=== PATIENT | male | born 1970 | race Caucasian/White ===

== ENCOUNTER → 2020-05-19 10:35 | Outpatient (BNVA) | payer MEDICAID, OTHER, SELFPAY | PROVIDERS: Visit Provider Nurse Practitioner Family | DX: Z20.828 Contact with and (suspected) exposure to other viral communicable diseases (principal) | CPT/HCPCS: 87635 ==

== ENCOUNTER 2020-05-22 16:46 | Inpatient (IN) | payer MEDICAID, SELFPAY ==
[2020-05-22 16:48] VITALS: BP 178/117; PULSE 119; RESP 18; TEMP 36.9; O2SAT 98; BMI 35.3
--- NOTE | 2020-05-22 17:07 | XRR_ITS ---
PROCEDURE INFORMATION: Exam: XR Chest, 1 View Exam date and time: 05/22/2020 5:18 PM Age: 49 years old Clinical indication: Other: Numbness in lower legs; Patient HX: Bilateral lower extremity paralysis; Additional info: Dyspnea TECHNIQUE: Imaging protocol: XR of the chest Views: 1 view. COMPARISON: No relevant prior studies available. FINDINGS: Lungs: Unremarkable. No consolidation. Pleural space: Unremarkable. No pleural effusion. No pneumothorax. Heart/Mediastinum: Unremarkable. No cardiomegaly. Bones/joints: Unremarkable. XR/XR chest 1V portable [id number] IMPRESSION: No acute findings.
--- NOTE | 2020-05-22 17:07 | CTR_ITS ---
PROCEDURE INFORMATION: Exam: CT Head Without Contrast Exam date and time: 05/22/2020 5:18 PM Age: 49 years old Clinical indication: Numbness / parasthesia; Additional info: Inability to move lower legs TECHNIQUE: Imaging protocol: Computed tomography of the head without contrast. Total images: 209 Radiation optimization: All CT scans at this facility use at least one of these dose optimization techniques: automated exposure control; mA and/or kV adjustment per patient size (includes targeted exams where dose is matched to clinical indication); or iterative reconstruction. COMPARISON: No relevant prior studies available. RADIATION DOSE METRICS: Total DLP (mGy-cm): 890.96 FINDINGS: Brain: Normal. No hemorrhage. Unremarkable white matter. No mass effect. Cerebral ventricles: No ventriculomegaly. Bones/joints: Unremarkable. No acute fracture. Paranasal sinuses: Visualized sinuses are unremarkable. No fluid levels. Mastoid air cells: Visualized mastoid air cells are well aerated. Soft tissues: Unremarkable. CT/CT head wo con* [id number] IMPRESSION: No acute intracranial abnormality. Radiation Dose CTDIVOL = (mGy): DLP = 890.96 (mGy-cm)
--- NOTE | 2020-05-22 17:15 | CTR_ITS ---
PROCEDURE INFORMATION: Exam: CT Cervical Spine Without Contrast Exam date and time: 05/22/2020 5:20 PM Age: 49 years old Clinical indication: Numbness; Additional info: Lower extremity paralysis TECHNIQUE: Imaging protocol: Computed tomography images of the cervical spine without contrast. Total images: 307 Radiation optimization: All CT scans at this facility use at least one of these dose optimization techniques: automated exposure control; mA and/or kV adjustment per patient size (includes targeted exams where dose is matched to clinical indication); or iterative reconstruction. COMPARISON: No relevant prior studies available. RADIATION DOSE METRICS: Total DLP (mGy-cm): 888.18 FINDINGS: Bones/joints: No visible fracture, subluxation, or dislocation. Mild reversal normal cervical lordosis which may be positional nature. Discs/Spinal canal/Neural foramina: No significant disc protrusion. No severe spinal canal stenosis. No significant neural foraminal narrowing. Lungs: Lung apices are normal. Soft tissues: Unremarkable. CT/CT cervical spin wo con* [id number] IMPRESSION: No acute findings. Radiation Dose CTDIVOL = (mGy): DLP = 888.18 (mGy-cm)
--- NOTE | 2020-05-22 17:15 | ECG_ITS ---
[facility] Test Date: 2020-05-22 Pat Name: Joey Booth Department: Room: Gender: Male Nuclear Medical Technologist: : 1970 Requested By: Harlan Claire Order Number: [id number] Martines MD: Isrrael Bermudez M.D. Measurements Intervals [place] Rate: 105 P: 72 FL: 169 QRS: 48 QRSD: 86 T: 3 QT: 329 QTc: 436 Interpretive Statements SINUS TACHYCARDIA NONSPECIFIC T-WAVE ABNORMALITY No previous ECG available for comparison Electronically Signed On 05-22-2020 17:49:47 SPECIAL EDUCATOR by Isrrael Bermudez M.D. [id number]
--- NOTE | 2020-05-22 17:20 | CTR_ITS ---
PROCEDURE INFORMATION: Exam: CT Thoracic Spine Without Contrast Exam date and time: 05/22/2020 5:18 PM Age: 49 years old Clinical indication: Numbness; Additional info: Lower extremity paralysis TECHNIQUE: Imaging protocol: Computed tomography images of the thoracic spine without contrast. Radiation optimization: All CT scans at this facility use at least one of these dose optimization techniques: automated exposure control; mA and/or kV adjustment per patient size (includes targeted exams where dose is matched to clinical indication); or iterative reconstruction. COMPARISON: No relevant prior studies available. RADIATION DOSE METRICS: Total DLP (mGy-cm): 2354.77 FINDINGS: Vertebrae: There is degenerative change in the lower thoracic spine with small anterior osteophytes. No fracture is identified. Discs/Spinal canal/Neural foramina: There is no evidence for spinal stenosis or cord compression. Other bones/joints: There is no lytic or destructive lesion. Soft tissues: Unremarkable. Pleural space: There is a small right pleural effusion CT/CT thoracic spin wo con* [id number] IMPRESSION: Mild degenerative changes. Radiation Dose CTDIVOL = (mGy): DLP = 2354.77 (mGy-cm)
--- NOTE | 2020-05-22 17:21 | CTR_ITS ---
PROCEDURE INFORMATION: Exam: CT Lumbar Spine Without Contrast Exam date and time: 05/22/2020 5:18 PM Age: 49 years old Clinical indication: Numbness; Additional info: Lower extremity paralysis TECHNIQUE: Imaging protocol: Computed tomography images of the lumbar spine without contrast. Radiation optimization: All CT scans at this facility use at least one of these dose optimization techniques: automated exposure control; mA and/or kV adjustment per patient size (includes targeted exams where dose is matched to clinical indication); or iterative reconstruction. COMPARISON: No relevant prior studies available. RADIATION DOSE METRICS: Total DLP (mGy-cm): 2354.77 FINDINGS: Vertebrae: No acute fracture. Normal alignment. T12-L1: There is mild anterior osteophyte formation is some calcification within the disc space. L1-L2: No significant disc protrusion. No severe spinal canal stenosis. No significant neural foraminal narrowing. L2-L3: No significant disc protrusion. No spinal canal stenosis. No neural foraminal narrowing. L3-L4: There is broad-based midline posterior disc herniation which extends also into the subarticular region on the right and narrows the sagittal diameter of the canal to approximately 7 mm but does not cause significant foraminal narrowing. This could be impinging upon the right L4 nerve root. L4-L5: There is diffuse posterior bulging of the disc and there are degenerative changes in the facet joints bilaterally without focal herniation or significant stenosis. L5-S1: There is decreased height of the disc spaces vacuum disc phenomenon and sclerosis of the superior endplate of S1 with diffuse posterior bulging of the disc but no focal herniation. There is some uncovertebral hypertrophy with posterior spurring which causes moderate foraminal narrowing on both sides. Other bones/joints: There is no evidence of fracture or dislocation. There is no destructive or lytic lesion. Soft tissues: Unremarkable. CT/CT lumbar spine wo con* [id number] IMPRESSION: Degenerative changes as described including L3-L4 disc herniation. Radiation Dose CTDIVOL = (mGy): DLP = 2354.77 (mGy-cm)
--- NOTE | 2020-05-22 17:21 | XRR_ITS ---
PROCEDURE INFORMATION: Exam: XR Pelvis Exam date and time: 05/22/2020 5:18 PM Age: 49 years old Clinical indication: Other: Numbness; Additional info: Lower extremity paralysis TECHNIQUE: Imaging protocol: XR pelvis. Views: 1 or 2 view. COMPARISON: No relevant prior studies available. FINDINGS: Limitations: Study is limited by portable technique. Parts of the right side of the pelvis are cut off on this examination. Bones/joints: Unremarkable. No acute fracture. Soft tissues: Unremarkable. XR/XR pelvis 1-2V* [id number] IMPRESSION: Limited portable exam. No acute finding.
--- NOTE | 2020-05-22 17:35 | ED_ITS ---
HPI - Fall General: Chief Complaint: Fall Stated Complaint: LOWER BACK PAIN Time Seen by Provider: 05/22/20 16:48 History of Present Illness: HPI Narrative: The patient is a 49-year-old male with no significantly known medical history. He comes to the ER complaining 12 hours ago at home he fell down on his knees to the ground. He says he could not get up and laid there for 12 hours until someone came and checked on him and called the ambulance. He says he cannot move his lower legs and his legs feel like they are asleep. He is able to slightly twitch his toes but no movement against gravity with his legs at all. He says prior to today when he wakes he has some tingling in his legs if he sleeps the wrong way but he has never had anything like this before. MD complaint: fall Onset (ago): hour(s) (12) Fall from: standing Fall witnessed: no Place fall occurred: home Loss of consciousness: None Prolonged down time: yes Symptoms prior to fall: none Context: tripped/slipped Severity: severe Quality: sharp and tingling Associated symptoms-after fall: Reports difficulty walking; Denies abdominal pain, chest pain, confusion, headache(s) or neck pain Review of Systems General: Reports: 10 or more systems reviewed and unremarkable except in HPI and below Const: Denies: fatigue Eyes: Denies: change in vision, blurry vision or eye redness ENMT: Denies: throat pain, swelling of lips/tongue, ear or mastoid pain or nasal congestion Card: Denies: chest pain, palpitations, irregular heart rhythm, edema, dyspnea on exertion or orthopnea Resp: Denies: dyspnea, productive cough or non-productive cough GI: Denies: abdominal pain, diarrhea or GI cramping : Denies: flank pain, urinary frequency or urinary urgency Musc: Denies: neck pain, back pain, extremity pain, joint pain, joint redness, limited range of motion or muscle weakness Skin/Breast: Denies: rash, pruritus, erythema, skin pain or skin tenderness Neuro: Reports: weakness in extremities, sensory changes and difficulty walking; Denies: headache(s), numbness in extremities, dizziness, confusion or Slurred speech present Psych: Denies: anxiety or depression Endo: Denies: polyuria All/Imm: Denies: urticaria, throat swelling or tongue swelling PFSH ED PFSH: Medical History (Updated 05/23/20 @ 01:02 by Harlan Claire MD) No pertinent past medical history Surgical History (Updated 05/23/20 @ 00:42 by Raúl Ricks MD) No pertinent past surgical history Family History (Updated 05/23/20 @ 00:42 by Raúl Ricks MD) Family/Other No problems noted. Father CAD (coronary artery disease) Social History (Updated 05/19/20 @ 09:37 by Kate Hebert LPN) Smoking and tobacco status: never smoked Alcohol intake: current Alcohol intake frequency: holidays/special occasions only History of recent travel: No Physical Exam Const: COMMON NORMALS: no acute distress, average body habitus, patient oriented x3, no limitations, healthy appearing, alert and well nourished GENERAL APPEARANCE: cooperative, comfortable, well kempt and well developed ORIENTATION/CONSCIOUSNESS: Yes awake, Yes oriented to person, Yes oriented to place and Yes oriented to time HENMT: COMMON NORMALS: normocephalic, external ears normal and Normal external nose present HEAD & SCALP: normal to inspection and normocephalic NOSE: Normal external nose present EXTERNAL EAR: Yes external ears normal MOUTH: Normal oral and palatal mucosa present THROAT: posterior oropharynx normal Eye: COMMON NORMALS: Equal, round and reactive pupils present and EOMs intact bilaterally GENERAL EYE: appearance normal, both eyes and all related structures PUPIL: Yes Equal, round and reactive pupils present Neck/C-Spine: COMMON NORMALS: full ROM, no lymphadenopathy and no JVD GENERAL: Yes normal visual inspection Lymph: LYMPHATIC: no lymphadenopathy noted Chest: COMMONS NORMALS: normal inspection of the chest and normal palpation of entire chest wall Resp: COMMON NORMALS: normal respiratory effort, No retractions, No use of acc essory muscles, clear to auscultation bilaterally and percussion normal EFFORT & INSPECTION: Yes able to speak in complete sentences AUSCULTATION: clear to auscultation bilaterally PERCUSSION: percussion normal Cardio: COMMON NORMALS: no JVD, regular rate, regular rhythm, S1 normal heart sound present, S2 normal heart sound present and Peripheral pulses 2+ throughout RATE: regular rate RHYTHM: regular rhythm HEART SOUNDS: S1 normal heart sound present and S2 normal heart sound present PERIPHERAL PULSES: Peripheral pulses 2+ throughout GI: COMMON NORMALS: Normal to inspection, nondistended, normoactive bowel sounds present, Soft to palpation, non-tender and no masses INSPECTION: Yes normal to inspection PALPATION: Yes Soft to palpation : COMMON NORMALS: Yes no CVA tenderness BLADDER/KIDNEY EXAM: Yes no CVA tenderness Back/Pelvis: COMMON NORMALS: no CVA tenderness, thoracic and lumbar spine normal to inspection, no thoracic nor lumbar tenderness and thoraco-lumbar ROM normal Extremity: COMMON NORMALS: normal to inspection, full ROM, capillary refill normal, no joint enlargement and no pedal edema GENERAL: Yes normal exam except as noted Neuro: COMMON NORMALS: patient oriented x3, CN's II-XII intact bilaterally, no sensory deficits noted and gait normal SENSORIUM/ORIENTATION: Yes alert, Yes oriented to person, Yes oriented to place and Yes oriented to time OTHER: The patient has paresthesias to both legs bilaterally from the thigh down to toes. He has no voluntary movement of his lower extremities except he is able to twitch his toes. He has a normal plantar response bilaterally on testing with a pen though it is reduced in movement. He has intact sensation but he says it is reduced bilaterally and feels like both of his legs are asleep. No movement in his thighs and calves Psych: COMMON NORMALS: mental status grossly normal, Normal thought process present, cooperative, normal affect and speech normal APPEARANCE: Yes well kempt ATTITUDE: Yes calm SPEECH: Yes normal speech THOUGHT PROCESS: No rmal thought process present Skin: COMMON NORMALS: no rashes or lesions noted GENERAL SKIN EXAM: no rashes or lesions noted Course Vital Signs: Vital signs: Vital Signs Temperature 98.4 F 05/22/20 16:48 Pulse Rate 87 05/22/20 18:15 Respiratory Rate 15 05/22/20 22:48 Blood Pressure 156/107 05/22/20 22:48 Pulse Oximetry 96 05/22/20 22:48 MDM - Fall MDM Narrative: Medical decision making narrative: This case has been very unusual. With a simple fall the patient was unable to get up and is now paralyzed in both his legs. He also has some neuropathy from the waist down. He was given dexamethasone and IV fluids and sent for CT which showed only dege nerative disc disease. I discussed the case with Dr. Meneses who recommended noncontrast MRI. The team came in and perform this. The radiologist called me to say there was a collection of fluid in his lower thoracic spine possibly an abscess. I again discussed with Dr. Meneses who recommended doing an MRI again of that area with IV contrast. He says since it has been longer than 4 hours there is no immediate intervention that needs to be done regarding his paralysis. I discussed with Dr. Ricks who accepts for inpatient care. We have started antibiotics to potentially treat an epidural abscess Differential Diagnosis: Fall Differential Diagnosis: Likely syncope (Epidural abscess, fracture, spinal cord compression) Lab Data: Labs: Lab Results 05/22/20 05/22/20 Range/Units 18:02 18:02 WBC 15.8 H (4.0-10.0) 10^3/ uL RBC 5.34 H (4.1-5.3) 10^6/u L Hgb 14.1 (11.7-16.6) g/dL Hct 43.0 (42.0-52.0) % MCV 80.5 (80-94) fL MCH 26.4 L (28.0-34.0) pg MCHC 32.8 (30.0-36.0) g/dL RDW 12.6 (12.1-15.1) % Plt Count 432 H (130-400) 10^3/c mm MPV 9.7 (7.4-10.4) fL Neut % (Auto) 85.0 % Lymph % (Auto) 7.5 % Howard % (Auto) 6.8 % Eos % (Auto) 0.0 % Baso % (Auto) 0.2 % Neut # (Auto) 13.44 H (1.8-7.7) 10^3/u L Lymph # (Auto) 1.2 (0.8-4.8) 10^3/u L Howard # (Auto) 1.1 H (0.2-0.9) 10^3/u L Eos # (Auto) 0.0 (0.0-0.8) 10^3/u L Baso # (Auto) 0.0 (0.0-0.1) 10^3/u L Nucleated RBC % (a uto) 0 % Nucleated RBCs # 0.0 /100WBC Sodium 135 L (136-145) mmol/L Potassium 3.6 (3.5-5.1) mmol/L Chloride 94 L (98-107) mmol/L Carbon Dioxide 30 H (22-29) mmol/L Anion Gap 14.6 (5-19) BUN 13 (6-20) mg/dL Creatinine 0.6 L (0.7-1.2) mg/dL GFR Calculation 142.6 H (90-130) mL/min Glucose 196 H (65-115) mg/dL Calculated Osmolal ity 286 (285-295) mOsm/k g Calcium 9.2 (8.5-10.5) mg/dL Total Bilirubin 0.7 (0.15-1.2) mg/dL AST 18 (0-40) U/L ALT 13 (0-41) U/L Alkaline Phosphata se 84 (40-130) IU/L Total Protein 7.5 (6.6-8.7) g/dL Albumin 3.5 (3.5-5.2) g/dL Globulin 4.0 (1.3-4.6) g/dL Ethyl Alcohol < 10 (0-10) mg/dL Discharge Plan Discharge Patient Disposition: Admitted As Inpatient Admit Provider: Raúl Ricks Clinical Impression: Paralysis of both lower limbs Leukocytosis Qualifiers: Leukocytosis type: unspecified Qualified Code(s): D72.829 - Elevated white blood cell count, unspecified Condition: Stable Coding Level of Care Code ED Patient Placement Coordinator for g Fwd Exam Comprehensive
[2020-05-22] MEDS: orphenadrine 30 mg/mL Inj 2 mL 60 MG IM (17:54)
[2020-05-22] MEDS: dexamethasone 4 mg/mL INJ 10 MG IVP (17:54)
[2020-05-22] MEDS: ketorolac 30 mg/mL INJ 15 MG IVP (17:55)
[2020-05-22] MEDS: sodium chloride 0.9% 1,000 ML 999 ML IV (17:56)
[2020-05-22 18:10] LABS: Basophils % 0.2 %; Hemoglobin 14.1 g/dL (11.7-16.6); Lymphocytes # 1.2 10^3/uL (0.8-4.8); Lymphocytes % 7.5 %; Mean Corpuscular HGB Conc 32.8 g/dL (30.0-36.0); Mean Corpuscular Hemoglobin 26.4 pg (28.0-34.0); Mean Corpuscular Volume 80.5 fL (80-94); Mean Platelet Volume 9.7 fL (7.4-10.4); Monocytes # 1.1 10^3/uL (0.2-0.9); Monocytes % 6.8 %; Neutrophils # 13.44 10^3/uL (1.8-7.7); Nucleated Red Blood Cells % 0 %; Platelet Count 432 10^3/cmm (130-400); Red Blood Count 5.34 10^6/uL (4.1-5.3); Red Cell Distribution Width 12.6 % (12.1-15.1); White Blood Count 15.8 10^3/uL (4.0-10.0)
[2020-05-22 18:15] VITALS: BP 153/88; PULSE 87; RESP 18; O2SAT 99
[2020-05-22 18:31] LABS: Alanine Aminotransferase 13 U/L (0-41); Albumin Level 3.5 g/dL (3.5-5.2); Alkaline Phosphatase 84 IU/L (40-130); Anion Gap 14.6 (5-19); Aspartate Amino Transferase 18 U/L (0-40); Blood Urea Nitrogen 13 mg/dL (6-20); Calcium 9.2 mg/dL (8.5-10.5); Carbon Dioxide 30 mmol/L (22-29); Chloride 94 mmol/L (98-107); Glomerular Filtration Rate 142.6 mL/min (90-130); Glucose 196 mg/dL (65-115); Osmolality Calculated 286 mOsm/kg (285-295); Potassium 3.6 mmol/L (3.5-5.1); Sodium 135 mmol/L (136-145); Total Bilirubin 0.7 mg/dL (0.15-1.2); Total Protein 7.5 g/dL (6.6-8.7)
[2020-05-22 18:37] LABS: Alcohol Level < 10 mg/dL (0-10)
--- NOTE | 2020-05-22 19:43 | MRR_ITS ---
PROCEDURE INFORMATION: Exam: MR Lumbar Spine Without Contrast. Exam date and time: 05/22/2020 9:15 PM Age: 49 years old Clinical indication: Low back pain; Additional info: Lower extremity paralysis TECHNIQUE: Imaging protocol: Multiplanar magnetic resonance images of the lumbar spine without intravenous contrast. COMPARISON: CT lumbar spine wo con* [id number] 05/22/2020 6:42 PM FINDINGS: Vertebrae: Lumbar vertebrae show normal marrow signal throughout without evidence for fracture or replacement lesion. Spinal cord: Tip of the conus is at L2 and is unremarkable. L1-L2: There is decreased signal in the L1-L2 disc consistent with some disc desiccation and mild posterior bulging of the disc but no focal herniation or stenosis. L2-L3: No significant disc disease. No significant spinal canal stenosis. No neural foraminal stenosis. L3-L4: There is decreased height of the disc with diffuse posterior bulging and protrusion, mainly in the midline and towards the right. This causes some mild effacement of the anterior epidural space but no significant impingement or stenosis L4-L5: There is mild diffuse posterior bulging of the L4-L5 disc without focal herniation or significant stenosis. L5-S1: There is decreased height of the L5-S1 disc space with diffuse posterior bulging of the disc and reactive changes in the adjacent endplates. There is mild foraminal narrowing on both sides more on the left than on the right. Soft tissues: Unremarkable. MR/MR lumbar spine wo con* [id number] IMPRESSION: 1. Degenerative disc changes as described. 2. Please see report of CT scan of the thoracic spine which describes findings COMMENTS: Please also see MRI of the thoracic spine.
--- NOTE | 2020-05-22 19:43 | MRR_ITS ---
PROCEDURE INFORMATION: Exam: MR Thoracic Spine Without Contrast Exam date and time: 05/22/2020 9:15 PM Age: 49 years old Clinical indication: Other: Low back pain with bilat extremety paralysis; Additional info: Lower extremity paralysis TECHNIQUE: Imaging protocol: Multiplanar magnetic resonance images of the thoracic spine without contrast. COMPARISON: CT thoracic spin wo con* [id number] 05/22/2020 6:39 PM FINDINGS: Limitations: Study is significantly limited by patient motion. Vertebrae: There is normal marrow signal throughout the vertebrae without evidence of fracture or replacement lesion. There is some degenerative spurring at multiple levels. Epidural space: There is an epidural fluid collection posterior to the cord from about T7 through T11. This is most prominent at the T11 level and more towards the right than the left. This causes spinal stenosis and some cord compression at the T10 and T11 levels. Spinal cord: There is some mild focal signal within the central cord at T11 which may represent some myelomalacia. Discs/Spinal canal/Neural foramina: No significant disc disease. No significant spinal canal stenosis. Pleural space: There is a small right pleural effusion. Soft tissues: There is mild atrophy of the right paraspinous muscles in the lower thoracic spine. MR/MR thoracic spin wo con* [id number] IMPRESSION: Epidural spinal fluid collection in the lower thoracic spine as described. Infection is not excluded. Further evaluation with contrast-enhanced MRI is suggested. COMMENTS: THIS REPORT CONTAINS FINDINGS THAT MAY BE CRITICAL TO PATIENT CARE. The findings were verbally communicated via telephone conference with Harlan Claire at 11:07 PM NURSE PRN on 05/22/2020. The findings were acknowledged and understood.
--- NOTE | 2020-05-22 21:27 | PC.NURSE ---
pt off unit to MRI @ 2100
--- NOTE | 2020-05-22 22:47 | PC.NURSE ---
pt return from MRI
[2020-05-22 22:48] VITALS: BP 156/107; RESP 15; O2SAT 96
--- NOTE | 2020-05-22 23:09 | P.HP_ITS ---
Providers/Chief Complaint Admitting Physician: Raúl Ricks MD Chief Complaint: LOWER BACK PAIN History of Present Illness Joey Booth is a 49 year old male with a significant past medical surgical history presented today after sustaining a fall at home. 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 Patient is stating that he could not feel his buttocks area, felt very weird and tried to sit back in the chair when he fell on the floor, he just could not move his legs, he stayed on the floor for about 12 hours because excruciating pain, he soiled his garments 3 times with urine, this happened around 5 AM, finally he got some strength she called EMS who brought him to the ER. Diagnosis in the ER revealed hypertension, leukocytosis, sepsis, thoracic MRI is revealing fluid collection around T7 ~T11 with cord compression, another study has been requested with contrast to rule out abscess, I have started him on vancomycin and ceftriaxone, patient has sensory deficit of right medial thigh area, strength of lower extremities 1/5 Dr. Meneses has been notified and consulted by the ER physician, he was emphasized about the MRI findings. Review of Systems Const: Denies: fever(s) Eyes: Denies: change in vision ENMT: Denies: throat pain Card: Denies: chest pain Resp: Denies: dyspnea GI: Denies: abdominal pain : Denies: flank pain Musc: Reports: back pain, extremity pain, limited range of motion and muscle weakness; Denies: neck pain or extremity swelling Skin/Breast: Denies: rash Neuro: Denies: headache(s) Psych: Denies: anxiety Endo: Denies: polyuria Filemon/Lymph: Denies: easy bruising All/Imm: Denies: urticaria Medications/Allergies Home Medications Medication Instructions Recorded Confirmed Last Taken Type Vitamin C 1 tab PO DAILY@0800 05/22/20 05/22/20 05/21/20 History Allergies Allergy/AdvReac Type Severity Reaction Status Date / Time No Known Allergies Allergy Verified 05/22/20 16:55 PFSH Acute PFSH: Medical History (Updated 05/23/20 @ 00:42 by Raúl Ricks MD) No pertinent past medical history Surgical History (Updated 05/23/20 @ 00:42 by Raúl Ricks MD) No pertinent past surgical history Family History (Updated 05/23/20 @ 00:42 by Raúl Ricks MD) Family/Other No problems noted. Father CAD (coronary artery disease) Social History (Updated 05/19/20 @ 09:37 by Kate Hebert LPN) Smoking and tobacco status: never smoked Alcohol intake: current Alcohol intake frequency: holidays/special occasions only History of recent travel: No Vitals/I&O/Wt Last Vital Signs Temp 98.4 F 05/22/20 16:48 Pulse 87 05/22/20 18:15 Resp 15 05/22/20 22:48 BP 156/107 05/22/20 22:48 Pulse Ox 96 05/22/20 22:48 Weight last 48 hrs Weight 124.738 kg Physical Exam Narrative: EXAM NARRATIVE: Middle-age male morbidly obese currently laying flat comfortably in his bed Saturating well on room air Hypertensive Lower extremity strength 1/5 bilaterally, paresthesia of lower extremities, right medial thigh area has normal sensation, patient is only able to wiggle his toes, He is awake alert oriented x3 no signs of stroke S1, S2 sinus rhythm Abdomen soft distended bowel sounds present Appropriate mood and affect No skin ulcers gangrene of lower extremity No fevers or distress bilateral breath sounds however diminished during well on room air Because of his excruciating pain back was not able to be examined Data : 05/22/20 18:02 05/22/20 18:02 A&P Assessment and plan (1) Cord compression: Status: Acute (2) Fall: Status: Acute (3) Paresthesia and pain of extremity: Status: Acute (4) Paresthesia of buttock: Status: Acute Additional A&P Information Spinal cord compression We will start Decadron, I am waiting on MRI with contrast study to rule out epidural abscess however fluid collection has been seen on the MRI thoracic region Start him on antibiotics vancomycin and ceftriaxone, place Nino catheter to monitor urine output, patient does have signs of spinal cord compression Obtain blood cultures, patient is not an IV drug abuser, no active murmur appreciated, Dr. Meneses has been notified and updated about the MRI results of thoracic, lumbar spine MRI, Sepsis with unknown source Rule out epidural abscess Currently on vancomycin and ceftriaxone Sepsis criteria met with tachycardia, leukocytosis, will obtain lactic acid, Full code N.p.o. Avoid DVT prophylaxis with anticoagulant agents would use SCDs for now Attestations Medical Necessity Statement*: Anticipating stay in the hospital across more than 2 midnights rule out epidural abscess currently on antibiotics for sepsis Time Spent in Patient Care: (>than 50% of time spent in counselling and/or direct pt care on unit) . 50mins Coding Level of Care Code Acute Signal System Testing Maintainer for Chg Fwd Diagnoses Cord compression G95.20 Fall W19.XXXA Paresthesia and pain of extremity R20.2; M79.609 Paresthesia of buttock R20.2
--- NOTE | 2020-05-22 23:09 | MRR_ITS ---
PROCEDURE INFORMATION: Exam: MR Thoracic Spine With Contrast Exam date and time: 05/22/2020 11:10 PM Age: 49 years old Clinical indication: Pain in thoracic spine; Additional info: Thoracic fluid collection seen in non contrast? Abscess? Other TECHNIQUE: Imaging protocol: Multiplanar magnetic resonance images of the thoracic spine with intravenous contrast. Contrast material: PROHANCE; Contrast volume: 17 ml; Contrast route: INTRAVENOUS (IV); COMPARISON: MR thoracic spin wo con* [id number] 05/22/2020 9:24 PM FINDINGS: Vertebrae: Unremarkable. Epidural space: Rim enhancing fluid collection in the posterior epidural space extends from T7-8 to lower T11. Enhancement within the paraspinous musculature suggested on the right T9-11. Spinal canal is narrowed as discussed on prior study due to the epidural collection. Spinal cord: Unchanged. Discs/Spinal canal/Neural foramina: See above. Pleural space: Small right pleural fluid. Soft tissues: See Epidural space finding. MR/MR thoracic spine w con [id number] IMPRESSION: Posterior epidural abnormality most suspicious for abscess.
--- NOTE | 2020-05-22 23:35 | PC.PHAR ---
Vancomycin is dosed at 1500mg IVPB every 8 hours to produce a predicted trough level of 12.51 (populaltion based pharmacokinetic analysis). A trough level has been ordered from the lab to be obtained before the fourth dose to confirm and adjust if needed.
[2020-05-23] VITALS (19 sets, daily range): BP systolic 101–167; BP diastolic 52–91; PULSE 78–102; RESP 16–94; TEMP 36.4–37.3; O2SAT 93–97
--- NOTE | 2020-05-23 | SCC_ITS ---
Procedure: 1. Laminectomy with partial facetecomy T7/8 2. Laminectomy with partial facetecomy T8/9 3. Laminectomy with partial facetecomy T9/10 4. Laminectomy with partial facetecomy T10/11 76.0 seconds of fluoroscopic guidance, for a cumulative dose of 56.36 mGy, was provided to Dr. Meneses by the radiology department. C-arm images of the thoracic spine were saved for the patient's permanent record. [facility]
--- NOTE | 2020-05-23 | XR_ITS ---
WS: [id number] Exam: XR thoracic spine 3V* [id number] Date/Time of Exam: 05/23/2020 12:00 AM Reason For Exam: OR PICS Limited AP C-arm images of the lower thoracic spine are submitted for evaluation. No obvious fracture or malalignment demonstrated. A metallic marker is positioned over the T10-T11 disc level on several images. Surgical retractors are also noted superimposing the lower thoracic spine.
[2020-05-23 03:59] LABS: Add Urine Microscopic? YES; Bilirubin Urine Neg (Negative); Blood Urine 3+ (Negative); Glucose Urine UA 1+ (Normal); Ketones Urine 2+ (Negative); Leukocyte Esterase Urine 2+ (Negative); Nitrate Urine Negative (Negative); Protein Urine Neg (Negative); Urine Appearance Cloudy (CLEAR); Urine Color Yellow (Yellow); Urobilinogen Urine 4 mg/dL (Negative); pH Urine 5 (5-7)
[2020-05-23 04:01] LABS: Bacteria Urine 2+ /hpf; Squamous Epithelial Cell Urine 0-4 /hpf (0-5); Transitional Epi Cells Urine 0-4 /hpf; WBC Urine TOO NUMEROUS TO CNT /hpf (0-5)
[2020-05-23 04:02] LABS: Add Urine Culture? Yes
--- NOTE | 2020-05-23 05:06 | PC.NURSE ---
Nino insertion Attempted to place a 16F Nino in this pt but the openning of the penis was too small. Attempted a 14F and was unsuccessful. On the 3rd attempt, a 10 F Nino was placed and is patent. Urine is clear, no sediment noted. Immediate urine output is 450ml. Will continue to monitor.
[2020-05-23] MEDS: sodium chloride 0.9% 1,000 ML 999 ML IV (06:10)
[2020-05-23] MEDS: vancomycin 1,500 MG/300 ML PIGGYBACK 150 MG IV ×3 (06:11→22:51)
[2020-05-23] MEDS: cefTRIAXone 2,000 MG in sodium chloride 0.9% (plus) 50 ML 100 MG IV ×2 (06:13→14:42)
[2020-05-23 06:44] LABS: Amphetamines Screen Urine Negative (Negative); Barbiturates Screen Urine Negative (Negative); Benzodiazepines Screen Urine Negative (Negative); Cocaine Screen Urine Negative (Negative); Opiate Screen Urine Negative (Negative); PCP Screen Urine Negative (Negative); THC Screen Urine Negative (Negative)
[2020-05-23 07:32] LABS: Basophils % 0.2 %; Lymphocytes # 1.3 10^3/uL (0.8-4.8); Lymphocytes % 11.6 %; Mean Corpuscular HGB Conc 32.5 g/dL (30.0-36.0); Mean Corpuscular Hemoglobin 26.1 pg (28.0-34.0); Mean Corpuscular Volume 80.3 fL (80-94); Mean Platelet Volume 9.8 fL (7.4-10.4); Monocytes # 0.8 10^3/uL (0.2-0.9); Monocytes % 7.4 %; Neutrophils # 9.11 10^3/uL (1.8-7.7); Neutrophils % 79.7 %; Nucleated Red Blood Cells % 0 %; Platelet Count 440 10^3/cmm (130-400); Red Blood Count 4.98 10^6/uL (4.1-5.3); Red Cell Distribution Width 12.9 % (12.1-15.1); White Blood Count 11.4 10^3/uL (4.0-10.0)
[2020-05-23 08:07] LABS: Anion Gap 12.7 (5-19); Blood Urea Nitrogen 16 mg/dL (6-20); Calcium 8.9 mg/dL (8.5-10.5); Carbon Dioxide 27 mmol/L (22-29); Chloride 98 mmol/L (98-107); Glomerular Filtration Rate 142.6 mL/min (90-130); Glucose 166 mg/dL (65-115); Osmolality Calculated 283 mOsm/kg (285-295); Potassium 3.7 mmol/L (3.5-5.1); Sodium 134 mmol/L (136-145)
[2020-05-23] MEDS: sodium chloride 0.9% 1,000 ML 30 ML IV (08:10)
--- NOTE | 2020-05-23 08:23 | P.ANESASSM_ITS ---
Pre-Anesthetic Assessment Pre-Anesthetic Assessment: Height/Weight: Height 1.88 m Weight 124.738 kg Temp Pulse Resp BP Pulse Ox 98.7 F 91 18 153/91 94 05/23/20 08:00 05/23/20 08:00 05/23/20 08:00 05/23/20 08:00 05/23/20 08:00 Preop Diagnosis: epidural abcess Proposed Procedure: Operation Date: 05/23/20 08:00 Proposed Procedures p T7-T11 Spine Decompression of epidural abscess(Not Applicable) - Neo Meneses DO Familial anesthetic complications: na Was Beta Estrellita taken within 24 hours: N/A Last Intake: 22:00 Social: Social History: Alcohol (social) and No tobacco Exam: Pre-Anes Outpt Exam: alert, oriented x 3, clear to auscultation bilaterally and regular rate & rhythm Airway: Submandibular: WNL Cervical ROM: WNL MP: 2 Dentition: Full Pulmonary: Pulmonary: None reported CV/HEM: CV/HEM: None reported : : None reported Hepatic: Hepatic: None reported GI: GI: None reported Metabolic: Metabolic: Morbid obesity Musc/skel: Musc/skel: Weakness Comments: bilateral lower extremities Neuropsych: Neuropsych: None reported Anesthetic Plan: ASA status: 2E Anesthesia: General Risk of > 500 ml blood loss (7ml/kg in children): No Meds/Allergies Current Medications: Current Medications Generic Name Dose Route Start Last Admin Trade Name Freq PRN Reason Stop Dose Admin Dexamethasone 4 mg 05/23/20 09:00 05/23/20 07:59 Dexamethasone 4 Mg Tablet PO Not Given QID SANDIE Vancomycin/PEG/NAD A/Lysine/Water 1,500 mg in 300 m ls @ 150 mls/hr 05/22/20 23:30 05/23/20 07:14 Vancocin IV Not Given Q8H SANDIE Ceftriaxone Sodium 2,000 mg/ 50 mls @ 100 mls/ hr 05/23/20 03:08 05/23/20 06:13 Sodium Chloride IV 100 mls/hr Q12H SANDIE Administration Protocol Potassium Chloride 20 meq/ 1,010 mls @ 75 ml s/hr 05/23/20 03:45 05/23/20 06:12 Dextrose/Lactate d Ringer's IV 75 mls/hr .[id number] SANDIE Administration Senna/Docusate Sod ium 1 tab 05/23/20 09:00 05/23/20 07:59 Sennosides-Docus ate Tablet PO Not Given DAILY SANDIE PFSH Anesthesia PFSH: Medical History (Updated 05/23/20 @ 01:02 by Harlan Claire MD) No pertinent past medical history Surgical History (Updated 05/23/20 @ 00:42 by Raúl Ricks MD) No pertinent past surgical history Family History (Updated 05/23/20 @ 00:42 by Raúl Ricks MD) Family/Other No problems noted. Father CAD (coronary artery disease) Social History (Updated 05/19/20 @ 09:37 by Kate Hebert LPN) Smoking and tobacco status: never smoked Alcohol intake: current Alcohol intake frequency: holidays/special occasions only History of recent travel: No Data Anesthesia CBC & Chem 7: 05/23/20 06:55 05/23/20 06:55 Other Labs: Laboratory Results - last 48 hr 05/22/20 05/22/20 05/23/20 18:02 18:02 03:30 WBC 15.8 H RBC 5.34 H Hgb 14.1 Hct 43.0 MCV 80.5 MCH 26.4 L MCHC 32.8 RDW 12.6 Plt Count 432 H MPV 9.7 Neut % (Auto) 85.0 Lymph % (Auto) 7.5 [place] % (Auto) 6.8 Eos % (Auto) 0.0 Baso % (Auto) 0.2 Neut # (Auto) 13.44 H Lymph # (Auto) 1.2 [place] # (Auto) 1.1 H Eos # (Auto) 0.0 Baso # (Auto) 0.0 Nucleated RBC % (auto) 0 Nucleated RBCs # 0.0 Sodium 135 L Potassium 3.6 Chloride 94 L Carbon Dioxide 30 H Anion Gap 14.6 BUN 13 Creatinine 0.6 L GFR Calculation 142.6 H Glucose 196 H Calculated Osmolality 286 Calcium 9.2 Total Bilirubin 0.7 AST 18 ALT 13 Alkaline Phosphatase 84 Total Protein 7.5 Albumin 3.5 Globulin 4.0 Urine Color Yellow Urine Appearance Cloudy Urine pH 5 Ur Specific Dolores 1.020 Urine Protein Neg Urine Glucose (UA) 1+ Urine Ketones 2+ H Urine Blood 3+ H Urine Nitrate Negative Urine Bilirubin Neg Urine Urobilinogen 4 H Ur Leukocyte Esterase 2+ H Urine RBC 5-10 H Urine WBC Too numerous to cnt H Ur Squamous Epith Cells 0-4 H Ur Transition Epith Cell 0-4 Amorphous Sediment Not Reportable Urine Bacteria 2+ H Urine Opiates Screen Ur Barbiturates Screen Ur Phencyclidine Scrn Ur Amphetamines Screen U Benzodiazepines Scrn Urine Cocaine Screen U Marijuana (THC) Screen Ethyl Alcohol < 10 05/23/20 05/23/20 05/23/20 03:30 06:55 06:55 WBC 11.4 H RBC 4.98 Hgb 13.0 Hct 40.0 L MCV 80.3 MCH 26.1 L MCHC 32.5 RDW 12.9 Plt Count 440 H MPV 9.8 Neut % (Auto) 79.7 Lymph % (Auto) 11.6 [place] % (Auto) 7.4 Eos % (Auto) 0.0 Baso % (Auto) 0.2 Neut # (Auto) 9.11 H Lymph # (Auto) 1.3 [place] # (Auto) 0.8 Eos # (Auto) 0.0 Baso # (Auto) 0.0 Nucleated RBC % (auto) 0 Nucleated RBCs # 0.0 Sodium Potassium 3.7 Chloride 98 Carbon Dioxide 27 Anion Gap 12.7 BUN 16 Creatinine GFR Calculation Glucose Calculated Osmolality Calcium 8.9 Total Bilirubin AST ALT Alkaline Phosphatase Total Protein Albumin Globulin Urine Color Urine Appearance Urine pH Ur Specific [place]ores Urine Protein Urine Glucose (UA) Urine Ketones Urine Blood Urine Nitrate Urine Bilirubin Urine Urobilinogen Ur Leukocyte Esterase Urine RBC Urine WBC Ur Squamous Epith Cells Ur Transition Epith Cell Amorphous Sediment Urine Bacteria Urine Opiates Screen Negative Ur Barbiturates Screen Negative Ur Phencyclidine Scrn Negative Ur Amphetamines Screen Negative U Benzodiazepines Scrn Negative Urine Cocaine Screen Negative U Marijuana (THC) Screen Negative Ethyl Alcohol Micro: Microbiology 05/23/20 06:55 Blood Culture - Preliminary Blood SPECIMEN COLLECTED 05/23/20 06:58 Blood Culture - Preliminary Blood SPECIMEN COLLECTED Cardiac Studies: No Data to Display
--- NOTE | 2020-05-23 08:23 | W.PM.OPSUD ---
Surgery/Procedure H&P Update DATE OF PROCEDURE: May 23, 2020 DATE H&P PERFORMED: 05/23/20 H&P UPDATE INFORMATION: I have examined patient prior to procedure PLANNED PROCEDURE: Operation Date: 05/23/20 08:00 Proposed Procedures p T7-T11 Spine Decompression of epidural abscess(Not Applicable) - Neo Meneses DO
--- NOTE | 2020-05-23 08:26 | PM.CONSULT ---
Providers/Reason For Consult Consulting Physican/Specialty*: hospitalist Reason for Consult*: t7-T11 epidural abscess Attending Physician: Anastasia Sparks History of Present Illness History of Present Illness Joey Booth is a 49 year old male with a significant past medical surgical history presented today after sustaining a fall at home. 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 Patient is stating that he could not feel his buttocks area, felt very weird and tried to sit back in the chair when he fell on the floor, he just could not move his legs, he stayed on the floor for about 12 hours because excruciating pain, he soiled his garments 3 times with urine, this happened around 5 AM, finally he got some strength she called EMS who brought him to the ER. Diagnosis in the ER revealed hypertension, leukocytosis, sepsis, thoracic MRI is revealing fluid collection around T7 ~T11 with cord compression, another study has been requested with contrast to rule out abscess, I have started him on vancomycin and ceftriaxone, patient has sensory deficit of right medial thigh area, strength of lower extremit Review of Systems Narrative: ENT ROS: negative for nasal congestion, drainage or bleeding, sore throat, dysphagia or ear pain Eyes: PERRL Hematological and Lymphatic ROS: negative for swollen glands or abnormal bleeding Endocrine ROS: negative for polyuria/polydpsia or new changes in weight Respiratory ROS: negative for cough, shortness of breath, or wheezing Cardiovascular ROS: negative for chest pain or dyspnea on exertion Gastrointestinal ROS: negative for reflux, abdominal pain, change in bowel habits, or black or bloody stools Musculoskeletal ROS: negative for back pain, neck pain, or joint pain or swelling except for current problem Neurological ROS: negative for TIA or stoke symptoms Skin: no rashes Meds/Allergies Home Medications and Allergies Home Medications Medication Instructions Recorded Confirmed Last Taken Type Vitamin C 1 tab PO DAILY@0800 05/22/20 05/22/20 05/21/20 History Allergies Allergy/AdvReac Type Severity Reaction Status Date / Time No Known Allergies Allergy Verified 05/22/20 16:55 Current Medications Current Medications Generic Name Dose Route Start Last Admin Trade Name Maynor PRN Reason Stop Dose Admin Dexamethasone 4 mg 05/23/20 09:00 05/23/20 07:59 Dexamethasone 4 Mg Tablet PO Not Given QID SANDIE Vancomycin/PEG/NA[place]/Lysine/Water 1,500 mg in 300 mls @ 150 mls/hr 05/22/20 23:30 05/23/20 07:14 Vancocin IV Not Given Q8H SANDIE Ceftriaxone Sodium 2,000 mg/ 50 mls @ 100 mls/hr 05/23/20 03:08 05/23/20 06:13 Sodium Chloride IV 100 mls/hr Q12H SANDIE Administration Protocol Potassium Chloride 20 meq/ 1,010 mls @ 75 mls/hr 05/23/20 03:45 05/23/20 06:12 Dextrose/Lactated Ringer's IV 75 mls/hr .[id number] SANDIE Administration Senna/Docusate Sodium 1 tab 05/23/20 09:00 05/23/20 07:59 Sennosides-Docusate Tablet PO Not Given DAILY SANDIE PFSH Acute PFSH: Medical History (Updated 05/23/20 @ 01:02 by Harlan Claire MD) No pertinent past medical history Surgical History (Updated 05/23/20 @ 00:42 by Raúl Ricks MD) No pertinent past surgical history Family History (Updated 05/23/20 @ 00:42 by Raúl Ricks MD) Family/Other No problems noted. Father CAD (coronary artery disease) Social History (Updated 05/19/20 @ 09:37 by Kate Hebert LPN) Smoking and tobacco status: never smoked Alcohol intake: current Alcohol intake frequency: holidays/special occasions only History of recent travel: No Vitals/I&O/Wt Last Vital Signs Temp 98.7 F 05/23/20 08:00 Pulse 91 05/23/20 08:00 Resp 18 05/23/20 08:00 BP 153/91 05/23/20 08:00 Pulse Ox 94 05/23/20 08:00 05/22/20 05/23/2005/23/20 22:59 06:59 14:59 Output Total 1450 / 1450 Balance -1450 / -1450 Weight last 48 hrs Weight 275 lb Physical Exam Narrative: EXAM NARRATIVE: CONSTITUTIONAL: The patient is a normal appearing [] in no apparent distress. GENERAL: Patient in no acute distress. CARDIAC: Regular rate and rhythm. CHEST: Normal inspiratory effort, normal respiratory rate. ABDOMEN: Soft and nontender. SKIN: Clear, warm and intact. NEURO?PSYCH: The patient is alert and oriented to person, place and time. Sensorv /SILT Motor StrengthShoulder abduction C5 5/5Wrist extension C6 5/5Elbow extension C7 5/5Hand Biomedical Electronics Technician C8 5/5Finger abduction T15/5 Radial/ Ulnar/ Median n intact LowerSensory (SILT)Motor StrengthHin flexion L2/3Ant/inner thigh 1/5Hip adduction L2/3 1/5Knee extension L4 Lat thigh, 1/5Toe dorsiflexion L5 5/5Ankle dorsiflexion L5/ L43Ystithu flexion S1 1/5 DTRBleeps Triceps 2+Brachioradialis 2+Patellar 2+Achilles MUSCULOSKELETAL: [] UPPEREXTREMITIES: The patient had full active ROM in fingers, wrist, elbow, and shoulder. The patient demonstrated ability to fully flex/extend/abduct/adduct fingers, make ok sign, cross 2nd/3rd digits, extend 1st digit fully.. Radial pulse 2+, CR<2 seconds. LOWER EXTREMITIES: Pt has full, active ROM of toes, ankle, knee, and hip. Dorsalis pedis/posterior tibialis pulses 2+, CR<2 seconds. SPINE: Skin warm, dry, intact. Urinary Catheter Management^: Nino: Cath Placed During This Visit: yes Reason for Continuing Indwelling Catheter: Acute Urinary Retention or Obstruction Urinary Catheter Date of Insertion: 05/23/20 Urinary Catheter Time of Insertion: 04:45 Data Micro: Micro: Microbiology 05/23/20 06:55 Blood Culture - Pr eliminary Blood SPECIMEN NIECY TREVINO 05/23/20 06:58 Blood Culture - Pr eliminary Blood SPECIMEN [facility] A&P Additional A&P Information t7-t11 epidural abscess plan to take urgently to OR this am for decompression Consult Attestations Medical Necessity Statement: needs surgery Coding Level of Care Code Acute Scratch Polisher for Kathy Meza
--- NOTE | 2020-05-23 10:43 | PM.OP ---
Operative Report Date of procedure: May 23, 2020 Pre-op Diagnosis: epidural abcessT7-T11 Post-op Diagnosis: 1. Laminectomy with partial facetecomy T7/8 2. Laminectomy with partial facetecomy T8/9 3. Laminectomy with partial facetecomy T9/10 4. Laminectomy with partial facetecomy T10/11 Surgeon: Neo Meneses Anesthesia: General Estimated blood loss (mL): 100 Condition: stable Disposition: PACU Procedure: 1. Laminectomy with partial facetecomy T7/8 2. Laminectomy with partial facetecomy T8/9 3. Laminectomy with partial facetecomy T9/10 4. Laminectomy with partial facetecomy T10/11 Patient is brought to the operative suite after undergoing anesthesia was placed in prone position all areas impingement well-padded patient was prepped and draped in sterile fashion using C-arm guidance the levels were marked. Attention was brought to the T10-11 level first. The lamina of T10 was taken down using high-speed bur and the contralateral lamina was taken down as well with a high-speed bur and the medial aspect of facet joint of T10-11 was taken down medially with a high-speed bur. Kerrison rongeur was then used to take down the remaining lamina bilaterally of T10 and then take down the medial aspect of the right side of the facet. The medial aspect the superior and inferior articular process of the facet were taken down at the T10-11 level. Ligamentum flavum was taken down once is removed there was pus and acute and chronic were present. Cultures were taken of his epidural space. Along with tissue samples. Once his levels was felt to be adequately decompressed that he was then brought to the T9-10 level. Again high-speed bur was used take down the lamina bilaterally Kerrison rongeur was used to take down the lamina bilaterally up to the point where ligamentum flavum attaches. And then the medial aspect of the facet was taken down with a high-speed bur and Kerrison rongeur on the right side. Once this was all opened up ligamentum flavum was taken down from T9-T10. Again more pus was present. This level was opened up and then a curette was used to trace from the T9 level down to the T10 level and T10 down to the T11 level. And irrigate this was irrigated out. Next tender was brought to the T8-9 level again high-speed bur was used to laminectomy of T8 bilaterally along with the medial aspect of facet joint. And then Kerrison rongeur. Was used to take down remaining lamina and ligamentum flavum bilaterally. And then the right side of the medial aspect of facet joint was taken down with a high-speed bur and Kerrison rongeur again pus was present and curette was used to help remove some of this along with irrigation and this process repeated at T7 T7 laminectomy was performed with high-speed bur bilaterally Kerrison rongeur and ligamentum flavum was taken down. Medial aspect facet joints taken down with a Kerrison rongeur. Again pus was present irrigation was done once was all irrigated out the dura was intact look to be in good repair. Did not see any more evidence of any pus at these levels. I felt bilaterally with the curette and pulled out as much fat and pus as I could at the all these levels. Both got a complete decompression of the cord. Wounds were irrigated and then they were closed with Vicryl. Thoracolumbar fascia was closed with Vicryl. Skin was closed with 2-0 Vicryl and Monocryl. And sterile dressings were applied. Patient was then transferred to the PACU in stable condition.
--- NOTE | 2020-05-23 11:13 | SUR.PHASEI ---
1113 PT HAS MOVEMENT IN ALL EXTREMITIES, WEAK LOWER EXTREMITIES
--- NOTE | 2020-05-23 11:21 | SUR.PHASEI ---
1105 ART LINE REMOVED FROM R. WRIST, PRESSURE APPLIED
--- NOTE | 2020-05-23 11:22 | SUR.PHASEI ---
1120 ART LINE LOCATION, NO BLEEDING, PRESSURE DRESSING APPLIED
--- NOTE | 2020-05-23 12:12 | ANE.PACU2 ---
Inpatient post-anesthesia follow up: Airway intact: Yes Vital signs: Temperature 97.6 F Pulse Rate [Monito r] 119 Pulse Rate 86 Respiratory Rate 18 Blood Pressure [Ri ght Arm] 178/117 Blood Pressure 144/75 Pulse Oximetry 95 Oxygen Delivery Me thod Room Air Oxygen Flow Rate 8 Fraction of Inspir ed Oxygen Hydration adequate: Yes Nausea and vomiting: No Pain level: 2 Additional Comments: Sedated
--- NOTE | 2020-05-23 12:42 | PM.PN ---
Subjective Subjective: Interval history: Patient was seen postop did not have any complaints at that time. Stated pain was under control. Vitals/I&O/Wt Last Vital Signs Temp 99.1 F 05/23/20 15:48 Pulse 80 05/23/20 15:48 Resp 18 05/23/20 15:48 BP 137/81 05/23/20 15:48 Pulse Ox 96 05/23/20 15:48 05/23/20 05/23/20 05/23/20 06:59 14:59 22:59 Intake Total 50 / 50 640 / 640 890 / 1530 Output Total 1450 / 1450 350 / 350 400 / 750 Balance -1400 / -1400 290 / 290 490 / 780 Weight last 48 hrs Weight 124.738 kg Physical Exam Narrative: EXAM NARRATIVE: General -alert awake and oriented in no apparent distress HEENT- grossly unremarkable Chest- nonlabored respiration Abdomen -soft nontender CVS -normal sinus rhythm - Nino in place Extremities- no deficits Urinary Catheter Management^: Nino: Cath Placed During This Visit: yes Reason for Continuing Indwelling Catheter: Acute Urinary Retention or Obstruction Urinary Catheter Date of Insertion: 05/23/20 Urinary Catheter Time of Insertion: 04:45 Data : 05/23/20 06:55 05/23/20 06:55 Micro: Microbiology 05/23/20 09:49 Gram Stain - Final Back 05/23/20 06:55 Blood Culture - Preliminary Blood SPECIMEN COLLECTED 05/23/20 06:58 Blood Culture - Preliminary Blood SPECIMEN COLLECTED A&P Assessment and plan (1) Cord compression: Status: Acute (2) Fall: Status: Acute (3) Paresthesia and pain of extremity: Status: Acute (4) Paresthesia of buttock: Status: Acute Additional A&P Information Spinal cord compression due to T10 epidural abscess - Ortho spine on consult - S/p Laminectomy with partial facetomy at T7-T11 with pus noted b/w T9-T11 - Continue broad spectrum abx - Leukocytosis improving today - Follow up on blood culture and OR wound culture - Further abx plan based on culture and sensitivities - Post op managemet per ortho - Pain control - PT consult - Repeat CBC/CMP - May consider ID consult Accelerated hypertension -Likely to improve with pain control - P.r.n. anti-hypertensive For SBP > 180 or DBP>100 DVT ppx - SCDs - Hold heparin until ok with surgery Attestations Medical Necessity Statement*: Will require further hospitalization for management of epidural abscess status post surgery requiring IV antibiotics and pain control Time Spent in Patient Care: Greater than 35 minutes (>than 50% of time spent in counselling and/or direct pt care on unit). Coding Level of Care Code Acute Regional Account Manager for Chg Fwd Diagnoses Cord compression G95.20 Fall W19.XXXA Paresthesia and pain of extremity R20.2; M79.609 Paresthesia of buttock R20.2
[2020-05-23] MEDS: docusate sodium 100 mg Capsule PO (17:17)
--- NOTE | 2020-05-23 21:33 | PC.PHAR ---
Vancomycin is dosed at 1500m IVP every 8 hours with a trough level ordered before the fourth dose.
--- NOTE | 2020-05-23 21:41 | PC.PHAR ---
Vancomycin dosage is increased to 500mg IVPB every 8 hours.
[2020-05-23 23:11] LABS: Estmated Average Glucose 192; Hemoglobin A1C 8.3 % (4.0-6.0)
[2020-05-24] VITALS: BP 144/78; PULSE 93; RESP 24; TEMP 37.9; O2SAT 92
[2020-05-24] MEDS: cefTRIAXone 2,000 MG in sodium chloride 0.9% (plus) 50 ML 100 MG IV ×2 (03:43→18:04)
[2020-05-24 03:54] VITALS: BP 148/82; PULSE 83; RESP 22; TEMP 37.8; O2SAT 93
[2020-05-24] MEDS: vancomycin 1,500 MG/300 ML PIGGYBACK 150 MG IV ×3 (05:35→21:48)
[2020-05-24] MEDS: enoxaparin 40 mg/0.4 mL Syringe SUBCUT (05:40)
--- NOTE | 2020-05-24 05:52 | PC.NURSE ---
Patient summary Patient did well tonight. He had little pain and denied pain medication. He has ran a temp of 100 tonight, but complained of being very hot. His urine output was good. His urine is dark yellow with some odor to it. His vitals were good tonight. Overall there was no concerns on this shift.
[2020-05-24 07:38] LABS: Chol HDL Ratio 6.11 mg/dL (1.0-5.00); Cholesterol 171 mg/dL (0-200); HDL Cholesterol 28 mg/dL (60-100); LDL Cholesterol Calculated 123 mg/dL (50-129); LDL HDL Ratio 4.39 RATIO (0.00-3.22); Triglycerides 99 mg/dL (0-150)
[2020-05-24 08:00] VITALS: BP 147/84; PULSE 75; RESP 16; TEMP 37.3; O2SAT 93
[2020-05-24] MEDS: sennosides-docusate Tablet 1 TAB PO (09:57)
[2020-05-24] MEDS: docusate sodium 100 mg Capsule PO ×2 (09:57→18:02)
[2020-05-24] MEDS: ascorbic acid 500 mg Tablet PO (10:02)
--- NOTE | 2020-05-24 10:09 | P.PN_ITS ---
Subjective Subjective: Interval history: pain controlled. patient feels like strength is slightly improved Vitals/I&O/Wt Last Vital Signs Temp 99.1 F 05/24/20 08:00 Pulse 75 05/24/20 08:00 Resp 16 05/24/20 08:00 BP 147/84 05/24/20 08:00 Pulse Ox 93 05/24/20 08:00 05/23/20 05/24/20 05/24/20 22:59 06:59 14:59 Intake Total 1950 / 2640 1350 / 3990 120 / 120 Output Total 400 / 750 1200 / 1950 Balance 1550 / 1890 150 / 2040 120 / 120 Weight last 48 hrs Weight 275 lb Physical Exam Narrative: EXAM NARRATIVE: sensation intact 2/5 strencth in ankles and plantar flexion Urinary Catheter Management^: Nino: Cath Placed During This Visit: yes Reason for Continuing Indwelling Catheter: Acute Urinary Retention or Obstruction Urinary Catheter Date of Insertion: 05/23/20 Urinary Catheter Time of Insertion: 04:45 Data : 05/23/20 06:55 05/23/20 06:55 Micro: Microbiology 05/23/20 03:30 Urine Culture - Preliminary Urine,Clean Catch Strep agalactiae - (group b) 05/23/20 06:55 Blood Culture - Preliminary Blood NEGATIVE TO DATE 05/23/20 06:58 Blood Culture - Preliminary Blood NEGATIVE TO DATE 05/23/20 09:49 Gram Stain - Final Back A&P Additional A&P Information POD#1 epidural abscess decompression T7-T11 cultures taken in surgery awaiting results Patient will need intermediate frame tender abx- outpatient management with Infectious disease or whoever does this service around here. He needs a PICC line Needs spinal cord rehab after D/C - case management manager to set up Attestations Medical Necessity Statement*: cultures taken in surgery awaiting results Patient will need intermediate frame tender abx- outpatient management with Infectious disease or whoever does this service around here. He needs a PICC line Needs spinal cord rehab after D/C - case management manager to set up Coding Level of Care Code Acute Commercial Counsel for Kathy Meza
[2020-05-24 12:00] VITALS: BP 157/90; PULSE 83; RESP 17; TEMP 37.6; O2SAT 94
--- NOTE | 2020-05-24 15:26 | P.PN_ITS ---
Subjective Subjective: Interval history: No new clinical events overnight. Patient did not have any complaints. Was sitting up at the bedside. Noted improvement in lower extremity paresthesias. No chest pain or shortness of breath. Denied fever chills. Vitals/I&O/Wt Last Vital Signs Temp 99.9 F H 05/24/20 19:26 Pulse 90 05/24/20 19:26 Resp 18 05/24/20 19:26 BP 151/85 05/24/20 19:26 Pulse Ox 92 05/24/20 19:26 05/24/20 05/24/20 05/24/20 06:59 14:59 22:59 Intake Total 1400 / 4040 540 / 540 240 / 780 Output Total 1200 / 1950 1000 / 1000 700 / 1700 Balance 200 / 2090 -460 / -460 -460 / -920 Physical Exam Narrative: EXAM NARRATIVE: General -alert awake and oriented in no apparent distress HEENT- grossly unremarkable Chest- nonlabored respiration Abdomen -soft nontender CVS -normal sinus rhythm - Nino in place Psych- cooperative Extremities-no edema Urinary Catheter Management^: Nino: Cath Placed During This Visit: yes Reason for Continuing Indwelling Catheter: Acute Urinary Retention or Obstruction Urinary Catheter Date of Insertion: 05/23/20 Urinary Catheter Time of Insertion: 04:45 Data : 05/23/20 06:55 05/23/20 06:55 Micro: Microbiology 05/23/20 09:49 Gram Stain - Final Back Anaerobic Culture - Preliminary Tissue Culture - Preliminary Strep agalactiae - (group b) 05/23/20 03:30 Urine Culture - Preliminary Urine,Clean Catch Strep agalactiae - (group b) 05/23/20 06:55 Blood Culture - Preliminary Blood NEGATIVE TO DATE 05/23/20 06:58 Blood Culture - Preliminary Blood NEGATIVE TO DATE A&P Assessment and plan (1) Cord compression: Status: Acute (2) Fall: Status: Acute (3) Paresthesia and pain of extremity: Status: Acute (4) Paresthesia of buttock: Status: Acute Additional A&P Information Spinal cord compression due to T10 epidural abscess - Ortho spine on consult - S/p Laminectomy with partial facetomy at T7-T11 with pus noted b/w T9-T11 - Continue broad spectrum abx - Leukocytosis improving today - Blood culture x 2 - NGTD - Abscess culture -> strep agalactaie - Will d/w ID regarding abx and duration - Anticipate 6 weeks of abx via PICC line - Tmax 99.9 - Post op management per ortho - Pain control - PT consult - Repeat CBC/CMP Accelerated hypertension -Likely to improve with pain control - P.r.n. anti-hypertensive For SBP > 180 or DBP>100 DVT ppx - SCDs - Lovenox 40 mg SQ daily Attestations Medical Necessity Statement*: Continue hospitalization for post op management / epidural abscess rq IV abx Time Spent in Patient Care: Greater than 35 minutes (>than 50% of time spent in counselling and/or direct pt care on unit) . Coding Level of Care Code Acute Manager Competitive Intelligence for Chg Fwd Diagnoses Cord compression G95.20 Fall W19.XXXA Paresthesia and pain of extremity R20.2; M79.609 Paresthesia of buttock R20.2
[2020-05-24 16:00] VITALS: BP 149/84; PULSE 85; RESP 16; TEMP 38.1; O2SAT 95
[2020-05-24 19:26] VITALS: BP 151/85; PULSE 90; RESP 18; TEMP 37.7; O2SAT 92
--- NOTE | 2020-05-24 21:48 | PC.PHAR ---
Vancomycin trough on dosage of 1500mg IVPB every 8 hours drawn before the fourth dose is good at 14 so we will continue 1500mg IVPB every 8 hours.
[2020-05-25] VITALS: BP 153/83; PULSE 79; RESP 17; TEMP 36.9; O2SAT 94
[2020-05-25 03:57] VITALS: BP 153/76; PULSE 80; RESP 18; TEMP 37.1; O2SAT 93
[2020-05-25] MEDS: vancomycin 1,500 MG/300 ML PIGGYBACK 150 MG IV ×2 (05:04→15:11)
[2020-05-25] MEDS: cefTRIAXone 2,000 MG in sodium chloride 0.9% (plus) 50 ML 100 MG IV ×2 (05:04→18:28)
[2020-05-25] MEDS: enoxaparin 40 mg/0.4 mL Syringe SUBCUT (05:05)
[2020-05-25 08:00] VITALS: BP 174/100; PULSE 89; RESP 16; TEMP 36.7; O2SAT 93
[2020-05-25] MEDS: docusate sodium 100 mg Capsule PO ×2 (08:56→18:29)
[2020-05-25] MEDS: ascorbic acid 500 mg Tablet PO (08:56)
[2020-05-25] MEDS: sennosides-docusate Tablet 1 TAB PO (08:56)
[2020-05-25 12:00] VITALS: BP 174/95; PULSE 85; RESP 17; TEMP 37.3; O2SAT 92
--- NOTE | 2020-05-25 12:40 | P.PN_ITS ---
Subjective Subjective: Interval history: Patient continued to slowly improving and gain mobility of LE. No fever, chills, nausea or vomiting. Medications: Reviewed: Yes Vitals/I&O/Wt Last Vital Signs Temp 99.9 F H 05/25/20 19:15 Pulse 83 05/25/20 19:15 Resp 17 05/25/20 19:15 BP 136/90 05/25/20 19:15 Pulse Ox 94 05/25/20 19:15 05/25/20 05/25/20 05/25/20 06:59 14:59 22:59 Intake Total 350 / 2610 540 / 540 357 / 897 Output Total 1950 / 3650 800 / 800 150 / 950 Balance -1600 / -1040 -260 / -260 207 / -53 Physical Exam Narrative: EXAM NARRATIVE: General -alert awake and oriented in no apparent distress HEENT- grossly unremarkable Chest- nonlabored respiration Abdomen -soft nontender CVS -normal sinus rhythm - Nino in place Psych- cooperative Extremities-no edema Urinary Catheter Management^: Nino: Cath Placed During This Visit: yes, but has since been removed by the nurse Reason for Continuing Indwelling Catheter: Decision to DC Catheter Urinary Catheter Date of Insertion: 05/23/20 Urinary Catheter Time of Insertion: 04:45 Date Urinary Catheter Removed: 05/25/20 Time Urinary Catheter Discontinued: 08:30 Data : 05/23/20 06:55 05/23/20 06:55 Micro: Microbiology 05/23/20 09:49 Gram Stain - Final Back Anaerobic Culture - Preliminary Tissue Culture - Final Strep agalactiae - (group b) 05/23/20 03:30 Urine Culture - Final Urine,Clean Catch Strep agalactiae - (group b) A&P Assessment and plan (1) Cord compression: Status: Acute (2) Fall: Status: Acute (3) Paresthesia and pain of extremity: Status: Acute (4) Paresthesia of buttock: Status: Acute Additional A&P Information Spinal cord compression due to T10 Streptococcus aglactaie epidural abscess - Ortho spine on consult - S/p Laminectomy with partial facetomy at T7-T11 with pus noted b/w T9-T1 - Blood culture x 2 - NGTD - Abscess culture -> strep agalactaie - D/c Vancomycin/ Continue rocephin 2g - however change to daily - Will order PICC line in AM - Plan for 6 weeks of abx via PICC line - Post op management per ortho - Pain control - PT consult - Repeat CBC/CMP Accelerated hypertension -Likely to improve with pain control - P.r.n. anti-hypertensive For SBP > 180 or DBP>100 DVT ppx - SCDs - Lovenox 40 mg SQ daily Attestations Medical Necessity Statement*: Continue hospitalization for management of epidural abscess requring IV abx Time Spent in Patient Care: Greater than 35 minutes (>than 50% of time spent in counselling and/or direct pt care on unit) . Coding Level of Care Code Acute Elevator Troubleshooter for Chg Fwd Diagnoses Cord compression G95.20 Fall W19.XXXA Paresthesia and pain of extremity R20.2; M79.609 Paresthesia of buttock R20.2
[2020-05-25 16:00] VITALS: BP 171/94; PULSE 86; RESP 16; TEMP 36.6; O2SAT 92
[2020-05-25 19:15] VITALS: BP 136/90; PULSE 83; RESP 17; TEMP 37.7; O2SAT 94
[2020-05-26] VITALS (8 sets, daily range): BP systolic 142–187; BP diastolic 85–101; PULSE 80–95; RESP 17–20; TEMP 36.4–37.3; O2SAT 92–95
[2020-05-26] MEDS: enoxaparin 40 mg/0.4 mL Syringe SUBCUT (05:14)
[2020-05-26 07:02] LABS: Basophils # 0.1 10^3/uL (0.0-0.1); Basophils % 0.4 %; Eosinophils % 0.3 %; Hematocrit 40.9 % (42.0-52.0); Hemoglobin 13.3 g/dL (11.7-16.6); Lymphocytes # 1.8 10^3/uL (0.8-4.8); Lymphocytes % 12.5 %; Mean Corpuscular HGB Conc 32.5 g/dL (30.0-36.0); Mean Corpuscular Hemoglobin 26.1 pg (28.0-34.0); Mean Corpuscular Volume 80.4 fL (80-94); Mean Platelet Volume 9.2 fL (7.4-10.4); Monocytes % 6.8 %; Neutrophils # 10.95 10^3/uL (1.8-7.7); Neutrophils % 78.3 %; Nucleated Red Blood Cells % 0 %; Platelet Count 404 10^3/cmm (130-400); Red Blood Count 5.09 10^6/uL (4.1-5.3); Red Cell Distribution Width 12.8 % (12.1-15.1)
[2020-05-26 07:25] LABS: Alanine Aminotransferase 20 U/L (0-41); Albumin Level 2.6 g/dL (3.5-5.2); Alkaline Phosphatase 90 IU/L (40-130); Anion Gap 13.5 (5-19); Aspartate Amino Transferase 17 U/L (0-40); Blood Urea Nitrogen 10 mg/dL (6-20); Calcium 8.5 mg/dL (8.5-10.5); Carbon Dioxide 24 mmol/L (22-29); Chloride 94 mmol/L (98-107); Globulin 3.8 g/dL (1.3-4.6); Glucose 203 mg/dL (65-115); Osmolality Calculated 271 mOsm/kg (285-295); Potassium 3.5 mmol/L (3.5-5.1); Sodium 128 mmol/L (136-145); Total Bilirubin 0.3 mg/dL (0.15-1.2); Total Protein 6.4 g/dL (6.6-8.7)
--- NOTE | 2020-05-26 07:55 | PM.PN ---
Subjective Subjective: Interval history: pain controlled no changes since yesterday Vitals/I&O/Wt Last Vital Signs Temp 98.2 F 05/26/20 04:00 Pulse 86 05/26/20 04:00 Resp 18 05/26/20 04:00 BP 155/87 05/26/20 04:00 Pulse Ox 93 05/26/20 04:00 05/25/20 05/26/20 05/26/20 22:59 06:59 14:59 Intake Total 1487 / 7 1000 / 3027 Output Total 150 / 950 1150 / 2100 Balance 1337 / 1077 -150 / 927 Physical Exam Narrative: EXAM NARRATIVE: unchanged from yesterday 09/30 strength ankles sensation intact unable to move hips or knees Urinary Catheter Management^: Nino: Cath Placed During This Visit: yes, but has since been removed by the nurse Reason for Continuing Indwelling Catheter: Decision to DC Catheter Urinary Catheter Date of Insertion: 05/23/20 Urinary Catheter Time of Insertion: 04:45 Date Urinary Catheter Removed: 05/25/20 Time Urinary Catheter Discontinued: 08:30 Data : 05/26/20 06:29 05/26/20 06:29 Micro: Microbiology 05/23/20 09:49 Gram Stain - Final Back Anaerobic Culture - Preliminary Tissue Culture - Final Strep agalactiae - (group b) 05/23/20 03:30 Urine Culture - Final Urine,Clean Catch Strep agalactiae - (group b) A&P Additional A&P Information POD#3 epidural abscess decompression OK to D/C from my stand point Need IVABX per hospitalist and ID service WBAT DVT prophylaxis 4-6 weeks f/u ortho clinic 2-4 weeks Spinal cord rehab facility would be best for him if available Attestations Medical Necessity Statement*: OK to d/c from my stand point when he gets PICC line and set up with Rehab Coding Level of Care Code Acute Chief Business Officer for Kathy Meza
[2020-05-26 08:19] LABS: Erythrocyte Sedimentation Rate 63 mm/hr (0-10)
--- NOTE | 2020-05-26 09:08 | XR_ITS ---
WS: [id number] CHEST XRAY TECHNIQUE: Portable chest. CLINICAL INFORMATION: PICC PLACEMENT COMPARISON: None. FINDINGS: Right PICC line tip in distal SVC. No pneumothorax. XR/XR chest 1V portable [id number] IMPRESSION: Right PICC line with tip distal SVC
[2020-05-26] MEDS: ascorbic acid 500 mg Tablet PO (09:28)
[2020-05-26] MEDS: sennosides-docusate Tablet 1 TAB PO (09:28)
[2020-05-26] MEDS: docusate sodium 100 mg Capsule PO ×2 (09:28→17:24)
[2020-05-26] MEDS: cefTRIAXone 2,000 MG in sodium chloride 0.9% (plus) 50 ML 100 MG IV (09:28)
--- NOTE | 2020-05-26 09:32 | P.PN_ITS ---
Subjective Subjective: Interval history: No fever or chills overnight Medications: Reviewed: Yes Vitals/I&O/Wt Last Vital Signs Temp 98.3 F 05/26/20 15:40 Pulse 87 05/26/20 15:40 Resp 18 05/26/20 15:40 BP 187/93 05/26/20 15:40 Pulse Ox 92 05/26/20 15:40 05/26/20 05/26/20 05/26/20 06:59 14:59 22:59 Intake Total 1000 / 3027 240 / 240 240 / 480 Output Total 1150 / 2100 320 / 320 525 / 845 Balance -150 / 927 -80 / -80 -285 / -365 Physical Exam Narrative: EXAM NARRATIVE: General -alert awake and oriented in no apparent distress HEENT- grossly unremarkable Chest- nonlabored respiration Abdomen -soft nontender CVS -normal sinus rhythm - Nino in place Psych- cooperative Extremities-no edema Urinary Catheter Management^: Nino: Cath Placed During This Visit: yes, but has since been removed by the nurse Reason for Continuing Indwelling Catheter: Decision to DC Catheter Urinary Catheter Date of Insertion: 05/23/20 Urinary Catheter Time of Insertion: 04:45 Date Urinary Catheter Removed: 05/25/20 Time Urinary Catheter Discontinued: 08:30 Data : 05/26/20 06:29 05/26/20 06:29 Micro: Microbiology 05/23/20 09:49 Gram Stain - Final Back Anaerobic Culture - Preliminary Tissue Culture - Final Strep agalactiae - (group b) A&P Assessment and plan (1) Cord compression: Status: Acute (2) Fall: Status: Acute (3) Paresthesia and pain of extremity: Status: Acute (4) Paresthesia of buttock: Status: Acute Additional A&P Information Spinal cord compression due to T10 Streptococcus aglactaie epidural abscess - Ortho spine on consult - S/p Laminectomy with partial facetomy at T7-T11 with pus noted b/w T9-T1 - Blood culture x 2 - NGTD - Abscess culture -> strep agalactaie - Urine - > strep agalactaie - Rocephin 2g IV daily - PICC line placed - Plan for 6 weeks of abx - Will asscess for source - ECHO ordered - May consider CT abd/pelvis Accelerated hypertension -Likely to improve with pain control - P.r.n. anti-hypertensive For SBP > 180 or DBP>100 Hyponatremia - Repeat BMP in am - Urinary studies in am DVT ppx - SCDs - Lovenox 40 mg SQ daily Attestations Medical Necessity Statement*: Will require further hospitalization for IV abx, and discharge placement arrangements due to lack of insurance. Time Spent in Patient Care: Greater than 35 minutes (>than 50% of time spent in counselling and/or direct pt care on unit) . Coding Level of Care Code Acute Certified Ophthalmic Technician for Chg Fwd Diagnoses Cord compression G95.20 Fall W19.XXXA Paresthesia and pain of extremity R20.2; M79.609 Paresthesia of buttock R20.2
--- NOTE | 2020-05-26 11:19 | USCV_ITS ---
Joey Booth Age: 49 Gender: M : 1970 Exam Date: 05/26/2020 14:14 Ordering Phys: Anastasia Sparks MD Technologist: Joann Collado Exam Location: [facility] [place] Indication: Epidural abscess, r/o infective endocarditis BP: 160 / 91 HR: 85 Rhythm: Sinus Technical Quality: Technically difficult study due to unable to position MEASUREMENTS (Male / Female) Normal Values 2D ECHO LV Diastolic Diameter PLAX 4.7 cm 4.2 - 5.9 / 3.9 - 5.3 cm LV Systolic Diameter PLAX 3.1 cm LV Chamber Size 5.1 cm IVS Diastolic Thickness 1.7 cm 0.6 - 1.0 / 0.6 - 0.9 cm IVS Systolic Thickness 2.0 cm LVPW Diastolic Thickness 1.2 cm 0.6 - 1.0 / 0.6 - 0.9 cm LVPW Systolic Thickness 1.3 cm RV Chamber Size 3.5 cm LVOT Diameter 2.0 cm LV Ejection Fraction 2D Teich 63.0 % LV Ejection Fraction MOD 2C 61.5 % LV Ejection Fraction 2C AL 62.0 % LA Diameter 3.8 cm LA Width 4.2 cm LA Height 4.3 cm RA Width 3.7 cm RA Height 4.4 cm Aorta at Sinotubular Diameter 2.8 cm M-MODE Aortic Annulus Diameter 3.6 cm LA Ao Ratio MM 1.1 MV E Point Septal Separation 1.0 cm DOPPLER AV Peak Velocity 194.0 cm/s LVOT Peak Velocity 165.0 cm/s AV Area Cont Eq vti 2.6 cm squared AV Area Cont Eq pk 2.8 cm squared MV Area PHT 2.9 cm squared Mitral E to A Ratio 0.8 MV E' Velocity 40.0 cm/s Mitral E to MV E' Ratio 9.7 Mitral E to LV E' Lateral Ratio 9.0 Mitral E to LV E' Septal Ratio 10.7 TR Peak Velocity 175.8 cm/s TR Peak Gradient 12.4 mmHg TR Mean Velocity 129.7 cm/s TR Mean Gradient 7.2 mmHg TR Velocity Time Integral 35.7 cm Right Atrial Pressure 3.0 mmHg Pulmonary Artery Systolic Pressu 15.4 mmHg FINDINGS Left Ventricle Normal left ventricular cavity size. Normal left ventricular systolic function. Left ventricular ejection fraction is estimated at 55 %. Although no diagnostic regional wall motion abnormality could be identified, this possibility cannot be completely excluded. Abnormal septal motion consistent with conduction abnormality. Normal diastolic function. Right Ventricle Normal right ventricular size and systolic function. Right ventricular systolic pressure 15.4 mmHg. Right Atrium Right atrium not well visualized. Left Atrium Mildly increased left atrial size. Mitral Valve Thickened mitral valve. No mitral valve stenosis. No mitral valve regurgitation. Aortic Valve Aortic valve not well visualized. No aortic valve stenosis. No aortic valve regurgitation. Tricuspid Valve Tricuspid valve not well visualized. Pulmonic Valve Pulmonic valve not well visualized. Pericardium No pericardial effusion. Aorta Normal-sized aortic root. CONCLUSIONS 1. This is a technically very difficult study. 2. Normal left ventricular cavity size and systolic function. Left ventricular ejection fraction is estimated at 55 %. Although no diagnostic regional wall motion abnormality could be identified, this possibility cannot be completely excluded. Normal diastolic function. 3. Normal pulmonary artery pressure. 4. Mildly increased left atrial size. 5. No prior similar studies to compare. Mindy Monte MD (Electronically Signed) Final Date: 26 May 2020 18:02 S
[2020-05-27] VITALS (7 sets, daily range): BP systolic 148–170; BP diastolic 81–97; PULSE 82–109; RESP 18–24; TEMP 36.3–37.3; O2SAT 93–98
[2020-05-27 02:36] LABS: Basophils % 0.3 %; Eosinophils # 0.1 10^3/uL (0.0-0.8); Eosinophils % 0.6 %; Hematocrit 41.9 % (42.0-52.0); Hemoglobin 13.5 g/dL (11.7-16.6); Lymphocytes # 1.9 10^3/uL (0.8-4.8); Lymphocytes % 15.4 %; Mean Corpuscular HGB Conc 32.2 g/dL (30.0-36.0); Mean Corpuscular Hemoglobin 26.5 pg (28.0-34.0); Mean Corpuscular Volume 82.2 fL (80-94); Mean Platelet Volume 9.2 fL (7.4-10.4); Monocytes # 0.8 10^3/uL (0.2-0.9); Monocytes % 6.5 %; Neutrophils # 9.42 10^3/uL (1.8-7.7); Neutrophils % 76.1 %; Nucleated Red Blood Cells % 0 %; Platelet Count 392 10^3/cmm (130-400); Red Cell Distribution Width 12.9 % (12.1-15.1); White Blood Count 12.4 10^3/uL (4.0-10.0)
[2020-05-27 03:05] LABS: Anion Gap 13.4 (5-19); Blood Urea Nitrogen 11 mg/dL (6-20); Calcium 8.5 mg/dL (8.5-10.5); Carbon Dioxide 28 mmol/L (22-29); Chloride 93 mmol/L (98-107); Glucose 196 mg/dL (65-115); Osmolality Calculated 277 mOsm/kg (285-295); Potassium 3.4 mmol/L (3.5-5.1); Sodium 131 mmol/L (136-145)
[2020-05-27] MEDS: enoxaparin 40 mg/0.4 mL Syringe SUBCUT (06:40)
[2020-05-27] MEDS: docusate sodium 100 mg Capsule PO (09:12)
[2020-05-27] MEDS: ascorbic acid 500 mg Tablet PO (09:12)
[2020-05-27] MEDS: sennosides-docusate Tablet 1 TAB PO (09:12)
[2020-05-27] MEDS: cefTRIAXone 2,000 MG in sodium chloride 0.9% (plus) 50 ML 100 MG IV (09:12)
--- NOTE | 2020-05-27 15:15 | PM.PN ---
Subjective Subjective: Interval history: Patient continues to have difficulty ambulating. Were weak PT today however was not able to pain. Has not had any fevers or chills overnight. No nausea or vomiting. Medications: Reviewed: Yes Vitals/I&O/Wt Last Vital Signs Temp 98.7 F 05/27/20 07:46 Pulse 109 H 05/27/20 11:00 Resp 18 05/27/20 11:00 BP 149/86 05/27/20 11:00 Pulse Ox 96 05/27/20 11:00 05/27/20 05/27/20 05/27/20 06:59 14:59 22:59 Intake Total 240 / 240 Output Total 1250 / 2095 Balance -1250 / -1565 240 / 240 Physical Exam Narrative: EXAM NARRATIVE: General -alert awake and oriented in no apparent distress HEENT- grossly unremarkable Chest- nonlabored respiration Abdomen -soft nontender CVS -normal sinus rhythm - Nino in place Psych- cooperative Extremities-no edema Urinary Catheter Management^: Nino: Cath Placed During This Visit: yes, but has since been removed by the nurse Reason for Continuing Indwelling Catheter: Decision to DC Catheter Urinary Catheter Date of Insertion: 05/23/20 Urinary Catheter Time of Insertion: 04:45 Date Urinary Catheter Removed: 05/25/20 Time Urinary Catheter Discontinued: 08:30 Data : 05/27/20 02:05 05/27/20 02:05 Micro: Microbiology 05/23/20 09:49 Gram Stain - Final Back Anaerobic Culture - Preliminary Tissue Culture - Final Strep agalactiae - (group b) A&P Assessment and plan (1) Cord compression: Status: Acute (2) Fall: Status: Acute (3) Paresthesia and pain of extremity: Status: Acute (4) Paresthesia of buttock: Status: Acute Additional A&P Information Spinal cord compression due to T10 Streptococcus aglactaie epidural abscess - Ortho spine on consult - S/p Laminectomy with partial facetomy at T7-T11 with pus noted b/w T9-T1 - Blood culture x 2 - NGTD - Abscess culture -> strep agalactaie - Urine - > strep agalactaie - Rocephin 2g IV daily - PICC line placed - Plan for 6 weeks of abx - Will asscess for source - ECHO ordered - pending - May consider CT abd/pelvis - Continues to have LE weakness - will computer terminal operator therapy - Fall precautions Accelerated hypertension - Will add metoprolol 25 mg PO BID - P.r.n. anti-hypertensive For SBP > 180 or DBP>100 New onset Diabetes mellitus - a1c 8 % - Will add lantus 5 untis qhs - Sliding scale coverage - Diabetic diet Hyponatremia - Na 131 today DVT ppx - SCDs - Lovenox 40 mg SQ daily Attestations Medical Necessity Statement*: continue hospitalization for management of discharge placement, IV antibiotics and new onset diabetes Time Spent in Patient Care: Greater than 35 minutes (>than 50% of time spent in counselling and/or direct pt care on unit). Coding Level of Care Code Acute Mold Stamper And Repairer for Kathy Fwd Diagnoses Cord compression G95.20 Fall W19.XXXA Paresthesia and pain of extremity R20.2; M79.609 Paresthesia of buttock R20.2
[2020-05-27 16:44] LABS: Glucose Point of Care 182 mg/dL (70-110)
[2020-05-27 20:48] LABS: Glucose Point of Care 170 mg/dL (70-110)
[2020-05-27] MEDS: metoprolol tartrate 25 mg Tablet PO (22:34)
[2020-05-28 03:00] VITALS: PULSE 73; RESP 24; TEMP 36.7; O2SAT 95
[2020-05-28] MEDS: enoxaparin 40 mg/0.4 mL Syringe SUBCUT (06:25)
[2020-05-28 06:32] LABS: Anion Gap 13.7 (5-19); Blood Urea Nitrogen 12 mg/dL (6-20); Calcium 8.2 mg/dL (8.5-10.5); Carbon Dioxide 26 mmol/L (22-29); Chloride 96 mmol/L (98-107); Glucose 196 mg/dL (65-115); Osmolality Calculated 279 mOsm/kg (285-295); Potassium 3.7 mmol/L (3.5-5.1); Sodium 132 mmol/L (136-145)
[2020-05-28 07:00] VITALS: BP 162/90; PULSE 82; RESP 20; TEMP 36.8; O2SAT 95
[2020-05-28 07:22] LABS: Glucose Point of Care 165 mg/dL (70-110)
[2020-05-28] MEDS: metoprolol tartrate 25 mg Tablet PO ×2 (08:15→21:50)
[2020-05-28] MEDS: ascorbic acid 500 mg Tablet PO (08:15)
[2020-05-28] MEDS: cefTRIAXone 2,000 MG in sodium chloride 0.9% (plus) 50 ML 100 MG IV (08:17)
[2020-05-28 10:57] LABS: Glucose Point of Care 152 mg/dL (70-110)
[2020-05-28 11:00] VITALS: BP 151/78; PULSE 76; RESP 20; TEMP 36.4; O2SAT 96
--- NOTE | 2020-05-28 11:02 | PM.PN ---
Subjective Subjective: Interval history: Patient continues to have difficulty ambulating due to bilateral lower extremity weakness. He recur during at least 1 person assist. Otherwise denied having any fever, chills, nausea vomiting. No new numbness or tingling. States he is slowly regaining sensation in lower extremity. No chest pain or shortness of breath. Denied any urinary or fecal incontinence. Medications: Reviewed: Yes Vitals/I&O/Wt Last Vital Signs Temp 98.2 F 05/28/20 07:00 Pulse 82 05/28/20 07:00 Resp 20 H 05/28/20 07:00 BP 162/90 05/28/20 07:00 Pulse Ox 95 05/28/20 07:00 05/27/20 05/28/20 05/28/20 22:59 06:59 14:59 Intake Total 400 / 400 Output Total 300 / 300 400 / 700 300 / 300 Balance -300 / -10 -400 / -410 100 / 100 Physical Exam Narrative: EXAM NARRATIVE: General -alert awake and oriented in no apparent distress HEENT- grossly unremarkable Chest- nonlabored respiration Abdomen -soft nontender CVS -normal sinus rhythm Psych- cooperative Extremities-no edema Urinary Catheter Management^: Nino: Cath Placed During This Visit: yes, but has since been removed by the nurse Reason for Continuing Indwelling Catheter: Decision to DC Catheter Urinary Catheter Date of Insertion: 05/23/20 Urinary Catheter Time of Insertion: 04:45 Date Urinary Catheter Removed: 05/25/20 Time Urinary Catheter Discontinued: 08:30 Data : 05/27/20 02:05 05/28/20 04:55 Micro: Microbiology 05/23/20 06:58 Blood Culture - Final Blood NO GROWTH AFTER 5 DAYS 05/23/20 06:55 Blood Culture - Final Blood NO GROWTH AFTER 5 DAYS 05/23/20 09:49 Gram Stain - Final Back Anaerobic Culture - Preliminary Tissue Culture - Final Strep agalactiae - (group b) A&P Assessment and plan (1) Cord compression: Status: Acute (2) Fall: Status: Acute (3) Paresthesia and pain of extremity: Status: Acute (4) Paresthesia of buttock: Status: Acute Additional A&P Information 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 anti-hypertensive For SBP > 180 or DBP>100 New onset Diabetes mellitus - a1c 8 % - Will add lantus 10 unitts qhs today - Sliding scale coverage - Diabetic diet Hyponatremia - Na 131 - Repeat BMP in am DVT ppx - SCDs - Lovenox 40 mg SQ daily Disposition: Case management working on placement however difficult due to lack of insurance. Expected prolonged hospitalization until this can be arranged. Attestations Medical Necessity Statement*: Patient require further hospitalization for management of epidural abscess requiring IV antibiotics and paraplegia requiring physical therapy and occupational therapy. Time Spent in Patient Care: Greater than 35 minutes (>than 50% of time spent in counselling and/or direct pt care on unit). Coding Level of Care Code Acute Rn Clinical Resource for Chg Fwd Diagnoses Cord compression G95.20 Fall W19.XXXA Paresthesia and pain of extremity R20.2; M79.609 Paresthesia of buttock R20.2
[2020-05-28 15:00] VITALS: BP 137/81; PULSE 75; RESP 18; TEMP 36.7; O2SAT 94
[2020-05-28 17:31] LABS: Glucose Point of Care 147 mg/dL (70-110)
[2020-05-28 19:00] VITALS: BP 150/88; PULSE 83; RESP 22; TEMP 36.6; O2SAT 94
[2020-05-28 21:25] LABS: Glucose Point of Care 157 mg/dL (70-110)
[2020-05-28] MEDS: insulin glargine 100 units/1 mL 10 UNIT SUBCUT (22:48)
[2020-05-28 23:00] VITALS: BP 145/81; PULSE 84; RESP 18; TEMP 36.9; O2SAT 93
[2020-05-29 03:00] VITALS: BP 123/71; PULSE 73; RESP 18; TEMP 36.5; O2SAT 95
[2020-05-29 06:36] LABS: Basophils # 0.1 10^3/uL (0.0-0.1); Basophils % 0.4 %; Eosinophils # 0.2 10^3/uL (0.0-0.8); Eosinophils % 1.1 %; Hematocrit 42.2 % (42.0-52.0); Hemoglobin 13.6 g/dL (11.7-16.6); Lymphocytes # 1.8 10^3/uL (0.8-4.8); Lymphocytes % 10.4 %; Mean Corpuscular HGB Conc 32.2 g/dL (30.0-36.0); Mean Corpuscular Hemoglobin 26.2 pg (28.0-34.0); Mean Corpuscular Volume 81.3 fL (80-94); Mean Platelet Volume 9.3 fL (7.4-10.4); Monocytes # 1.1 10^3/uL (0.2-0.9); Monocytes % 6.1 %; Neutrophils # 14.17 10^3/uL (1.8-7.7); Neutrophils % 81.4 %; Nucleated Red Blood Cells % 0 %; Platelet Count 364 10^3/cmm (130-400); Red Blood Count 5.19 10^6/uL (4.1-5.3); Red Cell Distribution Width 12.9 % (12.1-15.1); White Blood Count 17.4 10^3/uL (4.0-10.0)
[2020-05-29] MEDS: enoxaparin 40 mg/0.4 mL Syringe SUBCUT (06:42)
[2020-05-29 07:00] VITALS: BP 150/88; PULSE 88; RESP 17; TEMP 37; O2SAT 93
[2020-05-29 07:06] LABS: Glucose Point of Care 142 mg/dL (70-110)
[2020-05-29 07:08] LABS: Alanine Aminotransferase 23 U/L (0-41); Albumin Level 2.5 g/dL (3.5-5.2); Alkaline Phosphatase 98 IU/L (40-130); Anion Gap 12.5 (5-19); Aspartate Amino Transferase 15 U/L (0-40); Blood Urea Nitrogen 11 mg/dL (6-20); Calcium 8.1 mg/dL (8.5-10.5); Carbon Dioxide 27 mmol/L (22-29); Chloride 96 mmol/L (98-107); Globulin 3.5 g/dL (1.3-4.6); Glomerular Filtration Rate 142.6 mL/min (90-130); Glucose 160 mg/dL (65-115); Osmolality Calculated 277 mOsm/kg (285-295); Potassium 3.5 mmol/L (3.5-5.1); Sodium 132 mmol/L (136-145); Total Bilirubin 0.4 mg/dL (0.15-1.2)
[2020-05-29] MEDS: ascorbic acid 500 mg Tablet PO (08:39)
[2020-05-29] MEDS: cefTRIAXone 2,000 MG in sodium chloride 0.9% (plus) 50 ML 100 MG IV (08:40)
[2020-05-29] MEDS: metoprolol tartrate 25 mg Tablet PO ×2 (08:47→20:35)
[2020-05-29 10:50] VITALS: BP 150/87; PULSE 82; RESP 16; TEMP 37; O2SAT 93
[2020-05-29 11:17] LABS: Glucose Point of Care 144 mg/dL (70-110)
[2020-05-29 15:00] VITALS: BP 138/83; PULSE 103; RESP 18; TEMP 37.8; O2SAT 92
[2020-05-29 17:09] LABS: Glucose Point of Care 140 mg/dL (70-110)
[2020-05-29 19:00] VITALS: BP 137/86; PULSE 114; RESP 17; TEMP 37; O2SAT 99
[2020-05-29 21:28] LABS: Glucose Point of Care 163 mg/dL (70-110)
[2020-05-29] MEDS: insulin glargine 100 units/1 mL 10 UNIT SUBCUT (21:57)
--- NOTE | 2020-05-29 22:22 | PM.PN ---
Subjective Subjective: Interval history: Diarrhea after stool softner Medications: Reviewed: Yes Vitals/I&O/Wt Last Vital Signs Temp 98.6 F 05/29/20 19:00 Pulse 114 H 05/29/20 19:00 Resp 17 05/29/20 19:00 BP 137/86 05/29/20 19:00 Pulse Ox 99 05/29/20 19:00 05/29/20 05/29/20 05/29/20 06:59 14:59 22:59 Intake Total 180 / 180 240 / 420 Output Total 250 / 250 Balance 180 / 180 -10 / 170 Physical Exam Narrative: EXAM NARRATIVE: General -alert awake and oriented in no apparent distress HEENT- grossly unremarkable Chest- nonlabored respiration Abdomen -soft nontender CVS -normal sinus rhythm Psych- cooperative Extremities-no edema Urinary Catheter Management^: Nino: Cath Placed During This Visit: yes, but has since been removed by the nurse Reason for Continuing Indwelling Catheter: Decision to DC Catheter Urinary Catheter Date of Insertion: 05/23/20 Urinary Catheter Time of Insertion: 04:45 Date Urinary Catheter Removed: 05/25/20 Time Urinary Catheter Discontinued: 08:30 Data : 05/29/20 05:36 05/29/20 05:36 Micro: Microbiology 05/23/20 09:49 Gram Stain - Final Back Anaerobic Culture - Preliminary Tissue Culture - Final Strep agalactiae - (group b) A&P Assessment and plan (1) Cord compression: Status: Acute (2) Fall: Status: Acute (3) Paresthesia and pain of extremity: Status: Acute (4) Paresthesia of buttock: Status: Acute Additional A&P Information 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 anti-hypertensive For SBP > 180 or DBP>100 New onset Diabetes mellitus - a1c 8 % - Will add lantus 10 unitts qhs today - Sliding scale coverage - Diabetic diet Hyponatremia - Na 131 - Repeat BMP in am DVT ppx - SCDs - Lovenox 40 mg SQ daily Disposition: Case management working on placement however difficult due to lack of insurance. Expected prolonged hospitalization until this can be arranged. Attestations Medical Necessity Statement*: Continue IV abx Time Spent in Patient Care: Greater than 35 minutes Coding Level of Care Code Acute Outcome Analyst for Chg Fwd Diagnoses Cord compression G95.20 Fall W19.XXXA Paresthesia and pain of extremity R20.2; M79.609 Paresthesia of buttock R20.2
[2020-05-30] VITALS (7 sets, daily range): BP systolic 107–136; BP diastolic 68–83; PULSE 79–104; RESP 17–19; TEMP 36.5–37.3; O2SAT 92–95
--- NOTE | 2020-05-30 03:50 | PC.NURSE ---
Rectal tube placed with 45ml sterile saline. Patient tolerated well.
--- NOTE | 2020-05-30 06:00 | PC.NURSE ---
Patient rested well through the night with several loose stools. Rectal tube placed per doctor's order. Patient has skin breakdown on posterior thighs and bilateral buttock. Inner dry changed under panus. Patient says it is impossible to move his legs to help roll in bed. Patient was educated on to Patient says that physical therapy doesn't work with him very much. After reading through patients chart it is documented that patient refused PT yesterday morning due to profuse diarrhea. Vitals WNL
[2020-05-30] MEDS: enoxaparin 40 mg/0.4 mL Syringe SUBCUT (06:15)
[2020-05-30 06:49] LABS: Glucose Point of Care 152 mg/dL (70-110)
[2020-05-30] MEDS: metoprolol tartrate 25 mg Tablet PO ×2 (09:10→21:44)
[2020-05-30] MEDS: ascorbic acid 500 mg Tablet PO (09:11)
[2020-05-30] MEDS: cefTRIAXone 2,000 MG in sodium chloride 0.9% (plus) 50 ML 100 MG IV (09:11)
[2020-05-30 11:13] LABS: Glucose Point of Care 166 mg/dL (70-110)
[2020-05-30 13:59] LABS: Basophils # 0.1 10^3/uL (0.0-0.1); Basophils % 0.3 %; Eosinophils # 0.1 10^3/uL (0.0-0.8); Eosinophils % 0.6 %; Hematocrit 40.4 % (42.0-52.0); Lymphocytes # 1.6 10^3/uL (0.8-4.8); Mean Corpuscular HGB Conc 32.2 g/dL (30.0-36.0); Mean Corpuscular Hemoglobin 26.1 pg (28.0-34.0); Mean Platelet Volume 9.7 fL (7.4-10.4); Monocytes # 1.3 10^3/uL (0.2-0.9); Monocytes % 6.3 %; Neutrophils # 16.94 10^3/uL (1.8-7.7); Neutrophils % 84.3 %; Nucleated Red Blood Cells % 0 %; Platelet Count 354 10^3/cmm (130-400); Red Blood Count 4.99 10^6/uL (4.1-5.3); Red Cell Distribution Width 12.8 % (12.1-15.1); White Blood Count 20.1 10^3/uL (4.0-10.0)
[2020-05-30 14:10] LABS: Alanine Aminotransferase 21 U/L (0-41); Albumin Level 2.3 g/dL (3.5-5.2); Alkaline Phosphatase 95 IU/L (40-130); Aspartate Amino Transferase 16 U/L (0-40); Blood Urea Nitrogen 10 mg/dL (6-20); Calcium 8.3 mg/dL (8.5-10.5); Carbon Dioxide 26 mmol/L (22-29); Chloride 95 mmol/L (98-107); Globulin 3.5 g/dL (1.3-4.6); Glucose 178 mg/dL (65-115); Osmolality Calculated 273 mOsm/kg (285-295); Sodium 130 mmol/L (136-145); Total Bilirubin 0.4 mg/dL (0.15-1.2); Total Protein 5.8 g/dL (6.6-8.7)
[2020-05-30 14:15] LABS: Anion Gap 12.6 (5-19); Potassium 3.6 mmol/L (3.5-5.1)
[2020-05-30 16:53] LABS: Glucose Point of Care 144 mg/dL (70-110)
[2020-05-30 21:30] LABS: Glucose Point of Care 152 mg/dL (70-110)
[2020-05-30] MEDS: insulin glargine 100 units/1 mL 10 UNIT SUBCUT (21:44)
--- NOTE | 2020-05-30 22:05 | P.PN_ITS ---
Subjective Subjective: Interval history: No new clinical events overnight. no fever, chills, nauea or vomiting. Medications: Reviewed: Yes Vitals/I&O/Wt Last Vital Signs Temp 97.7 F 05/30/20 19:25 Pulse 103 H 05/30/20 19:25 Resp 18 05/30/20 19:25 BP 107/68 05/30/20 19:25 Pulse Ox 95 05/30/20 19:25 05/30/20 05/30/20 05/30/20 06:59 14:59 22:59 Intake Total 410 / 410 240 / 650 Output Total 650 / 900 400 / 400 200 / 600 Balance -650 / -430 10 40 / 50 Physical Exam Narrative: EXAM NARRATIVE: General -alert awake and oriented in no apparent distress HEENT- grossly unremarkable Chest- nonlabored respiration Abdomen -soft nontender CVS -normal sinus rhythm Psych- cooperative Extremities-no edema Urinary Catheter Management^: Nino: Cath Placed During This Visit: yes, but has since been removed by the nurse Reason for Continuing Indwelling Catheter: Decision to DC Catheter Urinary Catheter Date of Insertion: 05/23/20 Urinary Catheter Time of Insertion: 04:45 Date Urinary Catheter Removed: 05/25/20 Time Urinary Catheter Discontinued: 08:30 Data : 05/30/20 11:30 05/30/20 11:30 Micro: Microbiology 05/23/20 09:49 Gram Stain - Final Back Anaerobic Culture - Final Tissue Culture - Final Strep agalactiae - (group b) A&P Assessment and plan (1) Cord compression: Status: Acute (2) Fall: Status: Acute (3) Paresthesia and pain of extremity: Status: Acute (4) Paresthesia of buttock: Status: Acute Additional A&P Information 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 - Ortho spine on consult - S/p Laminectomy with partial facetomy at T7-T11 with pus noted b/w T9-T1 - Blood culture x 2 - NGTD - Abscess culture -> strep agalactaie - Urine - > strep agalactaie - Rocephin 2g IV daily - PICC line placed - Plan for 6 weeks of abx - Will assess for source - ECHO ordered - no obvious vegetation - May consider CT abd/pelvis - Continues to have LE weakness - will long term acute care registered nurse therapy - Fall precautions Diarrhea - Rule out C-diff colitis - Follow up on cdiff - Hold stool softner Accelerated hypertension - Metoprolol 25 mg PO BID - May beed to add additional meds - P.r.n. anti-hypertensive For SBP > 180 or DBP>100 New onset Diabetes mellitus - a1c 8 % - Will add lantus 10 units qhs today - Sliding scale coverage - Diabetic diet Hyponatremia - Na 131 - 131 - UA Na in am - Repeat BMP in am DVT ppx - SCDs - Lovenox 40 mg SQ daily Disposition: Case management working on placement however difficult due to lack of insurance. Expected prolonged hospitalization until this can be arranged. Attestations Medical Necessity Statement*: Will require further hospitalization for management of IV abx Time Spent in Patient Care: Greater than 35 minutes (>than 50% of time spent in counselling and/or direct pt care on unit) . Coding Level of Care Code Acute Distributor Cleaner for Kathy Concepciond Diagnoses Cord compression G95.20 Fall W19.XXXA Paresthesia and pain of extremity R20.2; M79.609 Paresthesia of buttock R20.2
[2020-05-31 03:34] VITALS: BP 145/83; PULSE 92; RESP 16; TEMP 36.7; O2SAT 95
[2020-05-31 05:50] LABS: Basophils # 0.1 10^3/uL (0.0-0.1); Basophils % 0.5 %; Eosinophils # 0.2 10^3/uL (0.0-0.8); Eosinophils % 0.9 %; Hematocrit 40.6 % (42.0-52.0); Hemoglobin 13.1 g/dL (11.7-16.6); Lymphocytes # 1.7 10^3/uL (0.8-4.8); Lymphocytes % 9.2 %; Mean Corpuscular HGB Conc 32.3 g/dL (30.0-36.0); Mean Corpuscular Hemoglobin 25.8 pg (28.0-34.0); Mean Corpuscular Volume 80.1 fL (80-94); Mean Platelet Volume 9.5 fL (7.4-10.4); Monocytes % 5.6 %; Neutrophils # 15.03 10^3/uL (1.8-7.7); Neutrophils % 83.3 %; Nucleated Red Blood Cells % 0 %; Platelet Count 369 10^3/cmm (130-400); Red Blood Count 5.07 10^6/uL (4.1-5.3); Red Cell Distribution Width 12.8 % (12.1-15.1); White Blood Count 18.1 10^3/uL (4.0-10.0)
[2020-05-31] MEDS: enoxaparin 40 mg/0.4 mL Syringe SUBCUT (06:04)
[2020-05-31 06:28] LABS: Procalcitonin 0.13 ng/mL (0-0.5)
[2020-05-31 06:41] LABS: Alanine Aminotransferase 18 U/L (0-41); Albumin Level 2.4 g/dL (3.5-5.2); Alkaline Phosphatase 95 IU/L (40-130); Anion Gap 14.3 (5-19); Aspartate Amino Transferase 21 U/L (0-40); Blood Urea Nitrogen 8 mg/dL (6-20); Calcium 8.4 mg/dL (8.5-10.5); Carbon Dioxide 24 mmol/L (22-29); Chloride 96 mmol/L (98-107); Globulin 3.5 g/dL (1.3-4.6); Glomerular Filtration Rate 142.6 mL/min (90-130); Glucose 143 mg/dL (65-115); Osmolality Calculated 273 mOsm/kg (285-295); Potassium 3.3 mmol/L (3.5-5.1); Sodium 131 mmol/L (136-145); Total Bilirubin 0.4 mg/dL (0.15-1.2); Total Protein 5.9 g/dL (6.6-8.7)
[2020-05-31 07:27] LABS: Glucose Point of Care 143 mg/dL (70-110)
[2020-05-31 07:43] VITALS: BP 142/82; PULSE 96; RESP 18; TEMP 36.8; O2SAT 92
[2020-05-31] MEDS: ascorbic acid 500 mg Tablet PO (08:07)
[2020-05-31] MEDS: cefTRIAXone 2,000 MG in sodium chloride 0.9% (plus) 50 ML 100 MG IV (08:07)
[2020-05-31] MEDS: metoprolol tartrate 25 mg Tablet PO ×2 (08:07→20:43)
--- NOTE | 2020-05-31 09:04 | P.PN_ITS ---
Subjective Subjective: Interval history: diarrhea increasing Medications: Reviewed: Yes Vitals/I&O/Wt Last Vital Signs Temp 98.2 F 06/01/20 07:59 Pulse 97 06/01/20 07:59 Resp 18 06/01/20 07:59 BP 127/78 06/01/20 07:59 Pulse Ox 93 06/01/20 07:59 05/31/20 06/01/20 06/01/20 22:59 06:59 14:59 Intake Total 240 / 890 720 / 1610 240 / 240 Output Total 1140 / 1140 3400 / 4540 Balance -900 / -250 -2680 / -2930 240 / 240 Physical Exam Narrative: EXAM NARRATIVE: General -alert awake and oriented in no apparent distress HEENT- grossly unremarkable Chest- nonlabored respiration Abdomen -soft nontender CVS -normal sinus rhythm Psych- cooperative Extremities-no edema Urinary Catheter Management^: Nino: Cath Placed During This Visit: yes, but has since been removed by the nurse Reason for Continuing Indwelling Catheter: Decision to DC Catheter Urinary Catheter Date of Insertion: 05/23/20 Urinary Catheter Time of Insertion: 04:45 Date Urinary Catheter Removed: 05/25/20 Time Urinary Catheter Discontinued: 08:30 Data : 05/31/20 05:30 06/01/20 05:30 Micro: Microbiology 05/31/20 05:59 Blood Culture - Preliminary Blood NEGATIVE TO DATE 05/31/20 05:30 Blood Culture - Preliminary Blood NEGATIVE TO DATE A&P Assessment and plan (1) Cord compression: Status: Acute (2) Fall: Status: Acute (3) Paresthesia and pain of extremity: Status: Acute (4) Paresthesia of buttock: Status: Acute Additional A&P Information 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 - Ortho spine on consult - S/p Laminectomy with partial facetomy at T7-T11 with pus noted b/w T9-T1 - Blood culture x 2 - NGTD - Abscess culture -> strep agalactaie - Urine - > strep agalactaie - Rocephin 2g IV daily - PICC line placed - Plan for 6 weeks of abx - Will assess for source - ECHO ordered - no obvious vegetation - May consider CT abd/pelvis - Continues to have LE weakness - 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 anti-hypertensive For SBP > 180 or DBP>100 New onset Diabetes mellitus - a1c 8 % - Will add lantus 10 units qhs today - Sliding scale coverage - Diabetic diet Hyponatremia - Na 131 - 131 - UA Na in am - Repeat BMP in am DVT ppx - SCDs - Lovenox 40 mg SQ daily Disposition: Case management working on placement however difficult due to lack of insurance. Expected prolonged hospitalization until this can be arranged. Attestations Medical Necessity Statement*: will require further hospitalization for managemnt of diarrhea Time Spent in Patient Care: Greater than 35 minutes (>than 50% of time spent in counselling and/or direct pt care on unit) . Coding Level of Care Code Acute Manager Engine for [employer] Fwd Diagnoses Cord compression G95.20 Fall W19.XXXA Paresthesia and pain of extremity R20.2; M79.609 Paresthesia of buttock R20.2
[2020-05-31 11:30] LABS: Glucose Point of Care 143 mg/dL (70-110)
[2020-05-31 11:50] LABS: Urine Creatinine 115 mg/dL (39-259); Urine Random Sodium 26 mmol/L
[2020-05-31 12:00] VITALS: BP 118/76; PULSE 85; RESP 18; TEMP 36.8; O2SAT 96
[2020-05-31 16:00] VITALS: BP 116/69; PULSE 84; RESP 18; TEMP 36.7; O2SAT 93
--- NOTE | 2020-05-31 16:18 | CTR_ITS ---
PROCEDURE INFORMATION: Exam: CT Abdomen And Pelvis With Contrast Exam date and time: 05/31/2020 8:02 PM Age: 49 years old Clinical indication: Patient HX: Diarrhea and elev wbc S/P epidural abcess drainage; Additional info: Increasing wbc new diarrhes TECHNIQUE: Imaging protocol: Computed tomography of the abdomen and pelvis with intravenous contrast. Radiation optimization: All CT scans at this facility use at least one of these dose optimization techniques: automated exposure control; mA and/or kV adjustment per patient size (includes targeted exams where dose is matched to clinical indication); or iterative reconstruction. Contrast material: OMNI 300; Contrast volume: 95 ml; Contrast route: INTRAVENOUS (IV); Other contrast: Oral, Omni 300 20ml, 450ml; COMPARISON: CR XR pelvis 1-2V* [id number] 05/22/2020 6:57 PM RADIATION DOSE METRICS: Total DLP (mGy-cm): 2051. FINDINGS: There is atelectasis in the right lung base with a right pleural effusion. There may be a tiny left pleural effusion. There are degenerative changes of the spine. There is some air within the soft tissues about the lower thoracic spine which may be from epidural abscess drainage. There is no liver mass. There is no intrahepatic biliary dilatation. No gallstones are seen within the gallbladder. The pancreas is unremarkable. The spleen is unremarkable. There is no adrenal mass. Subcentimeter renal cysts are present. No renal calculi or hydronephrosis is seen. The aorta is normal in caliber. The IVC is normal in caliber. There is no retroperitoneal adenopathy. There is no mesenteric adenopathy. The stomach is unremarkable. The small bowel loops in the upper abdomen are nondistended with no bowel wall thickening. There is colonic wall thickening involving the ascending, transverse and descending colons. There is pericolonic fat stranding as well as thickening along the lateral conal fascia. Within the pelvis: The appendix is not visualized to advantage. However, there is no CT evidence for acute appendicitis. There is mild bladder wall thickening. The prostate gland and seminal vesicles are normal. There is no free fluid within the pelvis. There is bilateral inguinal adenopathy. There is no pelvic adenopathy. A rectal tube is in place. CT/CT abdomen pelvis w con* [id number] IMPRESSION: 1. Thickening of the wall of the ascending, transverse and descending colons consistent with colitis. 2. The right pleural effusion. 3. Mild bladder wall thickening suggesting cystitis. 4. Rectal tube in place. 5. Bilateral inguinal adenopathy. 6. Air within the soft tissues about the lower thoracic spine consistent with epidural abscess drainage. Radiation Dose CTDIVOL = (mGy): DLP = 2052.17 (mGy-cm)
[2020-05-31 17:23] LABS: Glucose Point of Care 132 mg/dL (70-110)
[2020-05-31 19:22] VITALS: BP 126/81; PULSE 96; RESP 18; TEMP 36.9; O2SAT 92
--- NOTE | 2020-05-31 19:23 | PC.NURSE ---
pt continues to have diarrhea often. pt bed changed. pt currently resting.
[2020-05-31] MEDS: iohexol 300 mg/mL 50 mL Btl PO (21:33)
[2020-05-31] MEDS: iohexol 300 mg/mL 100 mL Btl IV (21:33)
[2020-05-31 21:39] LABS: Glucose Point of Care 152 mg/dL (70-110)
[2020-05-31] MEDS: insulin glargine 100 units/1 mL 10 UNIT SUBCUT (21:46)
[2020-06-01] VITALS: BP 115/71; PULSE 87; RESP 18; TEMP 36.6; O2SAT 97
[2020-06-01 03:42] VITALS: BP 101/68; PULSE 80; RESP 18; TEMP 36.6; O2SAT 97
[2020-06-01] MEDS: enoxaparin 40 mg/0.4 mL Syringe SUBCUT (06:00)
[2020-06-01 06:16] LABS: Alanine Aminotransferase 22 U/L (0-41); Albumin Level 2.4 g/dL (3.5-5.2); Alkaline Phosphatase 90 IU/L (40-130); Aspartate Amino Transferase 22 U/L (0-40); Blood Urea Nitrogen 5 mg/dL (6-20); Calcium 8.2 mg/dL (8.5-10.5); Carbon Dioxide 26 mmol/L (22-29); Chloride 99 mmol/L (98-107); Globulin 3.2 g/dL (1.3-4.6); Glomerular Filtration Rate 227.7 mL/min (90-130); Glucose 137 mg/dL (65-115); Osmolality Calculated 279 mOsm/kg (285-295); Sodium 135 mmol/L (136-145); Total Bilirubin 0.3 mg/dL (0.15-1.2); Total Protein 5.6 g/dL (6.6-8.7)
[2020-06-01 06:21] LABS: Anion Gap 13.2 (5-19); Potassium 3.2 mmol/L (3.5-5.1)
[2020-06-01 06:58] LABS: Glucose Point of Care 133 mg/dL (70-110)
[2020-06-01 07:59] VITALS: BP 127/78; PULSE 97; RESP 18; TEMP 36.8; O2SAT 93
[2020-06-01] MEDS: metoprolol tartrate 25 mg Tablet PO ×2 (08:46→20:40)
[2020-06-01] MEDS: ascorbic acid 500 mg Tablet PO (08:46)
[2020-06-01] MEDS: cefTRIAXone 2,000 MG in sodium chloride 0.9% (plus) 50 ML 100 MG IV (08:47)
[2020-06-01 11:23] LABS: Glucose Point of Care 130 mg/dL (70-110)
[2020-06-01 12:00] VITALS: BP 127/81; PULSE 89; RESP 16; TEMP 37; O2SAT 95
--- NOTE | 2020-06-01 15:22 | P.PN_ITS ---
Subjective Subjective: Interval history: tolerating po vancomycin Medications: Reviewed: Yes Vitals/I&O/Wt Last Vital Signs Temp 98.3 F 06/01/20 19:54 Pulse 107 H 06/01/20 19:54 Resp 16 06/01/20 19:54 BP 144/78 06/01/20 19:54 Pulse Ox 95 06/01/20 16:00 06/01/20 06/01/20 06/01/20 06:59 14:59 22:59 Intake Total 720 / 1610 770 / 770 580 / 1350 Output Total 3400 / 4540 4650 / 4650 Balance -2680 / -2930 770 / 770 -4070 / -3300 Physical Exam Narrative: EXAM NARRATIVE: General -alert awake and oriented in no apparent distress HEENT- grossly unremarkable Chest- nonlabored respiration Abdomen -soft nontender CVS -normal sinus rhythm Psych- cooperative Extremities-no edema Urinary Catheter Management^: Nino: Cath Placed During This Visit: yes, but has since been removed by the nurse Reason for Continuing Indwelling Catheter: Decision to DC Catheter Urinary Catheter Date of Insertion: 05/23/20 Urinary Catheter Time of Insertion: 04:45 Date Urinary Catheter Removed: 05/25/20 Time Urinary Catheter Discontinued: 08:30 Data : 05/31/20 05:30 06/01/20 05:30 Micro: Microbiology 05/31/20 05:59 Blood Culture - Preliminary Blood NEGATIVE TO DATE 05/31/20 05:30 Blood Culture - Preliminary Blood NEGATIVE TO DATE A&P Assessment and plan (1) Cord compression: Status: Acute (2) Fall: Status: Acute (3) Paresthesia and pain of extremity: Status: Acute (4) Paresthesia of buttock: Status: Acute Additional A&P Information 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 anti-hypertensive For SBP > 180 or DBP>100 New onset Diabetes mellitus - a1c 8 % - Will add lantus 10 units qhs today - Sliding scale coverage - Diabetic diet Hyponatremia - Na 131 - 131 - UA Na in am - Repeat BMP in am DVT ppx - SCDs - Lovenox 40 mg SQ daily Disposition: Case management working on placement however difficult due to lack of insurance. Expected prolonged hospitalization until this can be arranged. Attestations Medical Necessity Statement*: continue hospitalization for management of c- diff colitis/epidural abscess Time Spent in Patient Care: Greater than 35 minutes Coding Level of Care Code Acute Resort Housekeeper for Kathy Meza Diagnoses Cord compression G95.20 Fall W19.XXXA Paresthesia and pain of extremity R20.2; M79.609 Paresthesia of buttock R20.2
[2020-06-01 16:00] VITALS: BP 145/84; PULSE 101; RESP 18; TEMP 36.8; O2SAT 95
[2020-06-01 18:08] LABS: Glucose Point of Care 119 mg/dL (70-110)
[2020-06-01 19:54] VITALS: BP 144/78; PULSE 107; RESP 16; TEMP 36.8
[2020-06-01 20:15] LABS: Glucose Point of Care 179 mg/dL (70-110)
[2020-06-01] MEDS: insulin glargine 100 units/1 mL 10 UNIT SUBCUT (20:39)
[2020-06-02] VITALS (7 sets, daily range): BP systolic 126–157; BP diastolic 76–89; PULSE 72–100; RESP 16–18; TEMP 36.4–36.8; O2SAT 92–95
[2020-06-02] MEDS: enoxaparin 40 mg/0.4 mL Syringe SUBCUT (05:02)
[2020-06-02 07:02] LABS: Glucose Point of Care 135 mg/dL (70-110)
[2020-06-02] MEDS: docusate sodium 100 mg Capsule PO ×2 (08:39→17:14)
[2020-06-02] MEDS: sennosides-docusate Tablet 1 TAB PO (08:39)
[2020-06-02] MEDS: metoprolol tartrate 25 mg Tablet PO ×2 (08:39→20:27)
[2020-06-02] MEDS: ascorbic acid 500 mg Tablet PO (08:39)
[2020-06-02 11:04] LABS: Glucose Point of Care 146 mg/dL (70-110)
[2020-06-02 17:06] LABS: Glucose Point of Care 134 mg/dL (70-110)
[2020-06-02 20:15] LABS: Glucose Point of Care 198 mg/dL (70-110)
[2020-06-02] MEDS: cefTRIAXone 2,000 MG in sodium chloride 0.9% (plus) 50 ML 100 MG IV (20:26)
[2020-06-02] MEDS: nystatin powder 15 gm Btl 1 APPLIC TOPICAL (20:27)
[2020-06-02] MEDS: insulin glargine 100 units/1 mL 10 UNIT SUBCUT (20:39)
--- NOTE | 2020-06-02 21:11 | PM.PN ---
Subjective Subjective: Interval history: Diarrhea improving No new complaints. Medications: Reviewed: Yes Vitals/I&O/Wt Last Vital Signs Temp 97.5 F L 06/02/20 19:00 Pulse 95 06/02/20 19:00 Resp 18 06/02/20 19:00 BP 147/82 06/02/20 19:00 Pulse Ox 94 06/02/20 19:00 06/02/20 06/02/20 06/02/20 06:59 14:59 22:59 Intake Total 240 / 1590 360 / 360 Output Total 3100 / 8200 825 / 825 650 / 1475 Balance -2860 / -6610 -465 / -465 -650 / -1115 Physical Exam Narrative: EXAM NARRATIVE: General -alert awake and oriented in no apparent distress HEENT- grossly unremarkable Chest- nonlabored respiration Abdomen -soft nontender CVS -normal sinus rhythm Psych- cooperative Extremities-no edema Urinary Catheter Management^: Nino: Cath Placed During This Visit: yes, but has since been removed by the nurse Reason for Continuing Indwelling Catheter: Decision to DC Catheter Urinary Catheter Date of Insertion: 05/23/20 Urinary Catheter Time of Insertion: 04:45 Date Urinary Catheter Removed: 05/25/20 Time Urinary Catheter Discontinued: 08:30 Data : 05/31/20 05:30 06/01/20 05:30 A&P Assessment and plan (1) Cord compression: Status: Acute (2) Fall: Status: Acute (3) Paresthesia and pain of extremity: Status: Acute (4) Paresthesia of buttock: Status: Acute Additional A&P Information 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 - Ortho spine on consult - S/p Laminectomy with partial facetomy at T7-T11 with pus noted b/w T9-T1 - Blood culture x 2 - NGTD - Abscess culture -> strep agalactaie - Urine - > strep agalactaie - Rocephin 2g IV daily - PICC line placed - Plan for 6 weeks of abx - Will assess for source - ECHO ordered - no obvious vegetation - May consider CT abd/pelvis - Continues to have LE weakness - will superintendent container terminal therapy - Fall precautions C-diff colitis - Continue vancomycin po - CT abd pelvis - colitis - Repeat labs in AM Accelerated hypertension - Metoprolol 25 mg PO BID - May beed to add additional meds - P.r.n. anti-hypertensive For SBP > 180 or DBP>100 New onset Diabetes mellitus - a1c 8 % - Will add lantus 10 units qhs today - Sliding scale coverage - Diabetic diet Hyponatremia - Na 131 - 131 - UA Na in am - Repeat BMP in am DVT ppx - SCDs - Lovenox 40 mg SQ daily Disposition: Case management working on placement however difficult due to lack of insurance. Expected prolonged hospitalization until this can be arranged. Attestations Medical Necessity Statement*: Pending discharge placement Time Spent in Patient Care: Greater than 35 minutes (>than 50% of time spent in counselling and/or direct pt care on unit). Coding Level of Care Code Acute Outreach Specialist for Kathy Meza Diagnoses Cord compression G95.20 Fall W19.XXXA Paresthesia and pain of extremity R20.2; M79.609 Paresthesia of buttock R20.2
[2020-06-03 02:25] LABS: Basophils # 0.1 10^3/uL (0.0-0.1); Basophils % 0.6 %; Eosinophils # 0.3 10^3/uL (0.0-0.8); Hematocrit 39.3 % (42.0-52.0); Hemoglobin 12.7 g/dL (11.7-16.6); Lymphocytes # 1.7 10^3/uL (0.8-4.8); Lymphocytes % 20.9 %; Mean Corpuscular HGB Conc 32.3 g/dL (30.0-36.0); Mean Corpuscular Hemoglobin 26.3 pg (28.0-34.0); Mean Corpuscular Volume 81.4 fL (80-94); Mean Platelet Volume 8.9 fL (7.4-10.4); Monocytes # 0.6 10^3/uL (0.2-0.9); Monocytes % 7.5 %; Neutrophils # 5.56 10^3/uL (1.8-7.7); Neutrophils % 67.6 %; Nucleated Red Blood Cells % 0 %; Platelet Count 467 10^3/cmm (130-400); Red Blood Count 4.83 10^6/uL (4.1-5.3); Red Cell Distribution Width 12.6 % (12.1-15.1); White Blood Count 8.2 10^3/uL (4.0-10.0)
[2020-06-03 02:46] LABS: Alanine Aminotransferase 26 U/L (0-41); Albumin Level 2.5 g/dL (3.5-5.2); Alkaline Phosphatase 83 IU/L (40-130); Anion Gap 9.8 (5-19); Aspartate Amino Transferase 20 U/L (0-40); Blood Urea Nitrogen 4 mg/dL (6-20); Calcium 8.7 mg/dL (8.5-10.5); Carbon Dioxide 31 mmol/L (22-29); Chloride 97 mmol/L (98-107); Globulin 3.5 g/dL (1.3-4.6); Glucose 131 mg/dL (65-115); Osmolality Calculated 279 mOsm/kg (285-295); Sodium 135 mmol/L (136-145); Total Bilirubin 0.2 mg/dL (0.15-1.2)
[2020-06-03 02:49] LABS: Potassium 2.8 mmol/L (3.5-5.1); Procalcitonin 0.07 ng/mL (0-0.5)
[2020-06-03 03:55] LABS: Magnesium 1.7 mg/dL (1.7-2.3)
[2020-06-03 04:00] VITALS: BP 131/74; PULSE 77; RESP 14; TEMP 36.7; O2SAT 95
[2020-06-03] MEDS: enoxaparin 40 mg/0.4 mL Syringe SUBCUT (05:06)
[2020-06-03] MEDS: lidocaine 1% 5 ML in potassium chloride premix 100 ML 25 ML IV (05:06)
[2020-06-03 06:16] LABS: Glucose Point of Care 130 mg/dL (70-110)
[2020-06-03 08:00] VITALS: BP 137/89; PULSE 102; RESP 17; TEMP 36.8; O2SAT 95
[2020-06-03] MEDS: sennosides-docusate Tablet 1 TAB PO (08:16)
[2020-06-03] MEDS: docusate sodium 100 mg Capsule PO (08:16)
[2020-06-03] MEDS: ascorbic acid 500 mg Tablet PO (08:17)
[2020-06-03] MEDS: metoprolol tartrate 25 mg Tablet PO ×2 (08:17→22:20)
[2020-06-03] MEDS: magnesium sulfate premix 2 GM/50 ML PIGGYBACK IV (08:17)
[2020-06-03] MEDS: nystatin powder 15 gm Btl 1 APPLIC TOPICAL (08:20)
[2020-06-03 10:52] LABS: Glucose Point of Care 219 mg/dL (70-110)
[2020-06-03 12:00] VITALS: BP 131/87; PULSE 86; RESP 18; TEMP 36.6; O2SAT 94
[2020-06-03 16:00] VITALS: BP 132/82; PULSE 92; RESP 16; TEMP 36.7; O2SAT 95
--- NOTE | 2020-06-03 17:23 | PM.PN ---
Subjective Subjective: Interval history: Diarrhea improving No new complaints. Medications: Reviewed: Yes Vitals/I&O/Wt Last Vital Signs Temp 98.2 F 06/03/20 23:59 Pulse 92 06/03/20 23:59 Resp 20 H 06/03/20 23:59 BP 134/84 06/03/20 23:59 Pulse Ox 92 06/03/20 23:59 06/03/20 06/03/20 06/04/20 14:59 22:59 06:59 Intake Total 480 / 480 240 / 720 Output Total 1700 / 1700 940 / 2640 Balance -1220 / -1220 -700 / -1920 Physical Exam Narrative: EXAM NARRATIVE: General -alert awake and oriented in no apparent distress HEENT- grossly unremarkable Chest- nonlabored respiration Abdomen -soft nontender CVS -normal sinus rhythm Psych- cooperative Extremities-no edema Urinary Catheter Management^: Nino: Cath Placed During This Visit: yes, but has since been removed by the nurse Reason for Continuing Indwelling Catheter: Decision to DC Catheter Urinary Catheter Date of Insertion: 05/23/20 Urinary Catheter Time of Insertion: 04:45 Date Urinary Catheter Removed: 05/25/20 Time Urinary Catheter Discontinued: 08:30 Data : 06/03/20 02:03 06/03/20 02:03 A&P Assessment and plan (1) Cord compression: Status: Acute (2) Fall: Status: Acute (3) Paresthesia and pain of extremity: Status: Acute (4) Paresthesia of buttock: Status: Acute Additional A&P Information 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 - Ortho spine on consult - S/p Laminectomy with partial facetomy at T7-T11 with pus noted b/w T9-T1 - Blood culture x 2 - NGTD - Abscess culture -> strep agalactaie - Urine - > strep agalactaie - Rocephin 2g IV daily - PICC line placed - Plan for 6 weeks of abx - Will assess for source - ECHO ordered - no obvious vegetation - CT abd/pelvis - neg - Continues to have LE weakness - will exterminator therapy - Fall precautions C-diff colitis - Continue vancomycin po - increase to 250 - CT abd pelvis - colitis - Repeat labs in AM Accelerated hypertension - Metoprolol 25 mg PO BID - May beed to add additional meds - P.r.n. anti-hypertensive For SBP > 180 or DBP>100 New onset Diabetes mellitus - a1c 8 % - Will add lantus 10 units qhs today - Sliding scale coverage - Diabetic diet Hyponatremia - Na 131 - 131 - UA Na in am - Repeat BMP in am DVT ppx - SCDs - Lovenox 40 mg SQ daily Disposition: Case management working on placement however difficult due to lack of insurance. Expected prolonged hospitalization until this can be arranged. Attestations Medical Necessity Statement*: Continue hospital stay for iv abx Time Spent in Patient Care: Greater than 35 minutes (>than 50% of time spent in counselling and/or direct pt care on unit). 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
[2020-06-03 17:42] LABS: Glucose Point of Care 113 mg/dL (70-110)
[2020-06-03 20:00] VITALS: BP 146/83; PULSE 100; RESP 22; TEMP 36.6; O2SAT 94
[2020-06-03 21:08] LABS: Glucose Point of Care 184 mg/dL (70-110)
[2020-06-03] MEDS: cefTRIAXone 2,000 MG in sodium chloride 0.9% (plus) 50 ML 100 MG IV (22:19)
[2020-06-03] MEDS: insulin glargine 100 units/1 mL 10 UNIT SUBCUT (22:20)
[2020-06-03 23:59] VITALS: BP 134/84; PULSE 92; RESP 20; TEMP 36.8; O2SAT 92
[2020-06-04 04:00] VITALS: BP 129/75; PULSE 80; RESP 20; TEMP 36.8; O2SAT 96
[2020-06-04] MEDS: enoxaparin 40 mg/0.4 mL Syringe SUBCUT (06:17)
[2020-06-04 06:39] LABS: Glucose Point of Care 130 mg/dL (70-110)
[2020-06-04 07:43] VITALS: BP 135/80; PULSE 82; RESP 18; TEMP 36.8; O2SAT 93
[2020-06-04] MEDS: ascorbic acid 500 mg Tablet PO (09:47)
[2020-06-04] MEDS: metoprolol tartrate 25 mg Tablet PO ×2 (09:47→19:53)
--- NOTE | 2020-06-04 10:22 | PC.OT ---
OT note: From chart review pt had critically low potassium yesterday, no new lab yet. Will hold at this time.
[2020-06-04 10:52] LABS: Glucose Point of Care 183 mg/dL (70-110)
[2020-06-04 11:19] VITALS: BP 124/88; PULSE 97; RESP 18; TEMP 36.7; O2SAT 96
[2020-06-04 15:22] VITALS: BP 130/85; PULSE 90; RESP 18; TEMP 36.9; O2SAT 95
[2020-06-04 16:57] LABS: Glucose Point of Care 140 mg/dL (70-110)
--- NOTE | 2020-06-04 17:11 | PM.PN ---
Subjective Subjective: Interval history: Picc line was accidently removed No fever or chills Continues to have decrease mobility still Able to somewhat move in bed but unable to bear weight Medications: Reviewed: Yes Vitals/I&O/Wt Last Vital Signs Temp 98.5 F 06/04/20 15:22 Pulse 90 06/04/20 15:22 Resp 18 06/04/20 15:22 BP 130/85 06/04/20 15:22 Pulse Ox 95 06/04/20 15:22 06/04/20 06/04/20 06/04/20 06:59 14:59 22:59 Intake Total 240 / 240 Output Total 1575 / 4215 600 / 600 Balance -1575 / -3395 -360 / -360 Physical Exam Narrative: EXAM NARRATIVE: General -alert awake and oriented in no apparent distress HEENT- grossly unremarkable Chest- nonlabored respiration Abdomen -soft nontender CVS -normal sinus rhythm Psych- cooperative Extremities-no edema Urinary Catheter Management^: Nino: Cath Placed During This Visit: yes, but has since been removed by the nurse Reason for Continuing Indwelling Catheter: Decision to DC Catheter Urinary Catheter Date of Insertion: 05/23/20 Urinary Catheter Time of Insertion: 04:45 Date Urinary Catheter Removed: 05/25/20 Time Urinary Catheter Discontinued: 08:30 Data : 06/03/20 02:03 06/04/20 17:50 A&P Assessment and plan (1) Cord compression: Status: Acute (2) Fall: Status: Acute (3) Paresthesia and pain of extremity: Status: Acute (4) Paresthesia of buttock: Status: Acute Additional A&P Information 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 - Ortho spine on consult - S/p Laminectomy with partial facetomy at T7-T11 with pus noted b/w T9-T1 - Blood culture x 2 - NGTD - Abscess culture -> strep agalactaie - Urine - > strep agalactaie - Rocephin 2g IV daily - PICC line placed - Plan for 6 weeks of abx - ECHO ordered - no obvious vegetation - CT abd/pelvis - neg - Continues to have LE weakness - will exterminator helper therapy - Fall precautions - PICC line was accidently removed by patient - WIll have this replaced tomorrow C-diff colitis - Continue vancomycin po - increase to 250 mg QID - Improving - CT abd pelvis - colitis - Repeat labs in AM Hypokalemia -Recheck BMP - K 3.4 - > 20 MEq po x 1 of KCL -Repeat BMP in am Hypertension - Metoprolol 25 mg PO BID - May beed to add additional meds - P.r.n. anti-hypertensive For SBP > 180 or DBP>100 New onset Diabetes mellitus - a1c 8 % - Will add lantus 10 units qhs today - Sliding scale coverage - Diabetic diet Hyponatremia - Na 131 - 131 - UA Na in am - Repeat BMP in am DVT ppx - SCDs - Lovenox 40 mg SQ daily Disposition: Case management working on placement however difficult due to lack of insurance. Expected prolonged hospitalization until this can be arranged. Attestations Medical Necessity Statement*: Patient require further hospitalization for management of epidural abscess requiring IV antibiotics with C diff colitis requiring oral vancomycin. Time Spent in Patient Care: Greater than 35 minutes (>than 50% of time spent in counselling and/or direct pt care on unit). Coding Level of Care Code Acute Monitoring Engineer for Kathy Meza Diagnoses Cord compression G95.20 Fall W19.XXXA Paresthesia and pain of extremity R20.2; M79.609 Paresthesia of buttock R20.2
[2020-06-04 18:23] LABS: Anion Gap 11.4 (5-19); Blood Urea Nitrogen 6 mg/dL (6-20); Calcium 8.7 mg/dL (8.5-10.5); Carbon Dioxide 31 mmol/L (22-29); Chloride 97 mmol/L (98-107); Glomerular Filtration Rate 142.6 mL/min (90-130); Glucose 138 mg/dL (65-115); Osmolality Calculated 282 mOsm/kg (285-295); Potassium 3.4 mmol/L (3.5-5.1); Sodium 136 mmol/L (136-145)
[2020-06-04 19:34] VITALS: BP 130/80; PULSE 99; RESP 24; TEMP 37; O2SAT 94
[2020-06-04] MEDS: cefTRIAXone 2,000 MG in sodium chloride 0.9% (plus) 50 ML 100 MG IV (19:52)
[2020-06-04] MEDS: potassium chloride ER 20 mEq Tablet PO (19:53)
[2020-06-04 21:08] LABS: Glucose Point of Care 182 mg/dL (70-110)
[2020-06-04] MEDS: insulin glargine 100 units/1 mL 10 UNIT SUBCUT (21:49)
[2020-06-05] VITALS: BP 126/76; PULSE 86; RESP 20; TEMP 37; O2SAT 94
[2020-06-05 02:29] LABS: Basophils # 0.1 10^3/uL (0.0-0.1); Basophils % 0.9 %; Eosinophils # 0.3 10^3/uL (0.0-0.8); Eosinophils % 2.9 %; Hematocrit 41.7 % (42.0-52.0); Hemoglobin 12.9 g/dL (11.7-16.6); Lymphocytes # 1.8 10^3/uL (0.8-4.8); Lymphocytes % 20.4 %; Mean Corpuscular HGB Conc 30.9 g/dL (30.0-36.0); Mean Corpuscular Hemoglobin 25.3 pg (28.0-34.0); Mean Corpuscular Volume 81.8 fL (80-94); Mean Platelet Volume 8.6 fL (7.4-10.4); Monocytes # 0.5 10^3/uL (0.2-0.9); Monocytes % 6.1 %; Neutrophils # 6.17 10^3/uL (1.8-7.7); Neutrophils % 69.4 %; Nucleated Red Blood Cells % 0 %; Platelet Count 479 10^3/cmm (130-400); Red Cell Distribution Width 12.6 % (12.1-15.1); White Blood Count 8.9 10^3/uL (4.0-10.0)
[2020-06-05 03:03] LABS: Alanine Aminotransferase 19 U/L (0-41); Albumin Level 2.7 g/dL (3.5-5.2); Alkaline Phosphatase 86 IU/L (40-130); Anion Gap 10.3 (5-19); Aspartate Amino Transferase 15 U/L (0-40); Blood Urea Nitrogen 5 mg/dL (6-20); Calcium 8.6 mg/dL (8.5-10.5); Carbon Dioxide 32 mmol/L (22-29); Chloride 98 mmol/L (98-107); Globulin 3.6 g/dL (1.3-4.6); Glomerular Filtration Rate 142.6 mL/min (90-130); Glucose 110 mg/dL (65-115); Osmolality Calculated 282 mOsm/kg (285-295); Potassium 3.3 mmol/L (3.5-5.1); Sodium 137 mmol/L (136-145); Total Bilirubin 0.2 mg/dL (0.15-1.2); Total Protein 6.3 g/dL (6.6-8.7)
[2020-06-05 04:00] VITALS: BP 130/78; PULSE 79; RESP 20; TEMP 37.1; O2SAT 94
[2020-06-05] MEDS: enoxaparin 40 mg/0.4 mL Syringe SUBCUT (06:28)
[2020-06-05 07:12] LABS: Glucose Point of Care 119 mg/dL (70-110)
[2020-06-05 08:00] VITALS: BP 161/95; PULSE 92; RESP 18; TEMP 36.4; O2SAT 94
[2020-06-05] MEDS: metoprolol tartrate 25 mg Tablet PO ×2 (08:35→21:05)
[2020-06-05] MEDS: ascorbic acid 500 mg Tablet PO (08:35)
--- NOTE | 2020-06-05 09:39 | XR_ITS ---
WS: [id number] PORTABLE CHEST HISTORY: PICC PLACEMENT COMPARISON: 05/26/2020 RIGHT PICC line terminates in the mid SVC. Lung volumes are decreased. No pleural effusion or pneumothorax. Cardiac size: Normal. Mediastinum/Aorta: Normal mediastinum. No osseous abnormality seen. XR/XR chest 1V portable [id number] IMPRESSION: Satisfactory placement right-sided PICC line.
--- NOTE | 2020-06-05 10:03 | PC.OT ---
OT EVALUATION ATTEMPTED TODAY. PATIENT IN PROCESS OF PICC LINE PLACEMENT. EVALUATION TO BE ATTEMPTED LATER TODAY.
[2020-06-05 10:59] LABS: Glucose Point of Care 168 mg/dL (70-110)
[2020-06-05 11:33] VITALS: BP 144/87; PULSE 97; RESP 18; O2SAT 94
--- NOTE | 2020-06-05 12:50 | PC.CHAP ---
Pastoral Care Encounter/Spiritual Assessment Type of Contact [] Declined senior director of strategy visit [] Patient/Family/Request visit [] Outpatient visit [] Follow-up visit [] Physician referral [] Code/Alert [] Routine visit [] Staff referral [] Actively dying [] Patient sleeping [] Family support [] [] Out of room [] Palliative care [] [] Receiving care in room [] Pre-surgical visit [] Trauma [] Long length of stay [] ICU visit [] Other: Relational/Emotional Strength [] Patient feels connected with others/family/visitors/staff [] Distress [] Loneliness/isolation [] Abandonment Spirituality of Patient [] Person of Kia [] Attends Rastafari of their Kia [] Believes in Prayer [] Reads Bible or Mu-Ism materials [] There are Spiritual issues to be addressed 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 Interventions [] Prayer [] Active listening [] Non-anxious presence [] Spiritual/emotional support [] Crisis/trauma care [] Spiritual counseling [] Bereavement support [] Provided bereavement packet [] Provided Bible/devotional materials [] Provided toy/stuffed animal, coloring book to patient or family member [] Provided Communion [] Anointing/[place] [] Salvation [] Completed spiritual assessment [] Other: Impact on Illness or Injury [] Angry [] Fearful [] Anxious [] Often cries [] Exhaustion [] Unable to work [] Unable to attend mosque [] Unable to walk/stand [] Unable to read [] Unable to drive [] Unable to eat/drink [] Unable to sleep [] Unable to be with family [] Patient intubated [] Other: Summary Patient is in isolation Time spent with patient
[2020-06-05 15:37] VITALS: BP 143/91; PULSE 89; RESP 18; TEMP 37.1; O2SAT 94
--- NOTE | 2020-06-05 15:44 | P.PN_ITS ---
Subjective Subjective: Interval history: Patient is somewhat improvement in diarrhea noting more formed stools. No fevers or chills overnight. Tolerating oral intake. Continues to have difficulty ambulating. PICC line was replaced today. Medications: Reviewed: Yes Vitals/I&O/Wt Last Vital Signs Temp 98.7 F 06/05/20 15:37 Pulse 89 06/05/20 15:37 Resp 18 06/05/20 15:37 BP 143/91 06/05/20 15:37 Pulse Ox 94 06/05/20 15:37 06/05/20 06/05/20 06/05/20 06:59 14:59 22:59 Intake Total 600 / 1680 Output Total 1385 / 3425 700 / 700 400 / 1100 Balance -785 / -1745 -700 / -700 -400 / -1100 Physical Exam Narrative: EXAM NARRATIVE: General -alert awake and oriented in no apparent distress HEENT- grossly unremarkable Chest- nonlabored respiration Abdomen -soft nontender CVS -normal sinus rhythm Psych- cooperative Extremities-no edema Urinary Catheter Management^: Nino: Cath Placed During This Visit: yes, but has since been removed by the nurse Reason for Continuing Indwelling Catheter: Decision to DC Catheter Urinary Catheter Date of Insertion: 05/23/20 Urinary Catheter Time of Insertion: 04:45 Date Urinary Catheter Removed: 05/25/20 Time Urinary Catheter Discontinued: 08:30 Data : 06/05/20 02:07 06/05/20 02:07 Micro: Microbiology 05/31/20 05:59 Blood Culture - Final Blood NO GROWTH AFTER 5 DAYS 05/31/20 05:30 Blood Culture - Final Blood NO GROWTH AFTER 5 DAYS A&P Assessment and plan (1) Cord compression: Status: Acute (2) Fall: Status: Acute (3) Paresthesia and pain of extremity: Status: Acute (4) Paresthesia of buttock: Status: Acute Additional A&P Information 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 - Ortho spine on consult - S/p Laminectomy with partial facetomy at T7-T11 with pus noted b/w T9-T1 - Blood culture x 2 - NGTD - Abscess culture -> strep agalactaie - Urine - > strep agalactaie - Rocephin 2g IV daily - Continue antibiotics for 6 weeks from date of surgery - ECHO ordered - no obvious vegetation - CT abd/pelvis - neg - Continues to have LE weakness - will intermediate designer therapy - Fall precautions - CBC, CRP, ESR Q-monday C-diff colitis - Vancomycin 250 mg PO QID - Improving - Remove rectal tube once stool formed - CT abd pelvis - colitis - Repeat labs in AM Hypokalemia -20 MEq po x 1 of KCL -Repeat BMP in am Hypertension - Metoprolol 25 mg PO BID - May need to add additional meds - P.r.n. anti-hypertensive For SBP > 180 or DBP>100 New onset Diabetes mellitus - a1c 8 % - Latus 10 units qhs - Sliding scale coverage - Diabetic diet Hyponatremia - Resolved - Na 131 - 131 - Trend BMP DVT ppx - SCDs - Lovenox 40 mg SQ daily Disposition: Case management working on placement however difficult due to lack of insurance. Expected prolonged hospitalization until this can be arranged. Attestations Medical Necessity Statement*: Continue hospitalization for IV antibiotics until discharge placement can be arranged. Time Spent in Patient Care: Greater than 35 minutes (>than 50% of time spent in counselling and/or direct pt care on unit) . Coding Level of Care Code Acute Mandolin Repairer for g Fwd Diagnoses Cord compression G95.20 Fall W19.XXXA Paresthesia and pain of extremity R20.2; M79.609 Paresthesia of buttock R20.2
[2020-06-05 17:07] LABS: Glucose Point of Care 179 mg/dL (70-110)
[2020-06-05] MEDS: potassium chloride ER 20 mEq Tablet PO (17:08)
[2020-06-05 19:42] VITALS: BP 152/89; PULSE 84; RESP 22; TEMP 36.8; O2SAT 93
[2020-06-05] MEDS: cefTRIAXone 2,000 MG in sodium chloride 0.9% (plus) 50 ML 100 MG IV (21:04)
[2020-06-05] MEDS: insulin glargine 100 units/1 mL 10 UNIT SUBCUT (21:06)
[2020-06-05 21:23] LABS: Glucose Point of Care 157 mg/dL (70-110)
[2020-06-06] VITALS: BP 135/75; PULSE 78; RESP 20; TEMP 36.9; O2SAT 92
[2020-06-06] MEDS: acetaminophen 325 mg Tablet 650 MG PO (03:29)
[2020-06-06 04:00] VITALS: BP 128/79; PULSE 75; RESP 16; TEMP 36.3; O2SAT 95
[2020-06-06] MEDS: enoxaparin 40 mg/0.4 mL Syringe SUBCUT (05:23)
[2020-06-06 06:15] LABS: Basophils # 0.1 10^3/uL (0.0-0.1); Basophils % 0.8 %; Eosinophils # 0.2 10^3/uL (0.0-0.8); Eosinophils % 2.7 %; Hematocrit 39.8 % (42.0-52.0); Hemoglobin 12.8 g/dL (11.7-16.6); Lymphocytes # 1.8 10^3/uL (0.8-4.8); Mean Corpuscular HGB Conc 32.2 g/dL (30.0-36.0); Mean Corpuscular Hemoglobin 26.1 pg (28.0-34.0); Mean Corpuscular Volume 81.1 fL (80-94); Monocytes # 0.6 10^3/uL (0.2-0.9); Monocytes % 6.8 %; Neutrophils # 5.85 10^3/uL (1.8-7.7); Neutrophils % 68.2 %; Nucleated Red Blood Cells % 0 %; Platelet Count 438 10^3/cmm (130-400); Red Blood Count 4.91 10^6/uL (4.1-5.3); Red Cell Distribution Width 12.8 % (12.1-15.1); White Blood Count 8.6 10^3/uL (4.0-10.0)
[2020-06-06 07:26] LABS: Glucose Point of Care 128 mg/dL (70-110)
[2020-06-06 08:17] LABS: Alanine Aminotransferase 18 U/L (0-41); Albumin Level 2.7 g/dL (3.5-5.2); Alkaline Phosphatase 84 IU/L (40-130); Anion Gap 12.6 (5-19); Aspartate Amino Transferase 18 U/L (0-40); Blood Urea Nitrogen 5 mg/dL (6-20); Calcium 8.5 mg/dL (8.5-10.5); Carbon Dioxide 29 mmol/L (22-29); Chloride 98 mmol/L (98-107); Globulin 3.5 g/dL (1.3-4.6); Glucose 120 mg/dL (65-115); Osmolality Calculated 280 mOsm/kg (285-295); Potassium 3.6 mmol/L (3.5-5.1); Sodium 136 mmol/L (136-145); Total Bilirubin 0.3 mg/dL (0.15-1.2); Total Protein 6.2 g/dL (6.6-8.7)
[2020-06-06 09:00] VITALS: BP 134/86; PULSE 103; RESP 18; TEMP 36.6; O2SAT 93
[2020-06-06] MEDS: ascorbic acid 500 mg Tablet PO (11:15)
[2020-06-06] MEDS: metoprolol tartrate 25 mg Tablet PO ×2 (11:15→20:20)
[2020-06-06 11:59] VITALS: BP 137/89; PULSE 90; RESP 16; TEMP 36.9; O2SAT 95
[2020-06-06 12:51] LABS: Glucose Point of Care 132 mg/dL (70-110)
[2020-06-06 15:57] VITALS: BP 129/82; PULSE 86; RESP 16; TEMP 37.4; O2SAT 94
--- NOTE | 2020-06-06 16:10 | PM.PN ---
Subjective Subjective: Interval history: Assuming care of this complicated patient today, chart extensively reviewed. Had 625 mL urine output overnight, vital signs stable, on room air. Very pleasant, continues to be motivated to work with therapy. Soft somewhat formed stool noted in rectal tube. Denies pain currently. Medications: Reviewed: Yes Medication Review Details: Active Medications Generic Name Dose Route Start Last Admin Trade Name Freq PRN Reason Stop Dose Admin Acetaminophen 650 mg 05/23/20 10:51 06/06/20 03:29 Acetaminophen 32 5 Mg Tablet PO 650 mg Q4H PRN Administration Mild Pain or feve r >101.5 Al Hydrox/Mg [place] x/Simethicone 30 ml 05/23/20 10:51 Oael-Ysa-Uznzdaa de-Bradley 30 Ml Udc PO Q4H PRN INDIGESTION Ascorbic Acid 500 mg 05/24/20 10:00 06/06/20 11:15 Ascorbic Acid 50 0 Mg Tablet PO 500 mg DAILY SANDIE Administration Dextrose 25 ml 05/27/20 15:23 Dextrose 50% Syr rony 50 Ml IVP ONCE PRN hypoglycemia prot ocol Protocol Dextrose 50 ml 05/27/20 15:23 Dextrose 50% Syr rony 50 Ml IVP PRN PRN hypoglycemia prot ocol Protocol Enoxaparin Sodium 40 mg 05/24/20 06:00 06/06/20 05:23 Enoxaparin 40 Mg /0.4 Ml Syringe SUBCUT 40 mg Q24H SANDIE Administration Glucagon 1 mg 05/27/20 15:23 Glucagon 1 Mg/Ml Inj 1 Ml IM ONCE PRN Adult Acute Hypog lycemia Prot. Protocol Dextrose 500 mls @ 100 mls /hr 05/27/20 15:23 D5w IV ONCE PRN Adult Acute Hypog lycemia Prot Protocol Ceftriaxone Sodium 2,000 mg/ 50 mls @ 100 mls/ hr 06/02/20 20:00 06/05/20 21:04 Sodium Chloride IV 100 mls/hr 2000 SANDIE Administration Protocol Insulin Aspart 0 unit 05/27/20 18:00 06/06/20 12:41 Insulin Aspart 1 00 Unit/1 Ml SUBCUT Not Given WM&BEDTIME SANDIE Protocol Insulin Glargine 10 unit 05/28/20 21:00 06/05/20 21:06 Insulin Glargine 100 Units/1 Ml SUBCUT 10 unit BEDTIME SANDIE Administration Ketorolac Trometha mine 30 mg 05/23/20 10:51 Ketorolac 30 Mg/ Ml Inj IVP Q6H PRN BREAKTHROUGH PAIN Magnesium Hydroxid e 30 ml 05/23/20 10:51 Magnesium Hydrox virgilio 30 Ml Udc PO Q4H PRN Constipation/bon gestion Metoprolol Tartrat e 25 mg 05/27/20 21:00 06/06/20 11:15 Metoprolol Tartr ate 25 Mg Tablet PO 25 mg BID@0900,2100 SANDIE Administration Nystatin 1 applic 06/02/20 19:29 06/03/20 08:20 Nystatin Powder 15 Gm Btl TOPICAL 1 dose BID PRN Administration RASH Ondansetron HCl 4 mg 05/23/20 10:51 Ondansetron 2 Mg /Ml Sdv 2 Ml IVP Q6H PRN NAUSEA AND VOMITI NG Vancomycin HCl 250 mg 06/05/20 17:00 06/06/20 15:00 Vancomycin 1,000 Mg Oral Maria Antonia (Btl) PO 2.5 ml QID SANDIE Administration No Known Allergies Allergy (Verified 05/22/20 16:55) Vitals/I&O/Wt Last Vital Signs Temp 99.3 F 06/06/20 15:57 Pulse 86 06/06/20 15:57 Resp 16 06/06/20 15:57 BP 129/82 06/06/20 15:57 Pulse Ox 94 06/06/20 15:57 06/06/20 06/06/20 06/06/20 06:59 14:59 22:59 Intake Total 800 / 1400 900 / 900 Output Total 1000 / 3075 650 / 650 600 / 1250 Balance -200 / -1675 250 / 250 -600 / -350 Physical Exam Const: COMMON NORMALS: no acute distress, patient oriented x3 and alert GENERAL APPEARANCE: cooperative and comfortable NUTRITIONAL APPEARANCE: obese morbidly obese ORIENTATION/CONSCIOUSNESS: Yes awake OTHER: -very pleasant, sitting up in bed HENMT: COMMON NORMALS: normocephalic, atraumatic, hearing grossly normal bilaterally and moist oral mucous membranes HEAD & SCALP: normocephalic and atraumatic Eye: COMMON NORMALS: Equal, round and reactive pupils present, EOMs intact bilaterally and conjunctivae normal CONJUNCTIVA: Yes conjunctivae normal PUPIL: Yes Equal, round and reactive pupils present Neck/C-Spine: COMMON NORMALS: full ROM GENERAL: Yes normal visual inspection and Yes trachea midline Resp: COMMON NORMALS: normal respiratory effort, No retractions, No use of accessory muscles and clear to auscultation bilaterally EFFORT & INSPECTION: Yes able to speak in complete sentences, Yes symmetric chest movement and No tachypneic AUSCULTATION: clear to auscultation bilaterally OTHER: -on RA Cardio: COMMON NORMALS: regular rate, regular rhythm, S1 normal heart sound present, S2 normal heart sound present and No murmurs present (Cardio) RATE: regular rate RHYTHM: regular rhythm HEART SOUNDS: S1 normal heart sound present and S2 normal heart sound present GI: COMMON NORMALS: Normal to inspection, nondistended, normoactive bowel sounds present, Soft to palpation and non-tender PALPATION: Yes Soft to palpation OTHER: -rectal tube in place; soft somewhat formed stool noted Extremity: COMMON NORMALS: normal to inspection, no clubbing, cyanosis or edema and no pedal edema NARRATIVE EXTREMITY EXAM: -PICC line in place (R) Neuro: COMMON NORMALS: patient oriented x3 and no sensory deficits noted SENSORIUM/ORIENTATION: Yes alert OTHER: -gross sensation to LEs seems to be intact, unable to ambulate/weight bear Psych: COMMON NORMALS: mental status grossly normal, Normal thought process present, cooperative, normal affect and speech normal SPEECH: Yes normal speech THOUGHT PROCESS: Normal thought process present Skin: COMMON NORMALS: no rashes or lesions noted, no jaundice, no petechiae and no mottling GENERAL SKIN EXAM: no rashes or lesions noted Urinary Catheter Management^: Nino: Cath Placed During This Visit: yes, but has since been removed by the nurse Reason for Continuing Indwelling Catheter: Decision to DC Catheter Urinary Catheter Date of Insertion: 05/23/20 Urinary Catheter Time of Insertion: 04:45 Date Urinary Catheter Removed: 05/25/20 Time Urinary Catheter Discontinued: 08:30 Data : 06/06/20 05:24 06/06/20 05:24 A&P Assessment and plan (1) Cord compression: -s/p laminectomy with partial facetectomy involving T7-T11; evidence of past noted between T9-T11, on 05/23; POD # 14 -Ortho-spine consult by Dr. Meneses appreciated -Noted subsequent paraplegia; has been unable to ambulate since procedure -evidence of epidural abscess (noted epidural spinal fluid collection in the lower thoracic spine on MRI), culture has grown Strep agalactaie -blood cx have been negative -on Ceftriaxone, PICC line in place -TTE: no apparent vegetation; EF=55% -PT/OT evaluations appreciated -resolved leukocytosis, -pain control as needed -noted elevation of inflammatory markers; continue to trend ESR, CRP Status: Acute (2) Paralysis of both lower limbs: Status: Acute (3) Paresthesia and pain of extremity: Status: Acute (4) Paresthesia of buttock: Status: Acute (5) Fall: -initially presented on 05/22 after having had a fall at home Status: Acute Qualifiers: Encounter type: initial encounter Qualified Code(s): W19.XXXA - Unspecified fall, initial encounter (6) Cystitis: -urine cx: Strep agalactiae; evidence of cystitis on CT A/P Status: Acute (7) C. difficile colitis: -has rectal tube in place -contact isolation precautions -on oral vancomycin (day 07/08) -evidence of colitis on CT A/P Status: Acute Additional A&P Information -Hypokalemia; resolved, replace as needed, particularly if ongoing diarrhea -HTN: VSS; continue meds -new onset DM type II; A1c-8.3; Accucheks, ISS, scheduled Lantus, hypoglycemia precautions, consistent carb diet as tolerated -Hyponatremia; resolved -extensive intertrigo; start on systemic antifungal treatment -DVT ppx with lovenox -Dispo: Patient requires extensive rehab in light of paraplegia and long-term IV antibiotics. Unfortunately due to lack of insurance coverage placement has been very challenging. This has prolonged his hospital stay. -Code status: FULL code Attestations Medical Necessity Statement*: Patient requires continued hospitalization for management of cord compression secondary to epidural abscess from strep agalactiae, on IV antibiotics, persistent paraplegia pending appropriate disposition. Time Spent in Patient Care: Greater than 35 minutes (>than 50% of time spent in counselling and/or direct pt care on unit). Coding Level of Care Code Acute Credit Portfolio Manager for [facility] Fwd Exam Comprehensive Diagnoses Cord compression G95.20 Paralysis of both lower limbs G82.20 Paresthesia and pain of extremity R20.2; M79.609 Paresthesia of buttock R20.2 Fall W19.XXXA Encounter type: initial encounter Cystitis N30.90 C. difficile colitis A04.72
[2020-06-06 17:35] LABS: Glucose Point of Care 126 mg/dL (70-110)
[2020-06-06 20:00] VITALS: BP 147/81; PULSE 101; RESP 20; TEMP 37.3; O2SAT 93
[2020-06-06] MEDS: cefTRIAXone 2,000 MG in sodium chloride 0.9% (plus) 50 ML 100 MG IV (20:19)
[2020-06-06] MEDS: insulin glargine 100 units/1 mL 10 UNIT SUBCUT (20:19)
[2020-06-06 20:52] LABS: Glucose Point of Care 144 mg/dL (70-110)
[2020-06-07] VITALS: BP 129/76; PULSE 90; RESP 19; TEMP 36.7; O2SAT 92
[2020-06-07 04:00] VITALS: BP 134/83; PULSE 80; RESP 19; TEMP 36.9; O2SAT 94
[2020-06-07 04:50] LABS: C Reactive Protein 27.4 mg/L (0.0-4.9)
[2020-06-07 05:31] LABS: Erythrocyte Sedimentation Rate 35 mm/hr (0-10)
[2020-06-07] MEDS: enoxaparin 40 mg/0.4 mL Syringe SUBCUT (05:50)
[2020-06-07 07:07] LABS: Glucose Point of Care 123 mg/dL (70-110)
[2020-06-07 07:17] VITALS: BP 143/83; PULSE 86; RESP 18; TEMP 36.4; O2SAT 94
[2020-06-07] MEDS: fluconazole 100 mg Tablet PO (10:08)
[2020-06-07] MEDS: metoprolol tartrate 25 mg Tablet PO ×2 (10:08→22:00)
[2020-06-07] MEDS: ascorbic acid 500 mg Tablet PO (10:08)
[2020-06-07 10:53] VITALS: BP 136/70; PULSE 88; RESP 18; TEMP 36.7; O2SAT 95
[2020-06-07 11:15] LABS: Glucose Point of Care 170 mg/dL (70-110)
--- NOTE | 2020-06-07 14:04 | PM.PN ---
Subjective Subjective: Interval history: Remains hemodynamically stable, afebrile, on RA, continues to participate well with therapy. No complaints, rectal tube remains in place, soft somewhat formed stool in bag. Medications: Reviewed: Yes Medication Review Details: Active Medications Generic Name Dose Route Start Last Admin Trade Name Freq PRN Reason Stop Dose Admin Acetaminophen 650 mg 05/23/20 10:51 06/06/20 03:29 Acetaminophen 32 5 Mg Tablet PO 650 mg Q4H PRN Administration Mild Pain or feve r >101.5 Al Hydrox/Mg [place] x/Simethicone 30 ml 05/23/20 10:51 Acqi-Axk-Rezxjab de-Bradley 30 Ml Udc PO Q4H PRN INDIGESTION Ascorbic Acid 500 mg 05/24/20 10:00 06/07/20 10:08 Ascorbic Acid 50 0 Mg Tablet PO 500 mg DAILY SANDIE Administration Dextrose 25 ml 05/27/20 15:23 Dextrose 50% Syr rony 50 Ml IVP ONCE PRN hypoglycemia prot ocol Protocol Dextrose 50 ml 05/27/20 15:23 Dextrose 50% Syr rony 50 Ml IVP PRN PRN hypoglycemia prot ocol Protocol Enoxaparin Sodium 40 mg 05/24/20 06:00 06/07/20 05:50 Enoxaparin 40 Mg /0.4 Ml Syringe SUBCUT 40 mg Q24H SANDIE Administration Fluconazole 100 mg 06/07/20 09:00 06/07/20 10:08 Fluconazole 100 Mg Tablet PO 100 mg DAILY SANDIE Administration Glucagon 1 mg 05/27/20 15:23 Glucagon 1 Mg/Ml Inj 1 Ml IM ONCE PRN Adult Acute Hypog lycemia Prot. Protocol Dextrose 500 mls @ 100 mls /hr 05/27/20 15:23 D5w IV ONCE PRN Adult Acute Hypog lycemia Prot Protocol Ceftriaxone Sodium 2,000 mg/ 50 mls @ 100 mls/ hr 06/02/20 20:00 06/06/20 20:19 Sodium Chloride IV 100 mls/hr 1999 SANDIE Administration Protocol Insulin Aspart 0 unit 05/27/20 18:00 06/07/20 12:13 Insulin Aspart 1 00 Unit/1 Ml SUBCUT 2 unit WM&BEDTIME SANDIE Administration Protocol Insulin Glargine 10 unit 05/28/20 21:00 06/06/20 20:19 Insulin Glargine 100 Units/1 Ml SUBCUT 10 unit BEDTIME SANDIE Administration Ketorolac Trometha mine 30 mg 05/23/20 10:51 Ketorolac 30 Mg/ Ml Inj IVP Q6H PRN BREAKTHROUGH PAIN Magnesium Hydroxid e 30 ml 05/23/20 10:51 Magnesium Hydrox virgilio 30 Ml Udc PO Q4H PRN Constipation/bon gestion Metoprolol Tartrat e 25 mg 05/27/20 21:00 06/07/20 10:08 Metoprolol Tartr ate 25 Mg Tablet PO 25 mg BID@0900,2100 SANDIE Administration Nystatin 1 applic 06/02/20 19:29 06/03/20 08:20 Nystatin Powder 15 Gm Btl TOPICAL 1 dose BID PRN Administration RASH Ondansetron HCl 4 mg 05/23/20 10:51 Ondansetron 2 Mg /Ml Sdv 2 Ml IVP Q6H PRN NAUSEA AND VOMITI NG Vancomycin HCl 250 mg 06/05/20 17:00 06/07/20 12:14 Vancomycin 1,000 Mg Oral Maria Antonia (Btl) PO 2.5 ml QID SANDIE Administration No Known Allergies Allergy (Verified 05/22/20 16:55) Vitals/I&O/Wt Last Vital Signs Temp 98.0 F 06/07/20 10:53 Pulse 88 06/07/20 10:53 Resp 18 06/07/20 10:53 BP 136/70 06/07/20 10:53 Pulse Ox 95 06/07/20 10:53 06/06/20 06/07/20 06/07/20 22:59 06:59 14:59 Intake Total 480 / 1380 500 / 1880 480 / 480 Output Total 1400 / 2050 950 / 3000 Balance -920 / -670 -450 / -1120 480 / 480 Physical Exam Const: COMMON NORMALS: no acute distress, patient oriented x3 and alert GENERAL APPEARANCE: cooperative and comfortable NUTRITIONAL APPEARANCE: obese morbidly obese ORIENTATION/CONSCIOUSNESS: Yes awake OTHER: -very pleasant, sitting up in bed HENMT: COMMON NORMALS: normocephalic, atraumatic, hearing grossly normal bilaterally and moist oral mucous membranes HEAD & SCALP: normocephalic and atraumatic Eye: COMMON NORMALS: Equal, round and reactive pupils present, EOMs intact bilaterally and conjunctivae normal CONJUNCTIVA: Yes conjunctivae normal PUPIL: Yes Equal, round and reactive pupils present Neck/C-Spine: COMMON NORMALS: full ROM GENERAL: Yes normal visual inspection and Yes trachea midline Resp: COMMON NORMALS: normal respiratory effort, No retractions, No use of accessory muscles and clear to auscultation bilaterally EFFORT & INSPECTION: Yes able to speak in complete sentences, Yes symmetric chest movement and No tachypneic AUSCULTATION: clear to auscultation bilaterally OTHER: -on RA Cardio: COMMON NORMALS: regular rate, regular rhythm, S1 normal heart sound present, S2 normal heart sound present and No murmurs present (Cardio) RATE: regular rate RHYTHM: regular rhythm HEART SOUNDS: S1 normal heart sound present and S2 normal heart sound present GI: COMMON NORMALS: Normal to inspection, nondistended, normoactive bowel sounds present, Soft to palpation and non-tender PALPATION: Yes Soft to palpation OTHER: -rectal tube in place; soft somewhat formed stool noted Extremity: COMMON NORMALS: normal to inspection, no clubbing, cyanosis or edema and no pedal edema NARRATIVE EXTREMITY EXAM: -PICC line in place (R) Neuro: COMMON NORMALS: patient oriented x3 and no sensory deficits noted SENSORIUM/ORIENTATION: Yes alert OTHER: -gross sensation to LEs seems to be intact, unable to ambulate/weight bear Psych: COMMON NORMALS: mental status grossly normal, Normal thought process present, cooperative, normal affect and speech normal SPEECH: Yes normal speech THOUGHT PROCESS: Normal thought process present Skin: COMMON NORMALS: no rashes or lesions noted, no jaundice, no petechiae and no mottling GENERAL SKIN EXAM: no rashes or lesions noted Urinary Catheter Management^: Nino: Cath Placed During This Visit: yes, but has since been removed by the nurse Reason for Continuing Indwelling Catheter: Decision to DC Catheter Urinary Catheter Date of Insertion: 05/23/20 Urinary Catheter Time of Insertion: 04:45 Date Urinary Catheter Removed: 05/25/20 Time Urinary Catheter Discontinued: 08:30 Data : 06/06/20 05:24 06/06/20 05:24 A&P Assessment and plan (1) Cord compression: -s/p laminectomy with partial facetectomy involving T7-T11; evidence of past noted between T9-T11, on 05/23; POD # 15 -Ortho-spine consult by Dr. Meneses appreciated -Noted subsequent paraplegia; has been unable to ambulate since procedure -evidence of epidural abscess (noted epidural spinal fluid collection in the lower thoracic spine on MRI), culture has grown Strep agalactaie -blood cx have been negative -on Ceftriaxone, PICC line in place -TTE: no apparent vegetation; EF=55% -PT/OT evaluations appreciated -resolved leukocytosis, afebrile -pain control as needed -noted elevation of inflammatory markers; continue to trend ESR, CRP; improving Status: Acute (2) Paralysis of both lower limbs: Status: Acute (3) Paresthesia and pain of extremity: Status: Acute (4) Paresthesia of buttock: Status: Acute (5) Fall: -initially presented on 05/22 after having had a fall at home Status: Acute Qualifiers: Encounter type: initial encounter Qualified Code(s): W19.XXXA - Unspecified fall, initial encounter (6) Cystitis: -urine cx: Strep agalactiae; evidence of cystitis on CT A/P Status: Acute (7) C. difficile colitis: -has rectal tube in place; plan to discontinue once stool more formed -contact isolation precautions -on oral vancomycin (day 08/05) -evidence of colitis on CT A/P Status: Acute Additional A&P Information -Hypokalemia; resolved, replace as needed, particularly if ongoing diarrhea -HTN: VSS; continue meds -new onset DM type II; A1c-8.3; Accucheks, ISS, scheduled Lantus, hypoglycemia precautions, consistent carb diet as tolerated -Hyponatremia; resolved -extensive intertrigo; on systemic antifungal treatment -DVT ppx with lovenox -Dispo: Patient requires extensive rehab in light of paraplegia and long-term IV antibiotics. Unfortunately due to lack of insurance coverage placement has been very challenging. This has prolonged his hospital stay. -Code status: FULL code Attestations Medical Necessity Statement*: Patient requires hospitalization for continued antibiotic treatment, pending appropriate disposition. Time Spent in Patient Care: 16 - 35 minutes (>than 50% of time spent in counselling and/or direct pt care on unit). Coding Level of Care Code Acute Flight Kitchen Manager for [facility] Fwd Exam Comprehensive Diagnoses Cord compression G95.20 Paralysis of both lower limbs G82.20 Paresthesia and pain of extremity R20.2; M79.609 Paresthesia of buttock R20.2 Fall W19.XXXA Encounter type: initial encounter Cystitis N30.90 C. difficile colitis A04.72
[2020-06-07 15:30] VITALS: BP 143/93; PULSE 89; RESP 18; TEMP 36.8; O2SAT 96
[2020-06-07 17:29] LABS: Glucose Point of Care 128 mg/dL (70-110)
[2020-06-07 20:00] VITALS: BP 143/85; PULSE 97; RESP 20; TEMP 36.4; O2SAT 96
[2020-06-07 21:36] LABS: Glucose Point of Care 155 mg/dL (70-110)
[2020-06-07] MEDS: cefTRIAXone 2,000 MG in sodium chloride 0.9% (plus) 50 ML 100 MG IV (21:59)
[2020-06-07] MEDS: insulin glargine 100 units/1 mL 10 UNIT SUBCUT (22:00)
[2020-06-08] VITALS (7 sets, daily range): BP systolic 132–155; BP diastolic 80–89; PULSE 75–94; RESP 18–20; TEMP 36–37.1; O2SAT 92–97
[2020-06-08] MEDS: nystatin powder 15 gm Btl 1 APPLIC TOPICAL (05:12)
[2020-06-08] MEDS: enoxaparin 40 mg/0.4 mL Syringe SUBCUT (05:12)
[2020-06-08 07:05] LABS: Glucose Point of Care 118 mg/dL (70-110)
[2020-06-08] MEDS: ascorbic acid 500 mg Tablet PO (08:09)
[2020-06-08] MEDS: fluconazole 100 mg Tablet PO (08:09)
[2020-06-08] MEDS: metoprolol tartrate 25 mg Tablet PO ×2 (08:09→20:40)
[2020-06-08 11:10] LABS: Glucose Point of Care 146 mg/dL (70-110)
--- NOTE | 2020-06-08 13:12 | P.PN_ITS ---
Subjective Subjective: Interval history: No acute overnight events, had 1300 mL urine output, afebrile, on RA. Continues to participate well with therapy. Working with OT during my encounter, requesting removal of rectal tube, stool is formed so can discontinue. Medications: Reviewed: Yes Medication Review Details: Active Medications Generic Name Dose Route Start Last Admin Trade Name Freq PRN Reason Stop Dose Admin Acetaminophen 650 mg 05/23/20 10:51 06/06/20 03:29 Acetaminophen 32 5 Mg Tablet PO 650 mg Q4H PRN Administration Mild Pain or feve r >101.5 Al Hydrox/Mg [place] x/Simethicone 30 ml 05/23/20 10:51 Kruv-See-Ylgksxh de-[place] 30 Ml Udc PO Q4H PRN INDIGESTION Ascorbic Acid 500 mg 05/24/20 10:00 06/08/20 08:09 Ascorbic Acid 50 0 Mg Tablet PO 500 mg DAILY SANDIE Administration Dextrose 25 ml 05/27/20 15:23 Dextrose 50% Syr rony 50 Ml IVP ONCE PRN hypoglycemia prot ocol Protocol Dextrose 50 ml 05/27/20 15:23 Dextrose 50% Syr rony 50 Ml IVP PRN PRN hypoglycemia prot ocol Protocol Enoxaparin Sodium 40 mg 05/24/20 06:00 06/08/20 05:12 Enoxaparin 40 Mg /0.4 Ml Syringe SUBCUT 40 mg Q24H SANDIE Administration Fluconazole 100 mg 06/07/20 09:00 06/08/20 08:09 Fluconazole 100 Mg Tablet PO 100 mg DAILY SANDIE Administration Glucagon 1 mg 05/27/20 15:23 Glucagon 1 Mg/Ml Inj 1 Ml IM ONCE PRN Adult Acute Hypog lycemia Prot. Protocol Dextrose 500 mls @ 100 mls /hr 05/27/20 15:23 D5w IV ONCE PRN Adult Acute Hypog lycemia Prot Protocol Ceftriaxone Sodium 2,000 mg/ 50 mls @ 100 mls/ hr 06/02/20 20:00 06/07/20 21:59 Sodium Chloride IV 100 mls/hr 1999 SANDIE Administration Protocol Insulin Aspart 0 unit 05/27/20 18:00 06/08/20 12:22 Insulin Aspart 1 00 Unit/1 Ml SUBCUT 2 unit WM&BEDTIME SANDIE Administration Protocol Insulin Glargine 10 unit 05/28/20 21:00 06/07/20 22:00 Insulin Glargine 100 Units/1 Ml SUBCUT 10 unit BEDTIME SANDIE Administration Ketorolac Trometha mine 30 mg 05/23/20 10:51 Ketorolac 30 Mg/ Ml Inj IVP Q6H PRN BREAKTHROUGH PAIN Magnesium Hydroxid e 30 ml 05/23/20 10:51 Magnesium Hydrox virgilio 30 Ml Udc PO Q4H PRN Constipation/bon gestion Metoprolol Tartrat e 25 mg 05/27/20 21:00 06/08/20 08:09 Metoprolol Tartr ate 25 Mg Tablet PO 25 mg BID@0900,2100 SANDIE Administration Nystatin 1 applic 06/02/20 19:29 06/08/20 05:12 Nystatin Powder 15 Gm Btl TOPICAL 1 dose BID PRN Administration RASH Ondansetron HCl 4 mg 05/23/20 10:51 Ondansetron 2 Mg /Ml Sdv 2 Ml IVP Q6H PRN NAUSEA AND VOMITI NG Vancomycin HCl 250 mg 06/05/20 17:00 06/08/20 12:22 Vancomycin 1,000 Mg Oral Maria Antonia (Btl) PO 2.5 ml QID SANDIE Administration No Known Allergies Allergy (Verified 05/22/20 16:55) Vitals/I&O/Wt Last Vital Signs Temp 98.3 F 06/08/20 11:49 Pulse 94 06/08/20 11:49 Resp 18 06/08/20 11:49 BP 132/87 06/08/20 11:49 Pulse Ox 92 06/08/20 11:49 06/07/20 06/08/20 06/08/20 22:59 06:59 14:59 Intake Total 960 / 1440 480 / 480 Output Total 1475 / 1475 1300 / 2775 Balance -1475 / -995 -340 / -1335 480 / 480 Physical Exam Const: COMMON NORMALS: no acute distress, patient oriented x3 and alert GENERAL APPEARANCE: cooperative and comfortable NUTRITIONAL APPEARANCE: obese morbidly obese ORIENTATION/CONSCIOUSNESS: Yes awake OTHER: -very pleasant, sitting up in bed HENMT: COMMON NORMALS: normocephalic, atraumatic, hearing grossly normal bilaterally and moist oral mucous membranes HEAD & SCALP: normocephalic and atraumatic Eye: COMMON NORMALS: Equal, round and reactive pupils present, EOMs intact bilaterally and conjunctivae normal CONJUNCTIVA: Yes conjunctivae normal PUPIL: Yes Equal, round and reactive pupils present Neck/C-Spine: COMMON NORMALS: full ROM GENERAL: Yes normal visual i nspection and Yes trachea midline Resp: COMMON NORMALS: normal respiratory effort, No retractions, No use of accessory muscles and clear to auscultation bilaterally EFFORT & INSPECTION: Yes able to speak in complete sentences, Yes symmetric chest movement and No tachypneic AUSCULTATION: clear to auscultation bilaterally OTHER: -on RA Cardio: COMMON NORMALS: regular rate, regular rhythm, S1 normal heart sound present, S2 normal heart sound present and No murmurs present (Cardio) RATE: regular rate RHYTHM: regular rhythm HEART SOUNDS: S1 normal heart sound present and S2 normal heart sound present GI: COMMON NORMALS: Normal to inspection, nondistended, normoactive bowel sounds present, Soft to palpation and non-tender PALPATION: Yes Soft to palpation OTHER: -rectal tube in place; soft formed stool noted Extremity: COMMON NORMALS: normal to inspection, no clubbing, cyanosis or edema and no pedal edema NARRATIVE EXTREMITY EXAM: -PICC line in place (R) Neuro: COMMON NORMALS: patient oriented x3 and no sensory deficits noted SENSORIUM/ORIENTATION: Yes alert OTHER: -gross sensation to LEs seems to be intact, unable to ambulate/weight bear Psych: COMMON NORMALS: mental status grossly normal, Normal thought process present, cooperative, normal affect and speech normal SPEECH: Yes normal speech THOUGHT PROCESS: Normal thought process present Skin: COMMON NORMALS: no rashes or lesions noted, no jaundice, no petechiae and no mottling GENERAL SKIN EXAM: no rashes or lesions noted Urinary Catheter Management^: Nino: Cath Placed During This Visit: yes, but has since been removed by the nurse Reason for Continuing Indwelling Catheter: Decision to DC Catheter Urinary Catheter Date of Insertion: 05/23/20 Urinary Catheter Time of Insertion: 04:45 Date Urinary Catheter Removed: 05/25/20 Time Urinary Catheter Discontinued: 08:30 Data : 06/06/20 05:24 06/06/20 05:24 A&P Assessment and plan (1) Cord compression: -s/p laminectomy with partial facetectomy involving T7-T11; evidence of past noted between T9-T11, on 05/23; POD # 16 -Ortho-spine consult by Dr. Meneses appreciated -Noted subsequent paraplegia; has been unable to ambulate since procedure -evidence of epidural abscess (noted epidural spinal fluid collection in the lower thoracic spine on MRI), culture has grown Strep agalactaie -blood cx have been negative -on Ceftriaxone (x 6 weeks, day 16), PICC line in place -TTE: no apparent vegetation; EF=55% -PT/OT evaluations appreciated -resolved leukocytosis, afebrile -pain control as needed -noted elevation of inflammatory markers; continue to trend ESR, CRP; improving Status: Acute (2) Paralysis of both lower limbs: Status: Acute (3) Paresthesia and pain of extremity: Status: Acute (4) Paresthesia of buttock: Status: Acute (5) Fall: -initially presented on 05/22 after having had a fall at home Status: Acute Qualifiers: Encounter type: initial encounter Qualified Code(s): W19.XXXA - Unspecified fall, initial encounter (6) Cystitis: -urine cx: Strep agalactiae; evidence of cystitis on CT A/P Status: Acute (7) C. difficile colitis: -has rectal tube in place; plan to discontinue once stool more formed -contact isolation precautions -on oral vancomycin (day 09/05) -evidence of colitis on CT A/P Status: Acute Additional A&P Information -Hypokalemia; resolved, replace as needed, particularly if ongoing diarrhea -HTN: VSS; continue meds -new onset DM type II; A1c-8.3; Accucheks, ISS, scheduled Lantus, hypoglycemia precautions, consistent carb diet as tolerated -Hyponatremia; resolved -extensive intertrigo; on systemic antifungal treatment -DVT ppx with lovenox -Dispo: Patient requires extensive rehab in light of paraplegia and long-term IV antibiotics. Unfortunately due to lack of insurance coverage placement has been very challenging. This has prolonged his hospital stay. -Code status: FULL code Attestations Medical Necessity Statement*: Patient requires hospitalization for continued antibiotic treatment pending appropriate disposition. Time Spent in Patient Care: less than 15 minutes (>than 50% of time spent in counselling and/or direct pt care on unit) . Coding Level of Care Code Acute Surveillance Camera Technician for [facility] Fwd Exam Comprehensive Diagnoses Cord compression G95.20 Paralysis of both lower limbs G82.20 Paresthesia and pain of extremity R20.2; M79.609 Paresthesia of buttock R20.2 Fall W19.XXXA Encounter type: initial encounter Cystitis N30.90 C. difficile colitis A04.72
[2020-06-08 17:45] LABS: Glucose Point of Care 112 mg/dL (70-110)
[2020-06-08] MEDS: cefTRIAXone 2,000 MG in sodium chloride 0.9% (plus) 50 ML 100 MG IV (20:39)
[2020-06-08] MEDS: insulin glargine 100 units/1 mL 10 UNIT SUBCUT (20:44)
[2020-06-08] MEDS: clotrimazole-betamethasone cream 15gm 1 APPLIC TOPICAL (20:54)
[2020-06-08 21:43] LABS: Glucose Point of Care 126 mg/dL (70-110)
[2020-06-09 04:00] VITALS: BP 134/84; PULSE 72; RESP 20; TEMP 37; O2SAT 97
[2020-06-09] MEDS: enoxaparin 40 mg/0.4 mL Syringe SUBCUT (05:16)
[2020-06-09 06:42] LABS: Glucose Point of Care 118 mg/dL (70-110)
[2020-06-09 07:40] VITALS: BP 148/87; PULSE 72; RESP 18; TEMP 36.7; O2SAT 99
[2020-06-09] MEDS: clotrimazole-betamethasone cream 15gm 1 APPLIC TOPICAL ×3 (08:38→21:01)
[2020-06-09] MEDS: fluconazole 100 mg Tablet PO (08:38)
[2020-06-09] MEDS: ascorbic acid 500 mg Tablet PO (08:38)
[2020-06-09] MEDS: metoprolol tartrate 25 mg Tablet PO ×2 (09:58→21:01)
[2020-06-09 11:19] LABS: Glucose Point of Care 127 mg/dL (70-110)
[2020-06-09 11:34] VITALS: BP 133/86; PULSE 97; RESP 18; TEMP 36.6; O2SAT 94
[2020-06-09 15:26] VITALS: BP 144/84; PULSE 81; RESP 18; TEMP 36.9; O2SAT 95
[2020-06-09 16:45] LABS: Glucose Point of Care 147 mg/dL (70-110)
[2020-06-09] MEDS: cefTRIAXone 2,000 MG in sodium chloride 0.9% (plus) 50 ML 100 MG IV (19:40)
[2020-06-09 20:00] VITALS: BP 136/82; PULSE 74; RESP 18; TEMP 37.4; O2SAT 96
--- NOTE | 2020-06-09 20:18 | PM.PN ---
Subjective Subjective: Interval history: No acute overnight changes, VSS, afebrile, no complaints, continues to work well with therapy. Disposition pending. Rectal tube removed and continues to have soft formed BMs. Medications: Reviewed: Yes Medication Review Details: Active Medications Generic Name Dose Route Start Last Admin Trade Name Freq PRN Reason Stop Dose Admin Acetaminophen 650 mg 05/23/20 10:51 06/06/20 03:29 Acetaminophen 32 5 Mg Tablet PO 650 mg Q4H PRN Administration Mild Pain or feve r >101.5 Al Hydrox/Mg [place] x/Simethicone 30 ml 05/23/20 10:51 Wpee-Rub-Gqtzilw de-Bradley 30 Ml Udc PO Q4H PRN INDIGESTION Ascorbic Acid 500 mg 05/24/20 10:00 06/09/20 08:38 Ascorbic Acid 50 0 Mg Tablet PO 500 mg DAILY SANDIE Administration Betamethasone/Clot rimazole 1 applic 06/08/20 21:00 06/09/20 14:17 Clotrimazole-Bet amethasone Cream 1 5gm TOPICAL 1 applic TID SANDIE Administration Dextrose 25 ml 05/27/20 15:23 Dextrose 50% Syr rony 50 Ml IVP ONCE PRN hypoglycemia prot ocol Protocol Dextrose 50 ml 05/27/20 15:23 Dextrose 50% Syr rony 50 Ml IVP PRN PRN hypoglycemia prot ocol Protocol Enoxaparin Sodium 40 mg 05/24/20 06:00 06/09/20 05:16 Enoxaparin 40 Mg /0.4 Ml Syringe SUBCUT 40 mg Q24H SANDIE Administration Fluconazole 100 mg 06/07/20 09:00 06/09/20 08:38 Fluconazole 100 Mg Tablet PO 100 mg DAILY SANDIE Administration Glucagon 1 mg 05/27/20 15:23 Glucagon 1 Mg/Ml Inj 1 Ml IM ONCE PRN Adult Acute Hypog lycemia Prot. Protocol Dextrose 500 mls @ 100 mls /hr 05/27/20 15:23 D5w IV ONCE PRN Adult Acute Hypog lycemia Prot Protocol Ceftriaxone Sodium 2,000 mg/ 50 mls @ 100 mls/ hr 06/02/20 20:00 06/09/20 19:40 Sodium Chloride IV 100 mls/hr 2000 SANDIE Administration Protocol Insulin Aspart 0 unit 05/27/20 18:00 06/09/20 17:41 Insulin Aspart 1 00 Unit/1 Ml SUBCUT 2 unit WM&BEDTIME SANDIE Administration Protocol Insulin Glargine 10 unit 05/28/20 21:00 06/08/20 20:44 Insulin Glargine 100 Units/1 Ml SUBCUT 10 unit BEDTIME SANDIE Administration Ketorolac Trometha mine 30 mg 05/23/20 10:51 Ketorolac 30 Mg/ Ml Inj IVP Q6H PRN BREAKTHROUGH PAIN Magnesium Hydroxid e 30 ml 05/23/20 10:51 Magnesium Hydrox virgilio 30 Ml Udc PO Q4H PRN Constipation/bon gestion Metoprolol Tartrat e 25 mg 05/27/20 21:00 06/09/20 09:58 Metoprolol Tartr ate 25 Mg Tablet PO 25 mg BID@0900,2100 [facility] Administration Nystatin 1 applic 06/02/20 19:29 06/08/20 05:12 Nystatin Powder 15 Gm Btl TOPICAL 1 dose BID PRN Administration RASH Ondansetron HCl 4 mg 05/23/20 10:51 Ondansetron 2 Mg /Ml Sdv 2 Ml IVP Q6H PRN NAUSEA AND VOMITI NG Vancomycin HCl 250 mg 06/05/20 17:00 06/09/20 17:42 Vancomycin 1,000 Mg Oral Maria Antonia (Btl) PO 250 mg QID SANDIE Administration No Known Allergies Allergy (Verified 05/22/20 16:55) Vitals/I&O/Wt Last Vital Signs Temp 99.4 F 06/09/20 20:00 Pulse 74 06/09/20 20:00 Resp 18 06/09/20 20:00 BP 136/82 06/09/20 20:00 Pulse Ox 96 06/09/20 20:00 06/09/20 06/09/20 06/09/20 06:59 14:59 22:59 Intake Total 480 / 1490 720 / 720 240 / 960 Output Total 900 / 1250 100 / 100 700 / 800 Balance -420 / 240 620 / 620 -460 / 160 Physical Exam Const: COMMON NORMALS: no acute distress, patient oriented x3 and alert GENERAL APPEARANCE: cooperative and comfortable NUTRITIONAL APPEARANCE: obese morbidly obese ORIENTATION/CONSCIOUSNESS: Yes awake OTHER: -very pleasant, sitting up in bed HENMT: COMMON NORMALS: normocephalic, atraumatic, hearing grossly normal bilaterally and moist oral mucous membranes HEAD & SCALP: normocephalic and atraumatic Eye: COMMON NORMALS: Equal, round and reactive pupils present, EOMs intact bilaterally and conjunctivae normal CONJUNCTIVA: Yes conjunctivae normal PUPIL: Yes Equal, round and reactive pupils present Neck/C-Spine: COMMON NORMALS: full ROM GENERAL: Yes normal visual inspection and Yes trachea midline Resp: COMMON NORMALS: normal respiratory effort, No retractions, No use of accessory muscles and clear to auscultation bilaterally EFFORT & INSPECTION: Yes able to speak in complete sentences, Yes symmetric chest movement and No tachypneic AUSCULTATION: clear to auscultation bilaterally OTHER: -on RA Cardio: COMMON NORMALS: regular rate, regular rhythm, S1 normal heart sound present, S2 normal heart sound present and No murmurs present (Cardio) RATE: regular rate RHYTHM: regular rhythm HEART SOUNDS: S1 normal heart sound present and S2 normal heart sound present GI: COMMON NORMALS: Normal to inspection, nondistended, normoactive bowel sounds present, Soft to palpation and non-tender PALPATION: Yes Soft to palpation OTHER: -rectal tube in place; soft formed stool noted Extremity: COMMON NORMALS: normal to inspection, no clubbing, cyanosis or edema and no pedal edema NARRATIVE EXTREMITY EXAM: -PICC line in place (R) Neuro: COMMON NORMALS: patient oriented x3 and no sensory deficits noted SENSORIUM/ORIENTATION: Yes alert OTHER: -gross sensation to LEs seems to be intact, unable to ambulate/weight bear Psych: COMMON NORMALS: mental status grossly normal, Normal thought process present, cooperative, normal affect and speech normal SPEECH: Yes normal speech THOUGHT PROCESS: Normal thought process present Skin: COMMON NORMALS: no rashes or lesions noted, no jaundice, no petechiae and no mottling GENERAL SKIN EXAM: no rashes or lesions noted Urinary Catheter Management^: Nino: Cath Placed During This Visit: yes, but has since been removed by the nurse Reason for Continuing Indwelling Catheter: Decision to DC Catheter Urinary Catheter Date of Insertion: 05/23/20 Urinary Catheter Time of Insertion: 04:45 Date Urinary Catheter Removed: 05/25/20 Time Urinary Catheter Discontinued: 08:30 Data : 06/06/20 05:24 06/06/20 05:24 A&P Assessment and plan (1) Cord compression: -s/p laminectomy with partial facetectomy involving T7-T11; evidence of pus noted between T9-T11, on 05/23; POD # 17 -Ortho-spine consult by Dr. Meneses appreciated -Noted subsequent paraplegia; has been unable to ambulate since procedure -evidence of epidural abscess (noted epidural spinal fluid collection in the lower thoracic spine on MRI), culture has grown Strep agalactaie -blood cx have been negative -on Ceftriaxone (x 6 weeks, day 17), PICC line in place -TTE: no apparent vegetation; EF=55% -PT/OT evaluations appreciated -resolved leukocytosis, afebrile -pain control as needed -noted elevation of inflammatory markers; continue to trend ESR, CRP; improving Status: Acute (2) Paralysis of both lower limbs: Status: Acute (3) Paresthesia and pain of extremity: Status: Acute (4) Paresthesia of buttock: Status: Acute (5) Fall: -initially presented on 05/22 after having had a fall at home Status: Acute Qualifiers: Encounter type: initial encounter Qualified Code(s): W19.XXXA - Unspecified fall, initial encounter (6) Cystitis: -urine cx: Strep agalactiae; evidence of cystitis on CT A/P Status: Acute (7) C. difficile colitis: -has rectal tube in place; plan to discontinue once stool more formed -contact isolation precautions -on oral vancomycin (day 10/05) -evidence of colitis on CT A/P Status: Acute Additional A&P Information -Hypokalemia; resolved, replace as needed, particularly if ongoing diarrhea -HTN: VSS; continue meds -new onset DM type II; A1c-8.3; Accucheks, ISS, scheduled Lantus, hypoglycemia precautions, consistent carb diet as tolerated -Hyponatremia; resolved -extensive intertrigo; on systemic antifungal treatment -DVT ppx with lovenox -Dispo: Patient requires extensive rehab in light of paraplegia and long-term IV antibiotics. Unfortunately due to lack of insurance coverage placement has been very challenging. This has prolonged his hospital stay. -Code status: FULL code Attestations Medical Necessity Statement*: Patient requires hospitalization for continued antibiotic treatment, therapy, pending appropriate disposition. Time Spent in Patient Care: less than 15 minutes (>than 50% of time spent in counselling and/or direct pt care on unit). Coding Level of Care Code Acute Armhole Raiser Lockstitch for Kathy Fwd Diagnoses Cord compression G95.20 Paralysis of both lower limbs G82.20 Paresthesia and pain of extremity R20.2; M79.609 Paresthesia of buttock R20.2 Fall W19.XXXA Encounter type: initial encounter Cystitis N30.90 C. difficile colitis A04.72
[2020-06-09 20:19] LABS: Glucose Point of Care 136 mg/dL (70-110)
[2020-06-09] MEDS: insulin glargine 100 units/1 mL 10 UNIT SUBCUT (21:01)
[2020-06-10] VITALS (8 sets, daily range): BP systolic 118–150; BP diastolic 80–90; PULSE 73–91; RESP 16–18; TEMP 36.7–37.6; O2SAT 94–98
[2020-06-10] MEDS: acetaminophen 325 mg Tablet 650 MG PO (02:21)
[2020-06-10] MEDS: enoxaparin 40 mg/0.4 mL Syringe SUBCUT (05:27)
[2020-06-10 06:13] LABS: Glucose Point of Care 114 mg/dL (70-110)
[2020-06-10] MEDS: metoprolol tartrate 25 mg Tablet PO ×2 (08:03→21:41)
[2020-06-10] MEDS: fluconazole 100 mg Tablet PO (08:03)
[2020-06-10] MEDS: clotrimazole-betamethasone cream 15gm 1 APPLIC TOPICAL ×3 (08:05→21:41)
[2020-06-10 11:04] LABS: Glucose Point of Care 133 mg/dL (70-110)
--- NOTE | 2020-06-10 11:55 | P.PN_ITS ---
Subjective Subjective: Interval history: No acute overnight events reported, VSS, on RA, has had 3 BMs so far today. Disposition pending. No complaints. Has a generalized rash, unchanged, non-pruritic. Medications: Reviewed: Yes Medication Review Details: Active Medications Generic Name Dose Route Start Last Admin Trade Name Freq PRN Reason Stop Dose Admin Acetaminophen 650 mg 05/23/20 10:51 06/10/20 02:21 Acetaminophen 32 5 Mg Tablet PO 650 mg Q4H PRN Administration Mild Pain or feve r >101.5 Al Hydrox/Mg [place] x/Simethicone 30 ml 05/23/20 10:51 Rzvn-Biq-Jiskviw de-[place] 30 Ml Udc PO Q4H PRN INDIGESTION Ascorbic Acid 500 mg 05/24/20 10:00 06/09/20 08:38 Ascorbic Acid 50 0 Mg Tablet PO 500 mg DAILY SANDIE Administration Betamethasone/Clot rimazole 1 applic 06/08/20 21:00 06/10/20 08:05 Clotrimazole-Bet amethasone Cream 1 5gm TOPICAL 1 applic TID SANDIE Administration Dextrose 25 ml 05/27/20 15:23 Dextrose 50% Syr rony 50 Ml IVP ONCE PRN hypoglycemia prot ocol Protocol Dextrose 50 ml 05/27/20 15:23 Dextrose 50% Syr rony 50 Ml IVP PRN PRN hypoglycemia prot ocol Protocol Enoxaparin Sodium 40 mg 05/24/20 06:00 06/10/20 05:27 Enoxaparin 40 Mg /0.4 Ml Syringe SUBCUT 40 mg Q24H SANDIE Administration Fluconazole 100 mg 06/07/20 09:00 06/10/20 08:03 Fluconazole 100 Mg Tablet PO 100 mg DAILY SANDIE Administration Glucagon 1 mg 05/27/20 15:23 Glucagon 1 Mg/Ml Inj 1 Ml IM ONCE PRN Adult Acute Hypog lycemia Prot. Protocol Dextrose 500 mls @ 100 mls /hr 05/27/20 15:23 D5w IV ONCE PRN Adult Acute Hypog lycemia Prot Protocol Ceftriaxone Sodium 2,000 mg/ 50 mls @ 100 mls/ hr 06/02/20 20:00 06/09/20 19:40 Sodium Chloride IV 100 mls/hr 2000 SANDIE Administration Protocol Insulin Aspart 0 unit 05/27/20 18:00 06/10/20 11:19 Insulin Aspart 1 00 Unit/1 Ml SUBCUT Not Given WM&BEDTIME [facility] Protocol Insulin Glargine 10 unit 05/28/20 21:00 06/09/20 21:01 Insulin Glargine 100 Units/1 Ml SUBCUT 10 unit BEDTIME SANDIE Administration Ketorolac Trometha mine 30 mg 05/23/20 10:51 Ketorolac 30 Mg/ Ml Inj IVP Q6H PRN BREAKTHROUGH PAIN Magnesium Hydroxid e 30 ml 05/23/20 10:51 Magnesium Hydrox virgilio 30 Ml Udc PO Q4H PRN Constipation/bon gestion Metoprolol Tartrat e 25 mg 05/27/20 21:00 06/10/20 08:03 Metoprolol Tartr ate 25 Mg Tablet PO 25 mg BID@0900,2100 [facility] Administration Nystatin 1 applic 06/02/20 19:29 06/08/20 05:12 Nystatin Powder 15 Gm Btl TOPICAL 1 dose BID PRN Administration RASH Ondansetron HCl 4 mg 05/23/20 10:51 Ondansetron 2 Mg /Ml Sdv 2 Ml IVP Q6H PRN NAUSEA AND VOMITI NG Vancomycin HCl 250 mg 06/05/20 17:00 06/10/20 08:03 Vancomycin 1,000 Mg Oral Maria Antonia (Btl) PO 250 mg QID SANDIE Administration No Known Allergies Allergy (Verified 05/22/20 16:55) Vitals/I&O/Wt Last Vital Signs Temp 98.0 F 06/10/20 11:37 Pulse 89 06/10/20 11:37 Resp 18 06/10/20 11:37 BP 118/85 06/10/20 11:37 Pulse Ox 95 06/10/20 11:37 06/09/20 06/10/20 06/10/20 22:59 06:59 14:59 Intake Total 360 / 1080 240 / 240 Output Total 700 / 800 1200 / 2000 Balance -340 / 280 -1200 / -920 240 / 240 Physical Exam Const: COMMON NORMALS: no acute distress, patient oriented x3 and alert GENERAL APPEARANCE: cooperative and comfortable NUTRITIONAL APPEARANCE: obese morbidly obese ORIENTATION/CONSCIOUSNESS: Yes awake OTHER: -very pleasant, sitting up in bed HENMT: COMMON NORMALS: normocephalic, atraumatic, hearing grossly normal bilaterally and moist oral mucous membranes HEAD & SCALP: normocephalic and atraumatic Eye: COMMON NORMALS: Equal, round and reactive pupils present, EOMs intact bilaterally and conjunctivae normal CONJUNCTIVA: Yes conjunctivae normal PUPIL: Yes Equal, round and reactive pupils present Neck/C-Spine: COMMON NORMALS: full ROM GENERAL: Yes normal visual inspection and Yes trachea midline Resp: COMMON NORMALS: normal respiratory effort, No retractions, No use of accessory muscles and clear to auscultation bilaterally EFFORT & INSPECTION: Yes able to speak in complete sentences, Yes symmetric chest movement and No tachypneic AUSCULTATION: clear to auscultation bilaterally OTHER: -on RA Cardio: COMMON NORMALS: regular rate, regular rhythm, S1 normal heart sound present, S2 normal heart sound present and No murmurs present (Cardio) RATE: regular rate RHYTHM: regular rhythm HEART SOUNDS: S1 normal heart sound p resent and S2 normal heart sound present GI: COMMON NORMALS: Normal to inspection, nondistended, normoactive bowel sounds present, Soft to palpation and non-tender PALPATION: Yes Soft to palpation Extremity: COMMON NORMALS: normal to inspection, no clubbing, cyanosis or edema and no pedal edema NARRATIVE EXTREMITY EXAM: -PICC line in place (R) Neuro: COMMON NORMALS: patient oriented x3 and no sensory deficits noted SENSORIUM/ORIENTATION: Yes alert OTHER: -gross sensation to LEs seems to be intact, unable to ambulate/weight bear Psych: COMMON NORMALS: mental status grossly normal, Normal thought process present, cooperative, normal affect and speech normal SPEECH: Yes normal speech THOUGHT PROCESS: Normal thought process present Skin: COMMON NORMALS: no jaundice, no petechiae and no mottling NARRATIVE SKIN EXAM: -generalized erythematous papular rash, most apparent on bilateral LEs, UEs, inguinal folds -intertrigo in inguinal folds Urinary Catheter Management^: Nino: Cath Placed During This Visit: yes, but has since been removed by the nurse Reason for Continuing Indwelling Catheter: Decision to DC Catheter Urinary Catheter Date of Insertion: 05/23/20 Urinary Catheter Time of Insertion: 04:45 Date Urinary Catheter Removed: 05/25/20 Time Urinary Catheter Discontinued: 08:30 Data : 06/06/20 05:24 06/06/20 05:24 A&P Assessment and plan (1) Cord compression: -s/p laminectomy with partial facetectomy involving T7-T11; evidence of pus noted between T9-T11, on 05/23; POD # 18 -Ortho-spine consult by Dr. Meneses appreciated -Noted subsequent paraplegia; has been unable to ambulate since procedure -evidence of epidural abscess (noted epidural spinal fluid collection in the lower thoracic spine on MRI), culture has grown Strep agalactaie -blood cx have been negative -on Ceftriaxone (x 6 weeks, day 18), PICC line in place -TTE: no apparent vegetation; EF=55% -PT/OT evaluations appreciated -resolved leukocytosis, afebrile -pain control as needed -noted elevation of inflammatory markers; continue to trend ESR, CRP; improving Status: Acute (2) Paralysis of both lower limbs: Status: Acute (3) Paresthesia and pain of extremity: Status: Acute (4) Paresthesia of buttock: Status: Acute (5) Fall: -initially presented on 05/22 after having had a fall at home Status: Acute Qualifiers: Encounter type: initial encounter Qualified Code(s): W19.XXXA - Unspecified fall, initial encounter (6) Cystitis: -urine cx: Strep agalactiae; evidence of cystitis on CT A/P Status: Acute (7) C. difficile colitis: -has rectal tube in place; plan to discontinue once stool more formed -contact isolation precautions -on oral vancomycin (day 11/05) -evidence of colitis on CT A/P Status: Acute Additional A&P Information -Hypokalemia; resolved, replace as needed, particularly if ongoing diarrhea -HTN: VSS; continue meds -new onset DM type II; A1c-8.3; Accucheks, ISS, scheduled Lantus, hypoglycemia precautions, consistent carb diet as tolerated -Hyponatremia; resolved -extensive intertrigo and generalized rash; on systemic antifungal treatment. Rash developed here, non-pruritic, not sure if this is a reaction to medication -DVT ppx with lovenox -Dispo: Patient requires extensive rehab in light of paraplegia and long-term IV antibiotics. Unfortunately due to lack of insurance coverage, placement has been very challenging. This has prolonged his hospital stay. -Code status: FULL code Attestations Medical Necessity Statement*: Patient requires hospitalization for continued IV antibiotic treatment, therapy, pending appropriate disposition. Time Spent in Patient Care: less than 15 minutes (>than 50% of time spent in counselling and/or direct pt care on unit) . Coding Level of Care Code Acute Smoke Control Supervisor for Chg Fwd Exam Comprehensive Diagnoses Cord compression G95.20 Paralysis of both lower limbs G82.20 Paresthesia and pain of extremity R20.2; M79.609 Paresthesia of buttock R20.2 Fall W19.XXXA Encounter type: initial encounter Cystitis N30.90 C. difficile colitis A04.72
[2020-06-10] MEDS: ascorbic acid 500 mg Tablet PO (12:21)
[2020-06-10 16:58] LABS: Glucose Point of Care 124 mg/dL (70-110)
[2020-06-10 20:10] LABS: Glucose Point of Care 165 mg/dL (70-110)
[2020-06-10] MEDS: cefTRIAXone 2,000 MG in sodium chloride 0.9% (plus) 50 ML 100 MG IV (20:21)
[2020-06-10] MEDS: insulin glargine 100 units/1 mL 10 UNIT SUBCUT (21:42)
[2020-06-11] VITALS (7 sets, daily range): BP systolic 129–170; BP diastolic 77–92; PULSE 69–108; RESP 18; TEMP 36.4–37.1; O2SAT 92–108
[2020-06-11] MEDS: enoxaparin 40 mg/0.4 mL Syringe SUBCUT (05:23)
[2020-06-11 05:45] LABS: Glucose Point of Care 124 mg/dL (70-110)
[2020-06-11] MEDS: fluconazole 100 mg Tablet PO (08:55)
[2020-06-11] MEDS: metoprolol tartrate 25 mg Tablet PO ×2 (08:55→20:56)
[2020-06-11] MEDS: clotrimazole-betamethasone cream 15gm 1 APPLIC TOPICAL ×3 (08:55→20:56)
[2020-06-11] MEDS: ascorbic acid 500 mg Tablet PO (08:55)
[2020-06-11 10:38] LABS: Glucose Point of Care 151 mg/dL (70-110)
--- NOTE | 2020-06-11 11:58 | P.PN_ITS ---
Subjective Subjective: Interval history: Hospital course, vitals and labs noted. No acute events overnight. Examination lying down comfortably in bed. States pain in the legs are better. States bowel movements are more formed. Patient does have papular rash on bilateral legs on elbows. Denies any pain, itching, burning sensation. Has remained hemodynamically stable and afebrile. Vitals/I&O/Wt Last Vital Signs Temp 98.7 F 06/11/20 07:52 Pulse 108 H 06/11/20 07:52 Resp 18 06/11/20 07:52 BP 151/91 06/11/20 07:52 Pulse Ox 108 H 06/11/20 07:52 06/10/20 06/11/20 06/11/20 22:59 06:59 14:59 Intake Total 240 / 480 240 / 240 Output Total 550 / 550 1000 / 1550 Balance -310 / -70 -1000 / -1070 240 / 240 Physical Exam Const: COMMON NORMALS: no acute distress, patient oriented x3 and alert GENERAL APPEARANCE: cooperative and comfortable NUTRITIONAL APPEARANCE: obese morbidly obese ORIENTATION/CONSCIOUSNESS: Yes awake OTHER: -very pleasant, sitting up in bed HENMT: COMMON NORMALS: normocephalic, atraumatic, hearing grossly normal bilaterally and moist oral mucous membranes HEAD & SCALP: normocephalic and atraumatic Eye: COMMON NORMALS: Equal, round and reactive pupils present, EOMs intact bilaterally and conjunctivae normal CONJUNCTIVA: Yes conjunctivae normal PUPIL: Yes Equal, round and reactive pupils present Neck/C-Spine: COMMON NORMALS: full ROM GENERAL: Yes normal visual inspection and Yes trachea midline Resp: COMMON NORMALS: normal respiratory effort, No retractions, No use of accessory muscles and clear to auscultation bilaterally EFFORT & INSPECTION: Yes able to speak in complete sentences, Yes symmetric chest movement and No tachypneic AUSCULTATION: clear to auscultation bilaterally OTHER: -on RA Cardio: COMMON NORMALS: regular rate, regular rhythm, S1 normal heart sound present, S2 normal heart sound present and No murmurs present (Cardio) RATE: regular rate RHYTHM: regular rhythm HEART SOUNDS: S1 normal heart sound present and S2 normal heart sound present GI: COMMON NORMALS: Normal to inspection, nondistended, normoactive bowel sounds present, Soft to palpation and non-tender PALPATION: Yes Soft to palpation OTHER: -rectal tube in place; soft formed stool noted Extremity: COMMON NORMALS: normal to inspection, no clubbing, cyanosis or edema and no pedal edema NARRATIVE EXTREMITY EXAM: -PICC line in place (R) Neuro: COMMON NORMALS: patient oriented x3 and no sensory deficits noted SENSORIUM/ORIENTATION: Yes alert OTHER: -gross sensation to LEs seems to be intact, unable to ambulate/weight bear Psych: COMMON NORMALS: mental status grossly normal, Normal thought process present, cooperative, normal affect and speech normal SPEECH: Yes normal speech THOUGHT PROCESS: Normal thought process present Skin: COMMON NORMALS: no jaundice, no petechiae and no mottling NARRATIVE SKIN EXAM: -generalized erythematous papular rash, most apparent on bilateral LEs, UEs, inguinal folds -intertrigo in inguinal folds Urinary Catheter Management^: Nino: Cath Placed During This Visit: yes, but has since been removed by the nurse Reason for Continuing Indwelling Catheter: Decision to DC Catheter Urinary Catheter Date of Insertion: 05/23/20 Urinary Catheter Time of Insertion: 04:45 Date Urinary Catheter Removed: 05/25/20 Time Urinary Catheter Discontinued: 08:30 Data : 06/06/20 05:24 06/06/20 05:24 A&P Assessment and plan (1) Cord compression: -s/p laminectomy with partial facetectomy involving T7-T11; evidence of pus noted between T9-T11, on 05/23; POD # 19 -Ortho-spine consult by Dr. Meneses appreciated -evidence of epidural abscess (noted epidural spinal fluid collection in the lower thoracic spine on MRI), culture has grown Strep agalactaie -blood cx have been negative -on Ceftriaxone (x 6 weeks, day 19), PICC line in place -TTE: no apparent vegetation; EF=55% -PT/OT evaluations appreciated -resolved leukocytosis, afebrile -pain control as needed We will consulting ID as patient will require outpatient follow-up. Status: Acute (2) C. difficile colitis: Continue with oral vancomycin. Stools better formed. Most likely patient will require oral vancomycin till 10 days after completion of IV ceftriaxone course. Status: Acute (3) Rash: -extensive intertrigo and generalized rash; started during this admission. Cannot rule out drug reaction. Patient has already been started on antifungal treatment. For now we will continue. Will await ID recommendations. For now continue with ceftriaxone as the rash does not seem to bother the patient. We will continue to monitor. Status: Acute (4) Fall: -initially presented on 05/22 after having had a fall at home Status: Acute Qualifiers: Encounter type: initial encounter Qualified Code(s): W19.XXXA - Unspecified fall, initial encounter (5) Paralysis of both lower limbs: Status: Acute (6) Paresthesia and pain of extremity: Status: Acute (7) Paresthesia of buttock: Status: Acute (8) Cystitis: -urine cx: Strep agalactiae; evidence of cystitis on CT A/P Status: Acute Additional A&P Information -Hypokalemia; resolved, replace as needed, particularly if ongoing diarrhea -HTN: VSS; continue meds -new onset DM type II; A1c-8.3; Accucheks, ISS, scheduled Lantus, hypoglycemia precautions, consistent carb diet as tolerated -Hyponatremia; resolved -DVT ppx with lovenox -Dispo: Patient requires extensive rehab in light of paraplegia and long-term IV antibiotics. Medicaid has been applied and pending. Awaiting acceptance at SNF. We will continue to monitor. -Code status: FULL code Attestations Medical Necessity Statement*: Patient requires further hospitalization for management of epidural abscess, cord compression, paralysis Safe discharge planning to SNF is sought. Coding Level of Care Code Acute Material Requirements Worker for Chg 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 difficile colitis A04.72 Rash R21 Fall W19.XXXA Encounter type: initial encounter Paralysis of both lower limbs G82.20 Paresthesia and pain of extremity R20.2; M79.609 Paresthesia of buttock R20.2 Cystitis N30.90
--- NOTE | 2020-06-11 13:03 | P.CONIM_ITS ---
Providers/Reason For Consult Consulting Physican/Specialty*: Carlotta Foster MD/Infectious Disease Reason for Consult*: epidural abscess, streptococcus , possible drug rash Attending Physician: Bubba Allison MD History of Present Illness History of Present Illness Joey Booth is a 49 year old male without known significant PMH however diagnosed with new DM on current admission, who was admitted on 05/22 with one week of back pain, progressed quickly to the point where he was unable to stand up, saddle parasthesias. Spinal imaging performed in the ER showed MRI with epidural abscess around the T7-T11 level with evidence of cord compression. He underwent Laminectomy with partial facetecomy at level T7-T11 on 05/23 for spinal decompression. OR findings showed pus upon taking down the ligamentum flavum at all levels. OR cx returned with growth of Streptococcus agalactaie, blood culture has been negative to date. No h/o direct trauma to spine, no known h/o bacteremia, no h/o GI or malignancy. No h/o IVDU, u tox negative on admission. CT abd/pelvis performed on 05/31 with findings of bladder wall thickening suggestive of cystitis , pancolitis (C diff positive by this time), B/L inguinal LAD, no h/o recent dental work, though noted to have poor dentition. Echo TTE on 05/28 without gross vegetations. CXR upon admission without gross consolidation. His post op course has been marked by paraplegia, and C.diff colitis for which he is currently on po vancomycin and intertrigo for which he is on fluconazole .Picc line placed post op, patient currenlty planned for 6 weeks of iv abx. Over the past 1 week patient has now noticed a papular non blanching non pruritic rash over the last one week over bilateral lower extremities and right upper arm. It does not appear to be progressive, does not bother patient. Abx coverage: Ceftriaxone 2g iv q24 05/22- Vancomycin 05/22-05/25 Pertinent labs : leukocytosis resolved as of 06/03/20 C diff PCR + on 05/29 ESR 63--> 35 on 06/08 Review of Systems General: Reports: 10 or more systems reviewed and unremarkable except in HPI and below Const: Denies: fever(s), chills or body aches Eyes: Denies: change in vision, blurry vision or photophobia ENMT: Reports: hoarseness; Denies: throat pain, enlarged tonsils, odynophagia or nasal congestion Card: Denies: chest pain, palpitations, irregular heart rhythm, edema, swelling of feet/ankles, lightheadedness, pre-syncope, dyspnea on exertion or orthopnea Resp: Denies: dyspnea, productive cough, non-productive cough, wheezing, stridor, pain on inspiration, change in phlegm color, hemoptysis or chest congestion GI: Denies: abdominal pain, nausea, vomiting, hematemesis, coffee ground emesis, dysphagia, heartburn, diarrhea, constipation, GI cramping, change in stool character, hematochezia or melena : Denies: flank pain, dysuria, urinary frequency, urinary urgency, urinary hesitancy or hematuria Musc: Denies: neck pain, back pain, extremity pain, joint swelling, joint warmth or deformity Neuro: Denies: headache(s), numbness in extremities, weakness in extremities, sensory changes, difficulty walking, frequent falls, dizziness, vertigo, behavioral changes, Slurred speech present or seizure-like activity Psych: Denies: anxiety, depression, suicidal ideation or homicidal ideation Endo: Denies: polyuria, polydipsia, tired all the time, cold intolerance or hot flashes Filemon/Lymph: Denies: easy bruising or easy bleeding Meds/Allergies Home Medications and Allergies Home Medications Medication Instructions Recorded Confirmed Last Taken Type Vitamin C 1 tab PO DAILY@0800 05/22/20 05/22/20 05/21/20 History fluconazole 100 mg PO DAILY 10 Days #10 tab 06/12/20 Unknown Rx metoprolol tartrate 25 mg PO BID@0900,2100 30 Days #60 06/12/20 Unknown Rx tab vancomycin 250 mg PO QID 42 Days #42 ea 06/12/20 Unknown Rx Allergies Allergy/AdvReac Type Severity Reaction Status Date / Time No Known Allergies Allergy Verified 05/22/20 16:55 Current Medications Current Medications Generic Name Dose Route Start Last Admin Trade Name Freq PRN Reason Stop Dose Admin Acetaminophen 650 mg 05/23/20 10:51 06/10/20 02:21 Acetaminophen 325 Mg Tablet PO 650 mg Q4H PRN Administration Mild Pain or fever >101.5 Ascorbic Acid 500 mg 05/24/20 10:00 06/11/20 08:55 Ascorbic Acid 500 Mg Tablet PO 500 mg DAILY SANDIE Administration Betamethasone/Clotrimazole 1 applic 06/08/20 21:00 06/11/20 08:55 Clotrimazole-Betamethasone Cream 15gm TOPICAL 1 applic TID SANDIE Administration Enoxaparin Sodium 40 mg 05/24/20 06:00 06/11/20 05:23 Enoxaparin 40 Mg/0.4 Ml Syringe SUBCUT 40 mg Q24H SANDIE Administration Fluconazole 100 mg 06/07/20 09:00 06/11/20 08:55 Fluconazole 100 Mg Tablet PO 100 mg DAILY SANDIE Administration Ceftriaxone Sodium 2,000 mg/ 50 mls @ 100 mls/hr 06/02/20 20:00 06/10/20 20:21 Sodium Chloride IV 100 mls/hr 2000 SANDIE Administration Protocol Insulin Aspart 0 unit 05/27/20 18:00 06/11/20 12:21 Insulin Aspart 100 Unit/1 Ml SUBCUT 2 unit WM&BEDTIME SANDIE Administration Protocol Insulin Glargine 10 unit 05/28/20 21:00 06/10/20 21:42 Insulin Glargine 100 Units/1 Ml SUBCUT 10 unit BEDTIME SANDIE Administration Metoprolol Tartrate 25 mg 05/27/20 21:00 06/11/20 08:55 Metoprolol Tartrate 25 Mg Tablet PO 25 mg BID@0900,2100 SANDIE Administration Nystatin 1 applic 06/02/20 19:29 06/08/20 05:12 Nystatin Powder 15 Gm Btl TOPICAL 1 dose BID PRN Administration RASH Vancomycin HCl 250 mg 06/05/20 17:00 06/11/20 12:20 Vancomycin 1,000 Mg Oral Maria Antonia (Btl) PO 250 mg QID SANDIE Administration PFSH Acute PFSH: Medical History No pertinent past medical history Surgical History No pertinent past surgical history Family History Family/Other No problems noted. Father CAD (coronary artery disease) Social History Smoking and tobacco status: never smoked Alcohol intake: current Alcohol intake frequency: holidays/special occasions only History of recent travel: No Vitals/I&O/Wt Last Vital Signs Temp 98.7 F 06/11/20 12:00 Pulse 108 H 06/11/20 12:00 Resp 18 06/11/20 12:00 BP 151/91 06/11/20 12:00 Pulse Ox 108 H 06/11/20 12:00 06/10/20 06/11/20 06/11/20 22:59 06:59 14:59 Intake Total 240 / 480 480 / 480 Output Total 550 / 550 1000 / 1550 Balance -310 / -70 -1000 / -1070 480 / 480 Physical Exam Narrative: EXAM NARRATIVE: GEN: Awake, alert and oriented, no acute distress HEENT : NC/AT, PERRLA CVS: S1S2 N RS: CTA B/L no added sounds Abd: Soft, nt/nd , 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 difficile colitis: Status: Acute (4) Cystitis: Status: Acute Additional A&P Information 49 M admitted since 05/22 with c/o back pain, found to have epidural abscess with cord compression, s/p laminectomy T7-T11 on 05/23 with residual paraplegia, hospital course c/b . diff pancolitis and likely drug rash # Epidural abscess No bacteremia on blood cx x 2 OR cx from abscess with Strep agalactaie Urine cx and CT with cytistis inidicate of Strep agalactaie No bowel or urinary perforation or fistulization on abdominal imaging On approrpiate rx with Ceftriaxone 2g iv q24 recommend treatment with iv ceftriaxone for 6 weeks (05/23-07/05) while on the above, check weekly CBC, CMP and ESR, curetnly with normal LFTS and renal function, ESR trending down Plan to follow in ID clinic with serial imaging and labs to decide final course # New maculopapular rash over lower extremities appears to be drug rash, likely related to ceftriaxone use. However this appears to be resolving per history, is non itchy, does not bother patient, no signs of DRESS, TEN or SJS. recommend to continue CTX for now, if rash worsens, can add po prednisone for short course. F/up in ID clinic in 2 weeks to follow up on rash #intertrigo: on fluconazole, continue x 10 days, add clotrimazole ointment # C diff colitis: Currently on vancomycin 125mg po QID, continue same until patient remains on iv abx. Thank you this consult Coding Level of Care Code Acute Director Park for Kathy Meza Diagnoses Epidural abscess G06.2 Rash R21 C. difficile colitis A04.72 Cystitis N30.90
[2020-06-11] MEDS: nystatin powder 15 gm Btl 1 APPLIC TOPICAL (17:31)
[2020-06-11 17:40] LABS: Glucose Point of Care 114 mg/dL (70-110)
[2020-06-11] MEDS: cefTRIAXone 2,000 MG in sodium chloride 0.9% (plus) 50 ML 100 MG IV (20:44)
[2020-06-11] MEDS: insulin glargine 100 units/1 mL 10 UNIT SUBCUT (20:56)
[2020-06-11 20:57] LABS: Glucose Point of Care 132 mg/dL (70-110)
[2020-06-11] MEDS: acetaminophen 325 mg Tablet 650 MG PO (23:40)
[2020-06-12] VITALS: BP 130/83; PULSE 77; RESP 18; TEMP 36.6; O2SAT 95
[2020-06-12 02:42] LABS: Basophils # 0.1 10^3/uL (0.0-0.1); Basophils % 1.2 %; Eosinophils # 0.3 10^3/uL (0.0-0.8); Eosinophils % 3.1 %; Hematocrit 43.4 % (42.0-52.0); Hemoglobin 13.7 g/dL (11.7-16.6); Lymphocytes # 2.4 10^3/uL (0.8-4.8); Lymphocytes % 28.3 %; Mean Corpuscular HGB Conc 31.6 g/dL (30.0-36.0); Mean Corpuscular Hemoglobin 25.8 pg (28.0-34.0); Mean Corpuscular Volume 81.9 fL (80-94); Mean Platelet Volume 9.6 fL (7.4-10.4); Monocytes # 0.5 10^3/uL (0.2-0.9); Monocytes % 6.3 %; Neutrophils # 5.15 10^3/uL (1.8-7.7); Neutrophils % 60.7 %; Nucleated Red Blood Cells % 0 %; Platelet Count 353 10^3/cmm (130-400); Red Cell Distribution Width 13.1 % (12.1-15.1); White Blood Count 8.5 10^3/uL (4.0-10.0)
[2020-06-12 03:15] LABS: Alanine Aminotransferase 18 U/L (0-41); Albumin Level 2.9 g/dL (3.5-5.2); Alkaline Phosphatase 95 IU/L (40-130); Aspartate Amino Transferase 15 U/L (0-40); Blood Urea Nitrogen 6 mg/dL (6-20); Calcium 9.2 mg/dL (8.5-10.5); Carbon Dioxide 27 mmol/L (22-29); Chloride 97 mmol/L (98-107); Globulin 3.8 g/dL (1.3-4.6); Glucose 142 mg/dL (65-115); Osmolality Calculated 280 mOsm/kg (285-295); Sodium 135 mmol/L (136-145); Total Bilirubin 0.3 mg/dL (0.15-1.2); Total Protein 6.7 g/dL (6.6-8.7)
[2020-06-12 04:00] VITALS: BP 145/88; PULSE 78; RESP 18; TEMP 37.1; O2SAT 91
[2020-06-12] MEDS: enoxaparin 40 mg/0.4 mL Syringe SUBCUT (05:40)
[2020-06-12 06:39] LABS: Glucose Point of Care 126 mg/dL (70-110)
[2020-06-12] MEDS: acetaminophen 325 mg Tablet 650 MG PO (06:42)
[2020-06-12 07:19] VITALS: BP 143/86; PULSE 85; RESP 18; TEMP 36.8; O2SAT 94
[2020-06-12] MEDS: clotrimazole-betamethasone cream 15gm 1 APPLIC TOPICAL (08:36)
[2020-06-12] MEDS: metoprolol tartrate 25 mg Tablet PO (08:38)
[2020-06-12] MEDS: ascorbic acid 500 mg Tablet PO (08:38)
[2020-06-12] MEDS: fluconazole 100 mg Tablet PO (08:38)
--- NOTE | 2020-06-12 10:59 | P.DS_ITS ---
Discharge Providers Date of Admission: 05/22/20 22:44 Date of Discharge: June 12, 2020 Attending Provider at Admission: Raúl Ricks MD Attending Provider at Discharge: Bubba Allison MD Consults: Orthopedics: Dr. Solis ID: Dr. Foster Diagnoses at Discharge Discharge Diagnosis (1) Cord compression: Status: Acute (2) C. difficile colitis: Status: Acute (3) Rash: Status: Acute (4) Fall: Status: Acute Qualifiers: Encounter type: initial encounter Qualified Code(s): W19.XXXA - Unspecified fall, initial encounter (5) Paralysis of both lower limbs: Status: Acute (6) Paresthesia and pain of extremity: Status: Acute (7) Paresthesia of buttock: Status: Acute (8) Cystitis: Status: Acute Reason for Visit Reason for Visit: LOWER BACK PAIN Hospital Course Hospital Course Joey Booth is a 49 year old male without known significant PMH however diagnosed with new DM on current admission, who was admitted on 05/22 with one week of back pain, progressed quickly to the point where he was unable to stand up, saddle parasthesias. Spinal imaging performed in the ER showed MRI with epidural abscess around the T7-T11 level with evidence of cord compression. He underwent Laminectomy with partial facetecomy at level T7-T11 on 05/23 for spinal decompression. OR findings showed pus upon taking down the ligamentum flavum at all levels. OR cx returned with growth of Streptococcus agalactaie, blood culture has been negative to date. No h/o direct trauma to spine, no known h/o bacteremia, no h/o GI or malignancy. No h/o IVDU, u tox negative on admission. CT abd/pelvis performed on 05/31 with findings of bladder wall thickening suggestive of cystitis , pancolitis (C diff positive by this time), B/L inguinal LAD, no h/o recent dental work, though noted to have poor dentition. Echo TTE on 05/28 without gross vegetations. CXR upon admission without gross consolidation. His post op course has been marked by paraplegia, and C.diff colitis for which he is currently on po vancomycin and intertrigo for which he is on fluconazole.Picc line placed post op, patient currenlty planned for 6 weeks of iv abx. Over the past 1 week patient has now noticed a papular non blanching non pruritic rash over the last one week over bilateral lower extremities and right upper arm. It does not appear to be progressive, does not bother patient. Because of severe paresthesia and paraplegia patient needs to be discharged to SNF which was difficult because patient did not have any insurance. Medicaid was applied. Eventually patient was accepted at SNF. He has been discharged hemodynamically stable condition with PICC line and advised to continue antibiotics for 6 weeks, continue oral vancomycin for C. difficile till patient is on IV antibiotics. He is to follow-up in ID clinic in 2 weeks onset appointment and with orthopedics in 2 weeks. Physical Exam Const: COMMON NORMALS: no acute distress, patient oriented x3 and alert GENERAL APPEARANCE: cooperative and comfortable NUTRITIONAL APPEARANCE: obese morbidly obese ORIENTATION/CONSCIOUSNESS: Yes awake OTHER: -very pleasant, sitting up in bed HENMT: COMMON NORMALS: normocephalic, atraumatic, hearing grossly normal bilaterally and moist oral mucous membranes HEAD & SCALP: normocephalic and atraumatic Eye: COMMON NORMALS: Equal, round and reactive pupils present, EOMs intact bilaterally and conjunctivae normal CONJUNCTIVA: Yes conjunctivae normal PUPIL: Yes Equal, round and reactive pupils present Neck/C-Spine: COMMON NORMALS: full ROM GENERAL: Yes normal visual inspection and Yes trachea midline Resp: COMMON NORMALS: normal respiratory effort, No retractions, No use of accessory muscles and clear to auscultation bilaterally EFFORT & INSPECTION: Yes able to speak in complete sentences, Yes symmetric chest movement and No tachypneic AUSCULTATION: clear to auscultation bilaterally OTHER: -on RA Cardio: COMMON NORMALS: regular rate, regular rhythm, S1 normal heart sound present, S2 normal heart sound present and No murmurs present (Cardio) RATE: regular rate RHYTHM: regular rhythm HEART SOUNDS: S1 normal heart sound present and S2 normal heart sound present GI: COMMON NORMALS: Normal to inspection, nondistended, normoactive bowel sounds present, Soft to palpation and non-tender PALPATION: Yes Soft to palpation OTHER: -rectal tube in place; soft formed stool noted Extremity: COMMON NORMALS: normal to inspection, no clubbing, cyanosis or edema and no pedal edema NARRATIVE EXTREMITY EXAM: -PICC line in place (R) Neuro: COMMON NORMALS: patient oriented x3 and no sensory deficits noted SENSORIUM/ORIENTATION: Yes alert OTHER: -gross sensation to LEs seems to be intact, unable to ambulate/weight bear Psych: COMMON NORMALS: mental status grossly normal, Normal thought process present, cooperative, normal affect and speech normal SPEECH: Yes normal speech THOUGHT PROCESS: Normal thought process present Skin: COMMON NORMALS: no jaundice, no petechiae and no mottling NARRATIVE SKIN EXAM: -generalized erythematous papular rash, most apparent on bilateral LEs, UEs, inguinal folds -intertrigo in inguinal folds Urinary Catheter Management^: Nino: Cath Placed During This Visit: yes, but has since been removed by the nurse Reason for Continuing Indwelling Catheter: Decision to DC Catheter Urinary Catheter Date of Insertion: 05/23/20 Urinary Catheter Time of Insertion: 04:45 Date Urinary Catheter Removed: 05/25/20 Time Urinary Catheter Discontinued: 08:30 Discharge Data Data Completed and Pending: Completed Studies During Hospitalization Category Date Time Status CT abdomen pelvis w con* [id number] Rout ine Cat Scan 05/31/20 16:[address] cervical spin wo con* [id number] Stat Cat Scan 05/22/20 17:[address] head wo con* 7 0450 Urgent Cat Scan 05/22/20 17:[address] lumbar spine w o con* [id number] Urgen t Cat Scan 05/22/20 17:[address] thoracic spin wo con* [id number] Stat Cat Scan 05/22/20 17:20 Completed XR chest 1V anali ble [id number] Routine Exams 06/05/20 09:39 Completed XR chest 1V anali ble [id number] Routine Exams 05/26/20 09:08 Completed XR chest 1V anali ble [id number] Urgent Exams 05/22/20 17:07 Completed XR pelvis 1-2V* 7 2170 Stat Exams 05/22/20 17:21 Completed XR thoracic spine 3V* [id number] Routine Exams 05/23/20 Completed MR lumbar spine w o con* [id number] Stat MRI 05/22/20 19:43 Completed MR thoracic spin wo con* [id number] Stat MRI 05/22/20 19:43 Completed MR thoracic spine w con [id number] Stat MRI 05/22/20 23:09 Completed CV echo complete* [id number] Routine Ultrasound 05/26/20 11:19 Completed Labs from last 24 hours 06/12/20 06/12/20 06/12/20 06:20 01:59 01:59 WBC 8.5 RBC 5.30 Hgb 13.7 Hct 43.4 MCV 81.9 MCH 25.8 L MCHC 31.6 RDW 13.1 Plt Count 353 MPV 9.6 Neut % (Auto) 60.7 Lymph % (Auto) 28.3 Harrison % (Auto) 6.3 Eos % (Auto) 3.1 Baso % (Auto) 1.2 Neut # (Auto) 5.15 Lymph # (Auto) 2.4 Harrison # (Auto) 0.5 Eos # (Auto) 0.3 Baso # (Auto) 0.1 Nucleated RBC % (a uto) 0 Nucleated RBCs # 0.0 Sodium 135 L Potassium 4.0 Chloride 97 L Carbon Dioxide 27 Anion Gap 15.0 BUN 6 Creatinine 0.5 L GFR Calculation 176.0 H Glucose 142 H POC Glucose 126 H Calculated Osmolal ity 280 L Calcium 9.2 Total Bilirubin 0.3 AST 15 ALT 18 Alkaline Phosphata se 95 Total Protein 6.7 Albumin 2.9 L Globulin 3.8 06/11/20 06/11/20 20:45 17:23 WBC RBC Hgb Hct MCV MCH MCHC RDW Plt Count MPV Neut % (Auto) Lymph % (Auto) Harrison % (Auto) Eos % (Auto) Baso % (Auto) Neut # (Auto) Lymph # (Auto) Harrison # (Auto) Eos # (Auto) Baso # (Auto) Nucleated RBC % (a uto) Nucleated RBCs # Sodium Potassium Chloride Carbon Dioxide Anion Gap BUN Creatinine GFR Calculation Glucose POC Glucose 132 H 114 H Calculated Osmolal ity Calcium Total Bilirubin AST ALT Alkaline Phosphata se Total Protein Albumin Globulin Vitals: Last Vital Signs Temp 98.2 F 06/12/20 07:19 Pulse 85 06/12/20 07:19 Resp 18 06/12/20 07:19 BP 143/86 06/12/20 07:19 Pulse Ox 94 06/12/20 07:19 Discharge Plan Discharge Patient Disposition: Xfer SNF Condition: Stable Prescriptions: New fluconazole 100 mg Tablet 100 mg PO DAILY 10 Days Qty: 10 RF: 0 vancomycin 1,000 mg Recon Soln 250 mg PO QID 42 Days Qty: 42 RF: 0 metoprolol tartrate 25 mg Tablet 25 mg PO BID@0900,2100 30 Days Qty: 60 RF: 0 metformin 1,000 mg tablet extended release 24hr 1,000 mg PO BID 30 Days Qty: 60 RF: 0 ceftriaxone 2 gram recon soln 2 g IV DAILY 42 Days Qty: 84 RF: 0 aspirin 325 mg tablet 325 mg PO DAILY Qty: 60 RF: 0 clotrimazole 1 % cream 1 applic topical BID 28 Days RF: 0 Continued Vitamin C 1 tab PO DAILY@0800 RF: 0 Discharge Orders: Discharge Order (Routine); Ordered 06/12/20 Ordered By: Bubba Allison Other Ambulatory Orders: Complete Blood Count w/Auto (WEEKLY) Timeframe: 20200619 Location: Determined by Patient Ordered By: Carlotta Foster Complete Blood Count w/Auto (WEEKLY) Timeframe: 20200620 Location: Determined by Patient Ordered By: Carlotta Foster Complete Blood Count w/Auto (WEEKLY) Timeframe: 20200621 Location: Determined by Patient Ordered By: Carlotta Foster Complete Blood Count w/Auto (WEEKLY) Timeframe: 20200622 Location: Determined by Patient Ordered By: Carlotta Foster Comprehensive Metabolic Panel (WEEKLY) Timeframe: 20200619 Location: Determined by Patient Ordered By: Carlotta Foster Comprehensive Metabolic Panel (WEEKLY) Timeframe: 20200620 Location: Determined by Patient Ordered By: Carlotta Foster Comprehensive Metabolic Panel (WEEKLY) Timeframe: 20200621 Location: Determined by Patient Ordered By: Carlotta Wakefieldriclaudia Comprehensive Metabolic Panel (WEEKLY) Timeframe: 20200622 Location: Determined by Patient Ordered By: Carlotta Foster Erythrocyte Sedimentation Rate (WEEKLY) Timeframe: 20200619 Location: Determined by Patient Ordered By: Carlotta Foster Erythrocyte Sedimentation Rate (WEEKLY) Timeframe: 20200620 Location: Determined by Patient Ordered By: Carlotta Foster Erythrocyte Sedimentation Rate (WEEKLY) Timeframe: 20200621 Location: Determined by Patient Ordered By: Carlotta Wakefieldriclaudia Erythrocyte Sedimentation Rate (WEEKLY) Timeframe: 20200622 Location: Determined by Patient Ordered By: Carlotta Foster Referrals: Neo Meneses DO [Physician] - 2 weeks Carlotta Foster MD [Hospitalist] - 06/30/20 Discharge Diet: Diabetic Discharge Activity: Limit activity as instructed Activity Restrictions/Additional Instructions: Follow up with Infectious Disease clinic at [address] [place] [address] on Jun. call [phone] to make appointment Discharge Attestations Time Spent in Discharge Care*: greater than 30 min Specific Discharge Activities: educating patient, discussing with pcp/other providers, discussing with machine adjuster leader case trim/social workers/dc planners, documenting/other paperwork and evaluating patient/reviewing data Status at Discharge: Cognitive status at discharge: cognitively intact , Behavioral status at discharge: cooperative , Functional status at discharge: other assisted ambulation Overall status at discharge: patient is not back to baseline Quality Metrics Clinical Quality Measures During this hospital stay, did patient experience: None Coding Level of Care Code Acute 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 difficile colitis A04.72 Rash R21 Fall W19.XXXA Encounter type: initial encounter Paralysis of both lower limbs G82.20 Paresthesia and pain of extremity R20.2; M79.609 Paresthesia of buttock R20.2 Cystitis N30.90
--- NOTE | 2020-06-12 11:16 | P.PN_ITS ---
Subjective Subjective: Interval history: Infectious disease progress note: No new events, patient comfortable, rash appears unchanged.afebrile, hemodynamically stable, resolved leukocytosis, renal and LFT within range Medications: Reviewed: Yes Vitals/I&O/Wt Last Vital Signs Temp 98.2 F 06/12/20 07:19 Pulse 85 06/12/20 07:19 Resp 18 06/12/20 07:19 BP 143/86 06/12/20 07:19 Pulse Ox 94 06/12/20 07:19 06/11/20 06/12/20 06/12/20 22:59 06:59 14:59 Intake Total 240 / 240 Output Total 900 / 900 450 / 1350 Balance -900 / -420 -450 / -870 240 / 240 Physical Exam Narrative: EXAM NARRATIVE: GEN: Awake, alert and oriented, no acute distress HEENT : NC/AT, PERRLA CVS: S1S2 N RS: CTA B/L no added sounds Abd: Soft, nt/nd , bs+ 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 Urinary Catheter Management^: Nino: Cath Placed During This Visit: yes, but has since been removed by the nurse Reason for Continuing Indwelling Catheter: Decision to DC Catheter Urinary Catheter Date of Insertion: 05/23/20 Urinary Catheter Time of Insertion: 04:45 Date Urinary Catheter Removed: 05/25/20 Time Urinary Catheter Discontinued: 08:30 Data : 06/12/20 01:59 06/12/20 01:59 A&P Assessment and plan (1) Epidural abscess: Status: Acute (2) Rash: Status: Acute (3) C. difficile colitis: Status: Acute (4) Cystitis: Status: Acute Additional A&P Information 49 M admitted since 05/22 with c/o back pain, found to have epidural abscess with cord compression, s/p laminectomy T7-T11 on 05/23 with residual paraplegia, hospital course c/b . diff pancolitis and likely drug rash # Epidural abscess No bacteremia on blood cx x 2 OR cx from abscess with Strep agalactaie Urine cx and CT with cytistis inidicate of Strep agalactaie No bowel or urinary perforation or fistulization on abdominal imaging On approrpiate rx with Ceftriaxone 2g iv q24 recommend treatment with iv ceftriaxone for 6 weeks (05/23-07/05) while on the above, check weekly CBC, CMP and ESR, curetnly with normal LFTS and renal function, ESR trending down Plan to follow in ID clinic with serial imaging and labs to decide final course # New maculopapular rash over lower extremities appears to be drug rash, likely related to ceftriaxone use. However this appears to be resolving per history, is non itchy, does not bother patient, no signs of DRESS, TEN or SJS. recommend to continue CTX for now, if rash worsens, can add po prednisone for short course. F/up in ID clinic in 2 weeks to follow up on rash #intertrigo: on fluconazole, continue x 10 days, add clotrimazole ointment for local application over groin folds # C diff colitis: Currently on vancomycin 125mg po QID, continue same until patient remains on iv abx. Diarrhea is currently resolved, patient tolerating po intake, denies abdominal pain Follow up with ID clinic on 06/30/20. Attestations Medical Necessity Statement*: please see hospitalist note Coding Level of Care Code Acute Paper Machine Tender for Kathy Fwd Diagnoses Epidural abscess G06.2 Rash R21 C. difficile colitis A04.72 Cystitis N30.90
--- NOTE | 2020-06-12 11:38 | PC.CHAP ---
Pastoral Care Encounter/Spiritual Assessment Type of Contact [] Declined nail kegger visit [] Patient/Family/Request visit [] Outpatient visit [xx] Follow-up visit [] Physician referral [] Code/Alert [] Routine visit [] Staff referral [] Actively dying [] Patient sleeping [] Family support [] [] Out of room [] Palliative care [] [] Receiving care in room [] Pre-surgical visit [] Trauma [xx] Long length of stay [] ICU visit [xx] Other: Isolation continues. Relational/Emotional Strength [] Patient feels connected with others/family/visitors/staff [] Distress [] Loneliness/isolation [] Abandonment Spirituality of Patient [] Person of Kia [] Attends Evangelical of their Kia [] Believes in Prayer [] Reads Bible or Moravian materials [] There are Spiritual issues to be addressed Elementary Education Teacher Interventions [] Prayer [] Active listening [] Non-anxious presence [] Spiritual/emotional support [] Crisis/trauma care [] Spiritual counseling [] Bereavement support [] Provided bereavement packet [] Provided Bible/devotional materials [] Provided toy/stuffed animal, coloring book to patient or family member [] Provided Communion [] Anointing/[place] [] Salvation [] Completed spiritual assessment [] Other: Impact on Illness or Injury [] Angry [] Fearful [] Anxious [] Often cries [] Exhaustion [] Unable to work [] Unable to attend holiness [] Unable to walk/stand [] Unable to read [] Unable to drive [] Unable to eat/drink [] Unable to sleep [] Unable to be with family [] Patient intubated [] Other: Summary Isolation continues. Elementary Education Teacher visit not accomplished. Time spent with patient
--- NOTE | 2020-06-12 11:49 | PC.CHAP ---
Pastoral Care Encounter/Spiritual Assessment Type of Contact [] Declined incubator operator visit [] Patient/Family/Request visit [] Outpatient visit [xx] Follow-up visit [] Physician referral [] Code/Alert [] Routine visit [] Staff referral [] Actively dying [] Patient sleeping [] Family support [] [] Out of room [] Palliative care [] [] Receiving care in room [] Pre-surgical visit [] Trauma [xx] Long length of stay [] ICU visit [xx] Other: Isolation continues Relational/Emotional Strength [] Patient feels connected with others/family/visitors/staff [] Distress [] Loneliness/isolation [] Abandonment Spirituality of Patient [] Person of Kia [] Attends Quaker of their Kia [] Believes in Prayer [] Reads Bible or Yazidism materials [] There are Spiritual issues to be addressed Die Lay Out Worker Interventions [] Prayer [] Active listening [] Non-anxious presence [] Spiritual/emotional support [] Crisis/trauma care [] Spiritual counseling [] Bereavement support [] Provided bereavement packet [] Provided Bible/devotional materials [] Provided toy/stuffed animal, coloring book to patient or family member [] Provided Communion [] Anointing/[place] [] Salvation [] Completed spiritual assessment [] Other: Impact on Illness or Injury [] Angry [] Fearful [] Anxious [] Often cries [] Exhaustion [] Unable to work [] Unable to attend orthodox [] Unable to walk/stand [] Unable to read [] Unable to drive [] Unable to eat/drink [] Unable to sleep [] Unable to be with family [] Patient intubated [] Other: Summary No incubator operator visit due to isolation Time spent with patient
[2020-06-12 11:53] LABS: Glucose Point of Care 130 mg/dL (70-110)
[2020-06-12 11:57] VITALS: BP 131/84; PULSE 81; RESP 18; TEMP 36.4; O2SAT 93
[2020-06-12 14:43] LABS: HIV 1 & 2 Antibody Non-Reactive (Non-Reactiv); HIV 1 & 2 Antigen Non-Reactive (Non-Reactiv)
[2020-06-12 14:54] LABS: Hepatitis A Antibody IgM Non-Reactive (Nonreactive); Hepatitis B Core AB, Total Non-Reactive (Nonreactive); Hepatitis B Surface AB 3.5 (0-8.5); Hepatitis B Surface Antigen Non-Reactive (Nonreactive); Hepatitis C Virus Antibody Non-Reactive (Nonreactive)
[2020-06-12 15:03] VITALS: BP 131/84; PULSE 81; RESP 18; TEMP 36.4; O2SAT 93
== END 2020-06-12 14:45 | disposition skilled nursing facility (03) | DRG 853 ==
LOC: ER 17:05 → MEDSURG 23:05
PROVIDERS: Family Medicine; Hospitalist; Internal Medicine; Orthopaedic Surgery; Student in an Organized Health Care Education/Training Program; Admitting Provider Internal Medicine; Emergency Provider Family Medicine; Visit Provider Student in an Organized Health Care Education/Training Program
PROC: 0PB40ZZ Excision of Thoracic Vertebra, Open Approach (ICD-10-PCS; CPT 63005; principal; 2020-05-23 07:30)
DX: A41.9 Sepsis, unspecified organism (principal); G06.1 Intraspinal abscess and granuloma; E87.1 Hypo-osmolality and hyponatremia; T82.524A Displacement of infusion catheter, initial encounter; A04.72 Enterocolitis due to Clostridium difficile, not specified as recurrent; W19.XXXA Unspecified fall, initial encounter; I10 Essential (primary) hypertension; B95.4 Other streptococcus as the cause of diseases classified elsewhere; E11.9 Type 2 diabetes mellitus without complications; Y80.1 Therapeutic (nonsurgical) and rehabilitative physical medicine devices associated with adverse incidents; E87.6 Hypokalemia; N30.90 Cystitis, unspecified without hematuria; L30.4 Erythema intertrigo
CPT/HCPCS: 12345; 36415; 36416; 36569; 36592; 51702; 70450; 71045; 72072; 72125; 72128; 72131; 72146; 72147; 72148; 72170; 74177; 76000; 80048; 80053; 80061; 80202; 80306; 80307; 81001; 82570; 82962; 83036; 83735; 84145; 84300; 85025; 85651; 86140; 86705; 86706; 86709; 86803; 87040; 87046; 87070; 87075; 87086; 87176; 87177; 87205; 87340; 87493; 87806; 93005; 93306; 96372; 97110; 97161; 97166; 97530; 97535; 99283; J0690; J0696; J1100; J1650; J1815 ×2; J1885; J2360; J2370; J2704; J3010; J3370; J3475; J3480; J3490; J7030; Q9967

== ENCOUNTER → 2020-07-28 13:42 | Outpatient (BNVA) | payer MEDICAID, SELFPAY | PROVIDERS: Visit Provider Student in an Organized Health Care Education/Training Program | DX: Q34.9 Congenital malformation of respiratory system, unspecified (principal); G06.2 Extradural and subdural abscess, unspecified; Z79.899 Other long term (current) drug therapy; A04.72 Enterocolitis due to Clostridium difficile, not specified as recurrent; R21 Rash and other nonspecific skin eruption; G95.20 Unspecified cord compression; G82.20 Paraplegia, unspecified | CPT/HCPCS: 80053; 85025; 85651 ==

== ENCOUNTER 2020-08-14 10:17 | Outpatient (CLI) | payer MEDICAID, SELFPAY ==
--- NOTE | 2020-08-14 10:21 | MR_ITS ---
WS: [id number] MRI THORACIC SPINE WITH CONTRAST TECHNIQUE: Sagittal T1, T2 and STIR imaging. Axial T2 imaging. Post gadolinium imaging was obtained. CLINICAL INFORMATION: follow up epidural abscess COMPARISON: MRI May 23, 2020 FINDINGS: Mild thoracic curve. Mild thoracic kyphosis. Postoperative changes are new since the prior examinatio n with laminectomy defects and epidural abscess drainage. Right hemilaminectomies at T8-T9 and T9-T10 . Endplate edema with enhancement at T9-T10 with disc desiccation and disc space narrowing is new from previous. Enhancing paravertebral soft tissue thickening and edema at this level. Findings are consis tent with discitis/osteomyelitis at T9-T10. Minimal endplate erosion at T9.Small amount of myelomalac ia in the thoracic cord at T7-T8, T9-T10, T10-T11. Drainage of the epidural abscess without significant recurrent or residual drainable abscess. Small a mount of residual epidural thickening and enhancement at T8-T10. Postoperative edema and enhancement at the surgical site and laminectomy defects. Normal caliber thoracic aorta. Adrenal glands are normal. Moderate facet arthropathy lower thoracic s pine. MR/MR thoracic spine wo/w [id number] IMPRESSION: 1. Postoperative changes right hemilaminectomies at T8-T9 and T9-T10 with post operative enhancement new since the prior examination with drainage of the epi dural abscess. 2. T2 signal abnormality and enhancement involving the endplates at T9-T10 wit h a small amount of signal abnormality in the disc space consistent with discit is and endplate osteomyelitis. 3. Disc space narrowing has increased from previous and endplate signal abnorm ality is new. 4. Small amount of residual dural enhancement at T8-T10 likely postoperative. No significant residual or recurrent drainable epidural abscess. 5. Small amount of myelomalacia in the thoracic cord at T7-T8, T9-T10, T10-T11 .
[2020-08-14] MEDS: gadobenate dimeglumine 20 mL vial IV (11:45)
== END 2020-08-14 10:18 | disposition home or self-care (01) ==
LOC: RADSHAW 10:18
PROVIDERS: PCP Family Medicine; Visit Provider Student in an Organized Health Care Education/Training Program
DX: G06.2 Extradural and subdural abscess, unspecified (principal); G95.89 Other specified diseases of spinal cord; M96.1 Postlaminectomy syndrome, not elsewhere classified
CPT/HCPCS: 72157; A9577

== ENCOUNTER 2020-11-12 10:26 | Outpatient (CLI) | payer MEDICAID, SELFPAY ==
--- NOTE | 2020-11-12 10:41 | MR_ITS ---
WS: [id number] MRI THORACIC SPINE WITH CONTRAST TECHNIQUE: Sagittal T1, T2 and STIR imaging. Axial T2 imaging. Post gadolinium imaging was obtained. CLINICAL INFORMATION: Follow-up epidural abscess and discitis COMPARISON: MRI 08/14/2020 and 05/23/2020 FINDINGS: Mild thoracic curve. Mild thoracic kyphosis. No acute compression fractures. Disc space narrowing wor se in the mid thoracic spine at T9-10 with laminectomy defects at right T8-9 and T9-T10. Prior epidur al abscess drainage. No evidence of recurrent epidural abscess or fluid collection. Improved but persistent findings of discitis/osteomyelitis with residual signal abnormality in the T9 -T10 adjacent endplates and persistent disc space and paravertebral enhancement. Findings consistent with improved discitis/osteomyelitis Myelomalacia in the thoracic cord at T7-T11 is similar in appearance. Ventral displacement of the tho racic cord at T7-8 is unchanged in appearance. Small stable central disc protrusions at T5-6, T6- T7, T7-8, and T9-T10. MR/MR thoracic spine wo/w [id number] IMPRESSION: 1. No evidence of recurrent or residual epidural abscess. 2. Prior postoperative changes right hemilaminectomies at T8-T9 and T9-T10. 3. Improved findings of discitis at T9-T10 with a small amount of residual end plate edema and disc space enhancement. Mild persistent paravertebral soft tiss ue inflammation and enhancement. 4. Myelomalacia in the thoracic cord extending from T7 to T11 is unchanged.
== END 2020-11-12 10:27 | disposition home or self-care (01) ==
LOC: RADSHAW 10:30
PROVIDERS: PCP Family Medicine; Visit Provider Student in an Organized Health Care Education/Training Program
DX: G06.2 Extradural and subdural abscess, unspecified (principal); G95.89 Other specified diseases of spinal cord
CPT/HCPCS: 72157; A9577

== ENCOUNTER 2021-08-18 15:48 | Inpatient (IN) | payer MEDICAID, SELFPAY ==
[2021-08-18] VITALS (8 sets, daily range): BP systolic 96–141; BP diastolic 43–74; PULSE 74–122; RESP 18–24; TEMP 37.2–39.6; O2SAT 93–97; BMI 41.7
--- NOTE | 2021-08-18 15:52 | W.ED.FEVER ---
HPI - Fever General: Chief Complaint: Fever Stated Complaint: FEVER Time Seen by Provider: 08/18/21 15:51 History of Present Illness: Mr. Booth is a 51-year-old gentleman with complex past medical history including remote history of spinal epidural abscess, history of C. difficile colitis, history of debility who presents the emergency department due to fevers. He notes over the past month or so he has had intermittent daily fevers however did become more consistent today and did not respond to Tylenol. He denies focal infectious symptoms with exception of perhaps mild cough though this is no longer productive. He does have sick contacts and his roommate. Overall intensity of symptoms is moderate. Course has persisted. No other specific changes in health, exacerbating, or alleviating factors identified. Onset (ago): day(s) Review of Systems General: Reports: 10 or more systems reviewed and unremarkable except in HPI and below PFSH ED PFSH: Medical History C. difficile colitis Cord compression Epidural abscess Fall No pertinent past medical history Paralysis of both lower limbs Surgical History (Updated 08/18/21 @ 18:12 by Bubba Allison MD) History of surgery To drain cyst on T 7-11 No pertinent past surgical history S/P laminectomy T7-T11 Family History Family/Other No problems noted. Father CAD (coronary artery disease) Social History Smoking and tobacco status: never smoked Alcohol intake: current Alcohol intake frequency: holidays/special occasions only History of recent travel: No Physical Exam Const: COMMON NORMALS: alert GENERAL APPEARANCE: cooperative, well developed and ill appearing NUTRITIONAL APPEARANCE: obese HENMT: COMMON NORMALS: normocephalic and atraumatic HEAD & SCALP: normocephalic and atraumatic THROAT: posterior oropharynx normal Eye: COMMON NORMALS: conjunctivae normal CONJUNCTIVA: Yes conjunctivae normal SCLERA: sclerae normal Neck/C-Spine: COMMON NORMALS: supple GENERAL: Yes trachea midline Resp: EFFORT & INSPECTION: Yes able to speak in complete sentences AUSCULTATION: diminished lung sounds Cardio: COMMON NORMALS: regular rhythm RATE: tachycardic RHYTHM: regular rhythm GI: COMMON NORMALS: Soft to palpation PALPATION: Yes Soft to palpation and No Tenderness to palpation present (GI) PERCUSSION: normal to percussion Extremity: GENERAL: Yes normal exam except as noted and No edema Neuro: COMMON NORMALS: moves all extremities SENSORIUM/ORIENTATION: Yes alert and No Orientation impaired Psych: COMMON NORMALS: mental status grossly normal and Normal thought process present THOUGHT PROCESS: Normal thought process present Skin: COMMON NORMALS: no rashes or lesions noted GENERAL SKIN EXAM: no rashes or lesions noted Course ED course: - Patient was seen and evaluated by me at bedside - Patient placed on cardiac monitors, IV access obtained - Initial evaluation notable for exam as above, febrile and tachycardic, moderately ill - Labs and xrays personally interpreted by me - Labs notable for leukocytosis, microcytic anemia without evidence of bleeding. Metabolic panel with evidence of dehydration. Glucose elevated without evidence of DKA. Urinalysis concerning for urinary tract infection. - Imaging notable for no lobar consolidation or pneumothorax on chest x-ray - The patient initially met SIRS criteria however no source of infection identified until time of urinalysis results. Fluids (30 cc/kg ideal body weight given obesity) and antibiotics given. - Upon serial reexamination after treatment the patient was improved - Based on patient history, evaluation, and testing as interpreted the most likely cause of the patient's condition is urosepsis - The results of ED evaluation were discussed with the patient including plan for admission due to requirement for level of care not available if discharged to prevent significant worsening/deterioration. -Hospitalist service contacted and agreed to admit the patient - Patient was admitted without further deterioration or significant events. Note: Click bubbles or prepopulated bose in note writing are used for assistance with data collection and billing and are inherently more limited than narrative and other text portions of this note. Please use narrative for additional clinical history and defer to narrative/free test for any case of contradictory information. If information appears in only free text or click bubble it should be considered present or absent as reported. Please contact note film writer for clarifications of clinical information or contradictory information. MDM is a brief summary, contradictory or erroneous seeming information should be clarified and full note should be reviewed. Vital Signs: Vital signs: Vital Signs Temperature 98.2 F 08/20/21 14:12 Pulse Rate 84 08/20/21 14:12 Respiratory Rate 18 08/20/21 14:12 Blood Pressure 149/67 08/20/21 14:12 Pulse Oximetry 97 08/20/21 14:12 MDM - Fever Medical Decision Making 51-year-old gentleman with complex past medical history presenting with fever and tachycardia without specific other infectious symptoms. Found to have urosepsis. Admitted for further treatment and management. Medical Records I reviewed the patient's medical records. Lab Data I reviewed the patient's lab results. : 08/20/21 03:30 08/20/21 03:30 Radiology Impressions Chest X-Ray 08/18/21 16:09 IMPRESSION: No acute findings. Abdomen/Pelvis CT 08/18/21 18:16 IMPRESSION: 1. No acute abnormality identified in the abdomen or pelvis. 2. 2 mm pulmonary nodules. For patients at low risk (minimal or absent history of smoking and of other known risk factors), no routine follow-up is indicated. For patients at high risk (history of smoking or of other known risk factors), consider optional CT Chest at 12 months. (Reference: Maria D) References: Maria D Amin, et al. Guidelines for Management of Incidental Pulmonary Nodules Detected on CT Images: From the Fleischner Society 2017. Radiology. 2017;284(1):228-243. Laboratory Results WBC 23.2 10^3/uL (4.0-10.0) H 08/18/21 16:20 RBC 4.44 10^6/uL (4.1-5.3) 08/18/21 16:20 Hgb 11.4 g/dL (11.7-16.6) L 08/18/21 16:20 Hct 35.2 % (42.0-52.0) L 08/18/21 16:20 MCV 79.3 fl (80-94) L 08/18/21 16:20 MCH 25.7 pg (28.0-34.0) L 08/18/21 16:20 MCHC 32.4 g/dL (30.0-36.0) 08/18/21 16:20 RDW 14.4 % (12.1-15.1) 08/18/21 16:20 Plt Count 303 10^3/cmm (130-400) 08/18/21 16:20 MPV 11.1 fL (7.4-10.4) H 08/18/21 16:20 Neut % (Auto) 90.7 % 08/18/21 16:20 Lymph % (Auto) 4.9 % 08/18/21 16:20 [place] % (Auto) 3.2 % 08/18/21 16:20 Eos % (Auto) 0.0 % 08/18/21 16:20 Baso % (Auto) 0.4 % 08/18/21 16:20 Neut # (Auto) 21.02 10^3/uL (1.8-7.7) H 08/18/21 16:20 Lymph # (Auto) 1.1 10^3/uL (0.8-4.8) 08/18/21 16:20 [place] # (Auto) 0.7 10^3/uL (0.2-0.9) 08/18/21 16:20 Eos # (Auto) 0.0 10^3/uL (0.0-0.8) 08/18/21 16:20 Baso # (Auto) 0.1 10^3/uL (0.0-0.1) 08/18/21 16:20 Nucleated RBC % (auto) 0 % 08/18/21 16:20 Nucleated RBCs # 0.0 /100WBC 08/18/21 16:20 Sodium 125 mmol/L (136-145) L 08/18/21 16:20 Potassium 4.3 mmol/L (3.5-5.1) 08/18/21 16:20 Chloride 91 mmol/L (98-107) L 08/18/21 16:20 Carbon Dioxide 23 mmol/L (22-29) 08/18/21 16:20 Anion Gap 15.3 (5-19) 08/18/21 16:20 BUN 12 mg/dL (6-20) 08/18/21 16:20 Creatinine 0.8 mg/dL (0.7-1.2) 08/18/21 16:20 GFR Calculation 101.5 mL/min (90-130) 08/18/21 16:20 Glucose 312 mg/dL (65-115) H 08/18/21 16:20 Calculated Osmolality 272 mOsm/kg (285-295) L 08/18/21 16:20 Lactic Acid 1.4 mmol/L (0.5-2.2) 08/18/21 16:20 Calcium 8.5 mg/dL (8.5-10.5) 08/18/21 16:20 Iron 12 ug/dL (59-158) L 08/18/21 16:20 TIBC 173 mcg/dl 08/18/21 16:20 % Saturation 6.9 % (20-50) L 08/18/21 16:20 Unsat Iron Binding 161 ug/dL (112-347) 08/18/21 16:20 Total Bilirubin 0.5 mg/dL (0.15-1.2) 08/18/21 16:20 AST 13 U/L (0-40) 08/18/21 16:20 ALT 10 U/L (0-41) 08/18/21 16:20 Alkaline Phosphatase 109 IU/L (40-130) 08/18/21 16:20 C-Reactive Protein 143.5 mg/L (0.0-4.9) H 08/18/21 16:20 Total Protein 6.5 g/dL (6.6-8.7) L 08/18/21 16:20 Albumin 3.0 g/dL (3.5-5.2) L 08/18/21 16:20 Globulin 3.5 g/dL (1.3-4.6) 08/18/21 16:20 Procalcitonin 1.77 ng/mL (0-0.5) H 08/18/21 16:20 TSH 1.72 uIU/mL (0.27-4.20) 08/18/21 16:20 Urine Color Yellow (Yellow) 08/18/21 16:20 Urine Appearance Hazy (CLEAR) A 08/18/21 16:20 Urine pH 5 (5-7) 08/18/21 16:20 Ur Specific [place] 1.020 (1.005-1.030) 08/18/21 16:20 Urine Protein Neg (Negative) 08/18/21 16:20 Urine Glucose (UA) 4+ (Normal) H 08/18/21 16:20 Urine Ketones 1+ (Negative) H 08/18/21 16:20 Urine Blood 3+ (Negative) H 08/18/21 16:20 Urine Nitrate Negative (Negative) 08/18/21 16:20 Urine Bilirubin Neg (Negative) 08/18/21 16:20 Urine Urobilinogen Norm mg/dL (Negative) 08/18/21 16:20 Ur Leukocyte Esterase 2+ (Negative) H 08/18/21 16:20 Urine RBC None /hpf (0-2) 08/18/21 16:20 Urine WBC Too numerous to cnt /hpf (0-5) H 08/18/21 16:20 Ur Squamous Epith Cells None /hpf (0-5) 08/18/21 16:20 Amorphous Sediment Not Reportable 08/18/21 16:20 Urine Bacteria 4+ /hpf (NONE) H 08/18/21 16:20 Ur Random Sodium 58 mmol/L 08/18/21 16:20 Ur Random Potassium 49 mmol/L 08/18/21 16:20 Ur Random Chloride 50 mmol/L 08/18/21 16:20 Urine Opiates Screen Negative ng/mL (Negative) 08/18/21 16:20 Ur Barbiturates Screen Negative ng/mL (Negative) 08/18/21 16:20 Ur Phencyclidine Scrn Negative ng/mL (Negative) 08/18/21 16:20 Ur Amphetamines Screen Negative ng/mL (Negative) 08/18/21 16:20 U Benzodiazepines Scrn Negative ng/mL (Negative) 08/18/21 16:20 Urine Cocaine Screen Negative ng/mL (Negative) 08/18/21 16:20 U Marijuana (THC) Screen Negative ng/mL (Negative) 08/18/21 16:20 Coronavirus 229E (PCR) Detected (NOT DETECT) A 08/18/21 16:20 SARS-CoV-2 (PCR) Not detected (NOT DETECT) 08/18/21 16:20 Discharge Plan Discharge Patient Disposition: Admitted As Inpatient Admit Provider: Bubba Allison Clinical Impression: Acute UTI, Sepsis Condition: Stable Discharge Diet: Usual diet Discharge Activity: Resume usual activity Coding Level of Care Code ED Egg Smeller for Kathy Meza
--- NOTE | 2021-08-18 16:09 | XRR_ITS ---
PROCEDURE INFORMATION: Exam: XR Chest Exam date and time: 08/18/2021 3:26 PM Age: 51 years old Clinical indication: Cough and fever; Additional info: Cough, fever TECHNIQUE: Imaging protocol: XR of the chest. Views: 1 view. COMPARISON: CR XR chest 1V portable [id number] 06/05/2020 10:07 AM FINDINGS: Lungs: Unremarkable. No consolidation. Pleural spaces: Unremarkable. No pleural effusion. No pneumothorax. Heart/Mediastinum: Unremarkable. No cardiomegaly. Bones/joints: Unremarkable. XR/XR chest 1V portable [id number] IMPRESSION: No acute findings.
[2021-08-18] MEDS: sodium chloride 0.9% 1,000 ML 999 ML IV ×2 (16:44→18:33)
[2021-08-18 16:59] LABS: Alanine Aminotransferase 10 U/L (0-41); Alkaline Phosphatase 109 IU/L (40-130); Anion Gap 15.3 (5-19); Aspartate Amino Transferase 13 U/L (0-40); Basophils # 0.1 10^3/uL (0.0-0.1); Basophils % 0.4 %; Blood Urea Nitrogen 12 mg/dL (6-20); Calcium 8.5 mg/dL (8.5-10.5); Carbon Dioxide 23 mmol/L (22-29); Chloride 91 mmol/L (98-107); Globulin 3.5 g/dL (1.3-4.6); Glomerular Filtration Rate 101.5 mL/min (90-130); Glucose 312 mg/dL (65-115); Hematocrit 35.2 % (42.0-52.0); Hemoglobin 11.4 g/dL (11.7-16.6); Lymphocytes # 1.1 10^3/uL (0.8-4.8); Lymphocytes % 4.9 %; Mean Corpuscular HGB Conc 32.4 g/dL (30.0-36.0); Mean Corpuscular Hemoglobin 25.7 pg (28.0-34.0); Mean Corpuscular Volume 79.3 fl (80-94); Mean Platelet Volume 11.1 fL (7.4-10.4); Monocytes # 0.7 10^3/uL (0.2-0.9); Monocytes % 3.2 %; Neutrophils # 21.02 10^3/uL (1.8-7.7); Neutrophils % 90.7 %; Nucleated Red Blood Cells % 0 %; Osmolality Calculated 272 mOsm/kg (285-295); Platelet Count 303 10^3/cmm (130-400); Potassium 4.3 mmol/L (3.5-5.1); Red Blood Count 4.44 10^6/uL (4.1-5.3); Red Cell Distribution Width 14.4 % (12.1-15.1); Sodium 125 mmol/L (136-145); Total Bilirubin 0.5 mg/dL (0.15-1.2); Total Protein 6.5 g/dL (6.6-8.7); White Blood Count 23.2 10^3/uL (4.0-10.0)
[2021-08-18 17:05] LABS: Add Urine Microscopic? YES; Bilirubin Urine Neg (Negative); Blood Urine 3+ (Negative); Glucose Urine UA 4+ (Normal); Ketones Urine 1+ (Negative); Leukocyte Esterase Urine 2+ (Negative); Nitrate Urine Negative (Negative); Protein Urine Neg (Negative); Urine Appearance Hazy (CLEAR); Urine Color Yellow (Yellow); Urobilinogen Urine Norm (Negative); pH Urine 5 (5-7)
[2021-08-18 17:07] LABS: Add Urine Culture? Yes; Bacteria Urine 4+ /hpf; WBC Urine TOO NUMEROUS TO CNT /hpf (0-5)
[2021-08-18 17:41] LABS: Lactic Sepsis W/Reflex 1.4 mmol/L (0.5-2.2)
[2021-08-18] MEDS: ketorolac 30 mg/mL INJ 15 MG IVP (17:58)
--- NOTE | 2021-08-18 18:03 | P.HP_ITS ---
Providers/Chief Complaint Primary Care Provider: Rakel Kendall MD Chief Complaint: FEVER History of Present Illness Joey Booth is a 51 year old male with past medical history of epidural abscess secondary to Streptococcus in 2019 cleared up with left MRI in October 2020, C. difficile colitis, assisted resident presented to the ER today because of high-grade fever, nausea. Patient denies any diarrhea, dysuria, back pain, chills. States fever started all of a sudden 2 days ago. Denies any cough, difficulty in breathing, belly pain. In the ER was found to have a white count of 23,000, hemoglobin of 11.4, sodium of 125, chloride of 91, glucose of 312, TSH of 1.7, UA showing numerous WBCs, 2+ leuk esterase Review of Systems General: Reports: 10 or more systems reviewed and unremarkable except in HPI and below Const: Denies: fever(s), chills, body aches, change in appetite, change in weight, malaise, night sweats, diaphoresis, change in sleep pattern, daytime sleepiness or snoring Eyes: Denies: change in vision, blurry vision, photophobia, eye discomfort or eye discharge ENMT: Denies: throat pain, enlarged tonsils, hoarseness, mouth pain, oral sores, dry mouth, tinnitus, nasal congestion or post nasal drip Card: Denies: chest pain, palpitations, irregular heart rhythm, edema, swelling of feet/ankles, lightheadedness, syncope, pre-syncope, dyspnea on exertion, orthopnea, leg pain with exertion or acrocyanosis Resp: Denies: dyspnea, productive cough, non-productive cough, wheezing, stridor, pain on inspiration, change in phlegm color, hemoptysis or chest congestion GI: Denies: abdominal pain, nausea, vomiting, hematemesis, coffee ground emesis, dysphagia, heartburn, diarrhea, constipation, bloating, GI cramping, change in bowel habits, pain on defecation, hematochezia or melena : Denies: flank pain, difficulty urinating, dysuria, urinary frequency, urinary urgency, urinary hesitancy, urinary dribbling, difficulty starting urination, change in urine stream, nocturia or hematuria Musc: Denies: neck pain, back pain, extremity pain, joint pain, joint swelling, joint redness, joint stiffness or limited range of motion Neuro: Denies: headache(s), numbness in extremities, weakness in extremities, sensory changes, lack of coordination, difficulty walking, frequent falls, dizziness, vertigo, confusion, Slurred speech present, difficulty communicating thoughts or seizure-like activity Psych: Denies: anxiety, depression, mood swings, panic attacks, hopelessness or irritability Endo: Denies: polyuria, polydipsia, tired all the time, cold intolerance, excessive sweating, flushing or heat intolerance Filemon/Lymph: Denies: easy bruising or easy bleeding All/Imm: Denies: tongue swelling, facial swelling or acute wheezing Medications/Allergies Home Medications Medication Instructions Recorded Confirmed Last Taken Type aspirin 325 mg tablet 325 mg PO DAILY #60 tab 06/12/20 08/18/21 08/18/21 Rx acetaminophen 325 mg capsule 650 mg PO Q4H PRN 12/01/20 08/18/21 08/18/21 History bisacodyl 10 mg rectal suppository 10 mg WI DAILY PRN 12/01/20 08/18/21 Unknown History metformin 1,000 mg tablet 1,000 mg PO BID 12/01/20 08/18/21 08/18/21 History loperamide 2 mg capsule 2 mg PO DAILY PRN 08/18/21 08/18/21 Unknown History menthol 5.8 mg lozenges ([place] 5.8 mg MUCOUS MEMBRANE Q2H PRN 08/18/21 08/18/21 Unknown History Cough Drops) metoprolol tartrate 25 mg tablet 25 mg PO BID 08/18/21 08/18/21 08/18/21 History Allergies Allergy/AdvReac Type Severity Reaction Status Date / Time No Known Allergies Allergy Verified 12/01/20 09:42 PFSH Acute PFSH: Medical History (Updated 08/18/21 @ 18:12 by Bubba Allison MD) C. difficile colitis Cord compression Epidural abscess Fall No pertinent past medical history Paralysis of both lower limbs Surgical History (Updated 08/18/21 @ 18:12 by Bubba Allison MD) History of surgery To drain cyst on T 7-11 No pertinent past surgical history S/P laminectomy T7-T11 Family History Family/Other No problems noted. Father CAD (coronary artery disease) Social History Smoking and tobacco status: never smoked Alcohol intake: current Alcohol intake frequency: holidays/special occasions only History of recent travel: No Vitals/I&O/Wt Last Vital Signs Temp 103 F H 08/18/21 16:26 Pulse 122 H 08/18/21 16:26 Resp 20 H 08/18/21 16:26 BP 126/70 08/18/21 16:26 Pulse Ox 96 08/18/21 16:26 Weight last 48 hrs Weight 147.418 kg Physical Exam Narrative: General: No acute distress, AO x3 HEENT: PERRLA, pupils bilaterally equal and reactive Chest: Normal vesicular breath sounds, no added sounds, equal good air entry bilaterally CVS: S1-S2 regular, no murmurs, no tachycardia, no gallops, no rubs Abdomen: Soft, nontender, no organomegaly, bowel sounds present Neuro: No focal deficits, no facial deformity, AO x3, power 5/5 in all limbs Data : 08/19/21 02:54 08/19/21 02:54 Other Labs: Radiology Impressions Chest X-Ray 08/18/21 16:09 IMPRESSION: No acute findings. Abdomen/Pelvis CT 08/18/21 18:16 IMPRESSION: 1. No acute abnormality identified in the abdomen or pelvis. 2. 2 mm pulmonary nodules. For patients at low risk (minimal or absent history of smoking and of other known risk factors), no routine follow-up is indicated. For patients at high risk (history of smoking or of other known risk factors), consider optional CT Chest at 12 months. (Reference: Maria D) References: Maria D Amin et al. Guidelines for Management of Incidental Pulmonary Nodules Detected on CT Images: From the Fleischner Society 2017. Radiology. 2017;284(1):228-243. Laboratory Results WBC 13.5 10^3/uL (4.0-10.0) H 08/19/21 02:54 RBC 4.33 10^6/uL (4.1-5.3) 08/19/21 02:54 Hgb 10.7 g/dL (11.7-16.6) L 08/19/21 02:54 Hct 33.8 % (42.0-52.0) L 08/19/21 02:54 MCV 78.1 fl (80-94) L 08/19/21 02:54 MCH 24.7 pg (28.0-34.0) L 08/19/21 02:54 MCHC 31.7 g/dL (30.0-36.0) 08/19/21 02:54 RDW 14.5 % (12.1-15.1) 08/19/21 02:54 Plt Count 291 10^3/cmm (130-400) 08/19/21 02:54 MPV 10.0 fL (7.4-10.4) 08/19/21 02:54 Neut % (Auto) 80.1 % 08/19/21 02:54 Lymph % (Auto) 14.0 % 08/19/21 02:54 Snyder % (Auto) 5.0 % 08/19/21 02:54 Eos % (Auto) 0.2 % 08/19/21 02:54 Baso % (Auto) 0.3 % 08/19/21 02:54 Neut # (Auto) 10.83 10^3/uL (1.8-7.7) H 08/19/21 02:54 Lymph # (Auto) 1.9 10^3/uL (0.8-4.8) 08/19/21 02:54 Snyder # (Auto) 0.7 10^3/uL (0.2-0.9) 08/19/21 02:54 Eos # (Auto) 0.0 10^3/uL (0.0-0.8) 08/19/21 02:54 Baso # (Auto) 0.0 10^3/uL (0.0-0.1) 08/19/21 02:54 Nucleated RBC % (auto) 0 % 08/19/21 02:54 Nucleated RBCs # 0.0 /100WBC 08/19/21 02:54 Sodium 131 mmol/L (136-145) L 08/19/21 02:54 Potassium 4.1 mmol/L (3.5-5.1) 08/19/21 02:54 Chloride 98 mmol/L (98-107) 08/19/21 02:54 Carbon Dioxide 25 mmol/L (22-29) 08/19/21 02:54 Anion Gap 12.1 (5-19) 08/19/21 02:54 BUN 12 mg/dL (6-20) 08/19/21 02:54 Creatinine 0.7 mg/dL (0.7-1.2) 08/19/21 02:54 GFR Calculation 118.4 mL/min (90-130) 08/19/21 02:54 Glucose 321 mg/dL (65-115) H 08/19/21 02:54 Estimat Average Glucose 217 08/19/21 02:54 Hemoglobin A1c 9.2 % (4.0-6.0) H 08/19/21 02:54 Calculated Osmolality 284 mOsm/kg (285-295) L 08/19/21 02:54 Lactic Acid 1.4 mmol/L (0.5-2.2) 08/18/21 16:20 Calcium 8.5 mg/dL (8.5-10.5) 08/19/21 02:54 Phosphorus 2.9 mg/dL (2.5-4.5) 08/19/21 02:54 Magnesium 1.9 mg/dL (1.7-2.3) 08/19/21 02:54 Iron 12 ug/dL (59-158) L 08/18/21 16:20 TIBC 173 mcg/dl 08/18/21 16:20 % Saturation 6.9 % (20-50) L 08/18/21 16:20 Unsat Iron Binding 161 ug/dL (112-347) 08/18/21 16:20 Total Bilirubin 0.3 mg/dL (0.15-1.2) 08/19/21 02:54 AST 10 U/L (0-40) 08/19/21 02:54 ALT 11 U/L (0-41) 08/19/21 02:54 Alkaline Phosphatase 125 IU/L (40-130) 08/19/21 02:54 C-Reactive Protein 143.5 mg/L (0.0-4.9) H 08/18/21 16:20 Total Protein 6.4 g/dL (6.6-8.7) L 08/19/21 02:54 Albumin 2.8 g/dL (3.5-5.2) L 08/19/21 02:54 Globulin 3.6 g/dL (1.3-4.6) 08/19/21 02:54 Triglycerides 213 mg/dL (0-150) H 08/19/21 02:54 Cholesterol 76 mg/dL (0-200) 08/19/21 02:54 LDL Cholesterol, Calc 18 mg/dL (50-129) L 08/19/21 02:54 Total VLDL Cholesterol 43 mg/dL (0-30) H 08/19/21 02:54 HDL Cholesterol 15 mg/dL (60-100) L 08/19/21 02:54 LDL/HDL Ratio 1.20 RATIO (0.00-3.22) 08/19/21 02:54 Cholesterol/HDL Ratio 5.07 mg/dL (1.0-5.00) H 08/19/21 02:54 Procalcitonin 1.77 ng/mL (0-0.5) H 08/18/21 16:20 TSH 1.72 uIU/mL (0.27-4.20) 08/18/21 16:20 Urine Color Yellow (Yellow) 08/18/21 16:20 Urine Appearance Hazy (CLEAR) A 08/18/21 16:20 Urine pH 5 (5-7) 08/18/21 16:20 Ur Specific [place] 1.020 (1.005-1.030) 08/18/21 16:20 Urine Protein Neg (Negative) 08/18/21 16:20 Urine Glucose (UA) 4+ (Normal) H 08/18/21 16:20 Urine Ketones 1+ (Negative) H 08/18/21 16:20 Urine Blood 3+ (Negative) H 08/18/21 16:20 Urine Nitrate Negative (Negative) 08/18/21 16:20 Urine Bilirubin Neg (Negative) 08/18/21 16:20 Urine Urobilinogen Norm mg/dL (Negative) 08/18/21 16:20 Ur Leukocyte Esterase 2+ (Negative) H 08/18/21 16:20 Urine RBC None /hpf (0-2) 08/18/21 16:20 Urine WBC Too numerous to cnt /hpf (0-5) H 08/18/21 16:20 Ur Squamous Epith Cells None /hpf (0-5) 08/18/21 16:20 Amorphous Sediment Not Reportable 08/18/21 16:20 Urine Bacteria 4+ /hpf (NONE) H 08/18/21 16:20 Ur Random Sodium 58 mmol/L 08/18/21 16:20 Ur Random Potassium 49 mmol/L 08/18/21 16:20 Ur Random Chloride 50 mmol/L 08/18/21 16:20 Urine Opiates Screen Negative ng/mL (Negative) 08/18/21 16:20 Ur Barbiturates Screen Negative ng/mL (Negative) 08/18/21 16:20 Ur Phencyclidine Scrn Negative ng/mL (Negative) 08/18/21 16:20 Ur Amphetamines Screen Negative ng/mL (Negative) 08/18/21 16:20 U Benzodiazepines Scrn Negative ng/mL (Negative) 08/18/21 16:20 Urine Cocaine Screen Negative ng/mL (Negative) 08/18/21 16:20 U Marijuana (THC) Screen Negative ng/mL (Negative) 08/18/21 16:20 Coronavirus 229E (PCR) Detected (NOT DETECT) A 08/18/21 16:20 SARS-CoV-2 (PCR) Not detected (NOT DETECT) 08/18/21 16:20 Micro: Microbiology 08/18/21 16:20 Blood Culture - Preliminary Blood SPECIMEN COLLECTED 08/18/21 16:20 Blood Culture - Preliminary Blood SPECIMEN COLLECTED A&P Assessment and plan (1) Sepsis: Status: Acute (2) Acute UTI: Status: Acute (3) Hyponatremia: Status: Acute Plan Sepsis: Criteria met through tachycardia, fever, leukocytosis. Most likely secondary UTI. Patient has a history of epidural abscess cleared up on MRI in October 2020, C. difficile colitis. Check stool studies. Check CT abdomen pelvis without contrast to rule out obstr ucting uropathy. Blood culture, urinalysis, urine culture, MRSA swab, lactate. Normal saline at 100 cc/h. Monitor blood pressures keeping mean over 65. Start on Zosyn for now. Will de-escalate antibiotics as per culture results. Continue chronic home medication including aspirin, metoprolol. Type 2 diabetes mellitus: Check A1c, lipid panel. Check iron panel, TSH. Insulin sliding scale. Hyponatremia: Most likely secondary dehydration. Check urinalysis. Normal saline 100 cc/h. Repeat BMP tomorrow morning. Carb consistent diet. Lovenox for DVT prophylaxis. Famotidine for PUD prophylaxis. 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
--- NOTE | 2021-08-18 18:16 | CTR_ITS ---
PROCEDURE INFORMATION: Exam: CT Abdomen And Pelvis Without Contrast Exam date and time: 08/18/2021 7:56 PM Age: 51 years old Clinical indication: Generalized; Patient HX: Abdominal pain/ sepsis; Additional info: Sepsis/ abdominal pain TECHNIQUE: Imaging protocol: Computed tomography of the abdomen and pelvis without contrast. Radiation optimization: All CT scans at this facility use at least one of these dose optimization techniques: automated exposure control; mA and/or kV adjustment per patient size (includes targeted exams where dose is matched to clinical indication); or iterative reconstruction. COMPARISON: CT abdomen pelvis w con* [id number] 05/31/2020 9:17 PM RADIATION DOSE METRICS: Total DLP (mGy-cm): 1990.61 FINDINGS: Lungs: Multiple 2 mm nodules in both lung bases. Diaphragm: Small hiatal hernia. Liver: Normal. No mass. Gallbladder and bile ducts: Normal. No calcified stones. No ductal dilation. Pancreas: Normal. No ductal dilation. Spleen: Normal. No splenomegaly. Adrenal glands: Normal. No mass. Kidneys and ureters: Normal. No hydronephrosis. Stomach and bowel: Duodenal diverticulum. Appendix: The appendix is visualized and is normal. Intraperitoneal space: Unremarkable. No free air. No significant fluid collection. Vasculature: Unremarkable. No abdominal aortic aneurysm. Lymph nodes: Unremarkable. No enlarged lymph nodes. Urinary bladder: Unremarkable as visualized. Reproductive: Calcifications in a normal sized prostate. Bones/joints: Degenerative changes of the spine. No fracture or subluxation. Soft tissues: Mild subcutaneous soft tissue edema in the flank regions. CT/CT abdomen pelvis con [id number] IMPRESSION: 1. No acute abnormality identified in the abdomen or pelvis. 2. 2 mm pulmonary nodules. For patients at low risk (minimal or absent history of smoking and of other known risk factors), no routine follow-up is indicated. For patients at high risk (history of smoking or of other known risk factors), consider optional CT Chest at 12 months. (Reference: Maria D) References: Maria D Amin et al. Guidelines for Management of Incidental Pulmonary Nodules Detected on CT Images: From the Fleischner Society 2017. Radiology. 2017;284(1):228-243.
[2021-08-18 18:27] LABS: Adenovirus Not Detected (NOT DETECT); Chlamydia Pneumoniae Not Detected (NOT DETECT); Coronavirus 229E,HKU1,NL63,OC4 Detected (NOT DETECT); Human Metapneumovirus Not Detected (NOT DETECT); Human Rhinovirus/Enterovirus Not Detected (NOT DETECT); Influenza A Not Detected (NOT DETECT); Influenza A H1 Not Detected (NOT DETECT); Influenza A H1-2009 Not Detected (NOT DETECT); Influenza A H3 Not Detected (NOT DETECT); Influenza B Not Detected (NOT DETECT); Mycoplasma Pneumoniae Not Detected (NOT DETECT); Parainfluenza Virus Type 1 Not Detected (NOT DETECT); Parainfluenza Virus Type 2 Not Detected (NOT DETECT); Parainfluenza Virus Type 3 Not Detected (NOT DETECT); Parainfluenza Virus Type 4 Not Detected (NOT DETECT); Respiratory Syncytial Virus A Not Detected (NOT DETECT); Respiratory Syncytial Virus B Not Detected (NOT DETECT); SARS-COV-2 Not Detected (NOT DETECT)
[2021-08-18] MEDS: cefTRIAXone 1,000 MG in sodium chloride 0.9% (plus) 50 ML 100 MG IV (18:28)
[2021-08-18] MEDS: piperacillin-tazobactam 3.375 GM in sodium chloride 0.9% (plus) 50 ML IV (18:31)
[2021-08-18] MEDS: sodium chloride 0.9% 500 ML 999 ML IV (18:38)
[2021-08-18 19:00] LABS: Procalcitonin 1.77 ng/mL (0-0.5)
[2021-08-18 19:01] LABS: C Reactive Protein 143.5 mg/L (0.0-4.9); Thyroid Stimulating Hormone 1.72 uIU/mL (0.27-4.20)
[2021-08-18 19:12] LABS: Iron 12 ug/dL (59-158); Percent Saturation 6.9 % (20-50); Total Iron Binding Capacity 173 mcg/dl; Unsaturated Iron Binding 161 ug/dL (112-347)
[2021-08-18 19:34] LABS: Amphetamines Screen Urine Negative (Negative); Barbiturates Screen Urine Negative (Negative); Benzodiazepines Screen Urine Negative (Negative); Cocaine Screen Urine Negative (Negative); Opiate Screen Urine Negative (Negative); PCP Screen Urine Negative (Negative); THC Screen Urine Negative (Negative)
[2021-08-18 22:08] LABS: Potassium, Radom Urine 49 mmol/L; Urine Random Chloride 50 mmol/L; Urine Random Sodium 58 mmol/L
[2021-08-18] MEDS: famotidine 20 mg/2 mL INJ IVP (22:30)
[2021-08-18] MEDS: sodium chloride 0.9% 1,000 ML 100 ML IV (22:30)
[2021-08-18] MEDS: heparin 5,000 unit/mL INJ 1 mL 5000 UNIT SUBCUT (22:31)
[2021-08-19] VITALS (9 sets, daily range): BP systolic 130–145; BP diastolic 71–81; PULSE 67–81; RESP 17–18; TEMP 36.8–37; O2SAT 93–98; BMI 41.7
[2021-08-19] MEDS: piperacillin-tazobactam 3.375 GM in sodium chloride 0.9% (plus) 50 ML IV ×3 (02:43→17:31)
[2021-08-19 03:12] LABS: Basophils % 0.3 %; Eosinophils % 0.2 %; Hematocrit 33.8 % (42.0-52.0); Hemoglobin 10.7 g/dL (11.7-16.6); Lymphocytes # 1.9 10^3/uL (0.8-4.8); Mean Corpuscular HGB Conc 31.7 g/dL (30.0-36.0); Mean Corpuscular Hemoglobin 24.7 pg (28.0-34.0); Mean Corpuscular Volume 78.1 fl (80-94); Monocytes # 0.7 10^3/uL (0.2-0.9); Neutrophils # 10.83 10^3/uL (1.8-7.7); Neutrophils % 80.1 %; Nucleated Red Blood Cells % 0 %; Platelet Count 291 10^3/cmm (130-400); Red Blood Count 4.33 10^6/uL (4.1-5.3); Red Cell Distribution Width 14.5 % (12.1-15.1); White Blood Count 13.5 10^3/uL (4.0-10.0)
[2021-08-19 03:27] LABS: Estmated Average Glucose 217; Hemoglobin A1C 9.2 % (4.0-6.0)
[2021-08-19 03:33] LABS: Alanine Aminotransferase 11 U/L (0-41); Albumin Level 2.8 g/dL (3.5-5.2); Alkaline Phosphatase 125 IU/L (40-130); Anion Gap 12.1 (5-19); Aspartate Amino Transferase 10 U/L (0-40); Blood Urea Nitrogen 12 mg/dL (6-20); Calcium 8.5 mg/dL (8.5-10.5); Carbon Dioxide 25 mmol/L (22-29); Chloride 98 mmol/L (98-107); Globulin 3.6 g/dL (1.3-4.6); Glomerular Filtration Rate 118.4 mL/min (90-130); Glucose 321 mg/dL (65-115); Magnesium 1.9 mg/dL (1.7-2.3); Osmolality Calculated 284 mOsm/kg (285-295); Phosphorus 2.9 mg/dL (2.5-4.5); Potassium 4.1 mmol/L (3.5-5.1); Sodium 131 mmol/L (136-145); Total Bilirubin 0.3 mg/dL (0.15-1.2); Total Protein 6.4 g/dL (6.6-8.7)
[2021-08-19 03:38] LABS: Chol HDL Ratio 5.07 mg/dL (1.0-5.00); Cholesterol 76 mg/dL (0-200); HDL Cholesterol 15 mg/dL (60-100); LDL Cholesterol Calculated 18 mg/dL (50-129); Triglycerides 213 mg/dL (0-150); VLDL Cholestrol Calculation 43 mg/dL (0-30)
[2021-08-19] MEDS: sodium chloride 0.9% 1,000 ML 100 ML IV ×2 (05:39→16:47)
[2021-08-19] MEDS: famotidine 20 mg/2 mL INJ IVP ×2 (08:38→20:36)
[2021-08-19] MEDS: metoprolol tartrate 25 mg Tablet PO ×2 (08:38→17:31)
[2021-08-19] MEDS: aspirin 325 mg Tablet PO (08:38)
[2021-08-19] MEDS: ferrous gluconate 324 mg Tablet PO ×2 (08:38→17:31)
[2021-08-19] MEDS: heparin 5,000 unit/mL INJ 1 mL 5000 UNIT SUBCUT ×2 (09:15→20:36)
--- NOTE | 2021-08-19 13:27 | PM.PN ---
Subjective Subjective: Documents overnight. Seen at bedside today. Sitting up in bed. Denies any active complaints. T-max since admission 99.7 Fahrenheit. Has remained hemodynamically stable and afebrile. Vitals/I&O/Wt Last Vital Signs Temp 98.4 F 08/19/21 12:00 Pulse 67 08/19/21 12:00 Resp 17 08/19/21 12:00 BP 130/72 08/19/21 12:00 Pulse Ox 98 08/19/21 12:00 08/18/21 08/19/21 08/19/21 22:59 06:59 14:59 Intake Total 2845 / 2845 1075 / 3920 830 / 830 Output Total 1500 / 1500 Balance 2845 / 2845 -425 / 2420 830 / 830 Weight last 48 hrs Weight 147.418 kg Weight 147.418 kg Weight 147.418 kg Physical Exam Narrative: General: No acute distress, AO x3, morbidly obese, flushed appearance of cheeks and forehead HEENT: PERRLA, pupils bilaterally equal and reactive Chest: Normal vesicular breath sounds, no added sounds, equal good air entry bilaterally CVS: S1-S2 regular, no murmurs, no tachycardia, no gallops, no rubs Abdomen: Soft, nontender, no organomegaly, bowel sounds present Neuro: No focal deficits, no facial deformity, AO x3, power 5/5 in all limbs Data : 08/19/21 02:54 08/19/21 02:54 Micro: Microbiology 08/18/21 16:20 Blood Culture - Preliminary Blood SPECIMEN COLLECTED 08/18/21 16:20 Blood Culture - Preliminary Blood SPECIMEN COLLECTED A&P Assessment and plan (1) Sepsis: Status: Acute (2) Acute UTI: Status: Acute (3) Hyponatremia: Status: Acute Plan Sepsis: Criteria met through tachycardia, fever, leukocytosis. Most likely secondary UTI. Patient has a history of epidural abscess cleared up on MRI in October 2020, C. difficile colitis. Urinalysis appreciated. Urine culture blood culture awaited. MRSA swab results awaited. Continue normal saline 100 cc/h CT abdomen pelvis results appreciated. Monitor blood pressures keeping mean over 65. Continue with Zosyn.. Will de-escalate antibiotics as per culture results. Coronavirus infection other than COVID-19: Supportive treatment. Could be the cause of fever as well. Continue chronic home medication including aspirin, metoprolol. Type 2 diabetes mellitus: A1c 9.2. Iron deficiency anemia. Appreciate lipid panel and TSH. Insulin sliding scale. Hyponatremia: Resolving. Most likely secondary dehydration. Check urinalysis. Normal saline 100 cc/h. Repeat BMP tomorrow morning. Carb consistent diet. Lovenox for DVT prophylaxis. Famotidine for PUD prophylaxis. 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
--- NOTE | 2021-08-19 19:01 | PC.NURSE ---
Patient AAOx4, sitting up in bed, turns self from side to side barely, I'm turning myself enough. VSS, no new events, good UOP, no needs at this time.
[2021-08-20] VITALS: BP 138/78; PULSE 80; RESP 17; TEMP 36.7; O2SAT 94
[2021-08-20] MEDS: sodium chloride 0.9% 1,000 ML 100 ML IV (03:12)
[2021-08-20] MEDS: piperacillin-tazobactam 3.375 GM in sodium chloride 0.9% (plus) 50 ML IV ×2 (03:20→09:40)
[2021-08-20 03:52] LABS: Basophils % 0.4 %; Eosinophils # 0.1 10^3/uL (0.0-0.8); Eosinophils % 0.8 %; Hematocrit 34.3 % (42.0-52.0); Hemoglobin 10.9 g/dL (11.7-16.6); Lymphocytes # 1.7 10^3/uL (0.8-4.8); Lymphocytes % 23.5 %; Mean Corpuscular HGB Conc 31.8 g/dL (30.0-36.0); Mean Corpuscular Hemoglobin 25.2 pg (28.0-34.0); Mean Corpuscular Volume 79.2 fl (80-94); Mean Platelet Volume 9.7 fL (7.4-10.4); Monocytes # 0.5 10^3/uL (0.2-0.9); Monocytes % 7.3 %; Neutrophils # 4.91 10^3/uL (1.8-7.7); Neutrophils % 67.6 %; Nucleated Red Blood Cells % 0 %; Platelet Count 327 10^3/cmm (130-400); Red Blood Count 4.33 10^6/uL (4.1-5.3); Red Cell Distribution Width 14.4 % (12.1-15.1); White Blood Count 7.3 10^3/uL (4.0-10.0)
[2021-08-20 04:00] VITALS: BP 146/63; PULSE 76; RESP 18; TEMP 36.9; O2SAT 95
[2021-08-20 04:22] LABS: Alanine Aminotransferase 13 U/L (0-41); Albumin Level 2.9 g/dL (3.5-5.2); Alkaline Phosphatase 93 IU/L (40-130); Anion Gap 13.3 (5-19); Aspartate Amino Transferase 12 U/L (0-40); Blood Urea Nitrogen 8 mg/dL (6-20); Calcium 8.3 mg/dL (8.5-10.5); Carbon Dioxide 26 mmol/L (22-29); Chloride 98 mmol/L (98-107); Globulin 3.2 g/dL (1.3-4.6); Glomerular Filtration Rate 141.5 mL/min (90-130); Glucose 267 mg/dL (65-115); Osmolality Calculated 284 mOsm/kg (285-295); Potassium 4.3 mmol/L (3.5-5.1); Sodium 133 mmol/L (136-145); Total Bilirubin 0.2 mg/dL (0.15-1.2); Total Protein 6.1 g/dL (6.6-8.7)
[2021-08-20 05:58] VITALS: PULSE 101
[2021-08-20 08:00] VITALS: BP 132/75; PULSE 72; TEMP 36.7; O2SAT 95
[2021-08-20] MEDS: ferrous gluconate 324 mg Tablet PO (08:37)
[2021-08-20] MEDS: heparin 5,000 unit/mL INJ 1 mL 5000 UNIT SUBCUT (08:38)
[2021-08-20] MEDS: famotidine 20 mg/2 mL INJ IVP (08:38)
[2021-08-20] MEDS: metoprolol tartrate 25 mg Tablet PO (08:38)
[2021-08-20] MEDS: aspirin 325 mg Tablet PO (08:38)
[2021-08-20 10:00] VITALS: BMI 41.7
--- NOTE | 2021-08-20 10:47 | PM.DCS ---
Discharge Providers Date of Admission: 08/18/21 20:14 Date of Discharge: August 20, 2021 Attending Provider at Admission: Bubba Allison MD Attending Provider at Discharge: Bubba Allison MD Primary Care Provider: Rakel Kendall MD Diagnoses at Discharge Discharge Diagnosis (1) Sepsis: Status: Acute (2) Acute UTI: Status: Acute (3) Hyponatremia: Status: Acute Reason for Visit Reason for Visit: FEVER Hospital Course Hospital Course Joey Booth is a 51 year old male with past medical history of epidural abscess secondary to Streptococcus in 2019 cleared up with left MRI in October 2020, C. difficile colitis, alf resident presented to the ER today because of high-grade fever, nausea.? Patient denies any diarrhea, dysuria, back pain, chills.? States fever started all of a sudden 2 days ago.? Denies any cough, difficulty in breathing, belly pain.? In the ER was found to have a white count of 23,000, hemoglobin of 11.4, sodium of 125, chloride of 91, glucose of 312, TSH of 1.7, UA showing numerous WBCs, 2+ leuk esterase. He was admitted to hospital further evaluation and management of sepsis secondary to possible UTI. He was started on broad-spectrum antibiotics. His blood culture and urine culture during hospitalization remain negative. His white count came down to normal. He was afebrile during hospitalization other than on the day of admission. His respiratory viral panel came back positive for coronavirus other than COVID-19. He was discharged hemodynamically stable condition on oral Levaquin for 5 more days. He is to follow-up with his primary care provider within next 1 week. Physical Exam Narrative: General: No acute distress, AO x3, morbidly obese, HEENT: PERRLA, pupils bilaterally equal and reactive Chest: Normal vesicular breath sounds, no added sounds, equal good air entry bilaterally CVS: S1-S2 regular, no murmurs, no tachycardia, no gallops, no rubs Abdomen: Soft, nontender, no organomegaly, bowel sounds present Neuro: No focal deficits, no facial deformity, AO x3, power 5/5 in all limbs Discharge Data Studies Completed and Pending Completed Studies During Hospitalization Category Date Time Status CT abdomen pelvis wo con [id number] Routine Cat Scan 08/18/21 18:16 Completed XR chest 1V portable [id number] Urgent Exams 08/18/21 16:09 Completed Pending at discharge Category Date Time Status Blood Culture Stat Lab 08/18/21 16:20 Results MRSA by PCR Routine Lab 08/18/21 09:01 Received Radiology Impressions Chest X-Ray 08/18/21 16:09 IMPRESSION: No acute findings. Abdomen/Pelvis CT 08/18/21 18:16 IMPRESSION: 1. No acute abnormality identified in the abdomen or pelvis. 2. 2 mm pulmonary nodules. For patients at low risk (minimal or absent history of smoking and of other known risk factors), no routine follow-up is indicated. For patients at high risk (history of smoking or of other known risk factors), consider optional CT Chest at 12 months. (Reference: Maria D) References: Maria D Amin et al. Guidelines for Management of Incidental Pulmonary Nodules Detected on CT Images: From the Fleischner Society 2017. Radiology. 2017;284(1):228-243. Microbiology 08/18/21 16:20 Urine,Clean Catch Urine Culture - Final 08/18/21 16:20 Blood Blood Culture - Preliminary NEGATIVE TO DATE 08/18/21 16:20 Blood Blood Culture - Preliminary NEGATIVE TO DATE Laboratory Results WBC 7.3 10^3/uL (4.0-10.0) 08/20/21 03:30 RBC 4.33 10^6/uL (4.1-5.3) 08/20/21 03:30 Hgb 10.9 g/dL (11.7-16.6) L 08/20/21 03:30 Hct 34.3 % (42.0-52.0) L 08/20/21 03:30 MCV 79.2 fl (80-94) L 08/20/21 03:30 MCH 25.2 pg (28.0-34.0) L 08/20/21 03:30 MCHC 31.8 g/dL (30.0-36.0) 08/20/21 03:30 RDW 14.4 % (12.1-15.1) 08/20/21 03:30 Plt Count 327 10^3/cmm (130-400) 08/20/21 03:30 MPV 9.7 fL (7.4-10.4) 08/20/21 03:30 Neut % (Auto) 67.6 % 08/20/21 03:30 Lymph % (Auto) 23.5 % 08/20/21 03:30 [place] % (Auto) 7.3 % 08/20/21 03:30 Eos % (Auto) 0.8 % 08/20/21 03:30 Baso % (Auto) 0.4 % 08/20/21 03:30 Neut # (Auto) 4.91 10^3/uL (1.8-7.7) 08/20/21 03:30 Lymph # (Auto) 1.7 10^3/uL (0.8-4.8) 08/20/21 03:30 [place] # (Auto) 0.5 10^3/uL (0.2-0.9) 08/20/21 03:30 Eos # (Auto) 0.1 10^3/uL (0.0-0.8) 08/20/21 03:30 Baso # (Auto) 0.0 10^3/uL (0.0-0.1) 08/20/21 03:30 Nucleated RBC % (auto) 0 % 08/20/21 03:30 Nucleated RBCs # 0.0 /100WBC 08/20/21 03:30 Sodium 133 mmol/L (136-145) L 08/20/21 03:30 Potassium 4.3 mmol/L (3.5-5.1) 08/20/21 03:30 Chloride 98 mmol/L (98-107) 08/20/21 03:30 Carbon Dioxide 26 mmol/L (22-29) 08/20/21 03:30 Anion Gap 13.3 (5-19) 08/20/21 03:30 BUN 8 mg/dL (6-20) 08/20/21 03:30 Creatinine 0.6 mg/dL (0.7-1.2) L 08/20/21 03:30 GFR Calculation 141.5 mL/min (90-130) H 08/20/21 03:30 Glucose 267 mg/dL (65-115) H 08/20/21 03:30 Estimat Average Glucose 217 08/19/21 02:54 Hemoglobin A1c 9.2 % (4.0-6.0) H 08/19/21 02:54 Calculated Osmolality 284 mOsm/kg (285-295) L 08/20/21 03:30 Lactic Acid 1.4 mmol/L (0.5-2.2) 08/18/21 16:20 Calcium 8.3 mg/dL (8.5-10.5) L 08/20/21 03:30 Phosphorus 2.9 mg/dL (2.5-4.5) 08/19/21 02:54 Magnesium 1.9 mg/dL (1.7-2.3) 08/19/21 02:54 Iron 12 ug/dL (59-158) L 08/18/21 16:20 TIBC 173 mcg/dl 08/18/21 16:20 % Saturation 6.9 % (20-50) L 08/18/21 16:20 Unsat Iron Binding 161 ug/dL (112-347) 08/18/21 16:20 Total Bilirubin 0.2 mg/dL (0.15-1.2) 08/20/21 03:30 AST 12 U/L (0-40) 08/20/21 03:30 ALT 13 U/L (0-41) 08/20/21 03:30 Alkaline Phosphatase 93 IU/L (40-130) 08/20/21 03:30 C-Reactive Protein 143.5 mg/L (0.0-4.9) H 08/18/21 16:20 Total Protein 6.1 g/dL (6.6-8.7) L 08/20/21 03:30 Albumin 2.9 g/dL (3.5-5.2) L 08/20/21 03:30 Globulin 3.2 g/dL (1.3-4.6) 08/20/21 03:30 Triglycerides 213 mg/dL (0-150) H 08/19/21 02:54 Cholesterol 76 mg/dL (0-200) 08/19/21 02:54 LDL Cholesterol, Calc 18 mg/dL (50-129) L 08/19/21 02:54 Total VLDL Cholesterol 43 mg/dL (0-30) H 08/19/21 02:54 HDL Cholesterol 15 mg/dL (60-100) L 08/19/21 02:54 LDL/HDL Ratio 1.20 RATIO (0.00-3.22) 08/19/21 02:54 Cholesterol/HDL Ratio 5.07 mg/dL (1.0-5.00) H 08/19/21 02:54 Procalcitonin 1.77 ng/mL (0-0.5) H 08/18/21 16:20 TSH 1.72 uIU/mL (0.27-4.20) 08/18/21 16:20 Urine Color Yellow (Yellow) 08/18/21 16:20 Urine Appearance Hazy (CLEAR) A 08/18/21 16:20 Urine pH 5 (5-7) 08/18/21 16:20 Ur Specific [place] Burn 1.020 (1.005-1.030) 08/18/21 16:20 Urine Protein Neg (Negative) 08/18/21 16:20 Urine Glucose (UA) 4+ (Normal) H 08/18/21 16:20 Urine Ketones 1+ (Negative) H 08/18/21 16:20 Urine Blood 3+ (Negative) H 08/18/21 16:20 Urine Nitrate Negative (Negative) 08/18/21 16:20 Urine Bilirubin Neg (Negative) 08/18/21 16:20 Urine Urobilinogen Norm mg/dL (Negative) 08/18/21 16:20 Ur Leukocyte Esterase 2+ (Negative) H 08/18/21 16:20 Urine RBC None /hpf (0-2) 08/18/21 16:20 Urine WBC Too numerous to cnt /hpf (0-5) H 08/18/21 16:20 Ur Squamous Epith Cells None /hpf (0-5) 08/18/21 16:20 Amorphous Sediment Not Reportable 08/18/21 16:20 Urine Bacteria 4+ /hpf (NONE) H 08/18/21 16:20 Ur Random Sodium 58 mmol/L 08/18/21 16:20 Ur Random Potassium 49 mmol/L 08/18/21 16:20 Ur Random Chloride 50 mmol/L 08/18/21 16:20 Urine Opiates Screen Negative ng/mL (Negative) 08/18/21 16:20 Ur Barbiturates Screen Negative ng/mL (Negative) 08/18/21 16:20 Ur Phencyclidine Scrn Negative ng/mL (Negative) 08/18/21 16:20 Ur Amphetamines Screen Negative ng/mL (Negative) 08/18/21 16:20 U Benzodiazepines Scrn Negative ng/mL (Negative) 08/18/21 16:20 Urine Cocaine Screen Negative ng/mL (Negative) 08/18/21 16:20 U Marijuana (THC) Screen Negative ng/mL (Negative) 08/18/21 16:20 Coronavirus 229E (PCR) Detected (NOT DETECT) A 08/18/21 16:20 SARS-CoV-2 (PCR) Not detected (NOT DETECT) 08/18/21 16:20 Vitals Last Vital Signs Temp 98.1 F 08/20/21 08:00 Pulse 72 08/20/21 08:00 Resp 18 08/20/21 04:00 BP 132/75 08/20/21 08:00 Pulse Ox 95 08/20/21 08:00 Discharge Plan Discharge Patient Disposition: Xfer SNF Condition: Stable Prescriptions: New ferrous gluconate 324 mg (37.5 mg iron) Tablet 324 mg PO BIDWM Qty: 60 0RF levofloxacin 500 mg tablet 500 mg PO Q24H 5 Days Qty: 5 0RF fluticasone propionate [Flonase Allergy Relief] 50 mcg/actuation spray,suspension 1 spray intranasal DAILY PRN (Reason: nasal congestion) Qty: 16 0RF Rx Instructions: administer into each nostril Continued bisacodyl 10 mg suppository 10 mg OK DAILY PRN (Reason: Constipation) 0RF metformin 1,000 mg tablet 1,000 mg PO BID 0RF acetaminophen 325 mg capsule 650 mg PO Q4H PRN (Reason: Pain) 0RF aspirin 325 mg tablet 325 mg PO DAILY Qty: 60 0RF loperamide 2 mg Capsule 2 mg PO DAILY PRN (Reason: Diarrhea) 0RF metoprolol tartrate 25 mg Tablet 25 mg PO BID 0RF [place] Cough Drops 5.8 mg Lozenge 5.8 mg MUCOUS MEMBRANE Q2H PRN (Reason: Cough) 0RF Discharge Orders: Discharge Order (Routine); Ordered 08/20/21 Ordered By: Bubba Allison Referrals: Rakel Kendall MD [Primary Care Provider] - 4-7 days Discharge Diet: Usual diet Discharge Activity: Resume usual activity Patient Instructions: Opioid Safety Activity Restrictions/Additional Instructions: Continue take Levaquin for 5 more days. Flonase as needed for nasal congestion. Follow with the primary care provider within next 1 week. Discharge Attestations Time Spent in Discharge Care*: greater than 30 min Status at Discharge: Cognitive status at discharge: cognitively intact, Behavioral status at discharge: cooperative, Functional status at discharge: uses cane/walker, Overall status at discharge: patient is progressing back to baseline Quality Metrics Clinical Quality Measures [ No reported AMI, CVA or VTE this stay] Coding Level of Care Code Acute Chg FW DC note History Comprehensive Exam Comprehensive Medical Decision Making High Complexity Diagnoses Sepsis A41.9 Acute UTI N39.0 Hyponatremia E87.1
[2021-08-20 12:04] VITALS: BP 156/92; PULSE 76; RESP 18; TEMP 36.9; O2SAT 96
[2021-08-20 14:12] VITALS: BP 149/67; PULSE 84; RESP 18; TEMP 36.8; O2SAT 97
--- NOTE | 2021-08-20 14:15 | PC.NURSE ---
Discharged to [facility] via [facility], Packet left behind, Report called to EL Headley.
== END 2021-08-20 14:23 | disposition skilled nursing facility (03) | DRG 690 ==
LOC: ER 18:02 → MEDSURG 18:36
PROVIDERS: Admitting Provider Student in an Organized Health Care Education/Training Program; Emergency Provider Emergency Medicine; PCP Family Medicine; Visit Provider Student in an Organized Health Care Education/Training Program
DX: N39.0 Urinary tract infection, site not specified (principal); E87.1 Hypo-osmolality and hyponatremia; B34.2 Coronavirus infection, unspecified; Z79.82 Long term (current) use of aspirin; E11.9 Type 2 diabetes mellitus without complications; Z79.84 Long term (current) use of oral hypoglycemic drugs; D50.9 Iron deficiency anemia, unspecified
CPT/HCPCS: 36415; 71045; 74176; 80053; 80061; 80306; 81001; 82436; 83036; 83540; 83550; 83605; 83735; 84100; 84133; 84145; 84300; 84443; 85025; 86140; 87040; 87086; 87635; 87641; 94664; 96361; 96365; 96372; 96375; 99285; J0696; J1644; J1885; J2543; J3490; J7030; J7040

== ENCOUNTER 2021-09-03 09:03 | Outpatient (CLI) | payer MEDICAID, SELFPAY ==
--- NOTE | 2021-09-03 09:20 | MR_ITS ---
WS: [id number] MRI THORACIC SPINE with and without contrast. HISTORY: UNSPECIFIED FEVER COMPARISON: 11/12/2020 TECHNIQUE: Multiplanar sequences are performed in sagittal and axial planes. Sagittal and axial T1 fa t sat sequences post-MultiHance 20 cc IV. Mild thoracic curvature. There is increase in thoracic kyphosis. Prior laminectomy defects on the RIG HT at T8-9 and T9-10. Disc space narrowing at T9-10 is similar to the prior studies. There is a small amount of residual edema within the adjacent endplates at T9 and T10 and along the disc. There is co ntinued mild enhancement within the LEFT lateral disc and inferior T9 vertebral body but slightly imp roved since 11/12/2020. There is improved enhancement within the superior T10 vertebral body. The signal within the thecal sac and cord are very similar to the prior study. There are a few small nonenhancing cystic areas along the dorsal surface of the cord along with mild deformity which is pro bably related to adhesions the prior infection. There may be a very small syrinx at the T6-7 level wh ich is stable and similar also. RIGHT sac. Again noted is the myelomalacia from T7 to T11. No epidura l abscess. Overall continued improvement in the RIGHT paravertebral soft tissue enhancement adjacent to the T9-10 vertebral bodies and disc. Mild foraminal stenosis bilaterally beginning at the T7-8 level through T10-11. MR/MR thoracic spine wo/w [id number] IMPRESSION: 1. Continued improvement in the chronic discitis and osteomyelitis and paraver tebral enhancement centered at the T9-10 level. 2. No epidural abscess. 3. Postoperative RIGHT hemilaminectomy defects are again noted at T8-9 and T9- 10. 4. Chronic myelomalacia is stable in the thoracic cord from T7 to T11.
--- NOTE | 2021-09-03 09:20 | MR_ITS ---
WS: [id number] MRI LUMBAR SPINE WITH AND WITHOUT CONTRAST HISTORY: UNSPECIFIED FEVER COMPARISON: 05/22/2020 TECHNIQUE: Sagittal and axial multisequence imaging is submitted. Sagittal and axial T1 fat sat seque nces post-MultiHance 20 cc IV. Posterior lumbar alignment is normal. No fracture or marrow edema. No signal abnormality within the d istal vertebral bodies. The conus tapers normally. Disc spaces and vertebral body heights are well-preserved. Conus terminates normally at L1-2 disc level. L1-L2: No stenosis. Very minimal LEFT foraminal narrowing. L2-L3: Normal. L3-L4: Mild annular disc bulge with a central disc protrusion and annular fissure. Disc encroaches up on the thecal sac and RIGHT subarticular recess. There is narrowing and displacement of the RIGHT L4 nerve root. Moderate RIGHT subarticular stenosis. Mild central stenosis. L4-L5: Mild annular disc bulge and ligamentum flavum hypertrophy. There is a small central disc protr usion. Slight contact on the RIGHT L5 nerve root. L5-S1: Mild annular disc bulging. Small central disc protrusion. Disc bulge or protrusion in the RIGH T foramen contacting the ascending RIGHT L5 nerve root. No abnormal enhancement within the lumbar spine. The disc spaces and vertebral bodies do not enhance. No paravertebral soft tissue enhancement. No epidural abscess. MR/MR lumbar spine wo/w con [id number] IMPRESSION: 1. No epidural abscess, discitis or osteomyelitis in the lumbar spine. 2. Small disc protrusion encroaches upon the RIGHT subarticular recess with co ntact on the RIGHT L4 nerve root. Moderate RIGHT foraminal stenosis at L3-4. 3. Small central disc protrusion at L4-5 and at L5-S1.
[2021-09-03] MEDS: gadobenate dimeglumine 20 mL vial IV (11:08)
== END 2021-09-03 09:04 | disposition home or self-care (01) ==
LOC: RAD 09:05
PROVIDERS: PCP Family Medicine; Visit Provider Nurse Practitioner Family
DX: R50.9 Fever, unspecified (principal); G95.89 Other specified diseases of spinal cord; M46.44 Discitis, unspecified, thoracic region; M46.24 Osteomyelitis of vertebra, thoracic region
CPT/HCPCS: 72157; 72158

== ENCOUNTER 2021-10-29 19:16 | Outpatient (CLI) | payer MEDICAID, SELFPAY ==
[2021-10-29 19:57] LABS: Add Urine Microscopic? YES; Bilirubin Urine Neg (Negative); Blood Urine 3+ (Negative); Glucose Urine UA Norm (Normal); Ketones Urine Negative (Negative); Leukocyte Esterase Urine 2+ (Negative); Nitrate Urine Positive (Negative); Protein Urine Neg (Negative); Urine Color Yellow (Yellow); Urobilinogen Urine Norm (Negative); pH Urine 5 (5-7)
[2021-10-29 19:59] LABS: RBC Urine >100 /hpf (0-2); WBC Urine >100 /hpf (0-5)
[2021-10-29 20:00] LABS: Add Urine Culture? Yes; Bacteria Urine 4+ /hpf
== END 2021-10-29 19:17 | disposition home or self-care (01) ==
LOC: LAB 19:18
PROVIDERS: PCP Family Medicine; Visit Provider Nurse Practitioner Family
DX: N39.0 Urinary tract infection, site not specified (principal)
CPT/HCPCS: 81001; 87077; 87086; 87186

== ENCOUNTER 2021-12-27 11:27 | Inpatient (IN) | payer MEDICAID, SELFPAY ==
[2021-12-27] VITALS (7 sets, daily range): BP systolic 123–139; BP diastolic 74–78; PULSE 68–103; RESP 18; TEMP 36.6–36.8; O2SAT 94–98; BMI 44.4; BMI 43.3
--- NOTE | 2021-12-27 11:37 | MR_ITS ---
WS: [id number] MRI LUMBAR SPINE NONCONTRAST HISTORY: b/l le weakness COMPARISON: 09/03/2021 TECHNIQUE: Sagittal and axial multisequence imaging is submitted. New anterior compression involving T9-10 with fluid in the disc space and a focal kyphosis. This area will be further evaluated on the dedicated MRI of thoracic spine to follow. Mild degenerative changes in the cervical spine. Straightening of the normal lumbar lordosis. 4 mm retrolisthesis of L3. Disc spaces are mildly desiccated but otherwise well-preserved. Conus terminates normally at L1-2 disc level. L1-L2: Mild disc bulging. Slightly asymmetric to the LEFT. Mild LEFT foraminal narrowing similar to t he prior study. L2-L3: No stenosis. L3-L4: Annular disc bulge with a moderate size central disc protrusion. Disc protrusion deforms the v entral thecal sac extends into the lateral recesses with encroachment upon the traversing L4 nerve ro ots, RIGHT greater than LEFT. Similar to the prior study. Mild foraminal narrowing. L4-L5: Mild annular disc bulging. Osteophytic ridging and a central disc protrusion. Mild central, bi lateral subarticular recess and foraminal stenosis. Similar to the prior study. L5-S1: Mild annular disc bulging and osteophytic ridging. Ligamentum flavum hypertrophy and facet art hritis. Central disc protrusions and disc bulging or protrusions extending into the foramina. Disc co ntacts the exiting L5 nerve roots bilaterally. Mild to moderate bilateral foraminal narrowing. MR/MR lumbar spine wo con* [id number] IMPRESSION: 1. 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 This level will be better evaluated on a dedicated MRI of the thoracic spine to follow but consist ent with cord compression which may be due to discitis as there is fluid along the disc space. 2. Moderate size central disc protrusion at L3-4 is contacting the traversing L4 nerve roots, RIGHT greater than LEFT. Similar to the prior study. 3. Mild central, bilateral subarticular recess stenosis and foraminal stenosis L4-5. 4. Central disc protrusion and possibly additional small protrusions in the fo ramina at L5-S1. Disc contacts the exiting L5 nerve roots bilaterally. Mild to moderate foraminal stenosis.
--- NOTE | 2021-12-27 11:48 | ED_ITS ---
HPI - General Adult General: Chief complaint: Weakness Stated complaint: SUDDEN LOSS OF MOBILITY Time Seen by Provider: 12/27/21 11:29 History of Present Illness: Patient is a 51-year-old male with a history of DM, C diff colitis, prior epidural abscess s/p Laminectomy of T8/9, T9/10, T10/11 from 04/2020 presenting to the emergency room with concerns of acute onset of lower extremity weakness. Patient tell me at baseline he uses a wheelchair and use a walker to stand. Patient reports that since 2 PM yesterday he has had sudden onset of weakness in both of the legs. Patient denies any back pain, fever/chills, cough runny nose sore throat. Patient reports any bladder or bowel problem. Patient denies any saddle numbness. Patient in 2019 was diagnosed with C. difficile colitis with epidural abscess requiring surgical exploration. Patient denies any history of autoimmune diseases including multiple sclerosis. Onset:2pm yesterday afternoon Duration:ongoing Location:home Severity:severe Associated symptoms: Deny chest pain, dyspnea, nausea, rash, palpitations or vomiting Review of Systems Const: Denies: fever(s) or chills Eyes: Denies: change in vision ENMT: Denies: mouth pain Card: Denies: chest pain or palpitations Resp: Denies: dyspnea or non-productive cough GI: Denies: abdominal pain, nausea, vomiting or diarrhea : Denies: dysuria Musc: Denies: extremity pain Skin/Breast: Denies: rash or new lesions Neuro: Reports: weakness in extremities (+b/l lower extremity weakness) Psych: Reports: other (Normal mood) Filemon/Lymph: Denies: easy bruising [facility] ED PFSH: Medical History (Updated 12/27/21 @ 14:16 by Armida Madera MD) C. difficile colitis During treatment for epidural abscess in late 2019 and early 2020 Diabetes Epidural abscess (~04/2020) Streptococcus agalactiae - treated with 12 week IV ceftriaxone followed by 8 week oral cefadroxil in 2020. No clear source of bacteria identified beyond urine with same organism at time. 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 Father CAD (coronary artery disease) Social History Smoking and tobacco status: never smoked Alcohol intake: current Alcohol intake frequency: holidays/special occasions only History of recent travel: No Physical Exam Const: COMMON NORMALS: alert HENMT: COMMON NORMALS: atraumatic HEAD & SCALP: atraumatic MOUTH: moist mucous membranes not abnormal Eye: COMMON NORMALS: EOMs intact bilaterally and conjunctivae normal CONJUNCTIVA: Yes conjunctivae normal Neck/C-Spine: COMMON NORMALS: full ROM and supple Resp: COMMON NORMALS: normal respiratory effort and clear to auscultation bilaterally AUSCULTATION: clear to auscultation bilaterally Cardio: COMMON NORMALS: regular rate RATE: regular rate GI: COMMON NORMALS: Soft to palpation and non-tender PALPATION: Yes Soft to palpation OTHER: No focal TTP. NO guarding rebound, guarding, rigidity. No CVA tenderness to percussion. Neg Longoria/Neg McBurney's point tenderness, no suprabupic tenderness to palpation. Extremity: OTHER: 2-3/5 strength in the lower extremity, sensation intact in lower extremities bilaterally, negative Babinski. Neuro: SENSORIUM/ORIENTATION: Yes alert Psych: COMMON NORMALS: speech normal SPEECH: Yes normal speech MOOD & AFFECT: Yes euthymic mood Course Vital Signs: Vital signs: Vital Signs Temperature 97.8 F 12/27/21 11:28 Pulse Rate 99 12/27/21 11:48 Respiratory Rate 18 12/27/21 11:48 Blood Pressure 128/78 12/27/21 11:48 Pulse Oximetry 95 12/27/21 11:48 Oxygen Delivery Me thod 12/27/21 11:[address] [facility] - General Adult Medical Decision Making 51-year-old male with history of diabetes, colitis, prior epidural abscess presenting to the emergency room for evaluation of sudden onset of weakness bilaterally lower extremity since 3 PM yesterday. Exam, patient has 2-3 out of 5 strength in both lower extremities. Sensation is intact in lower extremity. NIF of -41. Lab work-up showed white count 14.4. ESR appears to be significantly elevated. MRI of the lumbar spine shows T9-T10 fluid collection consistent with cord compression discitis. Patient received vancomycin, Zosyn, clindamycin. Blood culture has been collected. Patient will be admitted to the hospital. Case was discussed immediately with Dr. Meneses at 1:36 PM shortly after the MRI scan results. Dr. Meneses evaluate patient at bedside and recommended IV antibiotics and observation with possible OR tomorrow. Disposition: admission Lab Data : 12/27/21 11:48 12/27/21 11:48 Radiology Impressions Lumbar Spine MRI 12/27/21 11:37 IMPRESSION: 1. Seen on the oil scout survey is a new focal kyphosis at T9-10 with fluid in the disc space and retropulsion and severe stenosis centrally. This level will be better evaluated on a dedicated MRI of the thoracic spine to follow but consistent with cord compression which may be due to discitis as there is fluid along the disc space. 2. Moderate size central disc protrusion at L3-4 is contacting the traversing L4 nerve roots, RIGHT greater than LEFT. Similar to the prior study. 3. Mild central, bilateral subarticular recess stenosis and foraminal stenosis L4-5. 4. Central disc protrusion and possibly additional small protrusions in the foramina at L5-S1. Disc contacts the exiting L5 nerve roots bilaterally. Mild to moderate foraminal stenosis. Cervical Spine MRI 12/27/21 13:02 IMPRESSION: 1. Limited evaluation of the cervical spine due to patient's pain. 2. No discitis or osteomyelitis identified on this unenhanced study in the cervical spine. Mild to moderate foraminal stenosis at C5-6 due to disc and osteophyte disease. 3. No high-grade central stenosis. Thoracic Spine MRI 12/27/21 13:02 IMPRESSION: 1. Significant adverse change in appearance of the T9 and T10 vertebral bodies since 09/03/2021. 2. Fluid along the T9-10 disc space with complete loss of the disc space and a focal kyphosis. Findings consistent with discitis and highly suspicious for osteomyelitis even without contrast. 3. Retropulsion of the posterior T9 and T10 vertebral bodies versus an epidural abscess. Severe compression on the thoracic cord at this level with foraminal narrowing. 4. Large amount of paravertebral inflammation predominantly surrounded the T9 and T10 vertebral bodies. Notified Chani Crawford MD at 12/27/2021 2:06 PM. Laboratory Results WBC 14.4 10^3/uL (4.0-10.0) H 12/27/21 11:48 RBC 5.12 10^6/uL (4.1-5.3) 12/27/21 11:48 Hgb 11.9 g/dL (11.7-16.6) 12/27/21 11:48 Hct 37.7 % (42.0-52.0) L 12/27/21 11:48 MCV 73.6 fl (80-94) L 12/27/21 11:48 MCH 23.2 pg (28.0-34.0) L 12/27/21 11:48 MCHC 31.6 g/dL (30.0-36.0) 12/27/21 11:48 RDW 14.8 % (12.1-15.1) 12/27/21 11:48 Plt Count 443 10^3/cmm (130-400) H 12/27/21 11:48 MPV 9.4 fL (7.4-10.4) 12/27/21 11:48 Neut % (Auto) 78.2 % 12/27/21 11:48 Lymph % (Auto) 12.2 % 12/27/21 11:48 [place] % (Auto) 7.8 % 12/27/21 11:48 Eos % (Auto) 0.8 % 12/27/21 11:48 Baso % (Auto) 0.6 % 12/27/21 11:48 Neut # (Auto) 11.25 10^3/uL (1.8-7.7) H 12/27/21 11:48 Lymph # (Auto) 1.8 10^3/uL (0.8-4.8) 12/27/21 11:48 [place] # (Auto) 1.1 10^3/uL (0.2-0.9) H 12/27/21 11:48 Eos # (Auto) 0.1 10^3/uL (0.0-0.8) 12/27/21 11:48 Baso # (Auto) 0.1 10^3/uL (0.0-0.1) 12/27/21 11:48 Nucleated RBC % (auto) 0 % 12/27/21 11:48 Nucleated RBCs # 0.0 /100WBC 12/27/21 11:48 ESR 89 mm/hr (0-10) H 12/27/21 11:48 PT Cancelled 12/27/21 11:48 INR Cancelled 12/27/21 11:48 APTT Cancelled 12/27/21 11:48 Sodium Cancelled 12/27/21 11:48 Potassium Cancelled 12/27/21 11:48 Chloride Cancelled 12/27/21 11:48 Carbon Dioxide Cancelled 12/27/21 11:48 Anion Gap Cancelled 12/27/21 11:48 BUN Cancelled 12/27/21 11:48 Creatinine Cancelled 12/27/21 11:48 GFR Calculation Cancelled 12/27/21 11:48 Glucose Cancelled 12/27/21 11:48 Calculated Osmolality Cancelled 12/27/21 11:48 Calcium Cancelled 12/27/21 11:48 Total Bilirubin Cancelled 12/27/21 11:48 AST Cancelled 12/27/21 11:48 ALT Cancelled 12/27/21 11:48 Alkaline Phosphatase Cancelled 12/27/21 11:48 C-Reactive Protein Cancelled 12/27/21 11:48 Total Protein Cancelled 12/27/21 11:48 Albumin Cancelled 12/27/21 11:48 Globulin Cancelled 12/27/21 11:48 Lipase Cancelled 12/27/21 11:48 Imaging Data Other Imaging: Radiologist's impression: [address] [address] Magnetic Resonance Report Signed Patient: Joey Booth Unit #: [id number] : 1970 Age/Sex: 51 / M ADM Date: 12/27/21 Loc: ER Room/Bed: Attending Dr: Ordering Provider/Ordering MD: Chani Crawford MD Date of Service: 12/27/21 Procedure(s): MR lumbar spine wo con* [id number] Accession Number(s): [id number] Report Number: [id number] WS: [id number] MRI LUMBAR SPINE NONCONTRAST HISTORY: b/l le weakness COMPARISON: 09/03/2021 TECHNIQUE: Sagittal and axial multisequence imaging is submitted. New anterior compression involving T9-10 with fluid in the disc space and a focal kyphosis. This area will be further evaluated on the dedicated MRI of thoracic spine to follow. Mild degenerative changes in the cervical spine. Straightening of the normal lumbar lordosis. 4 mm retrolisthesis of L3. Disc spaces are mildly desiccated but otherwise well-preserved. Conus terminates normally at L1-2 disc level. L1-L2: Mild disc bulging. Slightly asymmetric to the LEFT. Mild LEFT foraminal narrowing similar to the prior study. L2-L3: No stenosis. L3-L4: Annular disc bulge with a moderate size central disc protrusion. Disc protrusion deforms the ventral thecal sac extends into the lateral recesses with encroachment upon the traversing L4 nerve roots, RIGHT greater than LEFT. Similar to the prior study. Mild foraminal narrowing. L4-L5: Mild annular disc bulging. Osteophytic ridging and a central disc protrusion. Mild central, bilateral subarticular recess and foraminal stenosis. Similar to the prior study. L5-S1: Mild annular disc bulging and osteophytic ridging. Ligamentum flavum hypertrophy and facet arthritis. Central disc protrusions and disc bulging or protrusions extending into the foramina. Disc contacts the exiting L5 nerve roots bilaterally. Mild to moderate bilateral foraminal narrowing. MR/MR lumbar spine wo con* [id number] IMPRESSION: ? 1.? Seen on the oil scout survey is a new focal kyphosis at T9-10 with fluid in the disc space and retropulsion and severe stenosis centrally. This level will be better evaluated on a dedicated MRI of the thoracic spine to follow but consistent with cord compression which may be due to discitis as there is fluid along the disc space. 2.? Moderate size central disc protrusion at L3-4 is contacting the traversing L4 nerve roots, RIGHT greater than LEFT. Similar to the prior study. 3.? Mild central, bilateral subarticular recess stenosis and foraminal stenosis L4-5. 4.? Central disc protrusion and possibly additional small protrusions in the foramina at L5-S1. Disc contacts the exiting L5 nerve roots bilaterally. Mild to moderate foraminal stenosis. ? Dictated By: Melba Felder DO Signed By: Melba Felder DO Signed Date/Time: 12/27/21 1326 DD/ [address] [address] Magnetic Resonance Report Signed Patient: Joey Booth Unit #: [id number] : 1970 Age/Sex: 51 / M ADM Date: 12/27/21 Loc: ER Room/Bed: Attending Dr: Ordering Provider/Ordering MD: Chani Crawford MD Date of Service: 12/27/21 Procedure(s): MR thoracic spin wo con* [id number] Accession Number(s): [id number] Report Number: [id number] WS: [id number] MRI THORACIC SPINE noncontrast. HISTORY: leg weakness COMPARISON: 09/03/2021 TECHNIQUE: Multiplanar sequences are performed in sagittal and axial planes. Significant change in appearance of the thoracic spine at the T9-10 level. Prior osteomyelitis has been described at this level. Since 09/03/2021 there has been a significant adverse change. There is now extensive fluid along the T9-10 disc space with destruction of the adjacent T9 and T10 vertebral body endplates. There is a soft tissue mass posterior to T9-T10 extending over length of 2.5 cm. There is compression upon the thoracic cord at this level. There is severe compression and stenosis involving the central canal and the foramina at this level. There is posterior displacement of the longitudinal ligament. The signal posterior to the T9-10 vertebral bodies compressing the cord and is very similar signal to the adjacent vertebral bodies. This could be a complex collection such as an epidural abscess or retropulsed vertebral body. This is contiguous with the fluid along the disc space. There is a large amount of soft tissue inflammation surrounding the T9 and T10 vertebral bodies. Unfortunately there is significant motion artifact also. The paravertebral information begins at the mid T8 level and extends to the inferior T10 level. Prior laminectomies have been noted on the RIGHT at T8-9 and T9-10. Unfortunat renate with this amount of motion this is difficult to evaluate. MR/MR thoracic spin wo con* [id number] IMPRESSION: ? 1.? Significant adverse change in appearance of the T9 and T10 vertebral bodies since 09/03/2021. 2.? Fluid along the T9-10 disc space with complete loss of the disc space and a focal kyphosis. Findings consistent with discitis and highly suspicious for osteomyelitis even without contrast. 3.? Retropulsion of the posterior T9 and T10 vertebral bodies versus an epidural abscess. Severe compression on the thoracic cord at this level with foraminal narrowing. 4.? Large amount of paravertebral inflammation predominantly surrounded the T9 and T10 vertebral bodies. ? Notified Chani Crawford MD at 12/27/2021 2:06 PM. ? Dictated By: Melba Felder DO Signed By: Melba Felder DO Signed Date/Time: 12/27/21 1409 DD/ 1358 [place] [address] Magnetic Resonance Report Signed Patient: Joey Booth Unit #: [id number] : 1970 Age/Sex: 51 / M ADM Date: 12/27/21 Loc: ER Room/Bed: Attending Dr: Ordering Provider/Ordering MD: Chani Crawford MD Date of Service: 12/27/21 Procedure(s): MR cervical spin wo con* [id number] Accession Number(s): [id number] Report Number: [id number] WS: [id number] MRI CERVICAL SPINE? NONCONTRAST HISTORY: leg weakness COMPARISON: None available. Technique: Multiplanar, multisequence noncontrast imaging of the cervical spine. Limited evaluation due to patient's pain. Very slight straightening of the normal lordosis. Mild motion artifact. Signal within the cervical cord is normal. Visualized posterior fossa is unremarkable. Craniocervical junction, C1 and C2 relationship, odontoid process and soft tissues are normal. C2-C3: Normal. C3-C4: Small central disc protrusion without stenosis. Protrusion extends slightly to the LEFT of midline. C4-C5: Small central disc protrusion without stenosis. C5-C6: Vertebral body osteophytes. No central stenosis. At least mild if not moderate bilateral foraminal stenosis. C6-C7: Mild disc bulge. No significant stenosis. C7-T1: Normal. MR/MR cervical spin wo con* [id number] IMPRESSION: ? 1.? Limited evaluation of the cervical spine due to patient's pain. 2.? No discitis or osteomyelitis identified on this unenhanced study in the cervical spine. Mild to moderate foraminal stenosis at C5-6 due to disc and osteophyte disease. 3.? No high-grade central stenosis. ? Dictated By: Melba Felder DO Signed By: Melba Felder DO Signed Date/Time: 12/27/21 1412 DD/ 1409 Discharge Plan Discharge Patient Disposition: Admitted As Inpatient Clinical Impression: Bilateral leg weakness, Cord compression, Discitis Condition: Stable Coding Level of Care Code ED [employer] for Kathy Fwdeepak Exam Comprehensive
[2021-12-27 11:53] LABS: Basophils # 0.1 10^3/uL (0.0-0.1); Basophils % 0.6 %; Eosinophils # 0.1 10^3/uL (0.0-0.8); Eosinophils % 0.8 %; Hematocrit 37.7 % (42.0-52.0); Hemoglobin 11.9 g/dL (11.7-16.6); Lymphocytes # 1.8 10^3/uL (0.8-4.8); Lymphocytes % 12.2 %; Mean Corpuscular HGB Conc 31.6 g/dL (30.0-36.0); Mean Corpuscular Hemoglobin 23.2 pg (28.0-34.0); Mean Corpuscular Volume 73.6 fl (80-94); Mean Platelet Volume 9.4 fL (7.4-10.4); Monocytes # 1.1 10^3/uL (0.2-0.9); Monocytes % 7.8 %; Neutrophils # 11.25 10^3/uL (1.8-7.7); Neutrophils % 78.2 %; Nucleated Red Blood Cells % 0 %; Platelet Count 443 10^3/cmm (130-400); Red Blood Count 5.12 10^6/uL (4.1-5.3); Red Cell Distribution Width 14.8 % (12.1-15.1); White Blood Count 14.4 10^3/uL (4.0-10.0)
[2021-12-27 11:58] LABS: Erythrocyte Sedimentation Rate 89 mm/hr (0-10)
--- NOTE | 2021-12-27 13:02 | MR_ITS ---
WS: [id number] MRI CERVICAL SPINE NONCONTRAST HISTORY: leg weakness COMPARISON: None available. Technique: Multiplanar, multisequence noncontrast imaging of the cervical spine. Limited evaluation d ue to patient's pain. Very slight straightening of the normal lordosis. Mild motion artifact. Signal within the cervical cord is normal. Visualized posterior fossa is unremarkable. Craniocervical junction, C1 and C2 relationship, odontoid process and soft tissues are normal. C2-C3: Normal. C3-C4: Small central disc protrusion without stenosis. Protrusion extends slightly to the LEFT of mid line. C4-C5: Small central disc protrusion without stenosis. C5-C6: Vertebral body osteophytes. No central stenosis. At least mild if not moderate bilateral juan manuel inal stenosis. C6-C7: Mild disc bulge. No significant stenosis. C7-T1: Normal. MR/MR cervical spin wo con* [id number] IMPRESSION: 1. Limited evaluation of the cervical spine due to patient's pain. 2. No discitis or osteomyelitis identified on this unenhanced study in the cer vical spine. Mild to moderate foraminal stenosis at C5-6 due to disc and osteop hyte disease. 3. No high-grade central stenosis.
--- NOTE | 2021-12-27 13:02 | MR_ITS ---
WS: [id number] MRI THORACIC SPINE noncontrast. HISTORY: leg weakness COMPARISON: 09/03/2021 TECHNIQUE: Multiplanar sequences are performed in sagittal and axial planes. Significant change in appearance of the thoracic spine at the T9-10 level. Prior osteomyelitis has be en described at this level. Since 09/03/2021 there has been a significant adverse change. There is now extensive fluid along the T9-10 disc space with destruction of the adjacent T9 and T10 vertebral body endplates. There is a soft tissue mass posterior to T9-T10 extending over length of 2.5 cm. There is compression upon the thoracic cord at this level. There is severe compression and stenosis involving the central canal and the foramina at this level. There is posterior displacement of the longitudina l ligament. The signal posterior to the T9-10 vertebral bodies compressing the cord and is very simil ar signal to the adjacent vertebral bodies. This could be a complex collection such as an epidural ab scess or retropulsed vertebral body. This is contiguous with the fluid along the disc space. There is a large amount of soft tissue inflammation surrounding the T9 and T10 vertebral bodies. Unfortunatel y there is significant motion artifact also. The paravertebral information begins at the mid T8 level and extends to the inferior T10 level. Prior laminectomies have been noted on the RIGHT at T8-9 and T9-10. Unfortunately with this amount of motion this is difficult to evaluate. MR/MR thoracic spin wo con* [id number] IMPRESSION: 1. Significant adverse change in appearance of the T9 and T10 vertebral bodies since 09/03/2021. 2. Fluid along the T9-10 disc space with complete loss of the disc space and a focal kyphosis. Findings consistent with discitis and highly suspicious for os teomyelitis even without contrast. 3. Retropulsion of the posterior T9 and T10 vertebral bodies versus an epidura l abscess. Severe compression on the thoracic cord at this level with foraminal narrowing. 4. Large amount of paravertebral inflammation predominantly surrounded the T9 and T10 vertebral bodies. Notified Chani Crawford MD at 12/27/2021 2:06 PM.
[2021-12-27] MEDS: morphine 4 mg/mL SDV 1 mL IVP (13:06)
--- NOTE | 2021-12-27 13:57 | PM.HP ---
Providers/Chief Complaint Admitting Physician: Armida Madera MD Primary Care Provider: Rakel Kendall MD Chief Complaint: SUDDEN LOSS OF MOBILITY History of Present Illness Joey Booth is a 51 year old male who resides at [facility] who presented to the emergency room with chief complaint of increased weakness in both lower extremities along with significant increase in need for assistance. He has a history of epidural abscess identified in April 2020 treated with laminectomy and partial facetectomy from T7-T11. Cultures from the thoracic spine area revealed strep agalactiae. He was treated with 12 weeks of IV antibiotics and additional 8 weeks of oral antibiotics predominantly in the form of cephalosporins. His sed rate trended down to as low as 17. Last thoracic MRI from September 03 of this year showed no evidence of epidural abscess and demonstrated continued improvement in chronic discitis and osteomyelitis and paravertebral enhancement centered at the T9-10 level . Patient utilizes a wheelchair and requires assistance with transfers, toileting, dressing and bathing. He is able to walk a few steps via parallel bars normally, can use a walker to help balance himself with pivoting/transfers and had gotten to where he was one-person assist for toileting and transfers by his report. He is maintained continence of bladder function but has occasional incontinence of bowels particularly if it takes a while to get assistance. Yesterday, around 2 PM or so, patient needed to go to the bathroom and was unable to facilitate his transfer. He required 3-5 people to assist with transfer. He describes sharp stabbing pain in his mid to lower back that was new and described as severe. No radiation of the pain. In addition he had transient loss of sensation completely below this point including both of his lower extremities. He did not report to the emergency room yesterday hoping that things would get better. While his sensation has improved, it is not yet back to his prior baseline. The pain is not as severe as yesterday but still noticeably different than before. He continues to be weaker than his recent baseline, requiring more assistance and not being able to facilitate transfers or bear weight on his legs. No report of any fever. He has not felt bad. No recent fall or known injury. With his persistent clinical change, he was sent to the emergency room for evaluation. Work-up done in the emergency room revealed a sed rate that was at 89. Subsequent lumbar MRI showed new compression changes at T9-10. Dedicated thoracic MRI demonstrated significant adverse change in appearance of T9 and T10 since August of this year. Findings were described as consistent with discitis and highly suspicious for osteomyelitis even without contrast and associated with possibility of recurrent epidural abscess and severe compression on the thoracic cord. A large amount of paravertebral inflammation predominantly surrounding T9 and T10 was also identified but extended from T8 to the inferior portions of T10. The case was discussed with Dr. Menesse who had operated on Mr. Booth in April 2020. He recommended initiation of antibiotics, admission and he will see in consultation for planned surgery. Review of Systems Const: Denies: fever(s) or chills Eyes: Denies: change in vision ENMT: Denies: throat pain or nasal congestion Card: Denies: chest pain, palpitations or edema Resp: Denies: dyspnea, productive cough or non-productive cough GI: Reports: constipation and fecal incontinence (when cannot get assistance soon enough); Denies: abdominal pain, nausea, vomiting, diarrhea or hematochezia : Denies: difficulty urinating or urinary incontinence Musc: Reports: back pain (sharp, stabbing mid and lower back, new ) Skin/Breast: Reports: rash (in groin) and dry skin; Denies: sores Neuro: Reports: numbness in extremities (transient bilateral lower extremities, not present currently), weakness in extremities (changed from recent baseline, gone from 1 assit to multiple assist) and difficulty walking (needing more assistance x 24 hours); Denies: headache(s) Psych: Denies: anxiety or depression Filemon/Lymph: Denies: easy bruising or easy bleeding Medications/Allergies Home Medications Medication Instructions Recorded Confirmed Last Taken Type aspirin 325 mg tablet 325 mg PO DAILY #60 tabs 06/12/20 12/27/21 12/27/21 Rx acetaminophen 325 mg capsule 650 mg PO Q4H PRN Pain 12/01/20 12/27/21 08/18/21 History metformin 1,000 mg tablet 1,000 mg PO BID 12/01/20 12/27/21 12/27/21 History loperamide 2 mg capsule 2 mg PO DAILY PRN Diarrhea 08/18/21 12/27/21 Unknown History menthol 5.8 mg lozenges ([place]away 5.8 mg mucous membrane Q2H PRN 08/18/21 12/27/21 Unknown History Cough Drops) Cough metoprolol tartrate 25 mg tablet 25 mg PO BID 08/18/21 12/27/21 12/27/21 History ferrous gluconate 324 mg (37.5 mg 324 mg PO BIDWM #60 tabs 08/20/21 12/27/21 12/27/21 Rx iron) tablet fluticasone propionate 50 1 spray intranasal DAILY PRN nasal 08/20/21 12/27/21 12/27/21 Rx mcg/actuation nasal congestion #16 grams spray,suspension (Flonase Allergy Relief) cyclobenzaprine 10 mg tablet 10 mg PO TID PRN Pain 12/27/21 12/27/21 12/27/21 History insulin glargine 100 unit/mL (3 25 unit SUBCUT BEDTIME 12/27/21 12/27/21 12/26/21 History mL) subcutaneous pen (Lantus Solostar U-100 Insulin) magnesium hydroxide 400 mg/5 mL 30 ml PO DAILY PRN Constipation 12/27/21 12/27/21 Unknown History oral suspension (Milk of Magnesia) sitagliptin 100 mg tablet (Januvia) 100 mg PO DAILY 12/27/21 12/27/21 12/27/21 History Allergies Allergy/AdvReac Type Severity Reaction Status Date / Time No Known Allergies Allergy Verified 12/01/20 09:42 PFSH Acute PFSH: Medical History (Updated 12/27/21 @ 16:25 by Armida Madera MD) C. difficile colitis During treatment for epidural abscess in late 2019 and early 2020, recurrent issues Diabetes Epidural abscess (~04/2020) Streptococcus agalactiae - treated with 12 week IV ceftriaxone followed by 8 week oral cefadroxil in 2020. No clear source of bacteria identified beyond urine with same organism at time. 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 Surgical History (Updated 12/27/21 @ 14:12 by Armida Madera MD) S/P laminectomy (05/23/20) T7-T11 for epidural abscess, laminectomy with partial facetectomy T7/8, T8/9, T9/10, T10/11 Family History (Updated 12/27/21 @ 15:04 by Armida Madera MD) Father , from heart attack CAD (coronary artery disease) Mother Stroke Social History (Updated 12/27/21 @ 15:04 by Armida Madera MD) Smoking and tobacco status: never smoked Alcohol intake: current Alcohol intake frequency: holidays/special occasions only Substance/Drug Use: never Housing: Senior Living Vitals/I&O/Wt Last Vital Signs Temp 97.8 F 12/27/21 11:28 Pulse 99 12/27/21 11:48 Resp 18 12/27/21 11:48 BP 128/78 12/27/21 11:48 Pulse Ox 95 12/27/21 11:48 O2 Del Method 12/27/21 11:48 Weight last 48 hrs Weight 156.943 kg Physical Exam Narrative: Constitutional: Awake and alert, cooperative, able to provide history HEENT: Normocephalic, atraumatic, pupils are equal reactive, extraocular movements intact, conjunctiva are pink and moist, nasopharynx is clear, oropharynx with dry mucous membranes, fair dentition Neck: Large but supple Respiratory: Clear to auscultation bilaterally without any rales rhonchi or wheezes noted Cardiovascular: Regular rate and rhythm without any murmurs gallops or rubs, 2+ pulses x4 Abdomen: Soft, obese, nontender, positive bowel sounds : Normal external genitalia, erythema in the groin with powder and dry sheets in place Extremities: No pitting edema or cyanosis Skin: Beyond erythema in the groin and lower pannus, skin is dry, no large bruises or rashes appreciated otherwise Neuro: Speech clear, face symmetric, handgrip is equal bilaterally, sensation is intact to light touch at both feet, DTRs are hyperreflexic but equal at both ankles, toes downgoing, strength 3 out of 5 for ankle extension on the left versus 4 out of 5 on the right, limited leg raise bilaterally Psych: Normal affect Data : 12/27/21 11:48 12/27/21 11:48 Other Labs: Radiology Impressions Lumbar Spine MRI 12/27/21 11:37 IMPRESSION: 1. Seen on the tuck pointer survey is a new focal kyphosis at T9-10 with fluid in the disc space and retropulsion and severe stenosis centrally. This level will be better evaluated on a dedicated MRI of the thoracic spine to follow but consistent with cord compression which may be due to discitis as there is fluid along the disc space. 2. Moderate size central disc protrusion at L3-4 is contacting the traversing L4 nerve roots, RIGHT greater than LEFT. Similar to the prior study. 3. Mild central, bilateral subarticular recess stenosis and foraminal stenosis L4-5. 4. Central disc protrusion and possibly additional small protrusions in the foramina at L5-S1. Disc contacts the exiting L5 nerve roots bilaterally. Mild to moderate foraminal stenosis. Laboratory Results WBC 14.4 10^3/uL (4.0-10.0) H 12/27/21 11:48 RBC 5.12 10^6/uL (4.1-5.3) 12/27/21 11:48 Hgb 11.9 g/dL (11.7-16.6) 12/27/21 11:48 Hct 37.7 % (42.0-52.0) L 12/27/21 11:48 MCV 73.6 fl (80-94) L 12/27/21 11:48 MCH 23.2 pg (28.0-34.0) L 12/27/21 11:48 MCHC 31.6 g/dL (30.0-36.0) 12/27/21 11:48 RDW 14.8 % (12.1-15.1) 12/27/21 11:48 Plt Count 443 10^3/cmm (130-400) H 12/27/21 11:48 MPV 9.4 fL (7.4-10.4) 12/27/21 11:48 Neut % (Auto) 78.2 % 12/27/21 11:48 Lymph % (Auto) 12.2 % 12/27/21 11:48 Williams % (Auto) 7.8 % 12/27/21 11:48 Eos % (Auto) 0.8 % 12/27/21 11:48 Baso % (Auto) 0.6 % 12/27/21 11:48 Neut # (Auto) 11.25 10^3/uL (1.8-7.7) H 12/27/21 11:48 Lymph # (Auto) 1.8 10^3/uL (0.8-4.8) 12/27/21 11:48 Williams # (Auto) 1.1 10^3/uL (0.2-0.9) H 12/27/21 11:48 Eos # (Auto) 0.1 10^3/uL (0.0-0.8) 12/27/21 11:48 Baso # (Auto) 0.1 10^3/uL (0.0-0.1) 12/27/21 11:48 Nucleated RBC % (auto) 0 % 12/27/21 11:48 Nucleated RBCs # 0.0 /100WBC 12/27/21 11:48 ESR 89 mm/hr (0-10) H 12/27/21 11:48 Laboratory Tests 05/26/20 06/07/20 07/28/20 06:29 04:20 13:42 ESR 63 H 35 H 17 H Additional Radiology Impressions MRI THORACIC SPINE noncontrast.12/27/21 14:09 IMPRESSION: 1.? Significant adverse change in appearance of the T9 and T10 vertebral bodies since 09/03/2021. 2.? Fluid along the T9-10 disc space with complete loss of the disc space and a focal kyphosis. Findings consistent with discitis and highly suspicious for osteomyelitis even without contrast. 3.? Retropulsion of the posterior T9 and T10 vertebral bodies versus an epidural abscess. Severe compression on the thoracic cord at this level with foraminal narrowing. 4.? Large amount of paravertebral inflammation predominantly surrounded the T9 and T10 vertebral bodies. MRI CERVICAL SPINE? NONCONTRAST 12/27/21 14:12 IMPRESSION: 1.? Limited evaluation of the cervical spine due to patient's pain. 2.? No discitis or osteomyelitis identified on this unenhanced study in the cervical spine. Mild to moderate foraminal stenosis at C5-6 due to disc and osteophyte disease. 3.? No high-grade central stenosis. A&P Assessment and plan (1) Bilateral leg weakness: Along with severe thoracic back pain, both of which are new. Has gone from requiring 1 person assist to requiring multiple person assist in the last 24 hours. Has known prior epidural abscess for which he underwent multilevel laminectomy back in April 2020 followed by prolonged antibiotic course totaling 20 weeks of therapy, complicated by recurrent C. difficile infection. MRI imaging today, when compared to prior study from August of this year, shows significant change suspicious for acute on chronic discitis, osteomyelitis, epidural abscess and cord compression. ESR is quite elevated by comparison to prior values and leukocytosis is noted with neutrophil predominance. No definitive source of bacterial infection that might seeded the epidural space was identified previously,beyond urine containing less than 100,000 CFU's of the same strep organism back in 2020. With the clinical presentation, laboratory and imaging findings along with known history, neurosurgery has been consulted and from information shared with ma plans to take patient to surgery. 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 in 04/2020, currently worse than recent baseline and not able to bear weight enough to assist with transfers Status: Chronic (6) Diabetes mellitus, type II: With immunocompromise and history of significant infections Chronically on Lantus along with oral metformin and Januvia Status: Chronic Qualifiers: Diabetes mellitus correction insulin use: with correction use Diabetes mellitus complication status: with other specified complication Qualified Code(s): E11.69 - Type 2 diabetes mellitus with other specified complication; 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 (7) Hypertension: Chronically on beta-blockade in the form of metoprolol tartrate Status: Chronic Qualifiers: Hypertension type: primary hypertension Qualified Code(s): I10 - Essential (primary) hypertension (8) BMI 40.0-44.9, adult: Status: Chronic (9) History of Clostridioides difficile infection: Recurrent, during prior prolonged antibiotic therapy Status: Chronic Plan Tinea corporis Inpatient admission IV antibiotics, will start with vancomycin and Unasyn PICC line placement secondary to difficult peripheral access and likelihood of long-term IV antibiotic therapy; if unable to be placed will evaluate for central line placement while in hospital Prophylactic dose oral vancomycin along with lactobacillus given history of recurrent C. difficile colitis Serial neuro exams Blood cultures have been ordered Check CRP Serial inflammatory markers Dr. Meneses to see in consultation with tentative plan for surgery N.p.o. except for medications for surgery Will decrease dosing of Lantus while n.p.o. Sliding scale insulin Continue home beta-blockade Continue home Januvia, hold metformin Continue home cyclobenzaprine and Tylenol as needed for pain, add morphine IV as needed Plan switch to oral medications postoperatively when appropriate Hold aspirin therapy due to planned surgery SCDs for DVT prophylaxis Hold pharmacological DVT prophylaxis due to planned surgery Nino catheter placement Follow-up pending urinalysis chemistries, addressing accordingly Check hemoglobin A1c Continue home iron therapy Nystatin to groin Anticipate PT and OT postoperatively Supportive care otherwise Findings, concerns and plans were discussed with patient and he was given an opportunity to ask questions Anticipate disposition back to [facility] upon discharge; I am unsure of his exact status there - if in long-term care may need temporary transition to acute skilled care depending on clinical course and post discharge needs Patient has designated his mother, Sue Booth, as patient to make decisions for him if he is unable to do so for himself, her contact information is available and jail records Patient is okay with temporary intubation and mechanical ventilation for perioperative needs; he desires treatment for his medical conditions but should he quit breathing on his own or if his heart stopsbeating, he prefers to be allowed natural . Attestations Medical Necessity Statement*: Anticipated stay greater than two midnights in a gentleman with elevated inflammatory markers and imaging findings along with clinical change suggestive of recurrent acute thoracic spine issues as described. Requires neurosurgical consultation, surgical intervention, IV antibiotics and other care as noted. At high risk of progressive infection and further morbidity without inpatient care at this time. 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
[2021-12-27] MEDS: vancomycin 1,000 MG in sodium chloride 0.9% 250 ML 250 MG IV ×2 (14:55→18:45)
--- NOTE | 2021-12-27 17:22 | PM.CONSULT ---
Providers/Reason For Consult Consulting Physician/Specialty*: Ortho Spine Reason for Consult*: Back Pain with Leg Weakness Attending Physician: Armida Madera MD Primary Care Provider: Rakel Kendall MD History of Present Illness History of Present Illness Joey Booth is a 51 year old male presents to [facility] emergency room following progressive weakness in both legs over the last 24 hours. He denies any falls denies any injuries to his back. States that he was a wheelchair to parallel bars where he could hold himself up to walk but has progressed to having 5 people help him stand and his legs want to give out because he is very weak. He has had changes with bowel and bladder as well. He has had intermittent numbness tingling with weakness in his legs with both being equal. He has previous T7-T11 decompression May 23, [address] Meneses which he recovered from to the point where he was at least stand with parallel bars. He denies any specific respiratory infection has had intermittent urinary tract infections he denies any fevers chills. His progressive weakness has taken place over the last 24 hours. An extensive review of the patient's past medical history, surgical history, allergies, medications, family history, social history, and review of systems was completed Review of Systems Const: Denies: fever(s) or chills Eyes: Denies: change in vision ENMT: Denies: throat pain or nasal congestion Card: Denies: chest pain, palpitations or edema Resp: Denies: dyspnea, productive cough or non-productive cough GI: Reports: constipation and fecal incontinence (when cannot get assistance soon enough); Denies: abdominal pain, nausea, vomiting, diarrhea or hematochezia : Denies: difficulty urinating or urinary incontinence Musc: Reports: back pain (sharp, stabbing mid and lower back, new ) Skin/Breast: Reports: rash (in groin) and dry skin; Denies: sores Neuro: Reports: numbness in extremities (transient bilateral lower extremities, not present currently), weakness in extremities (changed from recent baseline, gone from 1 assit to multiple assist) and difficulty walking (needing more assistance x 24 hours); Denies: headache(s) Psych: Denies: anxiety or depression Filemon/Lymph: Denies: easy bruising or easy bleeding Medications/Allergies Home Medications Medication Instructions Recorded Confirmed Last Taken Type aspirin 325 mg tablet 325 mg PO DAILY #60 tabs 06/12/20 12/27/21 12/27/21 Rx acetaminophen 325 mg capsule 650 mg PO Q4H PRN Pain 12/01/20 12/27/21 08/18/21 History metformin 1,000 mg tablet 1,000 mg PO BID 12/01/20 12/27/21 12/27/21 History loperamide 2 mg capsule 2 mg PO DAILY PRN Diarrhea 08/18/21 12/27/21 Unknown History menthol 5.8 mg lozenges ([place] 5.8 mg mucous membrane Q2H PRN 08/18/21 12/27/21 Unknown History Cough Drops) Cough metoprolol tartrate 25 mg tablet 25 mg PO BID 08/18/21 12/27/21 12/27/21 History ferrous gluconate 324 mg (37.5 mg 324 mg PO BIDWM #60 tabs 08/20/21 12/27/21 12/27/21 Rx iron) tablet fluticasone propionate 50 1 spray intranasal DAILY PRN nasal 08/20/21 12/27/21 12/27/21 Rx mcg/actuation nasal congestion #16 grams spray,suspension (Flonase Allergy Relief) cyclobenzaprine 10 mg tablet 10 mg PO TID PRN Pain 12/27/21 12/27/21 12/27/21 History insulin glargine 100 unit/mL (3 25 unit SUBCUT BEDTIME 12/27/21 12/27/21 12/26/21 History mL) subcutaneous pen (Lantus Solostar U-100 Insulin) magnesium hydroxide 400 mg/5 mL 30 ml PO DAILY PRN Constipation 12/27/21 12/27/21 Unknown History oral suspension (Milk of Magnesia) sitagliptin 100 mg tablet (Januvia) 100 mg PO DAILY 12/27/21 12/27/21 12/27/21 History Allergies Allergy/AdvReac Type Severity Reaction Status Date / Time No Known Allergies Allergy Verified 12/01/20 09:42 PFSH Acute PFSH: Medical History (Updated 12/27/21 @ 16:25 by Armida Madera MD) C. difficile colitis During treatment for epidural abscess in late 2019 and early 2020, recurrent issues Diabetes Epidural abscess (~04/2020) Streptococcus agalactiae - treated with 12 week IV ceftriaxone followed by 8 week oral cefadroxil in 2020. No clear source of bacteria identified beyond urine with same organism at time. 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 Surgical History (Updated 12/27/21 @ 14:12 by Armida Madera MD) S/P laminectomy (05/23/20) T7-T11 for epidural abscess, laminectomy with partial facetectomy T7/8, T8/9, T9/10, T10/11 Family History (Updated 12/27/21 @ 15:04 by Armida Madera MD) Father , from heart attack CAD (coronary artery disease) Mother Stroke Social History (Updated 12/27/21 @ 15:04 by Armida Madera MD) Smoking and tobacco status: never smoked Alcohol intake: current Alcohol intake frequency: holidays/special occasions only Substance/Drug Use: never Housing: Custodial Vitals/I&O/Wt Last Vital Signs Temp 97.8 F 12/27/21 11:28 Pulse 101 H 12/27/21 15:24 Resp 18 12/27/21 15:24 BP 123/74 12/27/21 15:24 Pulse Ox 98 12/27/21 15:24 O2 Del Method 12/27/21 15:24 Weight last 48 hrs Weight 337 lb 6.4 oz Weight 346 lb Physical Exam Narrative: He is alert oriented x3 has a good general appearance normal mood and affect. Has decreased sensation diffusely down both lower extremities he is able to wiggle his toes he is able to dorsiflex and plantarflex with 3/5 strength he can bend each knee slightly. Dorsalis pedis and posterior tib pulses are weak but palpable. Good cap refill all digits. Calves are supple. Well-healed incision in the midline of his thoracic spine from previous surgical decompression. HENMT: COMMON NORMALS: normocephalic and atraumatic HEAD & SCALP: normocephalic and atraumatic Resp: COMMON NORMALS: normal respiratory effort Cardio: COMMON NORMALS: regular rate and regular rhythm RATE: regular rate RHYTHM: regular rhythm GI: COMMON NORMALS: Soft to palpation PALPATION: Yes Soft to palpation : COMMON NORMALS: Yes no CVA tenderness BLADDER/KIDNEY EXAM: Yes no CVA tenderness Back/Pelvis: COMMON NORMALS: no CVA tenderness Psych: COMMON NORMALS: mental status grossly normal and cooperative Data : 12/27/21 11:48 12/27/21 14:45 Micro: Microbiology 12/27/21 14:45 Blood Culture - Preliminary Blood SPECIMEN COLLECTED 12/27/21 14:45 Blood Culture - Preliminary Blood SPECIMEN COLLECTED MRI: My impression: MR/MR thoracic spin wo con* [id number] IMPRESSION: ? 1.? Significant adverse change in appearance of the T9 and T10 vertebral bodies since 09/03/2021. 2.? Fluid along the T9-10 disc space with complete loss of the disc space and a focal kyphosis. Findings consistent with discitis and highly suspicious for osteomyelitis even without contrast. 3.? Retropulsion of the posterior T9 and T10 vertebral bodies versus an epidural abscess. Severe compression on the thoracic cord at this level with foraminal narrowing. 4.? Large amount of paravertebral inflammation predominantly surrounded the T9 and T10 vertebral bodies. A&P Assessment and plan (1) Epidural abscess: Discussed treatment course which would involve T6-T11 instrumented fusion with decompression. Discussed with the patient we will keep him n.p.o. after midnight. Discussed with Dr. Meneses agrees above-stated plan. Status: Resolved (2) Bilateral leg weakness: Status: Acute Coding Level of Care Code New Pt Acute Soaping Machine Back Tender for Chg Fwd Patient Type New History Expanded Problem Focused Exam Expanded Problem Focused Medical Decision Making High Complexity Diagnoses Epidural abscess G06.2 Bilateral leg weakness R29.898
--- NOTE | 2021-12-27 17:35 | ECG_ITS ---
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 Measurements Intervals [place] Rate: 92 P: 41 AL: 171 QRS: -14 QRSD: 102 T: 22 QT: 367 QTc: 455 Interpretive Statements SINUS RHYTHM Compared to ECG 05/22/2020 17:26:06 Sinus tachycardia no longer present T-wave abnormality no longer present Electronically Signed On 12-28-2021 21:23:29 CDT by Skylar Parry M.D. [id number]
[2021-12-27 17:42] LABS: Alanine Aminotransferase 18 U/L (0-41); Alkaline Phosphatase 102 IU/L (40-130); Anion Gap 17.3 (5-19); Aspartate Amino Transferase 13 U/L (0-40); Blood Urea Nitrogen 13 mg/dL (6-20); C Reactive Protein 181.5 mg/L (0.0-4.9); Calcium 9.3 mg/dL (8.5-10.5); Carbon Dioxide 27 mmol/L (22-29); Chloride 89 mmol/L (98-107); Globulin 4.9 g/dL (1.3-4.6); Glomerular Filtration Rate 118.4 mL/min (90-130); Glucose 117 mg/dL (65-115); Osmolality Calculated 269 mOsm/kg (285-295); Potassium 4.3 mmol/L (3.5-5.1); Sodium 129 mmol/L (136-145); Total Bilirubin 0.2 mg/dL (0.15-1.2); Total Protein 7.9 g/dL (6.6-8.7)
[2021-12-27 17:58] LABS: Lactic Sepsis W/Reflex 0.9 mmol/L (0.5-2.2)
[2021-12-27] MEDS: ampicillin-sulbactam 3 GM in sodium chloride 0.9% (plus) 50 ML IV ×2 (18:12→23:23)
[2021-12-27] MEDS: lactobacillus 1 Tablet 3 TAB PO (18:15)
[2021-12-27] MEDS: nystatin powder 15 gm Btl 1 APPLIC TOPICAL (18:16)
[2021-12-27] MEDS: ferrous gluconate 324 mg Tablet PO (18:16)
[2021-12-27] MEDS: metoprolol tartrate 25 mg Tablet PO (18:16)
[2021-12-27] MEDS: docusate sodium 100 mg Capsule PO (18:17)
[2021-12-27] MEDS: dexamethasone 10 mg/mL INJ IVP ×2 (18:46→23:23)
[2021-12-27 21:34] LABS: Glucose Point of Care 150 mg/dL (70-110)
[2021-12-27] MEDS: acetaminophen 325 mg Tablet 650 MG PO (21:36)
[2021-12-27] MEDS: insulin lispro 100 unit/1 mL SUBCUT (21:37)
[2021-12-27] MEDS: sodium chlor 0.45% +KCl 20 mEq 20 MEQ/1,000 ML BAG 100 MEQ IV (23:23)
[2021-12-28] VITALS (23 sets, daily range): BP systolic 109–150; BP diastolic 54–89; PULSE 66–109; RESP 12–28; TEMP 35.7–37.2; O2SAT 88–97
--- NOTE | 2021-12-28 | SCC_ITS ---
Procedure done: 1. T6- L1 posterior spine fusion 2. T6- L1 instrumentation 3. T8/9 laminectomy with partial facetectomy 4. T9/ 10 laminectomy with partial facetectomy 5. T10/T11 laminectomy with partial facetectomy 6. use of computer navigation/ stereotactic for the spine 7. I+D of T9/10 disc space 8. reduction of T9/10 fracture kyphotic deformity 9. use of allograft bone No permanent C-socorro images were obtained. [facility]
[2021-12-28] MEDS: vancomycin 1,500 MG/300 ML PIGGYBACK 200 MG IV (00:31)
--- NOTE | 2021-12-28 01:58 | PC.NURSE ---
Multiple attempts for cason catheter insert by day shift and two tilt tray driver RNs. Unable to get placement. Patient voiding via urinal. Multiple attempts by 3 RNs to get 20g IV. Only able to get 22 g. IV to left forearm infilrated.
[2021-12-28 05:23] LABS: Basophils % 0.1 %; Erythrocyte Sedimentation Rate 92 mm/hr (0-10); Hematocrit 36.2 % (42.0-52.0); Hemoglobin 11.4 g/dL (11.7-16.6); Lymphocytes # 0.6 10^3/uL (0.8-4.8); Lymphocytes % 8.2 %; Mean Corpuscular HGB Conc 31.5 g/dL (30.0-36.0); Mean Corpuscular Hemoglobin 23.2 pg (28.0-34.0); Mean Corpuscular Volume 73.6 fl (80-94); Mean Platelet Volume 8.5 fL (7.4-10.4); Monocytes # 0.1 10^3/uL (0.2-0.9); Monocytes % 0.9 %; Neutrophils # 6.73 10^3/uL (1.8-7.7); Neutrophils % 90.4 %; Nucleated Red Blood Cells % 0 %; Platelet Count 510 10^3/cmm (130-400); Red Blood Count 4.92 10^6/uL (4.1-5.3); Red Cell Distribution Width 14.6 % (12.1-15.1); White Blood Count 7.5 10^3/uL (4.0-10.0)
[2021-12-28 05:36] LABS: Estmated Average Glucose 146; Hemoglobin A1C 6.7 % (4.0-6.0)
[2021-12-28 06:00] LABS: Alanine Aminotransferase 14 U/L (0-41); Albumin Level 2.9 g/dL (3.5-5.2); Alkaline Phosphatase 97 IU/L (40-130); Anion Gap 15.6 (5-19); Aspartate Amino Transferase 11 U/L (0-40); Blood Urea Nitrogen 11 mg/dL (6-20); C Reactive Protein 203.4 mg/L (0.0-4.9); Calcium 8.6 mg/dL (8.5-10.5); Carbon Dioxide 26 mmol/L (22-29); Chloride 93 mmol/L (98-107); Globulin 4.8 g/dL (1.3-4.6); Glomerular Filtration Rate 174.6 mL/min (90-130); Glucose 206 mg/dL (65-115); Magnesium 1.9 mg/dL (1.7-2.3); NT Pro B Type Natriuretic Pept 121 pg/mL (0-125); Osmolality Calculated 275 mOsm/kg (285-295); Potassium 4.6 mmol/L (3.5-5.1); Sodium 130 mmol/L (136-145); Total Bilirubin 0.2 mg/dL (0.15-1.2); Total Protein 7.7 g/dL (6.6-8.7)
[2021-12-28 06:13] LABS: Troponin T (5th) Once 17 ng/L (0-15)
[2021-12-28] MEDS: ampicillin-sulbactam 3 GM in sodium chloride 0.9% (plus) 50 ML IV ×2 (06:23→23:29)
[2021-12-28 07:00] LABS: Glucose Point of Care 193 mg/dL (70-110)
--- NOTE | 2021-12-28 09:37 | PC.CHAP ---
Pastoral Care Encounter/Spiritual Assessment Type of Contact [] Declined assembler skylights visit [] Patient/Family/Request visit [] Outpatient visit [] Follow-up visit [] Physician referral [] Code/Alert [x] Routine visit [] Staff referral [] Actively dying [] Patient sleeping [] Family support [] [] Out of room [] Palliative care [] [] Receiving care in room [] Pre-surgical visit [] Trauma [] Long length of stay [] ICU visit [] Other: Relational/Emotional Strength [] Patient feels connected with others/family/visitors/staff [] Distress [] Loneliness/isolation [] Abandonment Spirituality of Patient [] Person of Kia [] Attends Rastafarian of their Kia [] Believes in Prayer [] Reads Bible or Baptist materials [] There are Spiritual issues to be addressed Engineering Design Manager Interventions [] Prayer [] Active listening [] Non-anxious presence [] Spiritual/emotional support [] Crisis/trauma care [] Spiritual counseling [] Bereavement support [] Provided bereavement packet [] Provided Bible/devotional materials [] Provided toy/stuffed animal, coloring book to patient or family member [] Provided Communion [] Anointing/[place] [] Salvation [] Completed spiritual assessment [] Other: Impact on Illness or Injury [] Angry [] Fearful [] Anxious [] Often cries [] Exhaustion [] Unable to work [] Unable to attend uatsdin [] Unable to walk/stand [] Unable to read [] Unable to drive [] Unable to eat/drink [] Unable to sleep [] Unable to be with family [] Patient intubated [] Other: Summary Time spent with patient
[2021-12-28 09:55] LABS: Urine Appearance Cloudy (CLEAR); Urine Color Yellow (Yellow); pH Urine 7 (5-7)
[2021-12-28 09:56] LABS: Add Urine Microscopic? YES; Bilirubin Urine Neg (Negative); Blood Urine 2+ (Negative); Glucose Urine UA 1+ (Normal); Ketones Urine 1+ (Negative); Leukocyte Esterase Urine 2+ (Negative); Nitrate Urine Negative (Negative); Protein Urine Neg (Negative); Specific Gravity, Urine 1.005 (1.005-1.030); Urobilinogen Urine Norm (Negative)
[2021-12-28 09:57] LABS: Squamous Epithelial Cell Urine 0-4 /hpf (0-5); WBC Urine 55-80 /hpf (0-5)
[2021-12-28 09:58] LABS: Add Urine Culture? Yes; Bacteria Urine 1+ /hpf; Mucus Urine TRACE /hpf
[2021-12-28] MEDS: dexamethasone 10 mg/mL INJ IVP (10:09)
[2021-12-28] MEDS: metoprolol tartrate 25 mg Tablet PO (10:09)
[2021-12-28] MEDS: vancomycin 1,500 MG/300 ML PIGGYBACK 300 MG IV ×2 (10:10→20:19)
--- NOTE | 2021-12-28 10:35 | XR_ITS ---
WS: [id number] PORTABLE CHEST HISTORY: PICC LINE PLACEMENT COMPARISON: 08/18/2021 Regular demonstrates the tip of the PICC line is probably within the RIGHT atrium but very difficult to visualize. No complications otherwise. The lung volumes are decreased. Recommend retracting PICC l ine 2 cm. XR/XR chest 1V portable [id number] IMPRESSION: Recommend retracting PICC line 2 cm. Tip appears within the RIGHT atrium.
--- NOTE | 2021-12-28 11:04 | XR_ITS ---
WS: [id number] PORTABLE CHEST HISTORY: PICC Placement, repositioning. COMPARISON: None available. PICC line has been retracted approximately 7.5 cm from the prior study. PICC line remains in the mid SVC and an satisfactory position. Lung volumes are decreased. XR/XR chest 1V portable [id number] IMPRESSION: Satisfactory position of PICC line status post repositioning.
[2021-12-28 11:42] LABS: Bacillus cereus group Not Detected (NOT DETECT); Bacillus subtillis group Not Detected (NOT DETECT); Corynebacterium Not Detected (NOT DETECT); Cutibacterium acnes (P.acnes) Not Detected (NOT DETECT); Enterococcus Not Detected (NOT DETECT); Enterococcus faecalis Not Detected (NOT DETECT); Enterococcus faecium Not Detected (NOT DETECT); Lactobacillus species Not Detected (NOT DETECT); Listeria Not Detected (NOT DETECT); Listeria monocytogenes Not Detected (NOT DETECT); Micrococcus Not Detected (NOT DETECT); Pan Candida Not Detected (NOT DETECT); Pan Gram-Negative Not Detected (NOT DETECT); Staphylococcus epidermidis Not Detected (NOT DETECT); Staphylococcus lugdunensis Not Detected (NOT DETECT); Staphylococcus species Detected (NOT DETECT); Streptococcus agalactiae Not Detected (NOT DETECT); Streptococcus anginosus group Not Detected (NOT DETECT); Streptococcus pneumoniae Not Detected (NOT DETECT); Streptococcus pyogenes Not Detected (NOT DETECT); Streptococcus species Not Detected (NOT DETECT); mecA Not Detected (NOT DETECT); mecC Not Detected (NOT DETECT)
[2021-12-28] MEDS: lidocaine 2% Urojet 20 mL TOPICAL (12:20)
--- NOTE | 2021-12-28 12:35 | P.ANESASSM_ITS ---
Pre-Anesthetic Assessment Height/Weight: Height 1.88 m Weight 153.042 kg Temp Pulse Resp BP Pulse Ox O2 Del Method 98.9 F 90 18 128/80 95 12/28/21 11:20 12/28/21 11:20 12/28/21 11:20 12/28/21 11:20 12/28/21 11:20 12/28/21 11:20 Preop Diagnosis: epidural abcessT7-T11 Operation Date: 12/28/21 12:00 Proposed Procedures p T6-L1 posterior spine fusion with decompression T8/9, T9/10(Not Applicable) - Neo Meneses, Familial anesthetic complications: none Was Beta Estrellita taken within 24 hours: N/A Was Clonidine taken within 24 hours: N/A Last intake: Intake Last Liquid Date 12/27/21 Last Liquid Time 22:30 Last Solid Date 12/27/21 Last Solid Time 22:30 Social No alcohol and No tobacco Exam alert, oriented x 3, clear to auscultation bilaterally and regular rate & rhythm Airway Submandibular: within normal limits Cervical ROM: within normal limits Mallampati: Class II Dentition: full CV/HEM Hypertension Metabolic Diabetes Mellitus and Morbid Obesity [facility] Lower Back Pain Neuropsych Deficit (BLE paralyzed) Anesthetic Plan ASA status: 3 Anesthesia: General Other: A.line Medications/Allergies Home Medications Medication Instructions Recorded Confirmed Last Taken Type aspirin 325 mg tablet 325 mg PO DAILY #60 tabs 06/12/20 12/27/21 12/27/21 Rx acetaminophen 325 mg capsule 650 mg PO Q4H PRN Pain 12/01/20 12/27/21 08/18/21 History metformin 1,000 mg tablet 1,000 mg PO BID 12/01/20 12/27/21 12/27/21 History loperamide 2 mg capsule 2 mg PO DAILY PRN Diarrhea 08/18/21 12/27/21 Unknown History menthol 5.8 mg lozenges ([place] 5.8 mg mucous membrane Q2H PRN 08/18/21 12/27/21 Unknown History Cough Drops) Cough metoprolol tartrate 25 mg tablet 25 mg PO BID 08/18/21 12/27/21 12/27/21 History ferrous gluconate 324 mg (37.5 mg 324 mg PO BIDWM #60 tabs 08/20/21 12/27/21 12/27/21 Rx iron) tablet fluticasone propionate 50 1 spray intranasal DAILY PRN nasal 08/20/21 12/27/21 12/27/21 Rx mcg/actuation nasal congestion #16 grams spray,suspension (Flonase Allergy Relief) cyclobenzaprine 10 mg tablet 10 mg PO TID PRN Pain 12/27/21 12/27/21 12/27/21 History insulin glargine 100 unit/mL (3 25 unit SUBCUT BEDTIME 12/27/21 12/27/21 12/26/21 History mL) subcutaneous pen (Lantus Solostar U-100 Insulin) magnesium hydroxide 400 mg/5 mL 30 ml PO DAILY PRN Constipation 12/27/21 12/27/21 Unknown History oral suspension (Milk of Magnesia) sitagliptin 100 mg tablet (Januvia) 100 mg PO DAILY 12/27/21 12/27/21 12/27/21 History Allergies Allergy/AdvReac Type Severity Reaction Status Date / Time No Known Allergies Allergy Verified 12/01/20 09:42 Current Medications Generic Name Dose Route Start Last Admin Trade Name Freq PRN Reason Stop Dose Admin Acetaminophen 650 mg 12/27/21 20:35 12/27/21 21:36 Acetaminophen 325 Mg Tablet PO 650 mg Q6H PRN Administration MILD PAIN Dexamethasone 10 mg 12/27/21 16:45 12/28/21 10:09 Dexamethasone 10 Mg/Ml Inj IVP 10 mg Q8H SANDIE Administration Docusate Sodium 100 mg 12/27/21 18:00 12/27/21 18:17 Docusate Sodium 100 Mg Capsule PO 100 mg BID SANDIE Administration Ferrous Gluconate 324 mg 12/27/21 18:00 12/27/21 18:16 Ferrous Gluconate 324 Mg Tablet PO 324 mg BIDWM SANDIE Administration Ampicillin Sodium/Sulbactam 50 mls @ 100 mls/hr 12/27/21 17:00 12/28/21 07:17 Sodium 3 gm/ Sodium Chloride IV Infused Q6H SANDIE Infusion Protocol Potassium Chloride/Sodium Chloride 20 meq in 1,000 mls @ 100 mls/hr 12/27/21 23:45 12/27/21 23:23 Sodium Chlor 0.45% +Kcl 20 Meq IV 100 mls/hr .Q10H SANDIE Administration Vancomycin/PEG/NADA/Lysine/Water 1,500 mg in 300 mls @ 200 mls/hr 12/28/21 02:00 12/28/21 10:10 Vancocin IV 300 mls/hr Q8H SANDIE Administration Insulin Glargine 25 unit 12/27/21 21:00 12/27/21 21:31 Insulin Glargine 100 Units/1 Ml SUBCUT Not Given BEDTIME SANDIE Insulin Human Lispro 0 unit 12/27/21 21:00 12/27/21 21:37 Insulin Lispro 100 Unit/1 Ml SUBCUT 2 unit BEDTIME SANDIE Administration Protocol Insulin Human Lispro 0 unit 12/27/21 18:00 12/27/21 20:31 Insulin Lispro 100 Unit/1 Ml SUBCUT Not Given TIDWM [facility] Protocol Lactobacillus Acidophilus 3 tab 12/27/21 18:00 12/27/21 18:15 Lactobacillus 1 Tablet PO 3 tab BID SANDIE Administration Metoprolol Tartrate 25 mg 12/27/21 18:00 12/28/21 10:09 Metoprolol Tartrate 25 Mg Tablet PO 25 mg BID SANDIE Administration Nystatin 1 applic 12/27/21 18:00 12/27/21 18:16 Nystatin Powder 15 Gm Btl TOPICAL 1 applic BID SANDIE Administration Vancomycin HCl 125 mg 12/27/21 18:00 12/27/21 21:36 Vancomycin 1,000 Mg Oral Mari Aantonia (Btl) PO 125 mg BID SANDIE Administration Protocol [facility] Anesthesia Medical History (Updated 12/27/21 @ 16:25 by Armida Madera MD) C. difficile colitis During treatment for epidural abscess in late 2019 and early 2020, recurrent issues Diabetes Epidural abscess (~04/2020) Streptococcus agalactiae - treated with 12 week IV ceftriaxone followed by 8 week oral cefadroxil in 2020. No clear source of bacteria identified beyond urine with same organism at time. 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 Surgical History (Updated 12/27/21 @ 14:12 by Armida Madera MD) S/P laminectomy (05/23/20) T7-T11 for epidural abscess, laminectomy with partial facetectomy T7/8, T8/9, T9/10, T10/11 Family History (Updated 12/27/21 @ 15:04 by Armida Madera MD) Father , from heart attack CAD (coronary artery disease) Mother Stroke Social History (Updated 12/27/21 @ 15:04 by Armida Madera MD) Smoking and tobacco status: never smoked Alcohol intake: current Alcohol intake frequency: holidays/special occasions only Substance/Drug Use: never Housing: Senior Care Data Anesthesia : 12/28/21 04:58 12/28/21 04:58 Short CBC 12/27/21 12/28/21 Range/Units 11:48 04:58 WBC 14.4 H 7.5 (4.0-10.0) 10^3/uL Hgb 11.9 11.4 L (11.7-16.6) g/dL Hct 37.7 L 36.2 L (42.0-52.0) % MCV 73.6 L 73.6 L (80-94) fl Plt Count 443 H 510 H (130-400) 10^3/cmm Neut % (Auto) 78.2 90.4 % Neut # (Auto) 11.25 H 6.73 (1.8-7.7) 10^3/uL BMP 12/27/21 12/27/21 12/28/21 11:48 14:45 04:58 Sodium Cancelled 129 L 130 L Potassium Cancelled 4.3 4.6 Chloride Cancelled 89 L 93 L Carbon Dioxide Cancelled 27 26 BUN Cancelled 13 11 Creatinine Cancelled 0.7 0.5 L Glucose Cancelled 117 H 206 H Calcium Cancelled 9.3 8.6 Cardiac Enzymes 12/28/21 12/28/21 12/28/21 Range/Units 04:58 04:58 04:58 Troponin T Gen 5 ng/L 17 H (0-15) ng/L NT-Pro-B Natriuret Pep Cancelled 121 Liver Function 12/27/21 12/27/21 12/28/21 Range/Units 11:48 14:45 04:58 Total Bilirubin Cancelled 0.2 0.2 AST Cancelled 13 11 ALT Cancelled 18 14 Alkaline Phosphatase Cancelled 102 97 Albumin Cancelled 3.0 L 2.9 L Urine 12/28/21 Range/Units 07:00 Urine Color Yellow (Yellow) Urine Appearance Cloudy (CLEAR) Urine pH 7 (5-7) Ur Specific [place] 1.005 (1.005-1.030) Urine Protein Neg (Negative) Urine Glucose (UA) 1+ H (Normal) Urine Ketones 1+ H (Negative) Urine Nitrate Negative (Negative) Urine Bilirubin Neg (Negative) Ur Leukocyte Esterase 2+ H (Negative) Urine RBC 5-10 H (0-2) /hpf Urine WBC 55-80 H (0-5) /hpf Coags 12/27/21 12/27/21 12/27/21 11:48 11:48 11:48 ESR 89 H PT Cancelled INR Cancelled APTT Cancelled C-Reactive Protein Cancelled 12/27/21 12/27/21 12/28/21 14:45 14:45 04:58 ESR 92 H PT 15.50 H INR 1.20 APTT 42.0 H C-Reactive Protein 181.5 H 12/28/21 12/28/21 04:58 04:58 ESR PT INR APTT C-Reactive Protein Cancelled 203.4 H Microbiology 12/27/21 14:45 Blood Culture - Preliminary Blood SPECIMEN COLLECTED 12/27/21 14:45 Blood Culture - Preliminary Blood SPECIMEN COLLECTED Cardiac Studies: Echocardiogram Ultrasound 05/26/20
--- NOTE | 2021-12-28 12:52 | P.CONIM_ITS ---
Providers/Reason For Consult Consulting Physician/Specialty*: Klein/urology Reason for Consult*: Inability to place preoperative Nino catheter Requesting Physician: Dr. Meneses Attending Physician: Raúl Ricks MD Primary Care Provider: Rakel Kendall MD History of Present Illness History of Present Illness Joey Booth is a 51 year old male in preparation for surgery on epidural abscess. Preoperatively after being put to sleep attempts at placing Nino catheter unsuccessful. I was consulted for evaluation. Physical exam revealed meatal stenosis. No evidence of other significant genitourinary pathology Procedure: Urethral stricture dilation with difficult catheter placement. Was discovered to have a very tight urethral meatus. Was dilated with Nikolski sounds for approximately 1 inch beginning with 8 Belarusian and proceeding to 20 Belarusian. There is no active bleeding. A 16 Belarusian coud? tip catheter was then utilized with the catheter tip moving quite easily through the meatus but still even after 20 Bel[place]ian dilation with Nikolski sounds the rest of the catheter was somewhat tight. Thankfully the catheter could be advanced all the way into the bladder with good efflux. 10 cc placed in the balloon and the balloon confirmed to be functioning well. There is secure to dependent drainage. Patient was then turned over to the operative team. Recommendations: Try and maintain the catheter for least a couple days and after that can do as you wish for routine postoperative care. Review of Systems General: Reports: ROS unobtainable due to endotracheal tube and ROS u nobtainable due to mental status Medications/Allergies Home Medications Medication Instructions Recorded Confirmed Last Taken Type aspirin 325 mg tablet 325 mg PO DAILY #60 tabs 06/12/20 12/27/21 12/27/21 Rx acetaminophen 325 mg capsule 650 mg PO Q4H PRN Pain 12/01/20 12/27/21 08/18/21 History metformin 1,000 mg tablet 1,000 mg PO BID 12/01/20 12/27/21 12/27/21 History loperamide 2 mg capsule 2 mg PO DAILY PRN Diarrhea 08/18/21 12/27/21 Unknown History menthol 5.8 mg lozenges ([place] 5.8 mg mucous membrane Q2H PRN 08/18/21 12/27/21 Unknown History Cough Drops) Cough metoprolol tartrate 25 mg tablet 25 mg PO BID 08/18/21 12/27/21 12/27/21 History ferrous gluconate 324 mg (37.5 mg 324 mg PO BIDWM #60 tabs 08/20/21 12/27/21 12/27/21 Rx iron) tablet fluticasone propionate 50 1 spray intranasal DAILY PRN nasal 08/20/21 12/27/21 12/27/21 Rx mcg/actuation nasal congestion #16 grams spray,suspension (Flonase Allergy Relief) cyclobenzaprine 10 mg tablet 10 mg PO TID PRN Pain 12/27/21 12/27/21 12/27/21 History insulin glargine 100 unit/mL (3 25 unit SUBCUT BEDTIME 12/27/21 12/27/21 12/26/21 History mL) subcutaneous pen (Lantus Solostar U-100 Insulin) magnesium hydroxide 400 mg/5 mL 30 ml PO DAILY PRN Constipation 12/27/21 12/27/21 Unknown History oral suspension (Milk of Magnesia) sitagliptin 100 mg tablet (Januvia) 100 mg PO DAILY 12/27/21 12/27/21 12/27/21 History Allergies Allergy/AdvReac Type Severity Reaction Status Date / Time No Known Allergies Allergy Verified 12/01/20 09:42 Current Medications Generic Name Dose Route Start Last Admin Trade Name Freq PRN Reason Stop Dose Admin Acetaminophen 650 mg 12/27/21 20:35 12/27/21 21:36 Acetaminophen 325 Mg Tablet PO 650 mg Q6H PRN Administration MILD PAIN Dexamethasone 10 mg 12/27/21 16:45 12/28/21 10:09 Dexamethasone 10 Mg/Ml Inj IVP 10 mg Q8H SANDIE Administration Docusate Sodium 100 mg 12/27/21 18:00 12/27/21 18:17 Docusate Sodium 100 Mg Capsule PO 100 mg BID SANDIE Administration Ferrous Gluconate 324 mg 12/27/21 18:00 12/27/21 18:16 Ferrous Gluconate 324 Mg Tablet PO 324 mg BIDWM SANDIE Administration Ampicillin Sodium/Sulbactam 50 mls @ 100 mls/hr 12/27/21 17:00 12/28/21 07:17 Sodium 3 gm/ Sodium Chloride IV Infused Q6H SANDIE Infusion Protocol Potassium Chloride/Sodium Chloride 20 meq in 1,000 mls @ 100 mls/hr 12/27/21 23:45 12/27/21 23:23 Sodium Chlor 0.45% +Kcl 20 Meq IV 100 mls/hr .Q10H SANDIE Administration Vancomycin/PEG/NADA/Lysine/Water 1,500 mg in 300 mls @ 200 mls/hr 12/28/21 02:00 12/28/21 10:10 Vancocin IV 300 mls/hr Q8H SANDIE Administration Insulin Glargine 25 unit 12/27/21 21:00 12/27/21 21:31 Insulin Glargine 100 Units/1 Ml SUBCUT Not Given BEDTIME SANDIE Insulin Human Lispro 0 unit 12/27/21 21:00 12/27/21 21:37 Insulin Lispro 100 Unit/1 Ml SUBCUT 2 unit BEDTIME SANDIE Administration Protocol Insulin Human Lispro 0 unit 12/27/21 18:00 12/27/21 20:31 Insulin Lispro 100 Unit/1 Ml SUBCUT Not Given TIDWM COUNT INCLUDES THE [facility] Protocol Lactobacillus Acidophilus 3 tab 12/27/21 18:00 12/27/21 18:15 Lactobacillus 1 Tablet PO 3 tab BID SANDIE Administration Metoprolol Tartrate 25 mg 12/27/21 18:00 12/28/21 10:09 Metoprolol Tartrate 25 Mg Tablet PO 25 mg BID SANDIE Administration Nystatin 1 applic 12/27/21 18:00 12/27/21 18:16 Nystatin Powder 15 Gm Btl TOPICAL 1 applic BID SANDIE Administration Vancomycin HCl 125 mg 12/27/21 18:00 12/27/21 21:36 Vancomycin 1,000 Mg Oral Maria Antonia (Btl) PO 125 mg BID SANDIE Administration Protocol PFSH Acute PFSH: Medical History C. difficile colitis During treatment for epidural abscess in late 2019 and early 2020, recurrent issues Diabetes Epidural abscess (~04/2020) Streptococcus agalactiae - treated with 12 week IV ceftriaxone followed by 8 week oral cefadroxil in 2020. No clear source of bacteria identified beyond urine with same organism at time. 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 Surgical History S/P laminectomy (12/26/20) T7-T11 for epidural abscess, laminectomy with partial facetectomy T7/8, T8/9, T9/10, T10/11 Family History Father , from heart attack CAD (coronary artery disease) Mother Stroke Social History Smoking and tobacco status: never smoked Alcohol intake: current Alcohol intake frequency: holidays/special occasions only Substance/Drug Use: never Housing: Detention Vitals/I&O/Wt Last Vital Signs Temp 98.9 F 12/28/21 11:20 Pulse 90 12/28/21 11:20 Resp 18 12/28/21 11:20 BP 128/80 12/28/21 11:20 Pulse Ox 95 12/28/21 11:20 O2 Del Method 12/28/21 11:20 12/27/21 12/28/21 12/28/21 22:59 06:59 14:59 Intake Total 300 / 300 600 / 900 50 / 50 Output Total 1200 / 1200 525 / 1725 Balance -900 / -900 75 / -825 50 / 50 Weight last 48 hrs Weight 337 lb 6.4 oz Weight 346 lb Physical Exam Narrative: Intubated on bed in the OR. Morbidly obese. exam: Meatal stenosis. Normal scrotum and testicles. Otherwise normal phallus status post circumcision. Abdomen is soft. No palpable masses. Bladder does not appear to be distended. Data : 12/28/21 04:58 12/28/21 04:58 Micro: Microbiology 12/27/21 14:45 Blood Culture - Preliminary Blood SPECIMEN COLLECTED 12/27/21 14:45 Blood Culture - Preliminary Blood SPECIMEN COLLECTED A&P Assessment and plan (1) Acquired urinary meatal stenosis: Required Nikolski sound dilation from 8 Belarusian to 20 Belarusian in order to place a 16 Belarusian coud? tip catheter. Status: Acute Consult Attestations Medical Necessity Statement: See attending Coding Level of Care Code Acute Recreation Attendant Supervisor for Chg Fwd Diagnoses Acquired urinary meatal stenosis
--- NOTE | 2021-12-28 12:59 | PM.PN ---
Subjective Subjective: Patient at rest No active complaints Going for surgery/decompression today PICC line will be placed before surgery Vitals/I&O/Wt Last Vital Signs Temp 98.9 F 12/28/21 11:20 Pulse 90 12/28/21 11:20 Resp 18 12/28/21 11:20 BP 128/80 12/28/21 11:20 Pulse Ox 95 12/28/21 11:20 O2 Del Method 12/28/21 11:20 12/27/21 12/28/21 12/28/21 22:59 06:59 14:59 Intake Total 300 / 300 600 / 900 50 / 50 Output Total 1200 / 1200 525 / 1725 Balance -900 / -900 75 / -825 50 / 50 Weight last 48 hrs Weight 153.042 kg Weight 156.943 kg Physical Exam Narrative: Able to wiggle his toes, full his legs to some extent Sensations intact of medial thighs Awake and alert Pleasant cooperative Looks euvolemic Abdomen soft Satting well on room air Very pleasant cooperative during my evaluation No audible stridor or wheezing Data : 12/28/21 04:58 12/28/21 04:58 Micro: Microbiology 12/27/21 14:45 Blood Culture - Preliminary Blood SPECIMEN COLLECTED 12/27/21 14:45 Blood Culture - Preliminary Blood SPECIMEN COLLECTED A&P Assessment and plan (1) 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 (2) Epidural abscess: Status: Resolved (3) Diabetes mellitus, type II: Status: Chronic Qualifiers: Diabetes mellitus detention insulin use: with detention use Diabetes mellitus complication status: with other specified complication Qualified Code(s): E11.69 - Type 2 diabetes mellitus with other specified complication; Z79.4 - retirement (current) use of insulin (4) Discitis: Status: Suspected Qualifiers: Spinal region: thoracic Qualified Code(s): M46.44 - Discitis, unspecified, thoracic region (5) Cord compression: Status: Suspected (6) Bilateral leg weakness: Status: Acute (7) Osteomyelitis of thoracic spine: Status: Suspected (8) Acquired urinary meatal stenosis: Status: Acute Plan Acute on chronic discitis, osteomyelitis, epidural abscess Dr. Meneses take him to the OR for decompression He will need PICC line placement and long-term antibiotics He is also diabetic Sensation is intact, able to wiggle his toes and fold his legs to some degree Uses a flat surface/bed to ambulate from bed to wheelchair Beta-cheryl can be continued for his history of hypertension Previous history of C. difficile Continue IV fluids, IV antibiotics Post likely patient will be able to go back to full care once stable Nino catheter in place SCDs for DVT prophylaxis before surgery Target blood sugar 140s 180 during hospitalization DNR/DNI Attestations Medical Necessity Statement*: Continue hospitalization Time Spent in Patient Care: 30 Coding Level of Care Code Acute Call Taker for Chg Fwd Diagnoses Paralysis of both lower limbs G82.20 Epidural abscess G06.2 Diabetes mellitus, type II E11.69; Z79.4 Diabetes mellitus termite renewal inspector insulin use: with termite renewal inspector use Diabetes mellitus complication status: with other specified complication Discitis M46.44 Spinal region: thoracic Cord compression G95.20 Bilateral leg weakness R29.898 Osteomyelitis of thoracic spine M46.24 Acquired urinary meatal stenosis
[2021-12-28] MEDS: heparin, porcine 1,000 unit/mL INJ 10 mL 10000 UNIT IRRIGATION (13:05)
[2021-12-28] MEDS: ceFAZolin 2,000 MG in sodium chloride 0.9% (plus) 50 ML 100 MG IV ×2 (13:05→21:53)
[2021-12-28] MEDS: vancomycin 1,000 MG SDV 1000 MG XX (14:05)
[2021-12-28 15:04] LABS: Hematocrit 32.1 % (42.0-52.0); Hemoglobin 9.8 g/dL (11.7-16.6)
--- NOTE | 2021-12-28 16:49 | P.OP_ITS ---
Operative Report Date of procedure: December 28, 2021 Pre-op diagnosis: Preop Diagnosis epidural abcessT7-T11 with fracture of T9 and T10 Post-op diagnosis: same Procedure done: 1. T6- L1 posterior spine fusion 2. T6- L1 instrumentation 3. T8/9 laminectomy with partial facetectomy 4. T9/ 10 laminectomy with partial facetectomy 5. T10/T11 laminectomy with partial facetectomy 6. use of computer navigation/ stereotactic for the spine 7. I+D of T9/10 disc space 8. reduction of T9/10 fracture kyphotic deformity 9. use of allograft bone Surgeon: Neo Meneses Advertising Dispatch Clerk: Scott Quintana Advertising Dispatch Clerk: The surgical supplies sterilizer, Scott Quintana, PAC was needed for his expertise under the microscope. He was important and necessary throughout the procedure to complete in a safe and timely manner. He assisted with patient positioning pr epping and draping tissue retraction suctioning of the operative field protection of the dural sac and tissue closure Estimated blood loss (mL): 1,000 Procedure: 1. T6- L1 posterior spine fusion 2. T6- L1 instrumentation 3. T8/9 laminectomy with partial facetectomy 4. T9/ 10 laminectomy with partial facetectomy 5. T10/T11 laminectomy with partial facetectomy 6. use of computer navigation/ stereotactic for the spine 7. I+D of T9/10 disc space 8. reduction of T9/10 fracture kyphotic deformity 9. use of allograft bone Patient was brought to the operative suite operating anesthesia normally was attached. Normally is found not to have any sensory or motor in lower extremities. Patient was then flipped into the prone position. All areas impingement well-padded. Patient was then prepped and draped normal sterile fashion. Skin incision made from T6 down to L1 and L2. Subperiosteal dissection was made from T6 down to L2. The transverse process of L1 T12 T11 T10 and T9 T8 T7 T6 were identified. Chest see L2 transverse process was identified. The fiducial for the computer navigation was then clamped onto the L2 spinous process. And the C-arm was brought into the information from the serum was allowed through the fiducial into the computer and this was later used for placing the computer navigated screws. Next attention was brought to placing screws. Using computer navigation. The gearshift probe was used to identify the pedicle and traversed the pedicle. This gearshift was removed pedicle feeler was used and then screws placed using computer navigation. This was process was used from L1 T12 T11. This was done bilaterally at these levels. The T9 and T10 levels were skipped because of the infection and fracture. And then attention was brought to the T8 level bilaterally T7 bilaterally and T6 bilaterally. Once all the screws were placed. Attention was then brought to performing the laminectomy. A high-speed bur was used to take down the lamina of T8. Curved curettes and Kerrison rongeurs were also used. The medial aspect of facet joints were taken down medial to the pedicle goff. The T8 nerve was traced out the T8-9 foramen bilaterally. And T9 nerve root was traced on the T9 pedicle bilaterally. A high-speed bur was used to take down the lamina of T9. Curved curettes and Kerrison rongeurs were also used. The medial aspect of facet joints were taken down medial to the pedicle goff. The T9 nerve was traced out the T9/10 foramen bilaterally. And T10 nerve root was traced on the T10 pedicle bilaterally. A high-speed bur was used to take down the lamina of T10. Curved curettes and Kerrison rongeurs were also used. The medial aspect of facet joints were taken down medial to the pedicle goff. The 10 nerve was traced out the T10/11 foramen bilaterally. And T11 nerve root was traced on the T11 pedicle bilaterally. Once the laminectomies were completed. Attention was then brought to placing the rods. Rods were placed bilaterally from T6 down to L1. And caps were tightened bilaterally. Caps were placed the screw. All screws were torqued down. There was then brought to decorticating the bone the lamina and transverse processes from T6 down to L1. And the allograft ostium bone graft was packed into the gutters. Wounds were then irrigated and then the vancomycin powder was placed deep drain was placed and wounds closed layered fashion with 0 Vicryl 2-0 Vicryl and nylon suture. Sterile dressings were applied patient was transferred to the PACU in stable condition.
--- NOTE | 2021-12-28 17:59 | SUR.PHASEI ---
1701 SCDs on pump and working 1740 Arterial line pulled, pressure help for 10 minutes. Pressure dressing applied.
[2021-12-28] MEDS: sodium chlor 0.45% +KCl 20 mEq 20 MEQ/1,000 ML BAG 100 MEQ IV (20:20)
[2021-12-28 20:24] LABS: Vancomycin Trough 13.7 ug/mL (10-15)
[2021-12-28] MEDS: HYDROcodone-acetaminophen 5-325 mg Tablet PO (21:53)
[2021-12-28 23:02] LABS: Glucose Point of Care 347 mg/dL (70-110)
[2021-12-28] MEDS: insulin lispro 100 unit/1 mL SUBCUT (23:06)
[2021-12-28] MEDS: insulin glargine 100 units/1 mL 25 UNIT SUBCUT (23:29)
[2021-12-29] VITALS (7 sets, daily range): BP systolic 116–133; BP diastolic 69–78; PULSE 88–108; RESP 12–18; TEMP 36.4–36.9; O2SAT 92–94
[2021-12-29] MEDS: HYDROcodone-acetaminophen 5-325 mg Tablet PO ×4 (00:53→21:27)
[2021-12-29] MEDS: dexamethasone 10 mg/mL INJ IVP ×2 (00:54→09:18)
[2021-12-29] MEDS: vancomycin 1,500 MG/300 ML PIGGYBACK 200 MG IV ×2 (00:54→09:21)
[2021-12-29] MEDS: ampicillin-sulbactam 3 GM in sodium chloride 0.9% (plus) 50 ML IV ×2 (04:22→11:47)
[2021-12-29] MEDS: ceFAZolin 2,000 MG in sodium chloride 0.9% (plus) 50 ML 100 MG IV ×2 (04:22→13:42)
[2021-12-29 04:38] LABS: Erythrocyte Sedimentation Rate 40 mm/hr (0-10)
[2021-12-29 04:39] LABS: Basophils % 0.1 %; Hematocrit 29.8 % (42.0-52.0); Lymphocytes # 0.9 10^3/uL (0.8-4.8); Lymphocytes % 5.4 %; Mean Corpuscular HGB Conc 30.2 g/dL (30.0-36.0); Mean Corpuscular Hemoglobin 22.9 pg (28.0-34.0); Mean Corpuscular Volume 75.8 fl (80-94); Mean Platelet Volume 8.7 fL (7.4-10.4); Monocytes # 0.7 10^3/uL (0.2-0.9); Monocytes % 4.5 %; Neutrophils # 14.58 10^3/uL (1.8-7.7); Neutrophils % 89.4 %; Nucleated Red Blood Cells % 0 %; Platelet Count 479 10^3/cmm (130-400); Red Blood Count 3.93 10^6/uL (4.1-5.3); Red Cell Distribution Width 14.5 % (12.1-15.1); White Blood Count 16.3 10^3/uL (4.0-10.0)
[2021-12-29 05:07] LABS: Blood Urea Nitrogen 9 mg/dL (6-20); Calcium 8.2 mg/dL (8.5-10.5); Carbon Dioxide 25 mmol/L (22-29); Chloride 97 mmol/L (98-107); Glomerular Filtration Rate 174.6 mL/min (90-130); Glucose 226 mg/dL (65-115); Osmolality Calculated 280 mOsm/kg (285-295); Sodium 132 mmol/L (136-145)
[2021-12-29 05:14] LABS: Anion Gap 14.4 (5-19); Potassium 4.4 mmol/L (3.5-5.1)
[2021-12-29 05:30] LABS: C Reactive Protein 68.7 mg/L (0.0-4.9)
[2021-12-29 06:29] LABS: Glucose Point of Care 233 mg/dL (70-110)
--- NOTE | 2021-12-29 06:47 | PM.PN ---
Subjective Subjective: POD 1 Patient resting comfortably. Able to move legs better. Denies chest pain, shortness of breath, headaches. Vitals/I&O/Wt Last Vital Signs Temp 98.5 F 12/29/21 01:15 Pulse 88 12/29/21 04:49 Resp 13 12/29/21 01:15 BP 131/73 12/29/21 01:15 Pulse Ox 94 12/29/21 01:15 O2 Del Method 12/29/21 01:15 O2 Flow Rate 3 12/28/21 18:00 12/28/21 12/28/21 12/29/21 14:59 22:59 06:59 Intake Total 1400 / 1400 1300 / 2700 500 / 3200 Output Total 2049 / 2049 1655 / 3705 Balance 1400 / 1400 -750 / 650 -1155 / -505 Weight last 48 hrs Weight 337 lb 6.4 oz Weight 346 lb Physical Exam Narrative: Patient presents alert and oriented x3 with a good general appearance normal mood and affect. Normal coordination normal stability. Mild tenderness around the incisional site with the incision appear to be clean and dry with Hemovac intact. 4/5 motor strength both lower extremities. Calves are supple no medial thigh tenderness. Pulses are 2+ at the dorsalis pedis and posterior tibial region. Good capillary refill throughout normal sensation light touch both lower extremities. Urinary Catheter Management: Coude: Cath Placed During This Visit: yes Reason for Continuing Indwelling Catheter: Perioperative Use in Selected Surgeries Urinary Catheter Date of Insertion: 12/28/21 Urinary Catheter Time of Insertion: 12:42 Data : 12/29/21 04:13 12/29/21 04:13 Micro: Microbiology 12/27/21 14:45 Blood Culture - Preliminary Blood Staphylococcus aureus 12/27/21 14:45 Blood Culture - Preliminary Blood Staphylococcus aureus A&P Assessment and plan (1) S/P spinal fusion: Encouraged incentive spirometry for pulmonary toilet. Physical therapy to evaluate. Status: Acute (2) Epidural abscess: Status: Resolved Attestations Medical Necessity Statement*: defer to medical team Coding Level of Care Code Acute Production Drilling Machine Operator for Chg Fwd Diagnoses S/P spinal fusion Z98.1 Epidural abscess G06.2
--- NOTE | 2021-12-29 06:55 | ANE.PACU2 ---
Inpatient post-anesthesia follow up: Airway intact: Yes Vital signs: Temperature 98.5 F Pulse Rate 88 Respiratory Rate 13 Blood Pressure 131/73 Pulse Oximetry 94 Oxygen Delivery Me thod [ Room Air Current Rate & Del marco a] Oxygen Delivery Me thod Room Air Oxygen Flow Rate 3 Fraction of Inspir ed Oxygen Hydration adequate: Yes Nausea and vomiting: No Pain level: 3 Mental status: Baseline
[2021-12-29] MEDS: insulin lispro 100 unit/1 mL SUBCUT ×4 (09:17→23:05)
[2021-12-29] MEDS: nystatin powder 15 gm Btl 1 APPLIC TOPICAL ×2 (09:18→17:14)
[2021-12-29] MEDS: sitagliptin 100 mg Tablet PO (09:18)
[2021-12-29] MEDS: ferrous gluconate 324 mg Tablet PO ×2 (09:18→17:14)
[2021-12-29] MEDS: lactobacillus 1 Tablet 3 TAB PO ×2 (09:18→17:13)
[2021-12-29] MEDS: metoprolol tartrate 25 mg Tablet PO ×2 (09:18→17:14)
[2021-12-29] MEDS: docusate sodium 100 mg Capsule PO ×2 (09:18→17:14)
[2021-12-29 11:24] LABS: Glucose Point of Care 312 mg/dL (70-110)
--- NOTE | 2021-12-29 12:10 | PM.PN ---
Subjective Subjective: I will discontinue his Decadron Leukocytosis more likely secondary to use of steroids Patient is endorsing feeling better He is happy with his progress specially his lower extremities weakness PT to work with him today He has a Nino catheter in place Able to tolerate his diet Vitals/I&O/Wt Last Vital Signs Temp 97.6 F 12/29/21 11:43 Pulse 96 12/29/21 11:43 Resp 12 12/29/21 11:43 BP 128/76 12/29/21 11:43 Pulse Ox 94 12/29/21 11:43 O2 Del Method 12/29/21 11:43 O2 Flow Rate 3 12/28/21 18:00 12/28/21 12/29/21 12/29/21 22:59 06:59 14:59 Intake Total 1300 / 2700 500 / 3200 780 / 780 Output Total 2049 / 2049 1655 / 3705 Balance -750 / 650 -1155 / -505 780 / 780 Weight last 48 hrs Weight 153.042 kg Physical Exam Narrative: Patient is laying flat No active complaint Able to move his extremities without any difficulty Sensations intact Nino catheter draining clear urine Abdomen soft S1, S2 Satting well on room air Nonfocal/no new focal deficit Urinary Catheter Management: Coude: Cath Placed During This Visit: yes Reason for Continuing Indwelling Catheter: Perioperative Use in Selected Surgeries Urinary Catheter Date of Insertion: 12/28/21 Urinary Catheter Time of Insertion: 12:42 Data : 12/29/21 04:13 12/29/21 04:13 Micro: Microbiology 12/28/21 15:42 Gram Stain - Final Back Abscess Culture - Preliminary 12/28/21 07:00 Urine Culture - Preliminary Urine,Clean Catch 12/28/21 13:15 Urine Culture - Preliminary Urine Catheterized Gram Negative Rods 12/27/21 14:45 Blood Culture - Preliminary Blood Staphylococcus aureus 12/27/21 14:45 Blood Culture - Preliminary Blood Staphylococcus aureus A&P Assessment and plan (1) S/P spinal fusion: Status: Acute (2) 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 (3) Epidural abscess: Status: Resolved (4) Bilateral leg weakness: Status: Acute (5) Cord compression: Status: Suspected (6) Discitis: Status: Suspected Qualifiers: Spinal region: thoracic Qualified Code(s): M46.44 - Discitis, unspecified, thoracic region (7) Diabetes mellitus, type II: Status: Chronic Qualifiers: Diabetes mellitus halfway insulin use: with termite control service representative use Diabetes mellitus complication status: with other specified complication Qualified Code(s): E11.69 - Type 2 diabetes mellitus with other specified complication; Z79.4 - buttermaker (current) use of insulin (8) BMI 40.0-44.9, adult: Status: Chronic (9) Osteomyelitis of thoracic spine: Status: Suspected Plan Bacteremia with staph aureus Repeat blood cultures Previous strep agalactiae discitis osteomyelitis Continue vancomycin, discontinue Unasyn Status post epidural abscess drainage Postop day 1 Leukocytosis most likely related to use of Decadron which I will discontinue today . Mild anemia Hemodynamically stable Patient is endorsing feeling better Chronic indwelling catheter Hyperglycemia Hemoglobin A1c 6.7 PICC line has been placed Will prescribe 6 weeks of anti-MRSA coverage DNR/DNI Attestations Medical Necessity Statement*: Will discharge once bacteremia improves Time Spent in Patient Care: 40 Coding Level of Care Code Acute [place]hop for [facility] Fwd Diagnoses S/P spinal fusion Z98.1 Paralysis of both lower limbs G82.20 Epidural abscess G06.2 Bilateral leg weakness R29.898 Cord compression G95.20 Discitis M46.44 Spinal region: thoracic Diabetes mellitus, type II E11.69; Z79.4 Diabetes mellitus halfway insulin use: with termite control service representative use Diabetes mellitus complication status: with other specified complication BMI 40.0-44.9, adult Z68.41 Osteomyelitis of thoracic spine M46.24
[2021-12-29] MEDS: enoxaparin 40 mg/0.4 mL Syringe SUBCUT (13:42)
[2021-12-29] MEDS: vancomycin 1,500 MG/300 ML PIGGYBACK 300 MG IV (17:08)
[2021-12-29 17:26] LABS: Glucose Point of Care 290 mg/dL (70-110)
[2021-12-29 22:24] LABS: Glucose Point of Care 253 mg/dL (70-110)
[2021-12-29] MEDS: insulin glargine 100 units/1 mL 25 UNIT SUBCUT (23:06)
[2021-12-30] VITALS (7 sets, daily range): BP systolic 121–131; BP diastolic 73–81; PULSE 84–103; RESP 12–19; TEMP 36.6–37.4; O2SAT 94–96
[2021-12-30 00:58] LABS: Basophils % 0.1 %; Eosinophils % 0.1 %; Hematocrit 26.2 % (42.0-52.0); Hemoglobin 8.1 g/dL (11.7-16.6); Lymphocytes # 2.1 10^3/uL (0.8-4.8); Lymphocytes % 15.4 %; Mean Corpuscular HGB Conc 30.9 g/dL (30.0-36.0); Mean Corpuscular Volume 74.4 fl (80-94); Mean Platelet Volume 8.5 fL (7.4-10.4); Monocytes # 1.3 10^3/uL (0.2-0.9); Monocytes % 9.4 %; Neutrophils # 10.08 10^3/uL (1.8-7.7); Neutrophils % 74.3 %; Nucleated Red Blood Cells % 0 %; Platelet Count 405 10^3/cmm (130-400); Red Blood Count 3.52 10^6/uL (4.1-5.3); Red Cell Distribution Width 14.6 % (12.1-15.1); White Blood Count 13.6 10^3/uL (4.0-10.0)
[2021-12-30 01:18] LABS: Anion Gap 11.8 (5-19); Blood Urea Nitrogen 8 mg/dL (6-20); Calcium 8.1 mg/dL (8.5-10.5); Carbon Dioxide 27 mmol/L (22-29); Chloride 99 mmol/L (98-107); Glomerular Filtration Rate 174.6 mL/min (90-130); Glucose 195 mg/dL (65-115); Osmolality Calculated 282 mOsm/kg (285-295); Potassium 3.8 mmol/L (3.5-5.1); Sodium 134 mmol/L (136-145)
[2021-12-30 01:19] LABS: Vancomycin Trough 13.5 ug/mL (10-15)
[2021-12-30] MEDS: vancomycin 1,500 MG/300 ML PIGGYBACK 200 MG IV ×3 (01:31→17:13)
[2021-12-30] MEDS: HYDROcodone-acetaminophen 5-325 mg Tablet PO ×3 (02:50→21:47)
[2021-12-30 06:45] LABS: Glucose Point of Care 164 mg/dL (70-110)
[2021-12-30] MEDS: sitagliptin 100 mg Tablet PO (08:25)
[2021-12-30] MEDS: insulin lispro 100 unit/1 mL SUBCUT ×4 (08:25→21:38)
[2021-12-30] MEDS: docusate sodium 100 mg Capsule PO (08:26)
[2021-12-30] MEDS: metoprolol tartrate 25 mg Tablet PO ×2 (08:26→17:13)
[2021-12-30] MEDS: lactobacillus 1 Tablet 3 TAB PO ×2 (08:26→17:12)
[2021-12-30] MEDS: nystatin powder 15 gm Btl 1 APPLIC TOPICAL ×2 (08:26→17:17)
[2021-12-30] MEDS: ferrous gluconate 324 mg Tablet PO ×2 (08:26→17:13)
--- NOTE | 2021-12-30 08:34 | P.PN_ITS ---
Subjective Subjective: POD 2 Patient resting comfortably. States physical therapy had him sitting up at the bedside. He reports improvement of his leg pain and weakness. Denies any shortness of breath, headaches, chest pain. Vitals/I&O/Wt Last Vital Signs Temp 98.2 F 12/30/21 08:00 Pulse 90 12/30/21 08:00 Resp 16 12/30/21 08:00 BP 125/74 12/30/21 08:00 Pulse Ox 94 12/30/21 08:00 O2 Del Method 12/30/21 08:00 O2 Flow Rate 3 12/28/21 18:00 12/29/21 12/30/21 12/30/21 22:59 06:59 14:59 Intake Total 350 / 2660 420 / 3080 Output Total 1465 / 1465 1110 / 2575 Balance -1115 / 1195 -690 / 505 Physical Exam Narrative: He is alert orient x3 has good general appearance normal mood and affect. He is able to move both lower extremities appears to fire in all motor groups with weakness in both lower extremities as well. Wiggles his toes slightly. Good sensation to light touch. Pulses are palpable. Urinary Catheter Management: Coude: Cath Placed During This Visit: yes Reason for Continuing Indwelling Catheter: Required Immobilization for Trauma or Surgery or Anesthesia Urinary Catheter Date of Insertion: 12/28/21 Urinary Catheter Time of Insertion: 12:42 Data : 12/30/21 09:30 12/30/21 00:50 Micro: Microbiology 12/28/21 15:42 Gram Stain - Final Back Anaerobic Culture - Preliminary Abscess Culture - Preliminary 12/29/21 13:17 Blood Culture - Preliminary Blood SPECIMEN COLLECTED 12/29/21 13:08 Blood Culture - Preliminary Blood SPECIMEN COLLECTED 12/28/21 07:00 Urine Culture - Preliminary Urine,Clean Catch 12/28/21 13:15 Urine Culture - Preliminary Urine Catheterized Gram Negative Rods A&P Assessment and plan (1) S/P spinal fusion: Physical therapy to evaluate and treat. Continue incentive spirometry for pulmonary toilet. Discontinue Hemovac drain. Discontinue Nino catheter when cleared by the hospitalist team. Status: Acute (2) Bilateral leg weakness: Status: Acute (3) Epidural abscess: Status: Resolved Attestations Medical Necessity Statement*: defer to medical team Coding Level of Care Code Acute Education Trainer for Chg Fwd Diagnoses S/P spinal fusion Z98.1 Bilateral leg weakness R29.898 Epidural abscess G06.2
--- NOTE | 2021-12-30 09:00 | PC.NURSE ---
Hemovac removed and dressing changed.
[2021-12-30 09:39] LABS: Hematocrit 28.5 % (42.0-52.0); Hemoglobin 8.6 g/dL (11.7-16.6)
[2021-12-30 11:12] LABS: Glucose Point of Care 232 mg/dL (70-110)
[2021-12-30] MEDS: enoxaparin 40 mg/0.4 mL Syringe SUBCUT (12:14)
--- NOTE | 2021-12-30 12:29 | PM.PN ---
Subjective Subjective: I repeated H&H today hemoglobin is 8.6 No hemodynamic instability Patient had 2 bowel movements in the last 12 hours Feeling well Cultures negative to date, I will wait for final culture report to date his 6 weeks of anti-MRSA coverage he will get IV vancomycin for at least 6 weeks with Vanco trough levels targeted between 15-20 Vitals/I&O/Wt Last Vital Signs Temp 98.2 F 12/30/21 08:00 Pulse 90 12/30/21 08:00 Resp 16 12/30/21 08:00 BP 125/74 12/30/21 08:00 Pulse Ox 94 12/30/21 08:00 O2 Del Method 12/30/21 08:00 O2 Flow Rate 3 12/28/21 18:00 12/29/21 12/30/21 12/30/21 22:59 06:59 14:59 Intake Total 350 / 2660 420 / 3080 360 / 360 Output Total 1465 / 1465 1110 / 2575 Balance -1115 / 1195 -690 / 505 360 / 360 Physical Exam Narrative: Patient laying supine No active complaints Nonfocal/no new focal deficit Abdomen distended nontender Had bowel movement today No audible stridor or wheezing Pleasant cooperative Able to move his lower extremity Able to work with PT with assistance Nino catheter in place Urinary Catheter Management: Coude: Cath Placed During This Visit: yes Reason for Continuing Indwelling Catheter: Required Immobilization for Trauma or Surgery or Anesthesia Urinary Catheter Date of Insertion: 12/28/21 Urinary Catheter Time of Insertion: 12:42 Data : 12/30/21 09:30 12/30/21 00:50 Micro: Microbiology 12/28/21 15:42 Gram Stain - Final Back Anaerobic Culture - Preliminary Abscess Culture - Preliminary Staphylococcus aureus 12/28/21 07:00 Urine Culture - Final Urine,Clean Catch 12/29/21 13:17 Blood Culture - Preliminary Blood SPECIMEN COLLECTED 12/29/21 13:08 Blood Culture - Preliminary Blood SPECIMEN COLLECTED 12/28/21 13:15 Urine Culture - Preliminary Urine Catheterized Gram Negative Rods A&P Assessment and plan (1) S/P spinal fusion: Status: Acute (2) 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 (3) Epidural abscess: Status: Resolved (4) Bilateral leg weakness: Status: Acute (5) Cord compression: Status: Suspected (6) Discitis: Status: Suspected Qualifiers: Spinal region: thoracic Qualified Code(s): M46.44 - Discitis, unspecified, thoracic region (7) Diabetes mellitus, type II: Status: Chronic Qualifiers: Diabetes mellitus halfway insulin use: with 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 use Diabetes mellitus complication status: with other specified complication Qualified Code(s): E11.69 - Type 2 diabetes mellitus with other specified complication; Z79.4 - termite technician (current) use of insulin (8) Resides in nursing home facility: Status: Chronic (9) BMI 40.0-44.9, adult: Status: Chronic (10) Osteomyelitis of thoracic spine: Status: Suspected (11) MRSA bacteremia: Status: Acute Plan Epidural abscess status post intervention / Status post spinal cord decompression My plan is to wait until the second set of blood culture come back negative, positive for MRSA bacteremia Afebrile, leukocytosis trending down, Postoperative anemia No need of blood transfusion for now Hemodynamically stable He will need at least 6 weeks of IV antibiotics with trough level between 15-20 base manager is aware regarding IV antibiotic indication Please note his PICC line was placed before surgery, his blood culture came back positive which were taken before his OR procedure Second set of blood cultures really crucial if it is negative we can plan his disposition from the hospital, in case of persistent bacteremia we might have to replace his PICC line Patient is able to work with PT DNR/DNI Regular diet Attestations Medical Necessity Statement*: Awaiting placement Time Spent in Patient Care: 30 Coding Level of Care Code Acute Electronic Scale Assembler And Tester for g Fwd Diagnoses S/P spinal fusion Z98.1 Paralysis of both lower limbs G82.20 Epidural abscess G06.2 Bilateral leg weakness R29.898 Cord compression G95.20 Discitis M46.44 Spinal region: thoracic Diabetes mellitus, type II E11.69; Z79.4 Diabetes mellitus 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 insulin use: with halfway use Diabetes mellitus complication status: with other specified complication Resides in nursing home facility Z78.9 BMI 40.0-44.9, adult Z68.41 Osteomyelitis of thoracic spine M46.24 MRSA bacteremia R78.81; B95.62
[2021-12-30 17:07] LABS: Glucose Point of Care 224 mg/dL (70-110)
[2021-12-30 20:46] LABS: Glucose Point of Care 183 mg/dL (70-110)
[2021-12-30] MEDS: insulin glargine 100 units/1 mL 25 UNIT SUBCUT (21:37)
[2021-12-31] VITALS (7 sets, daily range): BP systolic 124–129; BP diastolic 69–83; PULSE 92–96; RESP 17–18; TEMP 36.7–37; O2SAT 94–96
[2021-12-31] MEDS: vancomycin 1,500 MG/300 ML PIGGYBACK 200 MG IV ×2 (02:35→11:18)
[2021-12-31 05:10] LABS: Basophils # 0.1 10^3/uL (0.0-0.1); Basophils % 0.4 %; Eosinophils # 0.1 10^3/uL (0.0-0.8); Eosinophils % 0.7 %; Hematocrit 29.2 % (42.0-52.0); Hemoglobin 8.4 g/dL (11.7-16.6); Lymphocytes # 2.4 10^3/uL (0.8-4.8); Lymphocytes % 19.7 %; Mean Corpuscular HGB Conc 28.8 g/dL (30.0-36.0); Mean Corpuscular Hemoglobin 23.1 pg (28.0-34.0); Mean Corpuscular Volume 80.4 fl (80-94); Mean Platelet Volume 8.4 fL (7.4-10.4); Monocytes % 8.2 %; Neutrophils # 8.38 10^3/uL (1.8-7.7); Neutrophils % 70.2 %; Nucleated Red Blood Cells % 0.2 %; Platelet Count 377 10^3/cmm (130-400); Red Blood Count 3.63 10^6/uL (4.1-5.3)
[2021-12-31 05:37] LABS: Anion Gap 12.3 (5-19); Blood Urea Nitrogen 8 mg/dL (6-20); Carbon Dioxide 24 mmol/L (22-29); Chloride 101 mmol/L (98-107); Glomerular Filtration Rate 225.9 mL/min (90-130); Glucose 163 mg/dL (65-115); Osmolality Calculated 278 mOsm/kg (285-295); Potassium 4.3 mmol/L (3.5-5.1); Sodium 133 mmol/L (136-145)
[2021-12-31 06:42] LABS: Glucose Point of Care 188 mg/dL (70-110)
--- NOTE | 2021-12-31 06:53 | P.PN_ITS ---
Documented by User: Scott Quintana PA-C 12/31/21 07:09 Subjective Subjective: POD 3 Patient resting comfortably. Physical therapy set at him up at the bedside yesterday. Reports having bowel movements. Vitals/I&O/Wt Last Vital Signs Temp 98.6 F 12/31/21 05:13 Pulse 95 12/31/21 05:13 Resp 17 12/31/21 05:13 BP 124/83 12/31/21 05:13 Pulse Ox 94 12/31/21 04:00 O2 Del Method 12/30/21 16:00 O2 Flow Rate 3 12/30/21 22:18 12/30/21 12/30/21 12/31/21 14:59 22:59 06:59 Intake Total 900 / 900 660 / 1560 1220 / 2780 Output Total 60 / 60 660 / 720 1200 / 1920 Balance 840 / 840 0 / 840 20 / 860 Weight last 48 hrs Weight 340 lb 14.4 oz Physical Exam Narrative: He is alert orient x3 has good general appearance normal mood and affect.? He is able to move both lower extremities appears to fire in all motor groups with weakness in both lower extremities as well.? Wiggles his toes slightly.? Good sensation to light touch.? Pulses are palpable. Urinary Catheter Management: Coude: Cath Placed During This Visit: yes Reason for Continuing Indwelling Catheter: Required Immobilization for Trauma or Surgery or Anesthesia Urinary Catheter Date of Insertion: 12/28/21 Urinary Catheter Time of Insertion: 12:42 Data : 12/31/21 05:00 12/31/21 05:00 Micro: Microbiology 12/28/21 15:42 Gram Stain - Final Back Anaerobic Culture - Preliminary Abscess Culture - Preliminary Staphylococcus aureus 12/29/21 13:08 Blood Culture - Preliminary Blood NEGATIVE TO DATE 12/29/21 13:17 Blood Culture - Preliminary Blood NEGATIVE TO DATE 12/27/21 14:45 Blood Culture - Preliminary Blood Staphylococcus aureus 12/27/21 14:45 Blood Culture - Preliminary Blood Staphylococcus aureus 12/28/21 13:15 Urine Culture - Final Urine Catheterized Proteus mirabilis 12/28/21 07:00 Urine Culture - Final Urine,Clean Catch A&P Assessment and plan (1) S/P spinal fusion: Continue to work with physical therapy. Dressings were changed yesterday. Continue incentive spirometry for pulmonary toilet. Status: Acute (2) Epidural abscess: Status: Resolved Attestations Medical Necessity Statement*: defer to medical team Coding Level of Care Code Acute Glucose And Syrup Weigher for Chg Fwd Diagnoses S/P spinal fusion Z98.1 Epidural abscess G06.2 Documented by User: Neo Meneses DO 12/31/21 07:12 Physical Exam Urinary Catheter Management: Coude: Cath Placed During This Visit: yes Data : 12/31/21 05:00 12/31/21 05:00 A&P Assessment and plan (1) S/P spinal fusion: Status: Acute (2) Epidural abscess: Status: Resolved Coding Level of Care Code Acute Glucose And Syrup Weigher for Chg Fwd Diagnoses S/P spinal fusion Z98.1 Epidural abscess G06.2
[2021-12-31] MEDS: insulin lispro 100 unit/1 mL SUBCUT ×3 (09:22→11:24)
[2021-12-31] MEDS: lactobacillus 1 Tablet 3 TAB PO (09:22)
[2021-12-31] MEDS: metoprolol tartrate 25 mg Tablet PO (09:22)
[2021-12-31] MEDS: sitagliptin 100 mg Tablet PO (09:22)
[2021-12-31] MEDS: docusate sodium 100 mg Capsule PO (09:22)
[2021-12-31] MEDS: ferrous gluconate 324 mg Tablet PO (09:22)
[2021-12-31] MEDS: nystatin powder 15 gm Btl 1 APPLIC TOPICAL (09:51)
[2021-12-31] MEDS: enoxaparin 40 mg/0.4 mL Syringe SUBCUT (11:20)
[2021-12-31] MEDS: acetaminophen 325 mg Tablet 650 MG PO (11:21)
[2021-12-31 11:22] LABS: Glucose Point of Care 232 mg/dL (70-110)
--- NOTE | 2021-12-31 11:53 | P.DS_ITS ---
Discharge Providers Date of Admission: 12/27/21 15:33 Date of Discharge: December 31, 2021 Attending Provider at Admission: Armida Madera MD Attending Provider at Discharge: Raúl Ricks MD Primary Care Provider: Rakel Kendall MD Diagnoses at Discharge Discharge Diagnosis (1) S/P spinal fusion: Status: Acute (2) Epidural abscess: Status: Resolved Permanent problem details: Streptococcus agalactiae - treated with 12 week IV ceftriaxone followed by 8 week oral cefadroxil in 2020. No clear source of bacteria identified beyond urine with same organism at time. Reason for Visit Reason for Visit: SUDDEN LOSS OF MOBILITY Hospital Course Hospital Course Please see detailed H&P done by Dr. Madera on 12/27 Hospital course Patient was admitted for management evaluation of epidural abscess T7-T11 with fracture of T9 and T10, Dr. Meneses was consulted, status post intervention 12/28 1. 1.T6- L1 posterior spine fusion 2.? T6- L1 instrumentation 3.? T8/9 laminectomy with partial facetectomy 4.? T9/ 10 laminectomy with partial facetectomy 5.? T10/T11 laminectomy with partial facetectomy 6. use of computer navigation/ stereotactic for the spine 7.? I+D of T9/10 disc space 8. reduction of T9/10 fracture kyphotic deformity 9.? use of allograft bone Preoperatively PICC line was placed, blood culture from day of admission came back positive for MRSA,, leukocytosis trending down, initial leukocytosis was likely related to use of Decadron, patient noted significant difference in motor activity of lower extremities, he was able to participate with PT after his surgery, no postop complications however noticed mild decrease in H&H however no hemodynamic instability, Nino catheter was placed preoperatively by Dr. Klein because nurses failed to pass catheter. Urethral stricture was noticed which was dilated. Repeat cultures negative to date. I will discharge him on vancomycin 1500 mg every 12 hours 6-week regimen. Trough target level 15-20. Experiencing liquid stools, requested C. difficile panel. Patient will [facility] to his [facility] weeks of IV therapy starting from negative culture date 12/29 Physical Exam Narrative: Patient is laying supine Able to move his lower extremities Sensations intact Nino catheter in place Awake and alert Nonfocal neuro exam Abdomen soft Liquid stools Urinary Catheter Management: Coude: Cath Placed During This Visit: yes Reason for Continuing Indwelling Catheter: Required Immobilization for Trauma or Surgery or Anesthesia Urinary Catheter Date of Insertion: 12/28/21 Urinary Catheter Time of Insertion: 12:42 Discharge Data Studies Completed and Pending Completed Studies During Hospitalization Category Date Time Status CXRP [XR chest 1V portable [id number]] Routine Exams 12/28/21 10:35 Completed XR chest 1V portable [id number] Routine Exams 12/28/21 11:04 Completed MR cervical spin wo con* [id number] Urgent MRI 12/27/21 13:02 Completed MR lumbar spine wo con* [id number] Urgent MRI 12/27/21 11:37 Completed MR thoracic spin wo con* [id number] Urgent MRI 12/27/21 13:02 Completed Pending at discharge Category Date Time Status C-arm Fluoroscopy [id number] Routine Exams 12/28/21 17:42 Ordered Abscess Culture and Gram Stain Routine Lab 12/28/21 15:42 Results Anaerobic Culture Routine Lab 12/28/21 15:42 Results Blood Culture Stat Lab 12/27/21 14:45 Results Blood Culture Stat Lab 12/29/21 13:17 Results Radiology Impressions Lumbar Spine MRI 12/27/21 11:37 IMPRESSION: 1. Seen on the nurse educator survey is a new focal kyphosis at T9-10 with fluid in the disc space and retropulsion and severe stenosis centrally. This level will be better evaluated on a dedicated MRI of the thoracic spine to follow but consistent with cord compression which may be due to discitis as there is fluid along the disc space. 2. Moderate size central disc protrusion at L3-4 is contacting the traversing L4 nerve roots, RIGHT greater than LEFT. Similar to the prior study. 3. Mild central, bilateral subarticular recess stenosis and foraminal stenosis L4-5. 4. Central disc protrusion and possibly additional small protrusions in the foramina at L5-S1. Disc contacts the exiting L5 nerve roots bilaterally. Mild to moderate foraminal stenosis. Cervical Spine MRI 12/27/21 13:02 IMPRESSION: 1. Limited evaluation of the cervical spine due to patient's pain. 2. No discitis or osteomyelitis identified on this unenhanced study in the cervical spine. Mild to moderate foraminal stenosis at C5-6 due to disc and osteophyte disease. 3. No high-grade central stenosis. Thoracic Spine MRI 12/27/21 13:02 IMPRESSION: 1. Significant adverse change in appearance of the T9 and T10 vertebral bodies since 09/03/2021. 2. Fluid along the T9-10 disc space with complete loss of the disc space and a focal kyphosis. Findings consistent with discitis and highly suspicious for osteomyelitis even without contrast. 3. Retropulsion of the posterior T9 and T10 vertebral bodies versus an epidural abscess. Severe compression on the thoracic cord at this level with foraminal narrowing. 4. Large amount of paravertebral inflammation predominantly surrounded the T9 and T10 vertebral bodies. Notified Chani Crawford MD at 12/27/2021 2:06 PM. Chest X-Ray 12/28/21 11:04 IMPRESSION: Satisfactory position of PICC line status post repositioning. Laboratory Results WBC 12.0 10^3/uL (4.0-10.0) H 12/31/21 05:00 RBC 3.63 10^6/uL (4.1-5.3) L 12/31/21 05:00 Hgb 8.4 g/dL (11.7-16.6) L 12/31/21 05:00 Hct 29.2 % (42.0-52.0) L 12/31/21 05:00 MCV 80.4 fl (80-94) D 12/31/21 05:00 MCH 23.1 pg (28.0-34.0) L 12/31/21 05:00 MCHC 28.8 g/dL (30.0-36.0) L D 12/31/21 05:00 RDW 15.0 % (12.1-15.1) 12/31/21 05:00 Plt Count 377 10^3/cmm (130-400) 12/31/21 05:00 MPV 8.4 fL (7.4-10.4) 12/31/21 05:00 Neut % (Auto) 70.2 % 12/31/21 05:00 Lymph % (Auto) 19.7 % 12/31/21 05:00 Greene % (Auto) 8.2 % 12/31/21 05:00 Eos % (Auto) 0.7 % 12/31/21 05:00 Baso % (Auto) 0.4 % 12/31/21 05:00 Neut # (Auto) 8.38 10^3/uL (1.8-7.7) H 12/31/21 05:00 Lymph # (Auto) 2.4 10^3/uL (0.8-4.8) 12/31/21 05:00 Greene # (Auto) 1.0 10^3/uL (0.2-0.9) H 12/31/21 05:00 Eos # (Auto) 0.1 10^3/uL (0.0-0.8) 12/31/21 05:00 Baso # (Auto) 0.1 10^3/uL (0.0-0.1) 12/31/21 05:00 Nucleated RBC % (auto) 0.2 % 12/31/21 05:00 Nucleated RBCs # 0.0 /100WBC 12/31/21 05:00 ESR 40 mm/hr (0-10) H 12/29/21 04:13 PT 15.50 SECONDS (12.1-14.9) H 12/27/21 14:45 INR 1.20 (0.8-1.2) 12/27/21 14:45 APTT 42.0 SECONDS (23.9-36.7) H 12/27/21 14:45 Sodium 133 mmol/L (136-145) L 12/31/21 05:00 Potassium 4.3 mmol/L (3.5-5.1) 12/31/21 05:00 Chloride 101 mmol/L (98-107) 12/31/21 05:00 Carbon Dioxide 24 mmol/L (22-29) 12/31/21 05:00 Anion Gap 12.3 (5-19) 12/31/21 05:00 BUN 8 mg/dL (6-20) 12/31/21 05:00 Creatinine 0.4 mg/dL (0.7-1.2) L 12/31/21 05:00 GFR Calculation 225.9 mL/min (90-130) H 12/31/21 05:00 Glucose 163 mg/dL (65-115) H 12/31/21 05:00 POC Glucose 232 mg/dL (70-110) H 12/31/21 11:17 Estimat Average Glucose 146 12/28/21 04:58 Hemoglobin A1c 6.7 % (4.0-6.0) H 12/28/21 04:58 Calculated Osmolality 278 mOsm/kg (285-295) L 12/31/21 05:00 Lactic Acid 0.9 mmol/L (0.5-2.2) 12/27/21 17:22 Calcium 8.0 mg/dL (8.5-10.5) L 12/31/21 05:00 Phosphorus 3.0 mg/dL (2.5-4.5) 12/28/21 04:58 Phosphorus Cancelled 12/28/21 04:58 Magnesium 1.9 mg/dL (1.7-2.3) 12/28/21 04:58 Magnesium Cancelled 12/28/21 04:58 Total Bilirubin 0.2 mg/dL (0.15-1.2) 12/28/21 04:58 AST 11 U/L (0-40) 12/28/21 04:58 ALT 14 U/L (0-41) 12/28/21 04:58 Alkaline Phosphatase 97 IU/L (40-130) 12/28/21 04:58 Troponin T Gen 5 ng/L 17 ng/L (0-15) H 12/28/21 04:58 C-Reactive Protein 68.7 mg/L (0.0-4.9) H 12/29/21 04:13 C-Reactive Protein Cancelled 12/29/21 04:13 NT-Pro-B Natriuret Pep 121 pg/mL (0-125) 12/28/21 04:58 NT-Pro-B Natriuret Pep Cancelled 12/28/21 04:58 Total Protein 7.7 g/dL (6.6-8.7) 12/28/21 04:58 Albumin 2.9 g/dL (3.5-5.2) L 12/28/21 04:58 Globulin 4.8 g/dL (1.3-4.6) H 12/28/21 04:58 Lipase Cancelled 12/27/21 11:48 Urine Color Yellow (Yellow) 12/28/21 07:00 Urine Appearance Cloudy (CLEAR) 12/28/21 07:00 Urine pH 7 (5-7) 12/28/21 07:00 Ur Specific Keo 1.005 (1.005-1.030) 12/28/21 07:00 Urine Protein Neg (Negative) 12/28/21 07:00 Urine Glucose (UA) 1+ (Normal) H 12/28/21 07:00 Urine Ketones 1+ (Negative) H 12/28/21 07:00 Urine Blood 2+ (Negative) H 12/28/21 07:00 Urine Nitrate Negative (Negative) 12/28/21 07:00 Urine Bilirubin Neg (Negative) 12/28/21 07:00 Urine Urobilinogen Norm mg/dL (Negative) 12/28/21 07:00 Ur Leukocyte Esterase 2+ (Negative) H 12/28/21 07:00 Urine RBC 5-10 /hpf (0-2) H 12/28/21 07:00 Urine WBC 55-80 /hpf (0-5) H 12/28/21 07:00 Ur Squamous Epith Cells 0-4 /hpf (0-5) H 12/28/21 07:00 Amorphous Sediment Not Reportable 12/28/21 07:00 Urine Bacteria 1+ /hpf (NONE) H 12/28/21 07:00 Urine Mucus Trace /hpf 12/28/21 07:00 Vancomycin Trough 13.5 ug/mL (10-15) 12/30/21 00:50 Blood Type O Positive 12/28/21 14:47 Rho(D) Type Positive 12/28/21 14:47 Antibody Screen Negative 12/28/21 14:47 Vitals Last Vital Signs Temp 98.0 F 12/31/21 07:45 Pulse 95 12/31/21 11:52 Resp 18 12/31/21 11:52 BP 129/69 12/31/21 11:52 Pulse Ox 96 12/31/21 11:52 O2 Del Method 12/31/21 11:52 O2 Flow Rate 3 12/30/21 22:18 Discharge Plan Discharge Patient Disposition: Xfer SNF Condition: Stable Prescriptions: New vancomycin 1.5 gram recon soln 1.5 g IV Q12H Qty: 10 0RF Continued metformin 1,000 mg tablet 1,000 mg PO BID acetaminophen 325 mg capsule 650 mg PO Q4H PRN (Reason: Pain) loperamide 2 mg Capsule 2 mg PO DAILY PRN (Reason: Diarrhea) metoprolol tartrate 25 mg Tablet 25 mg PO BID Weston Cough Drops 5.8 mg Lozenge 5.8 mg MUCOUS MEMBRANE Q2H PRN (Reason: Cough) ferrous gluconate 324 mg (37.5 mg iron) Tablet 324 mg PO BIDWM Qty: 60 0RF fluticasone propionate [Flonase Allergy Relief] 50 mcg/actuation spray,suspension 1 spray intranasal DAILY PRN (Reason: nasal congestion) Qty: 16 0RF Rx Instructions: administer into each nostril cyclobenzaprine 10 mg Tablet 10 mg PO TID PRN (Reason: Pain) Milk of Magnesia 400 mg/5 mL Suspension 30 ml PO DAILY PRN (Reason: Constipation) Januvia 100 mg Tablet 100 mg PO DAILY Lantus Solostar U-100 Insulin 100 unit/mL (3 mL) Insulin Pen 25 unit SUBCUT BEDTIME Held aspirin 325 mg tablet 325 mg PO DAILY Qty: 60 0RF Hold Instructions: Resume on 01/07/22. Discharge Orders: Discharge Order (Routine); Ordered 12/31/21 Ordered By: Raúl Ricks Other Ambulatory Orders: Vancomycin Trough (WEEKLY) Timeframe: 20220211 Facility: [facility] - Location: Lab - Main Lab Ordered By: Raúl Ricks Vancomycin Trough (WEEKLY) Timeframe: 20220212 Facility: [facility] - Location: Lab - Main Lab Ordered By: Raúl Ricks Vancomycin Trough (WEEKLY) Timeframe: 20220213 Facility: [facility] - Location: Lab - Main Lab Ordered By: Raúl Ricks Vancomycin Trough (WEEKLY) Timeframe: 20220214 Facility: [facility] - Location: Lab - Main Lab Ordered By: Raúl Ricks Vancomycin Trough (WEEKLY) Timeframe: 20220215 Facility: [facility] - Location: Lab - Main Lab Ordered By: Raúl Ricks Vancomycin Trough (WEEKLY) Timeframe: 20220216 Facility: [facility] - Location: Lab - Main Lab Ordered By: Raúl Ricks Referrals: [facility] [Outside] Rakel Kendall MD [Primary Care Provider] - Discharge Diet: Diabetic Discharge Activity: As per PT/OT instructions Discharge Attestations Time Spent in Discharge Care*: less than 30 min Status at Discharge: Cognitive status at discharge: cognitively intact , Behavioral status at discharge: cooperative , Quality Metrics Clinical Quality Measures [ No reported AMI, CVA or VTE this stay] Coding Level of Care Code Acute Chg FW DC note Diagnoses S/P spinal fusion Z98.1 Epidural abscess G06.2
--- NOTE | 2021-12-31 12:02 | P.PN_ITS ---
Subjective Subjective: Cultures negative to date He can be safely discharged back to [facility] accounting manager cpa working to place him back to his facility No leukocytosis sitting Afebrile Cultures negative date Hyponatremia improved Patient is endorsing feeling better Voiding trial today Vitals/I&O/Wt Last Vital Signs Temp 98.0 F 12/31/21 07:45 Pulse 95 12/31/21 11:52 Resp 18 12/31/21 11:52 BP 129/69 12/31/21 11:52 Pulse Ox 96 12/31/21 11:52 O2 Del Method 12/31/21 11:52 O2 Flow Rate 3 12/30/21 22:18 12/30/21 12/31/21 12/31/21 22:59 06:59 14:59 Intake Total 660 / 1560 1520 / 3080 240 / 240 Output Total 660 / 720 1200 / 1920 Balance 0 / 840 320 / 1160 240 / 240 Weight last 48 hrs Weight 154.63 kg Physical Exam Narrative: Patient in supine Nino catheter in place Able to move his extremities Sensations intact Awake and alert Nonfocal neuro exam Saturating well on room air Urinary Catheter Management: Coude: Cath Placed During This Visit: yes Reason for Continuing Indwelling Catheter: Required Immobilization for Trauma or Surgery or Anesthesia Urinary Catheter Date of Insertion: 12/28/21 Urinary Catheter Time of Insertion: 12:42 Data : 12/31/21 05:00 12/31/21 05:00 Micro: Microbiology 12/28/21 15:42 Gram Stain - Final Back Anaerobic Culture - Preliminary Abscess Culture - Final Staphylococcus aureus 12/29/21 13:08 Blood Culture - Preliminary Blood NEGATIVE TO DATE 12/29/21 13:17 Blood Culture - Preliminary Blood NEGATIVE TO DATE 12/27/21 14:45 Blood Culture - Preliminary Blood Staphylococcus aureus 12/27/21 14:45 Blood Culture - Preliminary Blood Staphylococcus aureus 12/28/21 13:15 Urine Culture - Final Urine Catheterized Proteus mirabilis 12/28/21 07:00 Urine Culture - Final Urine,Clean Catch A&P Assessment and plan (1) MRSA bacteremia: Status: Acute (2) S/P spinal fusion: Status: Acute (3) Cord compression: Status: Suspected (4) Epidural abscess: Status: Acute Plan Patient can be safely discharged back to facility Will send C. difficile panel for his diarrhea Vancomycin 1500 mg every 12 hours for 6 weeks starting 12/29 Hyponatremia improving Leukocytosis improving Afebrile Posterior mild anemia no need of blood transfusion Continue DVT prophylaxis Nino catheter to be removed, voiding trial Attestations Medical Necessity Statement*: Can be discharged today versus tomorrow Time Spent in Patient Care: 30 Coding Level of Care Code Acute Valve Maker for [facility] Fwd Diagnoses MRSA bacteremia R78.81; B95.62 S/P spinal fusion Z98.1 Cord compression G95.20 Epidural abscess G06.2
[2021-12-31] MEDS: HYDROcodone-acetaminophen 5-325 mg Tablet PO (17:05)
== END 2021-12-31 17:31 | disposition skilled nursing facility (03) | DRG 29 ==
LOC: ER 11:55 → MEDSURG 15:33
PROVIDERS: Anesthesiology; Orthopaedic Surgery; Urology; Admitting Provider Hospitalist; Emergency Provider Emergency Medicine; PCP Family Medicine; Visit Provider Internal Medicine
PROC: 0T7D7ZZ Dilation of Urethra, Via Natural or Artificial Opening (ICD-10-PCS; 2021-12-28 12:00)
DX: G06.2 Extradural and subdural abscess, unspecified (principal); G82.20 Paraplegia, unspecified; M46.24 Osteomyelitis of vertebra, thoracic region; Z68.41 Body mass index [BMI] 40.0-44.9, adult; Z99.3 Dependence on wheelchair; E11.65 Type 2 diabetes mellitus with hyperglycemia; I10 Essential (primary) hypertension; E66.9 Obesity, unspecified; M51.26 Other intervertebral disc displacement, lumbar region; M51.27 Other intervertebral disc displacement, lumbosacral region; N35.919 Unspecified urethral stricture, male, unspecified site; B95.62 Methicillin resistant Staphylococcus aureus infection as the cause of diseases classified elsewhere; D64.9 Anemia, unspecified; Z79.84 Long term (current) use of oral hypoglycemic drugs
CPT/HCPCS: 36415; 36416; 36569; 71045; 72141; 72146; 72148; 80048; 80053; 80202; 81001; 82962; 83036; 83605; 83735; 83880; 84100; 84484; 85014; 85018; 85025; 85610; 85651; 85730; 86140; 86850; 86900; 87040; 87070; 87075; 87077; 87086; 87150; 87186; 87205; 87493; 93005; 94760; 96365; 96367; 96372; 96375; 97110; 97530; 99285; C1713; C1751; J0295; J0330; J1100; J1170; J1644; J1650; J1815; J2270; J2370; J2405; J2704; J2710; J3010; J3370; J3490; J7050; P9041

== ENCOUNTER → 2022-01-11 11:46 | Outpatient (BNVA) | payer MEDICAID, SELFPAY | PROVIDERS: PCP Family Medicine; Visit Provider Orthopaedic Surgery | DX: Z47.89 Encounter for other orthopedic aftercare (principal) | CPT/HCPCS: 99024 ==

== ENCOUNTER 2022-01-14 10:34 | Emergency (ER) | payer MEDICAID, SELFPAY ==
[2022-01-14 10:43] VITALS: BP 113/78; PULSE 117; RESP 18; TEMP 36.6; O2SAT 97; BMI 41.8
--- NOTE | 2022-01-14 10:56 | ED_ITS ---
HPI - Wound/Laceration General: Chief Complaint: Wound/Laceration Stated Complaint: SURGICAL INCISION OPENED UP Time Seen by Provider: 01/14/22 10:42 History of Present Illness: Patient is a 51-year-old male comes to the ED for surgical incision site bleeding. Patient had spinal fusion and laminectomy procedure performed by Dr. Meneses on December 28, 2021. He is currently 17 days postop. Yesterday the INTERNET NETWORK SPECIALIST at the long term noticed he had a little bit of bleeding out of his surgical incision site and back. She stated that there is a small area in the middle of his surgical incision site that appears to have opened up. Only small amount of blood is drained out of incision site and no purulent drainage seen. Patient states that he does lay on his back a lot at long term. He says his back pain is well controlled and he reports no postop complications or pain. Denies any fevers, nausea or vomiting. Associated symptoms: Denies chills, fever(s), nausea or vomiting Review of Systems Const: Denies: fever(s), chills or fatigue Eyes: Denies: change in vision or eye discomfort ENMT: Denies: throat pain, odynophagia, nasal discharge or nasal congestion Card: Denies: chest pain, palpitations, edema, swelling of feet/ankles, dyspnea on exertion or orthopnea Resp: Denies: dyspnea, productive cough or non-productive cough GI: Denies: abdominal pain, nausea, vomiting, diarrhea, constipation or hematochezia : Denies: flank pain, difficulty urinating, dysuria or hematuria Musc: Denies: neck pain, back pain or extremity swelling Skin/Breast: Reports: surgical incision (Thoracic back surgical incision site wound opening up); Denies: rash or new lesions Neuro: Denies: headache(s), numbness in extremities or weakness in extremities PFSH ED PFSH: Medical History Acquired urinary meatal stenosis Bilateral leg weakness BMI 40.0-44.9, adult C. difficile colitis During treatment for epidural abscess in late 2019 and early 2020, recurrent issues Cord compression Diabetes Diabetes mellitus, type II Discitis Epidural abscess (~04/2020) Streptococcus agalactiae - treated with 12 week IV ceftriaxone followed by 8 week oral cefadroxil in 2020. No clear source of bacteria identified beyond urine with same organism at time. 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 Resides in [facility] facility Surgical History S/P laminectomy (05/23/20) T7-T11 for epidural abscess, laminectomy with partial facetectomy T7/8, T8/9, T9/10, T10/11 S/P spinal fusion Family History Father , from heart attack CAD (coronary artery disease) Mother Stroke Social History Smoking and tobacco status: never smoked Alcohol intake: current Alcohol intake frequency: holidays/special occasions only Housing: Longterm Physical Exam Const: COMMON NORMALS: no acute distress, patient oriented x3 and alert GENERAL APPEARANCE: cooperative HENMT: COMMON NORMALS: normocephalic HEAD & SCALP: normocephalic MOUTH: Normal oral and palatal mucosa present THROAT: posterior oropharynx normal and uvula midline Neck/C-Spine: COMMON NORMALS: supple GENERAL: Yes normal visual inspection Resp: COMMON NORMALS: normal respiratory effort, No retractions, No use of accessory muscles and clear to auscultation bilaterally AUSCULTATION: clear to auscultation bilaterally Cardio: COMMON NORMALS: regular rate, regular rhythm, S1 normal heart sound present, S2 normal heart sound present, No gallops present (Cardio), No clicks present (Cardio), No murmurs present (Cardio) and Peripheral pulses 2+ throughout RATE: regular rate RHYTHM: regular rhythm HEART SOUNDS: S1 normal heart sound present and S2 normal heart sound present PERIPHERAL PULSES: Peripheral pulses 2+ throughout GI: COMMON NORMALS: Normal to inspection, nondistended, normoactive bowel s ounds present, Soft to palpation, non-tender and no masses PALPATION: Yes Soft to palpation : COMMON NORMALS: Yes no CVA tenderness BLADDER/KIDNEY EXAM: Yes no CVA tenderness Back/Pelvis: COMMON NORMALS: no CVA tenderness OTHER: Incision site over thoracic spine appears to be healing well. No signs of any infection or cellulitis developing. In the middle of surgical incision site there is a very small wound dehiscence that is around 0.25 cm. No active bleeding and no purulent drainage noted. Extremity: COMMON NORMALS: normal to inspection Neuro: COMMON NORMALS: patient oriented x3 SENSORIUM/ORIENTATION: Yes alert GAIT: Yes Normal gait present Skin: GENERAL SKIN EXAM: dry skin Course Vital Signs: Vital signs: Vital Signs Temperature 97.9 F 01/14/22 10:43 Pulse Rate 110 H 01/14/22 12:27 Respiratory Rate 17 01/14/22 12:27 Blood Pressure 132/85 01/14/22 12:27 Pulse Oximetry 97 01/14/22 12:27 Oxygen Delivery Me thod 01/14/22 12:26 MDM - Wound/Laceration Medical Decision Making Patient is a 51-year-old male comes to the ED for surgical incision site bleeding. Patient had spinal fusion and laminectomy procedure performed by Dr. Meneses on December 28, 2021. INTERNET NETWORK SPECIALIST and long term said surgical wound on back is having some bleeding and appears to be opened up. He is currently 17 days postop. Denies any current symptoms. He currently resides in a long term and says that he does lay on his back a lot. He says his back pain is minimal. Denies any fevers nausea or vomiting. Vitals are stable. Exam shows incision site over thoracic spine appears to be healing well. No signs of any infection or cellulitis developing. In the middle of surgical incision site there is a ve ry small wound dehiscence that is around 0.25 cm. No active bleeding and no purulent drainage noted. I irrigated the surgical incision site excised with normal saline and then placed 3 Steri-Strips over small area of wound dehiscence. The nurse then placed a new bandage over incision site along with some triple antibiotic ointment. Labs were unremarkable. Patient was diagnosed with surgical wound dehiscence and was instructed on how to care for wound site. He was told to try to avoid laying on back and putting pressure on wound to help it heal. Lab Data I reviewed the patient's lab results. : 01/14/22 11:20 Laboratory Results WBC 10.4 10^3/uL (4.0-10.0) H 01/14/22 11:20 RBC 4.70 10^6/uL (4.1-5.3) 01/14/22 11:20 Hgb 10.5 g/dL (11.7-16.6) L 01/14/22 11:20 Hct 35.7 % (42.0-52.0) L 01/14/22 11:20 MCV 76.0 fl (80-94) L 01/14/22 11:20 MCH 22.3 pg (28.0-34.0) L 01/14/22 11:20 MCHC 29.4 g/dL (30.0-36.0) L 01/14/22 11:20 RDW 15.9 % (12.1-15.1) H 01/14/22 11:20 Plt Count 453 10^3/cmm (130-400) H 01/14/22 11:20 MPV 8.8 fL (7.4-10.4) 01/14/22 11:20 Neut % (Auto) 65.9 % 01/14/22 11:20 Lymph % (Auto) 22.0 % 01/14/22 11:20 [place] % (Auto) 6.5 % 01/14/22 11:20 Eos % (Auto) 3.9 % 01/14/22 11:20 Baso % (Auto) 1.2 % 01/14/22 11:20 Neut # (Auto) 6.88 10^3/uL (1.8-7.7) 01/14/22 11:20 Lymph # (Auto) 2.3 10^3/uL (0.8-4.8) 01/14/22 11:20 [place] # (Auto) 0.7 10^3/uL (0.2-0.9) 01/14/22 11:20 Eos # (Auto) 0.4 10^3/uL (0.0-0.8) 01/14/22 11:20 Baso # (Auto) 0.1 10^3/uL (0.0-0.1) 01/14/22 11:20 Nucleated RBC % (auto) 0 % 01/14/22 11:20 Nucleated RBCs # 0.0 /100WBC 01/14/22 11:20 Discharge Plan Discharge Patient Disposition: Home Clinical Impression: Surgical wound dehiscence Qualifiers: Encounter type: initial encounter Qualified Code(s): T81.31XA - Disruption of external operation (surgical) wound, not elsewhere classified, initial encounter Condition: Stable Prescriptions: New Triple Antibiotic 3.5mg-400 unit- 5,000 unit/gram ointment 1 applic topical DAILY Qty: 30 0RF No Action metformin 1,000 mg tablet 1,000 mg PO BID acetaminophen 325 mg capsule 650 mg PO Q4H PRN (Reason: Pain) aspirin 325 mg tablet 325 mg PO DAILY Qty: 60 0RF Hold Instructions: Resume on 01/07/22. loperamide 2 mg Capsule 2 mg PO DAILY PRN (Reason: Diarrhea) metoprolol tartrate 25 mg Tablet 25 mg PO BID [place] Cough Drops 5.8 mg Lozenge 5.8 mg MUCOUS MEMBRANE Q2H PRN (Reason: Cough) ferrous gluconate 324 mg (37.5 mg iron) Tablet 324 mg PO BIDWM Qty: 60 0RF fluticasone propionate [Flonase Allergy Relief] 50 mcg/actuation spray,suspens ion 1 spray intranasal DAILY PRN (Reason: nasal congestion) Qty: 16 0RF Rx Instructions: administer into each nostril cyclobenzaprine 10 mg Tablet 10 mg PO TID PRN (Reason: Pain) Milk of Magnesia 400 mg/5 mL Suspension 30 ml PO DAILY PRN (Reason: Constipation) Januvia 100 mg Tablet 100 mg PO DAILY Lantus Solostar U-100 Insulin 100 unit/mL (3 mL) Insulin Pen 25 unit SUBCUT BEDTIME vancomycin 1.5 gram recon soln 1.5 g IV Q12H Qty: 10 0RF Discharge Orders: Discharge ED (Routine); Ordered 01/14/22 Ordered By: Florentin Fournier Referrals: Rakel Kendall MD [Primary Care Provider] - Discharge Diet: Regular Discharge Activity: Increase activity as tolerated Activity Restrictions/Additional Instructions: Follow-up with medical provider as directed in the next 7 to 10 days for reevaluation. Minimize time laying on back which puts pressure on surgical wound site. Try sitting up or laying on side and frequently change positions throughout the day. Continue taking all home medications as previously presc ribed. Apply thin layer of triple antibiotic ointment on surgical site daily. Return to the ER or your medical provider if condition worsens. Please read and understand discharge instructions. Thank you for choosing [facility] for your healthcare needs today. Please realize this is an emergency room and that we are providing you with a medical screening exam and this may not be complete and all inclusive of all the testing and or work up that you may need to determine your ailment or severity of your illness. It is very important that you follow up as instructed or that you return to the Emergency Department should you have concerns or if your condition changes or worsens in any way. Coding Level of Care Code ED Key Account Executive for Kathy Fwd Exam Comprehensive
--- NOTE | 2022-01-14 11:08 | PC.NURSE ---
Patient here with c/o wound opening, had back fusing 2 weeks ago Monday
[2022-01-14] MEDS: neomycin-poly-bacitracin oint 28 gm 1 APPLIC TOPICAL (11:20)
--- NOTE | 2022-01-14 11:29 | PC.NURSE ---
Steri strips placed to incision, triple antibiotic ointment applied and new telfa adhesive island dressing placed, patient tolerated well.
[2022-01-14 11:37] LABS: Basophils # 0.1 10^3/uL (0.0-0.1); Basophils % 1.2 %; Eosinophils # 0.4 10^3/uL (0.0-0.8); Eosinophils % 3.9 %; Hematocrit 35.7 % (42.0-52.0); Hemoglobin 10.5 g/dL (11.7-16.6); Lymphocytes # 2.3 10^3/uL (0.8-4.8); Mean Corpuscular HGB Conc 29.4 g/dL (30.0-36.0); Mean Corpuscular Hemoglobin 22.3 pg (28.0-34.0); Mean Platelet Volume 8.8 fL (7.4-10.4); Monocytes # 0.7 10^3/uL (0.2-0.9); Monocytes % 6.5 %; Neutrophils # 6.88 10^3/uL (1.8-7.7); Neutrophils % 65.9 %; Nucleated Red Blood Cells % 0 %; Platelet Count 453 10^3/cmm (130-400); Red Cell Distribution Width 15.9 % (12.1-15.1); White Blood Count 10.4 10^3/uL (4.0-10.0)
--- NOTE | 2022-01-14 12:25 | PC.NURSE ---
Discharge instructions reviewed with patient including dressing/wound care and follow up. Patient report called to [facility].
[2022-01-14 12:26] VITALS: BP 132/85; PULSE 110; RESP 17; O2SAT 97
[2022-01-14 12:27] VITALS: BP 132/85; PULSE 110; RESP 17; O2SAT 97
== END 2022-01-14 14:04 | disposition home or self-care (01) ==
PROVIDERS: Emergency Provider Physician Assistant; PCP Family Medicine
DX: T81.31XA Disruption of external operation (surgical) wound, not elsewhere classified, initial encounter (principal); Z79.84 Long term (current) use of oral hypoglycemic drugs; Z79.82 Long term (current) use of aspirin; Z79.4 Long term (current) use of insulin; E11.9 Type 2 diabetes mellitus without complications; I10 Essential (primary) hypertension
CPT/HCPCS: 85025; 99283

== ENCOUNTER → 2022-01-27 13:41 | Outpatient (BNVA) | payer MEDICAID, SELFPAY | PROVIDERS: PCP Family Medicine; Visit Provider Student in an Organized Health Care Education/Training Program | DX: M46.24 Osteomyelitis of vertebra, thoracic region (principal) | CPT/HCPCS: 99213; 99215 ==

== ENCOUNTER → 2022-02-08 13:38 | Outpatient (BNVA) | payer MEDICAID, SELFPAY | PROVIDERS: PCP Family Medicine; Visit Provider Orthopaedic Surgery | DX: Z47.89 Encounter for other orthopedic aftercare (principal); Z98.1 Arthrodesis status; R21 Rash and other nonspecific skin eruption | CPT/HCPCS: 99024 ==

== ENCOUNTER 2022-02-22 14:09 | Emergency (ER) | payer MEDICAID, SELFPAY ==
[2022-02-22 14:28] VITALS: BP 129/69; PULSE 85; RESP 18; TEMP 36.7; O2SAT 97; BMI 43.0
--- NOTE | 2022-02-22 14:50 | W.ED.GENADLT ---
HPI - General Adult General: Chief complaint: General Medical Stated complaint: PICC LINE INFECTION Time Seen by Provider: 02/22/22 14:12 Source: patient Mode of arrival: ambulatory History of Present Illness: 51-year-old male presents emergency room from the group home. He has a PICC line and splint in place for around 6 days with excessive redness erythema. This was just noticed today denies any fever sweats or chills. No drainage from the wound. He previously had back surgery developed a postoperative infection and has been on a course of long-term antibiotics. The area on his back has still been red somewhat warm to the touch. He denies any other symptoms review of systems otherwise negative. Onset (ago): hour(s) Location: right and upper extremity Radiation: non-radiation Relieving factors: none Exacerbating factors: none Associated symptoms: Deny chest pain, confusion, cough, diaphoresis, decreased appetite, dyspnea, fevers/chills, headache(s), malaise, nausea, rash, palpitations, seizures, short of breath, syncope, vomiting or weakness Treatments prior to arrival: none Review of Systems Const: Denies: fever(s), chills, fatigue, malaise or diaphoresis ENMT: Denies: throat pain, ear or mastoid pain, nasal discharge or nasal congestion Card: Denies: chest pain, palpitations or syncope Resp: Denies: dyspnea, productive cough or non-productive cough GI: Denies: nausea or vomiting : Denies: flank pain, difficulty urinating, dysuria, urinary frequency or urinary urgency Skin/Breast: Denies: rash Neuro: Denies: headache(s) or confusion PFS ED PFSH: Medical History Acquired urinary meatal stenosis Bilateral leg weakness BMI 40.0-44.9, adult C. difficile colitis During treatment for epidural abscess in late 2019 and early 2020, recurrent issues Cord compression Diabetes Diabetes mellitus, type II Discitis Epidural abscess (~04/2020) Streptococcus agalactiae - treated with 12 week IV ceftriaxone followed by 8 week oral cefadroxil in 2020. No clear source of bacteria identified beyond urine with same organism at time. 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 Resides in [facility] facility Surgical History S/P laminectomy (05/23/20) T7-T11 for epidural abscess, laminectomy with partial facetectomy T7/8, T8/9, T9/10, T10/11 S/P spinal fusion Family History Father , from heart attack CAD (coronary artery disease) Mother Stroke Social History Smoking and tobacco status: never smoked Alcohol intake: current Alcohol intake frequency: holidays/special occasions only Housing: [facility] Physical Exam Const: GENERAL APPEARANCE: cooperative and comfortable ORIENTATION/CONSCIOUSNESS: Yes awake, Yes oriented to person, Yes oriented to place and Yes oriented to time HENMT: COMMON NORMALS: normocephalic, atraumatic and hearing grossly normal bilaterally HEAD & SCALP: normocephalic and atraumatic Resp: COMMON NORMALS: normal respiratory effort, No retractions, No use of accessory muscles and clear to auscultation bilaterally AUSCULTATION: clear to auscultation bilaterally Cardio: COMMON NORMALS: regular rate, regular rhythm and No murmurs present (Cardio) RATE: regular rate RHYTHM: regular rhythm GI: COMMON NORMALS: Soft to palpation and No hepatosplenomegaly present AUSCULTATION: Yes normoactive bowel sounds PALPATION: Yes Soft to palpation, No Tenderness to palpation present (GI), No Guarding due to palpation present (GI) and Yes No hepatosplenomegaly present Extremity: COMMON NORMALS: normal to inspection, capillary refill normal, no clubbing, cyanosis or edema, no calf tenderness and no pedal edema Neuro: SENSORIUM/ORIENTATION: Yes oriented to person, Yes oriented to place and Yes oriented to time Skin: COMMON NORMALS: no rashes or lesions noted GENERAL SKIN EXAM: no rashes or lesions noted Course Vital Signs: Vital signs: Vital Signs Temperature 98.1 F 02/22/22 14:28 Pulse Rate 72 02/22/22 15:49 Respiratory Rate 16 02/22/22 15:49 Blood Pressure 145/78 02/22/22 18:45 Pulse Oximetry 95 02/22/22 15:49 Oxygen Delivery Me thod 02/22/22 14:28 MDM - General Adult Medical Decision Making Patient presented group home who PICC line was removed and midline was placed to contact the Dr. Foster she agreed that that would be adequate for the remainder of treatment that is necessary. Tip was cultured she he is to follow-up with the infectious disease clinic continue current antibiotic regimen. Lab Data : 02/22/22 15:14 02/22/22 15:14 Laboratory Results WBC 11.6 10^3/uL (4.0-10.0) H 02/22/22 15:14 RBC 5.24 10^6/uL (4.1-5.3) 02/22/22 15:14 Hgb 11.3 g/dL (11.7-16.6) L 02/22/22 15:14 Hct 39.1 % (42.0-52.0) L 02/22/22 15:14 MCV 74.6 fl (80-94) L 02/22/22 15:14 MCH 21.6 pg (28.0-34.0) L 02/22/22 15:14 MCHC 28.9 g/dL (30.0-36.0) L 02/22/22 15:14 RDW 16.3 % (12.1-15.1) H 02/22/22 15:14 Plt Count 378 10^3/cmm (130-400) 02/22/22 15:14 MPV 9.7 fL (7.4-10.4) 02/22/22 15:14 Neut % (Auto) 65.5 % 02/22/22 15:14 Lymph % (Auto) 20.0 % 02/22/22 15:14 [place] % (Auto) 5.1 % 02/22/22 15:14 Eos % (Auto) 8.5 % 02/22/22 15:14 Baso % (Auto) 0.6 % 02/22/22 15:14 Neut # (Auto) 7.60 10^3/uL (1.8-7.7) 02/22/22 15:14 Lymph # (Auto) 2.3 10^3/uL (0.8-4.8) 02/22/22 15:14 [place] # (Auto) 0.6 10^3/uL (0.2-0.9) 02/22/22 15:14 Eos # (Auto) 1.0 10^3/uL (0.0-0.8) H 02/22/22 15:14 Baso # (Auto) 0.1 10^3/uL (0.0-0.1) 02/22/22 15:14 Nucleated RBC % (auto) 0 % 02/22/22 15:14 Nucleated RBCs # 0.0 /100WBC 02/22/22 15:14 Sodium 137 mmol/L (136-145) 02/22/22 15:14 Potassium 4.2 mmol/L (3.5-5.1) 02/22/22 15:14 Chloride 100 mmol/L (98-107) 02/22/22 15:14 Carbon Dioxide 26 mmol/L (22-29) 02/22/22 15:14 Anion Gap 15.2 (5-19) 02/22/22 15:14 BUN 10 mg/dL (6-20) 02/22/22 15:14 Creatinine 0.6 mg/dL (0.7-1.2) L 02/22/22 15:14 GFR Calculation 141.5 mL/min (90-130) H 02/22/22 15:14 Glucose 107 mg/dL (65-115) 02/22/22 15:14 Calculated Osmolality 284 mOsm/kg (285-295) L 02/22/22 15:14 Calcium 9.1 mg/dL (8.5-10.5) 02/22/22 15:14 Total Bilirubin 0.2 mg/dL (0.15-1.2) 02/22/22 15:14 AST 8 U/L (0-40) 02/22/22 15:14 ALT < 5 U/L (0-41) 02/22/22 15:14 Alkaline Phosphatase 119 U/L (40-130) 02/22/22 15:14 Total Protein 7.1 g/dL (6.6-8.7) 02/22/22 15:14 Albumin 3.4 g/dL (3.5-5.2) L 02/22/22 15:14 Globulin 3.7 g/dL (1.3-4.6) 09/27/22 15:14 Discharge Plan Discharge Patient Disposition: Home Clinical Impression: Cellulitis of arm, right, Osteomyelitis of thoracic region Condition: Stable Prescriptions: No Action metformin 1,000 mg tablet 1,000 mg PO BID acetaminophen 325 mg capsule 650 mg PO Q4H PRN (Reason: Pain) aspirin 325 mg tablet 325 mg PO DAILY Qty: 60 0RF Hold Instructions: Resume on 01/07/22. loperamide 2 mg Capsule 2 mg PO DAILY PRN (Reason: Diarrhea) metoprolol tartrate 25 mg Tablet 25 mg PO BID [place] Cough Drops 5.8 mg Lozenge 5.8 mg MUCOUS MEMBRANE Q2H PRN (Reason: Cough) ferrous gluconate 324 mg (37.5 mg iron) Tablet 324 mg PO BIDWM Qty: 60 0RF fluticasone propionate [Flonase Allergy Relief] 50 mcg/actuation spray,suspension 1 spray intranasal DAILY PRN (Reason: nasal congestion) Qty: 16 0RF Rx Instructions: administer into each nostril cyclobenzaprine 10 mg Tablet 10 mg PO TID PRN (Reason: Pain) Milk of Magnesia 400 mg/5 mL Suspension 30 ml PO DAILY PRN (Reason: Constipation) Januvia 100 mg Tablet 100 mg PO DAILY Lantus Solostar U-100 Insulin 100 unit/mL (3 mL) Insulin Pen 25 unit SUBCUT BEDTIME vancomycin 1.5 gram recon soln 1.5 g IV Q12H Qty: 10 0RF Triple Antibiotic 3.5mg-400 unit- 5,000 unit/gram ointment 1 applic topical DAILY Qty: 30 0RF Discharge Orders: Discharge ED (Routine); Ordered 02/22/22 Ordered By: Ilya Mcarthur Referrals: Rakel Kendall MD [Primary Care Provider] - Discharge Diet: Usual diet Discharge Activity: Resume usual activity Patient Instructions: Opioid Safety, Pain Management Activity Restrictions/Additional Instructions: Follow-up with infectious disease clinic. Coding Level of Care Code ED Telecommunications Specialist for Dillang Fwd Exam Detailed
[2022-02-22 15:22] LABS: Basophils # 0.1 10^3/uL (0.0-0.1); Basophils % 0.6 %; Eosinophils % 8.5 %; Hematocrit 39.1 % (42.0-52.0); Hemoglobin 11.3 g/dL (11.7-16.6); Lymphocytes # 2.3 10^3/uL (0.8-4.8); Mean Corpuscular HGB Conc 28.9 g/dL (30.0-36.0); Mean Corpuscular Hemoglobin 21.6 pg (28.0-34.0); Mean Corpuscular Volume 74.6 fl (80-94); Mean Platelet Volume 9.7 fL (7.4-10.4); Monocytes # 0.6 10^3/uL (0.2-0.9); Monocytes % 5.1 %; Neutrophils % 65.5 %; Nucleated Red Blood Cells % 0 %; Platelet Count 378 10^3/cmm (130-400); Red Blood Count 5.24 10^6/uL (4.1-5.3); Red Cell Distribution Width 16.3 % (12.1-15.1); White Blood Count 11.6 10^3/uL (4.0-10.0)
[2022-02-22 15:39] LABS: Alanine Aminotransferase < 5 U/L (0-41); Albumin Level 3.4 g/dL (3.5-5.2); Alkaline Phosphatase 119 U/L (40-130); Anion Gap 15.2 (5-19); Aspartate Amino Transferase 8 U/L (0-40); Blood Urea Nitrogen 10 mg/dL (6-20); Calcium 9.1 mg/dL (8.5-10.5); Carbon Dioxide 26 mmol/L (22-29); Chloride 100 mmol/L (98-107); Globulin 3.7 g/dL (1.3-4.6); Glomerular Filtration Rate 141.5 mL/min (90-130); Glucose 107 mg/dL (65-115); Osmolality Calculated 284 mOsm/kg (285-295); Potassium 4.2 mmol/L (3.5-5.1); Sodium 137 mmol/L (136-145); Total Bilirubin 0.2 mg/dL (0.15-1.2); Total Protein 7.1 g/dL (6.6-8.7)
[2022-02-22 15:49] VITALS: BP 141/82; PULSE 72; RESP 16; O2SAT 95
[2022-02-22 17:42] VITALS: BP 154/80
[2022-02-22] MEDS: ceFAZolin 2,000 mg SDV 2000 MG IVP (18:32)
[2022-02-22 18:40] VITALS: BP 145/78
[2022-02-22 18:45] VITALS: BP 145/78
== END 2022-02-22 18:47 | disposition home or self-care (01) ==
PROVIDERS: Emergency Provider Family Medicine; PCP Family Medicine
DX: L03.113 Cellulitis of right upper limb (principal); M46.24 Osteomyelitis of vertebra, thoracic region; Z79.82 Long term (current) use of aspirin; Z79.4 Long term (current) use of insulin; Z79.84 Long term (current) use of oral hypoglycemic drugs; E11.9 Type 2 diabetes mellitus without complications; I10 Essential (primary) hypertension
CPT/HCPCS: 36415; 36569; 80053; 85025; 87040; 96374; 99284

== ENCOUNTER → 2022-03-08 14:11 | Outpatient (BNVA) | payer MEDICAID, SELFPAY | PROVIDERS: PCP Family Medicine; Visit Provider Orthopaedic Surgery | DX: Z47.89 Encounter for other orthopedic aftercare (principal); Z98.1 Arthrodesis status | CPT/HCPCS: 99024; 99212 ==

== ENCOUNTER → 2022-03-10 12:54 | Outpatient (BNVA) | payer MEDICAID, SELFPAY | PROVIDERS: PCP Family Medicine; Visit Provider Student in an Organized Health Care Education/Training Program | DX: M46.24 Osteomyelitis of vertebra, thoracic region (principal) | CPT/HCPCS: 99213; 99214 ==

== ENCOUNTER 2022-04-06 07:26 | Outpatient (CLI) | payer MEDICAID, SELFPAY ==
--- NOTE | 2022-04-06 08:00 | MR_ITS ---
WS: [id number] MRI THORACIC SPINE WITH CONTRAST TECHNIQUE: Sagittal T1, T2 and STIR imaging. Axial T2 imaging. Post gadolinium imaging was obtained. CLINICAL INFORMATION: follow up thoacic spine osteomyelitis/discitis COMPARISON: December 27, 2021 FINDINGS: Postoperative changes are new from previous. Postoperative changes partial corpectomy and discectomy at the previously described T9-T10 discitis/osteomyelitis with epidural abscess. Decompression of the spinal canal with epidural abscess evacuation. No recurrent high-grade stenosis. Cord signal is norm al. Postoperative changes pedicle screw fixation above and below the T9-T10 levels. Pedicle screw fixation at T6-T8 and T11-L1. Hardware significantly degrades images due to susceptibi lity artifact. No evidence of recurrent discitis or enhancement considering limitations. Small disc p rotrusions in the upper thoracic spine similar to previous. Normal caliber thoracic aorta. No other r emarkable findings. MR/MR thoracic spine wo/w [id number] IMPRESSION: Exam is somewhat limited due to susceptibility artifact from hardwa re. 1. New postoperative changes corpectomy with discectomy at the T9-T10 levels d ue to discitis/osteomyelitis with evacuation of the previously described epidur al abscess. Decompression spinal canal. 2. No evidence of recurrent discitis or abscess. 3. No recurrent central canal stenosis. Cord signal appears normal. 4. Postoperative changes pedicle screw fixation T6-T8 and T11-L1
[2022-04-06] MEDS: gadobenate dimeglumine 20 mL vial IV (09:06)
== END 2022-04-06 07:27 | disposition home or self-care (01) ==
LOC: RAD 07:27
PROVIDERS: PCP Family Medicine; Visit Provider Student in an Organized Health Care Education/Training Program
DX: M46.24 Osteomyelitis of vertebra, thoracic region (principal)
CPT/HCPCS: 72157; A9577

== ENCOUNTER 2022-04-14 11:52 | Outpatient (CLI) | payer MEDICAID, SELFPAY ==
--- NOTE | 2022-04-14 12:45 | USCV_ITS ---
Joey Booth Age: 51 Gender: M : 1970 Exam Date: 04/14/2022 12:45 Ordering Phys: Carlotta Foster MD Technologist: CHELSEA [place] [facility] [place]: RECURRENT INFECTION OF SPINE BP: 121 / 70 HR: 79 Rhythm: Sinus Technical Quality: Poor because of body habitus MEASUREMENTS (Male / Female) Normal Values 2D ECHO LVOT Diameter 2.0 cm LA Diameter 2.8 cm Aorta at Sinotubular Diameter 2.3 cm M-MODE Aortic Annulus Diameter 3.1 cm LA Ao Ratio MM 1.0 MV E Point Septal Separation 1.6 cm DOPPLER Right Atrial Pressure 8.0 mmHg PV Peak Velocity 97.0 cm/s RV Acceleration Time 0.2 s RV Ejection Time 0.3 s RV AcT/ET 0.7 FINDINGS Left Ventricle Technically very difficult study because of the poor ultrasonic window. Normal left ventricular size and ejection fraction. Right Ventricle Could not be visualized Right Atrium Could not be visualized Left Atrium Could not be visualized Mitral Valve Could not be visualized Aortic Valve Could not be visualized Tricuspid Valve Could not be visualized Pulmonic Valve Could not be visualized Pericardium No pericardial effusion Aorta Not visualized IVC Inferior vena cava not visualized. CONCLUSIONS Possibly normal LV size ejection fraction. No significant pericardial effusion. Technically very difficult study because of the poor ultrasonic window Dr Skylar Parry MD FAC (Electronically Signed) Final Date: 14 April 2022 20:55 S
== END 2022-04-14 11:53 | disposition home or self-care (01) ==
LOC: RAD 11:53
PROVIDERS: PCP Family Medicine; Visit Provider Student in an Organized Health Care Education/Training Program
DX: M46.24 Osteomyelitis of vertebra, thoracic region (principal)
CPT/HCPCS: 93306

== ENCOUNTER 2022-05-10 13:43 | Outpatient (CLI) | payer MEDICAID, SELFPAY ==
--- NOTE | 2022-05-10 13:57 | MR_ITS ---
WS: [id number] MRI THORACIC SPINE with and without contrast. HISTORY: follow up spine osteomyelitis COMPARISON: 04/06/2022 TECHNIQUE: Multiplanar sequences are performed in sagittal and axial planes. Post contrast imaging, Wesley Fernandez 20 mL's. Postoperative partial corpectomy and discectomy at T9-10. Pedicle screw fixation at T6-T8 and again T 11-L1. There is significant artifact from the hardware in the thoracic spine. Similar to the prior st udy. Although the study is limited and before meals no evidence for recurrent discitis or osteomyelit is. There are areas that are not well visualized due to the artifact. No compression upon the thoracic cord from T1 to T6. There is complete loss of signal with several le vels through the remaining thoracic spine making abscess is difficult to visualize. No new areas of e rossana. MR/MR thoracic spine wo/w [id number] IMPRESSION: 1. Postoperative changes of corpectomy and discectomy at T9-T10 appears stable . Taking into consideration the limitations secondary to hardware there has bee n no adverse change. 2. Posterior fixation from T6 to T8 and T11-L1 appears stable.
[2022-05-10] MEDS: gadobenate dimeglumine 20 mL vial IV (14:50)
== END 2022-05-10 13:44 | disposition home or self-care (01) ==
PROVIDERS: PCP Family Medicine; Visit Provider Student in an Organized Health Care Education/Training Program
DX: M46.24 Osteomyelitis of vertebra, thoracic region (principal)
CPT/HCPCS: 72157; A9577

== ENCOUNTER → 2022-06-16 13:01 | Outpatient (BNVA) | payer MEDICAID, SELFPAY | PROVIDERS: PCP Family Medicine; Visit Provider Student in an Organized Health Care Education/Training Program | DX: M46.24 Osteomyelitis of vertebra, thoracic region (principal) | CPT/HCPCS: 99213; 99214 ==

== ENCOUNTER → 2023-06-27 12:55 | Outpatient (BNVA) | payer MEDICAID, SELFPAY | PROVIDERS: PCP Family Medicine; Visit Provider Student in an Organized Health Care Education/Training Program | DX: M46.24 Osteomyelitis of vertebra, thoracic region (principal) | CPT/HCPCS: 99214 ==

== ENCOUNTER 2025-01-06 08:50 | Inpatient (IN) | payer MEDICAID, SELFPAY ==
[2025-01-06] VITALS (32 sets, daily range): BP systolic 82–126; BP diastolic 27–81; PULSE 98–121; RESP 16–26; TEMP 36.4–36.7; O2SAT 93–100
--- NOTE | 2025-01-06 09:11 | XRR_ITS ---
PROCEDURE INFORMATION: Exam: XR Chest Exam date and time: 01/06/2025 9:16 AM Age: 54 years old Clinical indication: Other: Weakness; Prior surgery; Surgery date: 6+ months; Surgery type: Spine TECHNIQUE: Imaging protocol: Radiologic exam of the chest. Views: 1 view. COMPARISON: CR XR chest 1V portable [id number] 12/28/2021 11:04 AM FINDINGS: Lungs: Minimal linear opacities are seen in the lung bases most probably representing atelectasis. Pleural spaces: Unremarkable. No pleural effusion. No pneumothorax. Heart/Mediastinum: Unremarkable. No cardiomegaly. Vasculature: There is mild uncoiling of the thoracic aorta. Bones/joints: Status post PLIF T5 caudally. XR/XR chest 1V portable [id number] IMPRESSION: 1. Minimal linear opacities in the lung bases could represent atelectasis versus parenchymal scarring. 2. Mild uncoiling of the thoracic aorta
--- NOTE | 2025-01-06 09:11 | CT_ITS ---
WS: [id number] CT ABDOMEN PELVIS TECHNIQUE: Contrast-enhanced CT of the abdomen and pelvis with coronal and sagittal reformatted images. CLINICAL INFORMATION: skin infection/breakdown/necrosis COMPARISON: 2021 DLP: 1678.[address] scans at [facility] use at least one of these dose optimization techniques: automated exposure control; mA and/or kV adjustment per patient size (includes targeted exams where dose is matched to clinical indication); or iterative reconstruction. FINDINGS: Induration compatible with cellulitis in the partially visualized pannus. No visualized drainable fluid collections. Lung bases are well aerated. Fatty liver. Hepatomegaly. Normal spleen. Normal portal vein and splenic vein. Normal gallbladder. Small esophageal hiatal hernia. Normal caliber abdominal aorta portable. Adrenal glands are normal. No hydronephrosis in either kidney. Small RIGHT renal cyst. Diffuse bladder wall thickening compatible with cystitis. Prior postoperative changes thoracolumbar fusion. CT/CT abdomen pelvis w con* [id number] IMPRESSION: 1. Diffuse bladder wall thickening compatible with cystitis. 2. Cellulitis in the visualized pannus. 3. Enlarged LEFT greater than RIGHT inguinal lymph nodes likely reactive. 4. Fatty liver with hepatomegaly. 5. Small esophageal hiatal hernia.
--- NOTE | 2025-01-06 09:14 | ED_ITS ---
HPI - Weakness 2 General: Chief complaint: Weakness Stated complaint: uti Time Seen by Provider: 01/06/25 08:53 Source: patient Mode of arrival: EMS Limitations: no limitations History of Present Illness: Patient is a 54-year-old male with an extensive past medical history including diabetes, hypertension, C. difficile, osteomyelitis/discitis of his thoracic spine following laminectomy, urinary meatal stenosis, morbid obesity here via EMS for medical evaluation. Patient states he lives independently in some type of jail facility. He does have home health that comes to his home daily. He states over the past 4 days or so he has noticed weakness to his legs preventing him from getting out of his wheelchair/recliner. Home health reportedly contacted EMS today due to his medical condition. EMS states they had to get the fire department to help get him out of his recliner. He arrives to the ED significantly uncared for. He has saturated in urine and feces. Patient has significant skin breakdown and necrosis to his sacral region. He has a severe candidal infection affecting his pannus, inguinal regions, and perineal areas. He is extremely odorous. Patient states he has noticed pus when urinating. MD Complaint: generalized weakness and difficulty walking Onset (ago): day(s) Duration: constant Location: LLE and RLE Severity: severe Relieving factors: none Exacerbating factors: none Associated symptoms: Denies chest pain, chills, dysuria, fever(s), headache(s), nausea, syncope or vomiting Related Data Home Medications ?Medication ?Instructions ?Recorded ?Confirmed acetaminophen 325 mg capsule 650 mg PO Q4H PRN Pain 01/06/25 metformin 1,000 mg tablet 1,000 mg PO BID 12/01/2004/22 dulaglutide 1.5 mg/0.5 mL 1.5 mg SUBCUT Q7D 01/06/25 0 01/06/25 subcutaneous pen injector (Trulicity) empagliflozin 25 mg tablet 25 mg PO DAILY 01/06/2504/22 (Jardiance) lisinopril 10 1 tab PO DAILY 01/06/2512/27 mg-hydrochlorothiazide 12.5 mg tablet metoprolol tartrate 50 mg tablet 50 mg PO BID 01/06/25 01/06/25 Previous Rx's ?Medication ?Instructions ?Recorded neomycin-bacitracn Zn-polymyx 3.5 1 applic topical CATHERINE LY #30 grams 01/14/22 mg-400 unit-5,000 unit/gram top oint (Triple Antibiotic) cefadroxil 500 mg capsule 500 mg PO BID chronic suppre ssion 01/04/24 6 months #360 caps Allergies Allergy/AdvReac Type Severity Reaction Status Date / Time No Known Allergies Allergy Verified 06/27/23 13:45 Review of Systems 2 Const: Denies: fever(s), chills, body aches, fatigue or malaise Eyes: Denies: change in vision or blurry vision Card: Denies: chest pain, palpitations, irregular heart rhythm, lightheadedness, syncope or dyspnea on exertion Resp: Denies: dyspnea, productive cough or pain on inspiration GI: Denies: abdominal pain, nausea, vomiting, heartburn or diarrhea : Denies: difficulty urinating or dysuria Musc: Reports: extremity swelling; Denies: neck pain, back pain, extremity pain or joint pain Skin/Breast: Reports: rash and erythema Neuro: Reports: weakness in extremities and difficulty walking; Denies: headache(s), sensory changes or dizziness PFSH ED 2 PFSH: Medical History Acquired urinary meatal stenosis History of 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 No clear source of bacteria identified beyond urine with same organism at time. C. 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 04/2020 Surgical History S/P spinal fusion S/P laminectomy (05/23/20) T7-T11 for epidural abscess, laminectomy with partial facetectomy T7/8, T8/9, T9/10, T10/11 Family History Father , from heart attack CAD (coronary artery disease) Mother Stroke Social History Smoking and tobacco/nicotine status: never used tobacco/nicotine Alcohol intake: current Alcohol intake frequency: holidays/special occasions only Substance/Drug Use: never Housing: Custodial Physical Exam 2 Const: COMMON NORMALS: patient oriented x3 and alert GENERAL APPEARANCE: c ooperative, disheveled and other (odorous, uncared for) NUTRITIONAL APPEARANCE: obese morbidly obese (BMI 55.2) ORIENTATION/CONSCIOUSNESS: Yes awake, Yes oriented to person, Yes oriented to place and Yes oriented to time HENMT: COMMON NORMALS: normocephalic and atraumatic HEAD & SCALP: normal to inspection, normocephalic and atraumatic Resp: COMMON NORMALS: normal respiratory effort and clear to auscultation bilaterally AUSCULTATION: clear to auscultation bilaterally Cardio: COMMON NORMALS: regular rate and regular rhythm RATE: regular rate RHYTHM: regular rhythm GI: COMMON NORMALS: Normal to inspection, nondistended, normoactive bowel sounds present OTHER: pt has a significant candidal rash involving lower abdomen, pannus, inguinal regions, and genital/perineal region; oozing/bleeding : COMMON NORMALS: Yes no CVA tenderness BLADDER/KIDNEY EXAM: Yes no CVA tenderness Back/Pelvis: COMMON NORMALS: no CVA tenderness OTHER: pt has significant skin breakdown/necrosis overlying sacral region; exam difficult due to his morbid obesity and he is currently saturated in fecal material Extremity: GENERAL: Yes normal exam except as noted OTHER: bilateral LE lymphedema with chronic skin changes; pulses hard to palpate due to edema but were found via doppler bilaterally Neuro: COMMON NORMALS: patient oriented x3, moves all extremities and no sensory deficits noted SENSORIUM/ORIENTATION: Yes alert, Yes oriented to person, Yes oriented to place and Yes oriented to time SPEECH: speech normal Skin: RASHES: rashes noted Course 2 Consultations: Consultation #1: Dr. Vicente-accepts hospitalization Vital Signs: Vital signs: Vital Signs Temperature 97.6 F 01/06/25 11:08 Pulse Rate 105 H 01/06/25 11:55 Respiratory Rate 16 01/06/25 11:08 Blood Pressure 82/53 01/06/25 11:55 Pulse Oximetry 100 01/06/25 11:55 Oxygen Delivery Me thod Room Air 01/06/25 11:08 MDM - Weakness Medical Decision Making Patient is a 54-year-old male with multiple comorbidities here for concerns of weakness, significant skin infection, and pus in his urine. He arrives with low blood pressure but remainder of vitals stable. White count was 19.4. He has overwhelming evidence of a UTI on his UA. Elevated lactic. Patient was given an ideal body weight fluid bolus and started on broad-spectrum antimicrobial coverage. CT scan of his abdomen/pelvis obtained to rule out deep space infection and gas-forming organisms. CT scan showing cellulitis. He does have diffuse bladder wall thickening compatible with cystitis. Nino was unable to be placed due to known meatal stenosis. Remainder of blood work with multiple metabolic derangements including acute renal failure. His CK is 1301. CRP over 260. Elevated procal. Dr. Coburn aware of patient and agrees with care here in the emergency department. He will place admit orders to ICU for admission to Dr. Vicente. Medical Records I reviewed the patient's medical records. Lab Data I reviewed the patient's lab results. 01/06/25 09:43 01/06/25 09:43 Radiology Impressions Abdomen/Pelvis CT 01/06/25 09:11 IMPRESSION: 1. Diffuse bladder wall thickening compatible with cystitis. 2. Cellulitis in the visualized pannus. 3. Enlarged LEFT greater than RIGHT inguinal lymph nodes likely reactive. 4. Fatty liver with hepatomegaly. 5. Small esophageal hiatal hernia. Chest X-Ray 01/06/25 09:11 IMPRESSION: 1. Minimal linear opacities in the lung bases could represent atelectasis versus parenchymal scarring. 2. Mild uncoiling of the thoracic aorta Laboratory Results WBC 19.41 10^3/uL (3.29-11.43) H 01/06/25 09:43 RBC 4.09 10^6/uL (3.85-5.65) 01/06/25 09:43 Hgb 9.90 g/dL (11.27-16.99) L 01/06/25 09:43 Hct 30.9 % (37-53) L 01/06/25 09:43 MCV 75.6 fl (82-101) L 01/06/25 09:43 MCH 24.2 pg (27-33) L 01/06/25 09:43 MCHC 32.0 g/dL (30-55) 01/06/25 09:43 RDW 15.9 % (12.1-15.1) H 01/06/25 09:43 Plt Count 388 10^3/cmm (157-399) 01/06/25 09:43 MPV 9.3 fL (7.4-10.4) 01/06/25 09:43 Neut % (Auto) 87.0 % 01/06/25 09:43 Lymph % (Auto) 5.3 % 01/06/25 09:43 [place] % (Auto) 6.1 % 01/06/25 09:43 Eos % (Auto) 0.1 % 01/06/25 09:43 Baso % (Auto) 0.3 % 01/06/25 09:43 Neut # (Auto) 16.90 10^3/uL (1.8-7.7) H 01/06/25 09:43 Lymph # (Auto) 1.0 10^3/uL (0.8-4.8) 01/06/25 09:43 [place] # (Auto) 1.2 10^3/uL (0.2-0.9) H 01/06/25 09:43 Eos # (Auto) 0.0 10^3/uL (0.0-0.8) 01/06/25 09:43 Baso # (Auto) 0.1 10^3/uL (0.0-0.1) 01/06/25 09:43 Nucleated RBC % (auto) 0 % 01/06/25 09:43 Nucleated RBCs # 0.0 /100WBC 01/06/25 09:43 Sodium 128 mmol/L (136-145) L 01/06/25 09:43 Potassium 4.3 mmol/L (3.5-5.1) 01/06/25 09:43 Chloride 92 mmol/L (98-107) L 01/06/25 09:43 Carbon Dioxide 12 mmol/L (22-29) L 01/06/25 09:43 Anion Gap 28.3 (5-19) H 01/06/25 09:43 BUN 39 mg/dL (6-20) H 01/06/25 09:43 Creatinine 1.6 mg/dL (0.7-1.2) H 01/06/25 09:43 GFR Calculation 45.1 mL/min (90-130) L 01/06/25 09:43 Glucose 197 mg/dL (65-115) H 01/06/25 09:43 Calculated Osmolality 281 mOsm/kg (285-295) L 01/06/25 09:43 Lactic Acid 2.6 mmol/L (0.5-2.2) H 01/06/25 09:43 Calcium 8.5 mg/dL (8.5-10.5) 01/06/25 09:43 Total Bilirubin 0.4 mg/dL (0.15-1.2) 01/06/25 09:43 AST 47 U/L (0-40) H 01/06/25 09:43 ALT 32 U/L (0-41) 01/06/25 09:43 Alkaline Phosphatase 85 U/L (40-130) 01/06/25 09:43 Creatine Kinase 1301 U/L (39-308) H* 01/06/25 09:43 C-Reactive Protein 262.3 mg/L (0.0-4.9) H 01/06/25 09:43 NT-Pro-B Natriuret Pep 103 pg/mL (0-125) 01/06/25 09:43 Total Protein 5.7 g/dL (6.6-8.7) L 01/06/25 09:43 Albumin 2.5 g/dL (3.5-5.2) L 01/06/25 09:43 Globulin 3.2 g/dL (1.3-4.6) 01/06/25 09:43 Procalcitonin 2.10 ng/mL (0-0.5) H 01/06/25 09:43 Urine Color [place] (Yellow) A 01/06/25 10:50 Urine Appearance Cloudy (CLEAR) A 01/06/25 10:50 Urine pH 5.0 (5-7) 01/06/25 10:50 Ur Specific [place] 1.022 (1.005-1.030) 01/06/25 10:50 Urine Protein 2+ (Negative) A 01/06/25 10:50 Urine Glucose (UA) 2+ (Normal) H 01/06/25 10:50 Urine Ketones 1+ (Negative) H 01/06/25 10:50 Urine Blood Non-haemolysed trace (Negative) 01/06/25 10:50 Urine Nitrate Positive (Negative) A 01/06/25 10:50 Urine Bilirubin 2+ (Negative) H 01/06/25 10:50 Urine Urobilinogen 1.0 mg/dL (Negative) 01/06/25 10:50 Ur Leukocyte Esterase 3+ (Negative) A 01/06/25 10:50 Urine RBC 6-10 /hpf (0-2) 01/06/25 10:50 Urine WBC >100 /hpf (0-5) H 01/06/25 10:50 Ur Squamous Epith Cells 0-5 /hpf (0-5) 01/06/25 10:50 Amorphous Sediment Not Reportable 01/06/25 10:50 Urine Bacteria 4+ /hpf (NONE) H 01/06/25 10:50 Hyaline Casts 1.65 /lpf 01/06/25 10:50 Urine Yeast 1+ /hpf H 01/06/25 10:50 All radiology interpretation(s) finalized by discharge Discharge Plan Discharge Patient Disposition: Admitted As Inpatient Admit Provider: Darwin Vicente Clinical Impression: Sepsis, Kathia infection of genital region, Pressure ulcer of sacral region, Acute UTI Condition: Stable Coding Level of Care Code ED Hvac Tech for Kathy Meza
[2025-01-06 09:55] LABS: Hematocrit 30.9 % (37-53); Hemoglobin 9.90 g/dL (11.27-16.99); Mean Corpuscular HGB Conc 32.0 g/dL (30-55); Mean Corpuscular Hemoglobin 24.2 pg (27-33); Mean Corpuscular Volume 75.6 fl (82-101); Nucleated Red Blood Cells % 0 %; Platelet Count 388 10^3/cmm (157-399); Red Blood Count 4.09 10^6/uL (3.85-5.65); White Blood Count 19.41 10^3/uL (3.29-11.43)
[2025-01-06] MEDS: piperacillin-tazobactam 3.375 GM in sodium chloride 0.9% (plus) 50 ML IV (10:07)
[2025-01-06 10:10] LABS: Lactic Sepsis W/Reflex 2.6 mmol/L (0.5-2.2)
[2025-01-06] MEDS: iohexol 350 mg/mL 500 mL Btl (per mL) IV (10:17)
[2025-01-06 10:20] LABS: NT Pro B Type Natriuretic Pept 103 pg/mL (0-125); Procalcitonin 2.10 ng/mL (0-0.5)
[2025-01-06 10:32] LABS: Alanine Aminotransferase 32 U/L (0-41); Albumin Level 2.5 g/dL (3.5-5.2); Alkaline Phosphatase 85 U/L (40-130); Anion Gap 28.3 (5-19); Aspartate Amino Transferase 47 U/L (0-40); Blood Urea Nitrogen 39 mg/dL (6-20); Calcium 8.5 mg/dL (8.5-10.5); Carbon Dioxide 12 mmol/L (22-29); Chloride 92 mmol/L (98-107); Creatinine Clr Calc Pharmacy 93.9560; Globulin 3.2 g/dL (1.3-4.6); Glucose 197 mg/dL (65-115); Osmolality Calculated 281 mOsm/kg (285-295); Potassium 4.3 mmol/L (3.5-5.1); Sodium 128 mmol/L (136-145); Total Protein 5.7 g/dL (6.6-8.7)
[2025-01-06 10:57] LABS: Glucose Urine UA 2+ (Normal); Nitrate Urine Positive (Negative); Specific Gravity, Urine 1.022 (1.005-1.030)
[2025-01-06 11:00] LABS: Add Urine Microscopic? YES; Universal Test for UA Present (0)
[2025-01-06 11:14] LABS: UA Slide Review UA Slide Review Perf
--- NOTE | 2025-01-06 11:20 | PC.NURSE ---
Due to BP numbers getting lower again, Dr. Coburn verbally told me to start pressure bagging the patient's fluids and see if we could get another US IV on the patient so we can push more fluids.
[2025-01-06 11:35] LABS: Reflex Lactate Order REFLEX LACTIC ORDERD
[2025-01-06] MEDS: norepinephrine 4 MG/250 ML BAG 7.5 MG IV (13:27)
[2025-01-06 13:31] LABS: Lactic Acid level (Lactate) 1.9 mmol/L (0.5-2.2)
[2025-01-06 14:07] LABS: Ketone (Acetest) Serum Positive (Negative)
[2025-01-06 14:15] LABS: Estmated Average Glucose 160; Hemoglobin A1C 7.2 % (4.0-6.0)
--- NOTE | 2025-01-06 14:33 | PM.HP ---
Providers/Chief Complaint Admitting Physician: Darwin Vicente Chief Complaint: uti History of Present Illness Joey Booth is a 54 year old gentleman with a history of urinary meatal stenosis, prior epidural abscess with spinal cord compression (status post evacuation and intravenous antibiotics in 2019), type 2 diabetes mellitus, hypertension, prior Clostridioides difficile infection, and bilateral lower-extremity paralysis who presents after one week of worsening weakness culminating in inability to rise from a chair or transfer to his wheelchair. Home health aides (present five days weekly) noted marked functional decline over the weekend; the patient ultimately called emergency medical services (EMS) himself. He reports urinary incontinence thought to be related to immobility and observes pus in the urine. He denies back pain, chest pain, shortness of breath, or gastrointestinal bleeding. Low-grade fever was suspected at home but not documented. He describes new foul odor and dark discoloration of skin at the sacrum. Redness and maceration of groin, and perineum, genitals over the past week. No prior similar skin problems. He has been ambulating with assistance before this episode. No known episodes of diabetic ketoacidosis (DKA). No allergies reported. [id number] discussion held; he would accept full medical therapy but does not want cardiopulmonary resuscitation (DNR) and identified friend Jeanie Melgar as potential surrogate decision-maker [phone]. And Kirsten Vogt as an alternative [phone]. Review of Systems Const: Reports: other (Generalized weakness); Denies: fever(s), chills or body aches ENMT: Denies: throat pain Card: Denies: chest pain, edema, pre-syncope or dyspnea on exertion Resp: Denies: dyspnea, productive cough, change in phlegm color or hemoptysis GI: Denies: abdominal pain, nausea, vomiting, diarrhea, constipation, hematochezia or melena : Reports: other (Pyuria); Denies: flank pain, difficulty urinating or hematuria Musc: Denies: back pain, joint swelling or joint redness Skin/Breast: Reports: rash, pruritus, erythema, skin tenderness, sores and new lesions Neuro: Denies: headache(s) or confusion Medications/Allergies Home Medications ?Medication ?Instructions ?Recorded ?Confirmed ?Last Taken ?Type acetaminophen 325 mg capsule 650 mg PO Q4H PRN Pain 12/01/20 01/06/25 08/18/21 History metformin 1,000 mg tablet 1,000 mg PO BID 12/01/20 01/06/25 01/06/25 08:00 History neomycin-bacitracn Zn-polymyx 3.5 1 applic topical DAILY #30 grams 01/14/22 01/06/25 01/05/25 Rx mg-400 unit-5,000 unit/gram top oint (Triple Antibiotic) cefadroxil 500 mg capsule 500 mg PO BID chronic suppression 01/04/24 01/06/25 01/06/25 08:00 Rx 6 months #360 caps dulaglutide 1.5 mg/0.5 mL 1.5 mg SUBCUT Q7D 01/06/25 01/06/25 01/03/25 History subcutaneous pen injector (Trulicity) empagliflozin 25 mg tablet 25 mg PO DAILY 01/06/25 01/06/25 01/06/25 08:00 History (Jardiance) lisinopril 10 1 tab PO DAILY 01/06/25 01/06/25 01/06/25 History mg-hydrochlorothiazide 12.5 mg tablet metoprolol tartrate 50 mg tablet 50 mg PO BID 01/06/25 01/06/25 01/06/25 08:00 History Allergies Allergy/AdvReac Type Severity Reaction Status Date / Time No Known Allergies Allergy Verified 06/27/23 13:45 PFSH Acute PFSH: Medical History Diabetes mellitus, type II Acquired urinary meatal stenosis 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 No clear source of bacteria identified beyond urine with same organism at time. C. 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 04/2020 Surgical History S/P spinal fusion S/P laminectomy (05/23/20) T7-T11 for epidural abscess, laminectomy with partial facetectomy T7/8, T8/9, T9/10, T10/11 Family History Father , from heart attack CAD (coronary artery disease) Mother Stroke Social History Smoking and tobacco/nicotine status: never used tobacco/nicotine Alcohol intake: current Alcohol intake frequency: holidays/special occasions only Substance/Drug Use: never Housing: Snf Vitals/I&O/Wt Last Vital Signs Temp 97.6 F 01/06/25 11:08 Pulse 105 H 01/06/25 11:55 Resp 16 01/06/25 11:08 BP 82/53 01/06/25 11:55 Pulse Ox 100 01/06/25 11:55 O2 Del Method Room Air 01/06/25 12:35 01/05/25 01/06/25 01/06/25 22:59 06:59 14:59 Intake Total 50 / 50 Balance 50 / 50 Weight last 48 hrs Weight 195.045 kg Physical Exam Const: COMMON NORMALS: patient oriented x3 and alert GENERAL APPEARANCE: cooperative and disheveled NUTRITIONAL APPEARANCE: obese ORIENTATION/CONSCIOUSNESS: Yes awake HENMT: COMMON NORMALS: oropharynx normal Neck/C-Spine: COMMON NORMALS: no JVD Resp: COMMON NORMALS: normal respiratory effort and clear to auscultation bilaterally AUSCULTATION: clear to auscultation bilaterally Cardio: COMMON NORMALS: no JVD, regular rhythm, S1 normal heart sound present, S2 normal heart sound present and No murmurs present (Cardio) RHYTHM: regular rhythm HEART SOUNDS: S1 normal heart sound present and S2 normal heart sound present GI: COMMON NORMALS: Normal to inspection, nondistended, normoactive bowel sounds present, Soft to palpation and non-tender PALPATION: Yes Soft to palpation Extremity: COMMON NORMALS: no joint enlargement and no pedal edema Neuro: COMMON NORMALS: patient oriented x3 and moves all extremities SENSORIUM/ORIENTATION: Yes alert OTHER: Bilateral lower-extremity weakness; able to move feet minimally; sensation intact. - Extremities: Unable to stand or transfer independently. Skin: LESIONS: lesion noted RASHES: rashes noted OTHER: Extensive sacral pressure ulcer with superficial dark necrotic tissue; severe candidal intertrigo of perineum and bilateral inguinal folds; surrounding cellulitis. Quick SOFA Score: Respiratory Rate: 16 Blood Pressure: 82/53 [place] Coma Scale: 15 qSOFA Score: 1 If qSOFA score 2 or greater, continue: Blood Pressure Mean: 72 Bilirubin (mg/dl): 0.4 Platelets (x10?/ml): 388 Creatinine (mg/dl): 1.6 Evaluation: Current stage of sepsis: septic shock Initial hypotension: SBP < 90 mmHg and MAP < 65 mmHg Persistent hypotension: SBP < 90 mmHg and MAP < 65 mmHg Sepsis stage criteria used: [facility] Sep-1 and Sepsis-3 Crystalloid fluids: 30 mL/kg crystalloid fluids ordered and initiated within 3 hours Blood cultures ordered: Yes Possible source: genitourinary and skin/soft tissue Focused Exam: Vital signs: Temp Pulse Resp BP Pulse Ox O2 Del Method 01/06/25 12:35 Room Air 01/06/25 11:55 105 H 82/53 100 01/06/25 11:30 92/63 94 01/06/25 11:16 83/51 01/06/25 11:15 83/51 100 01/06/25 11:08 97.6 F 103 H 16 100/55 100 Room Air 01/06/25 11:00 110/32 99 01/06/25 10:53 99 110/32 100 Room Air 01/06/25 10:45 98/77 99 01/06/25 10:30 92/53 98 01/06/25 10:06 98 86/40 100 Room Air 01/06/25 10:00 86/40 100 Respiratory exam: CTA bilaterally Cardiovascular exam: tachycardia Capillary refill: < 3 Seconds Skin exam: no mottling Details: No cyanosis Date exam was performed: 01/06/25 Time exam was performed: 15:48 Sepsis Screen No Definite Risk Today, 11:30 Respiratory Rate, (12 - 18) 16 breaths/min Today, 11:08 Blood Pressure 82/53 mmHg Today, 11:55 [place] Coma Scale Score 15 Today, 12:35 Quick SOFA Score 1 Today, 15:21 SOFA Score: [place] Coma Scale Score 15 Today, 12:35 Blood Pressure Mean 72 mmHg Today, 11:30 Total Bilirubin, (0.15-1.2) 0.4 mg/dL Today, 09:43 Platelet Count, (157-399) 388 10^3/cmm Today, 09:43 Creatinine, (0.7-1.2) 1.6 mg/dL H Today, 09:43 Data 01/06/25 09:43 01/06/25 09:43 Micro: Microbiology 01/06/25 10:01 Blood Culture - Preliminary Blood SPECIMEN COLLECTED 01/06/25 09:43 Blood Culture - Preliminary Blood SPECIMEN COLLECTED A&P Assessment and plan 1. Septic shock: Hypotension (83/51 mmHg) despite fluids, sinus tachycardia, elevated lactate (2.6 ?1.9 after resuscitation) in context of presumed infections (urine, skin). Complicated by acute kidney injury, creatinine up to 1.6, BUN 39. Reviewed vitals, CBC, CMP, lactic acid, procalcitonin, CRP, CK, UA, CT abdomen pelvis, chest x-ray, ED provider, discussed with ED provider. - Admit to ICU for hemodynamic monitoring and vasopressor support. Currently requiring Levophed 2 mcg/min. - Continue empiric antibiotics: piperacillin-tazobactam (Zosyn) plus vancomycin. Monitor for risk of kidney injury with antibiotic combination. Risk of C. difficile. - Empiric antifungal with Diflucan. - blood cultures ?2 before antibiotics (already sent), follow-up. Follow-up urine cultures. Obtain wound cultures. Obtain fungal culture. - Fluid resuscitation already initiated; continue as guided by vitals and urine output - Treat source infections as below 2. Complicated UTI (urinary tract infection): Cloudy urine with >100 WBC, positive nitrite, bladder-wall thickening on CT; patient reports pus with urination, Nino unable due to meatal stenosis. May attempt smaller Nino placement in ICU. Reviewed CT. No obstructive uropathy. - Maintain broad-spectrum coverage with Zosyn/vancomycin (covers uropathogens) - Send urine culture and sensitivity (already sent) - Monitor ability to void; notify team if urinary retention develops - Hold chronic cefadroxil while on broader therapy 3. Cellulitis: Extensive skin and soft tissue infection with sacral pressure ulcer : Unstageable sacral ulcer with necrotic tissue, surrounding cellulitis, severe candidal intertrigo. - Wound care: twice-daily hygiene and dressing changes with foam dressing - Apply Santyl ointment to sacral wound to debride superficial necrosis - Frequent repositioning and barrier cream to keep area dry - Topical antifungal for tinea cruris; systemic fluconazole (Diflucan) started - Obtain wound and fungal cultures - Consult general surgery for assessment/debridement 4. Unstageable decubitus ulcer: Discussed with surgery given unstageable ulcer, appreciate surgical consultation at this time appears to have a thin layer of necrotic tissue on the surface, continue wound care with enzymatic debridement per surgery findings. Reposition frequently as per condition. Add nutrition with Glucerna shakes with concern carb diet. Once shock improving mobilize with therapy. SNF rehabilitation discussed with case management. 5. Kathia infection of genital region: Candidal intertrigo with severe/extensive tinea cruris. - Diflucan and will apply topical nystatin - Control blood glucose. Keep dry. 6. DERIK (acute kidney injury): Creatinine 1.6 (baseline 0.6 in 2021) likely multifactorial from sepsis, dehydration, nephrotoxic meds. - Monitor urine output post-fluid challenge - Trend creatinine and electrolytes daily - Hold lisinopril, hydrochlorothiazide, metformin, and metoprolol until renal function and blood pressure improve - Received challenge with fluid resuscitation to assist renal clearance - Requested urine studies 7. Rhabdomyolysis: Mild rhabdomyolysis : Creatine kinase 1301 U/L. - Recheck CK levels - Check magnesium 8. Hyponatremia: Sodium 128 mEq/L with sepsis and hypotension. - Reassess sodium level after ongoing fluid resuscitation Plan: Type 2 diabetes mellitus : Chronic condition; glucose 197 mg/dL on admission. - Continue sliding-scale insulin while inpatient. Lantus 5 units daily. - Order hemoglobin A1C - Resume outpatient agents once hemodynamically stable and renal function allows Generalized weakness, functional decline, loss of independence: Previously living independently at home, prior to that is a long-term resident at [facility]. Over the last several days has become generally weak unable to get up from the chair. Currently treated for sepsis, septic shock as above, extensive cellulitis, UTI, DERIK, rhabdomyolysis, hyponatremia. Assessed by PT once shock is improving. With significant deconditioning likely will require snf reach potation after discharge. Discussed with case investigator. Consultation placed. Additionally also would benefit from formalization of DPOA paperwork for the 2 individuals she names as next of kin as above in the HPI. Hypertension : Chronic hypertension; currently hypotensive secondary to sepsis. - Hold antihypertensive medications (lisinopril, metoprolol, hydrochlorothiazide) until blood pressure stabilizes PDMP PDMP Reviewed: Not Reviewed Attestations Medical Necessity Statement*: Admission over 40 minutes dissipated for assessment management of septic shock, DERIK, complicated UTI, extensive cellulitis, intertrigo, fungal infection, hyponatremia, rhabdomyolysis, additional comorbidities interdomal with with underlying diabetes and other medical problems. Coding Level of Care Code Critical Care >/= 30 minutes Critical care time (in minutes): 35 The high probability of a clinically significant, sudden or life threatening deterioration, as referenced in this documentation, required my full and direct attention, intervention and personal management. The critical care time shown is in addition to time spent performing any reported separately billable procedures and includes the following: [x] Data and vital sign review and interpretation [x] Patient assessment, examination and intervention [x] Medication orders and management [x] Patient/Family updates as able [x] Care Coordination and Documentation. Diagnoses Septic shock A41.9; R65.21 Complicated UTI (urinary tract infection) N39.0 Cellulitis L03.90 Unstageable decubitus ulcer L89.95 Kathia infection of genital region B37.49 DERIK (acute kidney injury) N17.9 Rhabdomyolysis M62.82 Hyponatremia E87.1
[2025-01-06 14:40] LABS: Urine Random Sodium 55 mmol/L
--- NOTE | 2025-01-06 15:25 | PM.CONSULT ---
Providers/Reason For Consult Consulting Physician/Specialty*: General Surgery Reason for Consult*: Cellulitis and pressure ulcer Attending Physician: Darwin Vicente History of Present Illness History of Present Illness Joey Booth is a 54 year old male that presents secondary to altered mental status and malaise. He was brought to the hospital by ambulance after being found covered in his own feces and urine for several day. He presented with hypotension and significant skin excoriation and several superficial areas of necrosis on his back side and buttocks. He states that he lives alone and has been feeling poorly over the past weeek or two. He denies any fever or chills. He has been incontinent of urine or feces for several days. He was admitted to the ICU and is currently on levophed and receiving IV fluids. They tried to insert cason catheter in ER but he had a urethral stricutre so they were unable to place catheter. Review of Systems Narrative: ALert and oriented. Obese, weak and fatigues Const: Reports: fever(s), chills, body aches, fatigue and diaphoresis Card: Reports: palpitations, edema and swelling of feet/ankles Resp: Reports: dyspnea and other (denies any cough or productive cough) GI: Reports: diarrhea and fecal incontinence : Reports: urinary frequency, urinary urgency and urinary incontinence Musc: Reports: limited range of motion Neuro: Reports: behavioral changes and other (weakness and fatigue) Psych: Reports: depression, sleeping more and loss of interest Endo: Reports: polyuria, polydipsia and tired all the time Filemon/Lymph: Reports: other Medications/Allergies Home Medications ?Medication ?Instructions ?Recorded ?Confirmed ?Last Taken ?Type acetaminophen 325 mg capsule 650 mg PO Q4H PRN Pain 12/01/20 01/06/25 08/18/21 History metformin 1,000 mg tablet 1,000 mg PO BID 12/01/20 01/06/25 01/06/25 08:00 History neomycin-bacitracn Zn-polymyx 3.5 1 applic topical DAILY #30 grams 01/14/22 01/06/25 01/05/25 Rx mg-400 unit-5,000 unit/gram top oint (Triple Antibiotic) cefadroxil 500 mg capsule 500 mg PO BID chronic suppression 01/04/24 01/06/25 01/06/25 08:00 Rx 6 months #360 caps dulaglutide 1.5 mg/0.5 mL 1.5 mg SUBCUT Q7D 01/06/25 01/06/25 01/03/25 History subcutaneous pen injector (Trulicity) empagliflozin 25 mg tablet 25 mg PO DAILY 01/06/25 01/06/25 01/06/25 08:00 History (Jardiance) lisinopril 10 1 tab PO DAILY 01/06/25 01/06/25 01/06/25 History mg-hydrochlorothiazide 12.5 mg tablet metoprolol tartrate 50 mg tablet 50 mg PO BID 01/06/25 01/06/25 01/06/25 08:00 History Allergies Allergy/AdvReac Type Severity Reaction Status Date / Time No Known Allergies Allergy Verified 06/27/23 13:45 Current Medications Generic Name Dose Route Start Last Admin Trade Name Freq PRN Reason Stop Dose Admin Norepinephrine Bitartrate 4 mg in 250 mls @ 0 mls/hr 01/06/25 12:00 01/06/25 13:27 Levophed IV 2 mcg/min .Q0M SANDIE 7.5 mls/hr Protocol Administration Per Protocol PFSH Acute PFSH: Medical History (Updated 01/06/25 @ 15:16 by Darwin Vicente MD) Diabetes mellitus, type II Acquired urinary meatal stenosis History of Clostridioides difficile infection Osteomyelitis of thoracic spine Iron (Fe) deficiency anemia Hypertension BMI 40.0-44.9, adult [facility] History of drug rash during treatment with ceftriaxone in - treatment was continued and patient monitored Discitis Cord compression Bilateral leg weakness Obesity Diabetes Epidural abscess (~04/2020) Streptococcus agalactiae - treated with 12 week IV ceftriaxone followed by 8 week oral cefadroxil in 2020. No clear source of bacteria identified beyond urine with same organism at time. C. 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 04/2020 Surgical History S/P spinal fusion S/P laminectomy (05/23/20) T7-T11 for epidural abscess, laminectomy with partial facetectomy T7/8, T8/9, T9/10, T10/11 Family History Father , from heart attack CAD (coronary artery disease) Mother Stroke Social History Smoking and tobacco/nicotine status: never used tobacco/nicotine Alcohol intake: current Alcohol intake frequency: holidays/special occasions only Substance/Drug Use: never Housing: Jail Vitals/I&O/Wt Last Vital Signs Temp 97.6 F 01/06/25 11:08 Pulse 105 H 01/06/25 11:55 Resp 16 01/06/25 11:08 BP 82/53 01/06/25 11:55 Pulse Ox 100 01/06/25 11:55 O2 Del Method Room Air 01/06/25 12:35 01/06/25 01/06/25 01/06/25 06:59 14:59 22:59 Intake Total 50 / 50 Balance 50 / 50 Weight last 48 hrs Weight 430 lb Physical Exam Const: OTHER: Alert and oriented x 3, in no acute distress Resp: OTHER: Clear bilaterally, no crepitus noted Cardio: OTHER: tachycardic with regular rhythm , + s1 and s2 heart sounds GI: OTHER: Obese, soft , non distended and non tender. Rectal exam- no masses soft brown stool. : OTHER: Excoriation along his preineum and both gluteal folds with superficial necrosis along the medial inner thighs and gluteal folds. No fluctuance or purulent drainage noted at this time. Extremity: NARRATIVE EXTREMITY EXAM: moves all extremities equally. Psych: OTHER: appeared to be alert and oriented x 3. Mood was stable and WNL Skin: NARRATIVE SKIN EXAM: Excoriation along his preineum and both gluteal folds with superficial necrosis along the medial inner thighs and gluteal folds. No fluctuance or purulent drainage noted at this time. Data 01/06/25 09:43 01/06/25 09:43 Micro: Microbiology 01/06/25 10:01 Blood Culture - Preliminary Blood SPECIMEN COLLECTED 01/06/25 09:43 Blood Culture - Preliminary Blood SPECIMEN COLLECTED A&P Assessment and plan 1. Pressure ulcer of sacral region: Plan: Soft tissue excoriation with pressure wounds on the gluteal folds and medial thighs. Plan is for daily skin and wound care with placement of catheter or condom catheter to allow for diversion of urine incontinence. No acute surgical intervention as there is only superficial excoriation and necrosis. Would recommend applying Santyl for enzymatic debridement to the areas of concern and we will follow him closely to see if any debridement is needed or if an of the areas of concern progress. Continue IV antibiotics and wean vasopressors as tolerated. Continue care per hospitalist and ICU team at this time. please call with any questions or changes in the patient status. PDMP PDMP Reviewed: Not Reviewed Coding Level of Care Code 01406 Diagnoses Pressure ulcer of sacral region L89.159
[2025-01-06 15:54] LABS: Base Excess VBG -12.5 mmol/L (-3.0-3.0); Blood Gas Operator Identificat GD; Blood Gas Sample Site Not specified; Blood Gas Sample Type Venous; HCO3 VBG 13.4 mmol/L (24-28); PCO2 VBG 30.1 mmHg (41-51); PO2 VBG 120.0 mmHg (25-40); Venous Blood Gas Hematocrit 32.5 % (42-52); pH VBG 7.26 (7.32-7.42)
[2025-01-06 15:56] LABS: Sodium 129 mmol/L (136-145)
[2025-01-06 16:02] LABS: Magnesium 2.2 mg/dL (1.7-2.3)
[2025-01-06] MEDS: fluconazole premix 200 MG/100 ML PREMIX 100 MG IV (16:15)
[2025-01-06] MEDS: insulin glargine 100 units/1 mL 5 UNIT SUBCUT (16:15)
[2025-01-07] VITALS (27 sets, daily range): BP systolic 91–130; BP diastolic 45–104; PULSE 77–117; RESP 15–32; TEMP 36.6–37.2; O2SAT 92–100
[2025-01-07] MEDS: norepinephrine 4 MG/250 ML BAG 22.5 MG IV (02:12)
[2025-01-07 02:40] LABS: Hematocrit 31.1 % (37-53); Hemoglobin 10.20 g/dL (11.27-16.99); Mean Corpuscular HGB Conc 32.8 g/dL (30-55); Mean Corpuscular Hemoglobin 24.9 pg (27-33); Mean Corpuscular Volume 76.0 fl (82-101); Nucleated Red Blood Cells % 0 %; Platelet Count 478 10^3/cmm (157-399); Red Blood Count 4.09 10^6/uL (3.85-5.65); White Blood Count 19.48 10^3/uL (3.29-11.43)
[2025-01-07 03:07] LABS: Alanine Aminotransferase 28 U/L (0-41); Albumin Level 2.2 g/dL (3.5-5.2); Alkaline Phosphatase 82 U/L (40-130); Anion Gap 26.1 (5-19); Aspartate Amino Transferase 42 U/L (0-40); Blood Urea Nitrogen 31 mg/dL (6-20); Calcium 7.9 mg/dL (8.5-10.5); Carbon Dioxide 12 mmol/L (22-29); Chloride 98 mmol/L (98-107); Creatinine Clr Calc Pharmacy 150.3296; Globulin 2.1 g/dL (1.3-4.6); Glucose 132 mg/dL (65-115); Osmolality Calculated 282 mOsm/kg (285-295); Potassium 4.1 mmol/L (3.5-5.1); Sodium 132 mmol/L (136-145); Total Protein 4.3 g/dL (6.6-8.7)
--- NOTE | 2025-01-07 07:54 | PM.PN ---
Subjective Subjective: He is feeling slightly better today. Is feeling thirsty. Vitals/I&O/Wt Last Vital Signs Temp 97.9 F 01/07/25 05:00 Pulse 113 H 01/07/25 06:21 Resp 28 H 01/07/25 05:00 BP 105/62 01/07/25 05:00 Pulse Ox 98 01/07/25 05:00 O2 Del Method Room Air 01/06/25 12:35 01/06/25 01/07/25 01/07/25 22:59 06:59 14:59 Intake Total 97.875 / 147.875 343.875 / 491.750 Output Total 750 / 750 Balance 97.875 / 147.875 -406.125 / -258.250 Weight last 48 hrs Weight 149.685 kg Weight 195.045 kg Physical Exam Const: COMMON NORMALS: patient oriented x3 and alert GENERAL APPEARANCE: cooperative and disheveled NUTRITIONAL APPEARANCE: obese ORIENTATION/CONSCIOUSNESS: Yes awake HENMT: COMMON NORMALS: oropharynx normal Neck/C-Spine: COMMON NORMALS: no JVD Resp: COMMON NORMALS: normal respiratory effort and clear to auscultation bilaterally AUSCULTATION: clear to auscultation bilaterally Cardio: COMMON NORMALS: no JVD, regular rhythm, S1 normal heart sound present, S2 normal heart sound present and No murmurs present (Cardio) RATE: tachycardic RHYTHM: regular rhythm HEART SOUNDS: S1 normal heart sound present and S2 normal heart sound present GI: COMMON NORMALS: Normal to inspection, nondistended, normoactive bowel sounds present, Soft to palpation and non-tender PALPATION: Yes Soft to palpation Extremity: COMMON NORMALS: no joint enlargement and no pedal edema Neuro: COMMON NORMALS: patient oriented x3 and moves all extremities SENSORIUM/ORIENTATION: Yes alert OTHER: Bilateral lower-extremity weakness; able to move feet minimally; sensation intact. - Extremities: Unable to stand or transfer independently. Skin: GENERAL SKIN EXAM: no mottling LESIONS: lesion noted RASHES: rashes noted OTHER: Extensive sacral pressure ulcer with superficial dark necrotic tissue; severe candidal intertrigo of perineum and bilateral inguinal folds; surrounding cellulitis. Urinary Catheter Management: Nino: Cath Placed During This Visit: yes Reason for Continuing Indwelling Catheter: Accurate Measurement of Urinary Output in Critically Ill Patients Urinary Catheter Date of Insertion: 01/06/25 Urinary Catheter Time of Insertion: 22:00 Data 01/07/25 02:14 01/07/25 10:55 Micro: Microbiology 01/06/25 14:45 Gram Stain - Final Groin 01/06/25 10:01 Blood Culture - Preliminary Blood SPECIMEN COLLECTED 01/06/25 09:43 Blood Culture - Preliminary Blood SPECIMEN COLLECTED A&P Assessment and plan 1. Septic shock: Shock improving, weaned off pressor this morning. Continue IV hydration with LR as he is still dehydrated, monitor for risk of fluid overload. Shock appears to be hypovolemic, possible component of sepsis. Oral hydration as tolerated. Continue antifungal for extensive yeast infection both urinary and skin. Continue IV antibiotics for suspected superimposed secondary cellulitis, monitor for risk of DERIK and C. difficile. Follow-up blood culture, reviewed, so far negative, reviewed urine culture, so far pending, reviewed wound culture. Gram stain with few gram-positive cocci in pairs and clusters, moderate gram-negative rods, scant budding yeast. Reviewed vitals, CBC, CMP. Reviewed surgery note. If continue to maintain blood pressure can transfer out of ICU to medical surgical floor. Will transfer to [facility]. Discussed child welfare caseworker and nursing. 2. Complicated UTI (urinary tract infection): Reviewed urine culture, pending. Continue Diflucan. Will continue empiric antibiotic as well. - Hold chronic cefadroxil while on broader therapy 3. Cellulitis: Continue Diflucan and topical antifungal. Extensive skin and soft tissue infection with sacral pressure ulcer : Unstageable sacral ulcer with necrotic tissue, surrounding cellulitis, severe candidal intertrigo. - Wound care: twice-daily hygiene and dressing changes with foam dressing - Apply Santyl ointment to sacral wound to debride superficial necrosis - Frequent repositioning and barrier cream to keep area dry - Topical antifungal for tinea cruris; systemic fluconazole (Diflucan) started - Obtain wound and fungal cultures - Consult general surgery for assessment/debridement 4. Unstageable decubitus ulcer: Reviewed surgery note. Appreciate consultation. Continue Santyl. Reposition frequently as per condition. Added nutrition with Glucerna shakes with consistent carb diet. Once shock improving mobilize with therapy. SNF rehabilitation discussed with case management. 5. Kathia infection of genital region: Candidal intertrigo with severe/extensive tinea cruris. - Diflucan and will apply topical terbinafine - Control blood glucose. Keep dry. 6. DERIK (acute kidney injury): Reviewed intake and output, producing urine, BUN today 31, creatinine down to 1. Improving DERIK. Monitor urine output. Nino has been placed. Reassess renal function. Continue to hold antihypertensive/diuretic. On presentation creatinine 1.6 (baseline 0.6 in 2021) likely multifactorial from sepsis, dehydration, nephrotoxic meds. Continue gentle IV hydration with LR at this time as he is still appearing dehydrated. Monitor for risk of fluid overload. - Trend creatinine and electrolytes daily - Hold lisinopril, hydrochlorothiazide, metformin, and metoprolol until renal function and blood pressure improve - Received challenge with fluid resuscitation to assist renal clearance - Requested urine studies 7. Rhabdomyolysis: Mild rhabdomyolysis : Reviewed CK noted improving to 770. Reviewed magnesium. 8. Hyponatremia: Reviewed sodium, noted improving up to 132. Suspect hypovolemic given dehydration, continue rehydration with LR at current HyperHEP and reassess chemistry. Plan: Type 2 diabetes mellitus : Possible mild DKA with noted positive serum ketones, acidemia pH 7.26 CO2 30.1. Continue IV hydration with LR. Continue insulin Lantus 5 units and sliding scale. Consistent carb diet. Reassess chemistry. Reviewed bicarb, anion gap, potassium, magnesium. - Continue sliding-scale insulin while inpatient. Lantus 5 units daily. - Reviewed A1C - Resume outpatient agents once hemodynamically stable and renal function allows Generalized weakness, functional decline, loss of independence: Previously living independently at home, prior to that is a long-term resident at [facility]. Over the last several days has become generally weak unable to get up from the chair. Currently treated for sepsis, septic shock as above, extensive cellulitis, UTI, DERIK, rhabdomyolysis, hyponatremia. Assessed by PT once shock is improving. With significant deconditioning likely will require half-way reach potation after discharge. Discussed with child welfare caseworker. Consultation placed. Additionally also would benefit from formalization of DPOA paperwork for the 2 individuals she names as next of kin as above in the HPI. Hypertension : Chronic hypertension; currently hypotensive secondary to sepsis. - Hold antihypertensive medications (lisinopril, metoprolol, hydrochlorothiazide) until blood pressure stabilizes PDMP PDMP Reviewed: Not Reviewed Attestations Medical Necessity Statement*: Continue admission for assessment management of improving/resolving shock, hypovolemia, possible sepsis, with extensive candidal infection, UTI, cellulitis and intertrigo, improving DERIK, hyponatremia. and High MDM includes amount and/or complexity of data reviewed/ordered [ previous or external records, resulted lab(s)/test(s) and other healthcare professional discussion] and described risk of complication, morbidity or mortality of management as documented Diagnoses Septic shock A41.9; R65.21 Complicated UTI (urinary tract infection) N39.0 Cellulitis L03.90 Unstageable decubitus ulcer L89.95 Kathia infection of genital region B37.49 DERIK (acute kidney injury) N17.9 Rhabdomyolysis M62.82 Hyponatremia E87.1
--- NOTE | 2025-01-07 08:00 | PHA.VACGOAL ---
Vancomycin Goal - Goal Vancomycin Goal:: 15-20 mg/L Vancomycin Indication:: Other (SEPTIC SHOCK) - Therapy Current therapy:: Pip/Tazo Day of therpy:: Day []of [] . Actual body weight (kg): 330 lb - Data Labs: WBC 19.48 10^3/uL (3.29-11.43) H 01/07/25 02:14 RBC 4.09 10^6/uL (3.85-5.65) 01/07/25 02:14 Hgb 10.20 g/dL (11.27-16.99) L 01/07/25 02:14 Hct 31.1 % (37-53) L 01/07/25 02:14 MCV 76.0 fl (82-101) L 01/07/25 02:14 MCH 24.9 pg (27-33) L 01/07/25 02:14 MCHC 32.8 g/dL (30-55) 01/07/25 02:14 RDW 15.9 % (12.1-15.1) H 01/07/25 02:14 Sodium 132 mmol/L (136-145) L 01/07/25 02:14 Potassium 4.1 mmol/L (3.5-5.1) 01/07/25 02:14 Chloride 98 mmol/L (98-107) 01/07/25 02:14 Carbon Dioxide 12 mmol/L (22-29) L 01/07/25 02:14 Anion Gap 26.1 (5-19) H 01/07/25 02:14 BUN 31 mg/dL (6-20) H 01/07/25 02:14 Creatinine 1.0 mg/dL (0.7-1.2) 01/07/25 02:14 GFR Calculation 77.6 mL/min (90-130) L 01/07/25 02:14 Treatment plan:: new consult Regimen:: PATIENT RECEIVED 1250 MG IN ER ON 01/06. STARTING MAINTENANCE DOSE OF 1500 MG Q8H PER PROTOCOL. WILL DRAW TROUGH PRIOR TO 4TH DOSE WITH A GOAL OF 15-20 MG/L
[2025-01-07] MEDS: piperacillin-tazobactam 3.375 GM in sodium chloride 0.9% (plus) 50 ML IV ×2 (09:28→15:48)
[2025-01-07] MEDS: insulin glargine 100 units/1 mL 5 UNIT SUBCUT (09:52)
--- NOTE | 2025-01-07 09:55 | P.PN_ITS ---
Subjective 2 Subjective: Pt seen nad examined. No complaints overnight. Overall he states he is feeling much better and denies any abdominal pain or pain in his gluteal region. Rolled today and santyl applied to necrotic areas. Afebrile. cason catheter placed. WBC improving. Vitals/I&O/Wt Last Vital Signs Temp 98.2 F 01/07/25 08:00 Pulse 113 H 01/07/25 06:21 Resp 28 H 01/07/25 05:00 BP 105/62 01/07/25 05:00 Pulse Ox 98 01/07/25 05:00 O2 Del Method Room Air 01/06/25 12:35 01/06/25 01/07/25 01/07/25 22:59 06:59 14:59 Intake Total 97.875 / 147.875 343.875 / 491.750 350 / 350 Output Total 750 / 750 Balance 97.875 / 147.875 -406.125 / -258.250 350 / 350 Weight last 48 hrs Weight 330 lb Weight 430 lb Physical Exam 2 Const: COMMON NORMALS: patient oriented x3 and alert GENERAL APPEARANCE: c ooperative and disheveled NUTRITIONAL APPEARANCE: obese O RIENTATION/CONSCIOUSNESS: Yes awake HENMT: COMMON NORMALS: oropharynx normal Neck/C-Spine: COMMON NORMALS: no JVD Resp: COMMON NORMALS: normal respiratory effort and clear to auscultation bilaterally AUSCULTATION: clear to auscultation bilaterally Cardio: COMMON NORMALS: no JVD, regular rhythm, S1 normal heart sound present, S2 normal heart sound present and No murmurs present (Cardio) RATE: t achycardic RHYTHM: regular rhythm HEART SOUNDS: S1 normal heart sound present and S2 normal heart sound present GI: COMMON NORMALS: Normal to inspection, nondistended, normoactive bowel sounds present, Soft to palpation and non-tender PALPATION: Yes Soft to palpation Extremity: COMMON NORMALS: no joint enlargement and no pedal edema Neuro: COMMON NORMALS: patient oriented x3 and moves all extremities S ENSORIUM/ORIENTATION: Yes alert OTHER: Bilateral lower-extremity weakness; able to move feet minimally; sensation intact. - Extremities: Unable to stand or transf er independently. Skin: GENERAL SKIN EXAM: no mottling LESIONS: lesion noted RASHES: r ashes noted OTHER: Extensive sacral pressure ulcer with superficial dark necrotic tissue; severe candidal intertrigo of perineum and bilateral inguinal folds; surrounding cellulitis. Urinary Catheter Management: Cason: Cath Placed During This Visit: yes Reason for Continuing Indwelling Catheter: Accurate Measurement of Urinary Output in Critically Ill Patients Urinary Catheter Date of Insertion: 01/06/25 Urinary Catheter Time of Insertion: 22:00 Data 01/07/25 02:14 01/07/25 02:14 Micro: Microbiology 01/06/25 09:43 Blood Culture - Preliminary Blood NEGATIVE TO DATE 01/06/25 14:45 Gram Stain - Final Groin 01/06/25 10:01 Blood Culture - Preliminary Blood SPECIMEN COLLECTED A&P Assessment and plan 1. Pressure ulcer of sacral region: Plan: No acute surgical intervention. Will give Ebenezer some more time to work as the necrotic apreas appears fairly superficial and we now have a cason catheter in place to help divert urine from the area. He may benefit from a fecal tube to allow for diversion of stool as well given his limited mobility. We will continue to follow closely. Continue IV antibiotics and iv hydration. Continue supportive care per ICU and hospitalist team. PDMP PDMP Reviewed: Not Reviewed Attestations 2 Medical Necessity Statement*: He still needs ICU level care given his need for vasopressors and constant turns with attention to his pressure ulcers and his need for IV antibiotics Coding Level of Care Code Acute Code for Chg Fwd Diagnoses Pressure ulcer of sacral region L89.159
[2025-01-07 11:22] LABS: Anion Gap 27.0 (5-19); Blood Urea Nitrogen 28 mg/dL (6-20); Calcium 8.0 mg/dL (8.5-10.5); Carbon Dioxide 11 mmol/L (22-29); Chloride 94 mmol/L (98-107); Creatinine Clr Calc Pharmacy 117.1905; Glucose 180 mg/dL (65-115); Osmolality Calculated 276 mOsm/kg (285-295); Potassium 4.0 mmol/L (3.5-5.1); Sodium 128 mmol/L (136-145)
[2025-01-07] MEDS: fluconazole premix 200 MG/100 ML PREMIX 100 MG IV (12:13)
--- NOTE | 2025-01-07 15:18 | PM.CONSULT ---
Providers/Reason For Consult Consulting Physician/Specialty*: Dr Ardon Reason for Consult*: Sacral Ulcer Attending Physician: Darwin Vicente History of Present Illness History of Present Illness Joey Booth is a 54 year old male Medications/Allergies Home Medications ?Medication ?Instructions ?Recorded ?Confirmed ?Last Taken ?Type acetaminophen 325 mg capsule 650 mg PO Q4H PRN Pain 12/01/20 01/06/25 08/18/21 History metformin 1,000 mg tablet 1,000 mg PO BID 12/01/20 01/06/25 01/06/25 08:00 History cefadroxil 500 mg capsule 500 mg PO BID chronic suppression 01/04/24 01/06/25 01/06/25 08:00 Rx 6 months #360 caps dulaglutide 1.5 mg/0.5 mL 1.5 mg SUBCUT Q7D 01/06/25 01/06/25 01/03/25 History subcutaneous pen injector (Trulicity) empagliflozin 25 mg tablet 25 mg PO DAILY 01/06/25 01/06/25 01/06/25 08:00 History (Jardiance) fluconazole 200 mg tablet 200 mg PO DAILY #10 tabs 01/10/25 Unknown Rx sulfamethoxazole 800 1 tab PO BID 3 days #6 tabs 01/10/25 Unknown Rx mg-trimethoprim 160 mg tablet terbinafine HCl 1 % topical cream 1 applic topical BID@0500,1700 10 01/10/25 Unknown Rx days #30 grams Allergies Allergy/AdvReac Type Severity Reaction Status Date / Time No Known Allergies Allergy Verified 06/27/23 13:45 Current Medications Generic Name Dose Route Start Last Admin Trade Name Samq PRN Reason Stop Dose Admin Collagenase 1 applic 01/06/25 18:00 01/07/25 09:29 Collagenase Oint 30 Gm TOPICAL 1 applic BID SANDIE Administration Enoxaparin Sodium 40 mg 01/06/25 15:15 01/06/25 16:14 Enoxaparin 40 Mg/0.4 Ml Syringe SUBCUT 40 mg Q24H SANDIE Administration Norepinephrine Bitartrate 4 mg in 250 mls @ 0 mls/hr 01/06/25 12:00 01/07/25 06:02 Levophed IV 0 mcg/min .Q0M SANDIE 0 mls/hr Protocol Titration Per Protocol Fluconazole 200 mg in 100 mls @ 100 mls/hr 01/06/25 13:45 01/07/25 12:13 Diflucan Premix IV 100 mls/hr Q24H SANDIE Administration Lactated Ringer's 1,000 mls @ 75 mls/hr 01/07/25 07:30 01/07/25 09:27 Lactated Ringers IV 75 mls/hr .[id number] SANDIE Administration Piperacillin Sod/Tazobactam 50 mls @ 12.5 mls/hr 01/07/25 08:00 01/07/25 09:28 Sod 3.375 gm/ Sodium Chloride IV 12.5 mls/hr Q8H SANDIE Administration Protocol Vancomycin HCl 1,500 mg in 300 mls @ 200 mls/hr 01/07/25 08:15 01/07/25 09:28 Vancocin IV 200 mls/hr Q8H SANDIE Administration Insulin Glargine 5 unit 01/06/25 15:25 01/07/25 09:52 Insulin Glargine 100 Units/1 Ml SUBCUT 5 unit DAILY SANDIE Administration Insulin Human Lispro 0 unit 01/06/25 18:00 01/07/25 12:13 Insulin Lispro 100 Unit/1 Ml SUBCUT 2 unit WM&BEDTIME SANDIE Administration Protocol Pantoprazole Sodium 40 mg 01/06/25 14:50 01/07/25 09:[address] 40 Mg Tablet PO 40 mg DAILY SANDIE Administration Terbinafine HCl 1 applic 01/06/25 18:00 01/07/25 09:29 Terbinafine 1% Cream 15 Gm TOPICAL 1 applic BID SANDIE Administration PFSH Acute PFSH: Medical History Diabetes mellitus, type II Acquired urinary meatal stenosis 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 No clear source of bacteria identified beyond urine with same organism at time. C. 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 04/2020 Surgical History S/P spinal fusion S/P laminectomy (05/23/20) T7-T11 for epidural abscess, laminectomy with partial facetectomy T7/8, T8/9, T9/10, T10/11 Family History Father , from heart attack CAD (coronary artery disease) Mother Stroke Social History Smoking and tobacco/nicotine status: never used tobacco/nicotine Alcohol intake: current Alcohol intake frequency: holidays/special occasions only Substance/Drug Use: never Housing: Assisted Vitals/I&O/Wt Last Vital Signs Temp 98.2 F 01/07/25 08:00 Pulse 103 H 01/07/25 14:00 Resp 20 H 01/07/25 14:00 BP 105/69 01/07/25 14:00 Pulse Ox 94 01/07/25 14:00 O2 Del Method Room Air 01/06/25 12:35 01/07/25 01/07/25 01/07/25 06:59 14:59 22:59 Intake Total 343.875 / 491.750 700 / 700 Output Total 750 / 750 Balance -406.125 / -258.250 700 / 700 Weight last 48 hrs Weight 330 lb Weight 330 lb Weight 430 lb Physical Exam Urinary Catheter Management: Nino: Cath Placed During This Visit: yes Reason for Continuing Indwelling Catheter: Accurate Measurement of Urinary Output in Critically Ill Patients Urinary Catheter Date of Insertion: 01/06/25 Urinary Catheter Time of Insertion: 22:00 Data 01/09/25 04:55 01/10/25 04:37 Micro: Microbiology 01/06/25 14:45 Gram Stain - Final Groin Wound Culture - Preliminary 01/06/25 10:50 Urine Culture - Preliminary Urine,Clean Catch Gram Negative Rods 01/06/25 10:01 Blood Culture - Preliminary Blood NEGATIVE TO DATE 01/06/25 09:43 Blood Culture - Preliminary Blood NEGATIVE TO DATE A&P PDMP PDMP Reviewed: Not Reviewed Coding Level of Care Code Acute Code for Chg Fwd
--- NOTE | 2025-01-07 20:05 | PC.NURSE ---
Transfer Patient transferred to [facility] via bed. All belongings with patient upon transfer, all vitals stable. Receiving nurse at bedside.
[2025-01-08] VITALS (8 sets, daily range): BP systolic 94–109; BP diastolic 53–61; PULSE 93–114; RESP 16–17; TEMP 36.8–37.2; O2SAT 94–97
[2025-01-08] MEDS: piperacillin-tazobactam 3.375 GM in sodium chloride 0.9% (plus) 50 ML IV ×3 (00:15→16:46)
[2025-01-08 05:23] LABS: Hematocrit 29.4 % (37-53); Hemoglobin 9.40 g/dL (11.27-16.99); Mean Corpuscular HGB Conc 32.0 g/dL (30-55); Mean Corpuscular Hemoglobin 24.9 pg (27-33); Mean Corpuscular Volume 78.0 fl (82-101); Nucleated Red Blood Cells % 0 %; Platelet Count 397 10^3/cmm (157-399); Red Blood Count 3.77 10^6/uL (3.85-5.65); White Blood Count 9.50 10^3/uL (3.29-11.43)
[2025-01-08 05:45] LABS: Alanine Aminotransferase 30 U/L (0-41); Albumin Level 1.9 g/dL (3.5-5.2); Alkaline Phosphatase 83 U/L (40-130); Aspartate Amino Transferase 49 U/L (0-40); Blood Urea Nitrogen 24 mg/dL (6-20); Calcium 7.6 mg/dL (8.5-10.5); Carbon Dioxide 16 mmol/L (22-29); Chloride 99 mmol/L (98-107); Creatinine Clr Calc Pharmacy 161.1370; Globulin 2.8 g/dL (1.3-4.6); Glucose 159 mg/dL (65-115); Osmolality Calculated 275 mOsm/kg (285-295); Sodium 129 mmol/L (136-145); Total Protein 4.7 g/dL (6.6-8.7)
[2025-01-08 05:50] LABS: Anion Gap 17.6 (5-19); Potassium 3.6 mmol/L (3.5-5.1)
[2025-01-08] MEDS: insulin glargine 100 units/1 mL 5 UNIT SUBCUT (09:19)
[2025-01-08] MEDS: fluconazole premix 200 MG/100 ML PREMIX 100 MG IV (15:00)
--- NOTE | 2025-01-08 16:02 | P.PN_ITS ---
Subjective 2 Subjective: He reports overall he is improving. Rash is improving. Vitals/I&O/Wt Last Vital Signs Temp 98.5 F 01/08/25 15:28 Pulse 100 01/08/25 15:28 Resp 17 01/08/25 15:28 BP 105/60 01/08/25 15:28 Pulse Ox 95 01/08/25 15:28 O2 Del Method Room Air 01/08/25 15:28 01/08/25 01/08/25 01/08/25 06:59 14:59 22:59 Intake Total 350 / 4090.25 3090 / 3090 620 / 3710 Output Total 800 / 1850 1100 / 1100 Balance -450 / 2240.25 1989 620 / 2610 Weight last 48 hrs Weight 154.76 kg Weight 149.685 kg Weight 149.685 kg Weight 149.685 kg Physical Exam 2 Const: COMMON NORMALS: patient oriented x3 and alert GENERAL APPEARANCE: c ooperative and disheveled NUTRITIONAL APPEARANCE: obese O RIENTATION/CONSCIOUSNESS: Yes awake HENMT: COMMON NORMALS: oropharynx normal Neck/C-Spine: COMMON NORMALS: no JVD Resp: COMMON NORMALS: normal respiratory effort and clear to auscultation bilaterally AUSCULTATION: clear to auscultation bilaterally Cardio: COMMON NORMALS: no JVD, regular rhythm, S1 normal heart sound present, S2 normal heart sound present and No murmurs present (Cardio) RATE: t achycardic RHYTHM: regular rhythm HEART SOUNDS: S1 normal heart sound present and S2 normal heart sound present GI: COMMON NORMALS: Normal to inspection, nondistended, normoactive bowel sounds present, Soft to palpation and non-tender PALPATION: Yes Soft to palpation Extremity: COMMON NORMALS: no joint enlargement and no pedal edema Neuro: COMMON NORMALS: patient oriented x3 and moves all extremities S ENSORIUM/ORIENTATION: Yes alert OTHER: Bilateral lower-extremity weakness; able to move feet minimally; sensation intact. - Extremities: Unable to stand or transf er independently. Skin: GENERAL SKIN EXAM: no mottling LESIONS: lesion noted RASHES: r ashes noted OTHER: Extensive sacral pressure ulcer Improving severe candidal intertrigo of perineum and bilateral inguinal folds with loss of intensity of erythema; surrounding cellulitis. Urinary Catheter Management: Nino: Cath Placed During This Visit: yes Reason for Continuing Indwelling Catheter: Acute Urinary Retention or Obstruction Urinary Catheter Date of Insertion: 01/06/25 Urinary Catheter Time of Insertion: 22:00 Data 01/08/25 04:57 01/08/25 04:57 Micro: Microbiology 01/06/25 14:45 Gram Stain - Final Groin Wound Culture - Preliminary Strep agalactiae - (group b) 01/06/25 10:50 Urine Culture - Preliminary Urine,Clean Catch Gram Negative Rods Gram Negative Rods#2 A&P Assessment and plan 1. Complicated UTI (urinary tract infection): Reviewed urine culture, noted gram-negative rods x 2. Follow-up final cultures. Noted GBS. Continue Diflucan. Will continue empiric antibiotic, continue Zosyn. - Hold chronic cefadroxil while on broader therapy 2. Cellulitis: Continue Diflucan and topical antifungal. Stop vancomycin. Reviewed wound culture. Extensive skin and soft tissue infection with sacral pressure ulcer : Unstageable sacral ulcer with necrotic tissue, surrounding cellulitis, severe candidal intertrigo. Discussed with surgery, will sign off. Continue wound care with collagenase. Follow-up with wound care clinic. Continue frequent repositioning. Improve nutrition. - Wound care: twice-daily hygiene and dressing changes with foam dressing - Apply Santyl ointment to sacral wound to debride superficial necrosis - Frequent repositioning and barrier cream to keep area dry - Topical antifungal for tinea cruris; systemic fluconazole (Diflucan) started - Consult general surgery for assessment/debridement 3. Septic shock: Septic shock resolved. Leukocytosis normalized on review of WBC. Urine culture noted with gram-negative jaime, follow-up final cultures. Wound culture noted with GBS. Will stop vancomycin. Reviewed chemistry. Reviewed blood cultures. If continue to maintain blood pressure can transfer out of ICU to medical surgical floor. Will transfer to [facility]. Discussed block and case maker and nursing. 4. Unstageable decubitus ulcer: Cussed with surgery, will sign off. Continue Santyl. Reposition frequently as per condition. Added nutrition with Glucerna shakes with consistent carb diet. Follow-up with wound care clinic Once shock improving mobilize with therapy. SNF rehabilitation being arranged with case management. 5. Kathia infection of genital region: Candidal intertrigo with severe/extensive tinea cruris. - Diflucan and will apply topical terbinafine - Control blood glucose. Keep dry. 6. DERIK (acute kidney injury): Resolving. Reviewed chemistry. Reviewed intake and output, producing urine, BUN today 31, creatinine down to 1. Improving DERIK. Monitor urine output. Nino has been placed. Reassess renal function. Continue to hold antihypertensive/diuretic. On presentation creatinine 1.6 (baseline 0.6 in 2021) likely multifactorial from sepsis, dehydration, nephrotoxic meds. Continue gentle IV hydration with LR at this time as he is still appearing dehydrated. Monitor for risk of fluid overload. - Trend creatinine and electrolytes daily - Hold lisinopril, hydrochlorothiazide, metformin, and metoprolol until renal function and blood pressure improve - Received challenge with fluid resuscitation to assist renal clearance 7. Rhabdomyolysis: Mild rhabdomyolysis : Reviewed CK noted improving 8. Hyponatremia: Reviewed sodium, noted improving up to 129. Stop LR. Continue liberalize sodium in diet. Reassess chemistry. Plan: Type 2 diabetes mellitus : Resolving mild DKA. Reviewed anion gap, bicarb. Discontinue IV hydration with LR. Continue insulin Lantus 5 units and sliding scale. Consistent carb diet. Reassess chemistry. Reviewed bicarb, anion gap, potassium, magnesium. - Continue sliding-scale insulin while inpatient. Lantus 5 units daily. - Reviewed A1C - Resume outpatient agents once hemodynamically stable and renal function allows Generalized weakness, functional decline, loss of independence: Previously living independently at home, prior to that is a long-term resident at [facility]. Over the last several days has become generally weak unable to get up from the chair. Currently treated for sepsis, septic shock as above, extensive cellulitis, UTI, DERIK, rhabdomyolysis, hyponatremia. Assessed by PT once shock is improving. With significant deconditioning likely will require shelter reach potation after discharge. Discussed with block and case maker. Consultation placed. Additionally also would benefit from formalization of DPOA paperwork for the 2 individuals she names as next of kin as above in the HPI. Hypertension : Chronic hypertension; currently hypotensive secondary to sepsis. - Hold antihypertensive medications (lisinopril, metoprolol, hydrochlorothiazide) until blood pressure stabilizes PDMP PDMP Reviewed: Not Reviewed Attestations 2 Medical Necessity Statement*: Continue admission for assessment management of complicated UTI, with extensive candidal infection, UTI, cellulitis and intertrigo, improving DERIK, hyponatremia. Post discharge planning and arrangements. and High MDM includes amount and/or complexity of data reviewed/ordered [ previous or external records, resulted lab(s)/test(s), ordered lab(s)/test(s) and other healthcare professional discussion] as documented Diagnoses Complicated UTI (urinary tract infection) N39.0 Cellulitis L03.90 Septic shock A41.9; R65.21 Unstageable decubitus ulcer L89.95 Kathia infection of genital region B37.49 DERIK (acute kidney injury) N17.9 Rhabdomyolysis M62.82 Hyponatremia E87.1
[2025-01-09] VITALS (8 sets, daily range): BP systolic 102–139; BP diastolic 58–71; PULSE 90–107; RESP 17–21; TEMP 36.3–37.4; O2SAT 94–96
[2025-01-09] MEDS: piperacillin-tazobactam 3.375 GM in sodium chloride 0.9% (plus) 50 ML IV ×3 (00:35→17:49)
[2025-01-09 05:13] LABS: Hematocrit 30.8 % (37-53); Hemoglobin 9.90 g/dL (11.27-16.99); Mean Corpuscular HGB Conc 32.1 g/dL (30-55); Mean Corpuscular Hemoglobin 24.3 pg (27-33); Mean Corpuscular Volume 75.7 fl (82-101); Platelet Count 531 10^3/cmm (157-399); Red Blood Count 4.07 10^6/uL (3.85-5.65); White Blood Count 11.04 10^3/uL (3.29-11.43)
[2025-01-09 05:36] LABS: Alanine Aminotransferase 38 U/L (0-41); Albumin Level 2.3 g/dL (3.5-5.2); Alkaline Phosphatase 92 U/L (40-130); Anion Gap 14.5 (5-19); Aspartate Amino Transferase 49 U/L (0-40); Blood Urea Nitrogen 13 mg/dL (6-20); Calcium 7.7 mg/dL (8.5-10.5); Carbon Dioxide 23 mmol/L (22-29); Chloride 98 mmol/L (98-107); Creatinine Clr Calc Pharmacy 218.8435; Globulin 2.9 g/dL (1.3-4.6); Glucose 187 mg/dL (65-115); Osmolality Calculated 279 mOsm/kg (285-295); Potassium 3.5 mmol/L (3.5-5.1); Sodium 132 mmol/L (136-145); Total Protein 5.2 g/dL (6.6-8.7)
[2025-01-09 05:52] LABS: Slide Review Slide Review Perform
[2025-01-09 05:53] LABS: Absolute Segmented Neutrophil 7.4 10/cmm (1.6-7.1); Total Cells Counted 100 (0-100)
[2025-01-09] MEDS: insulin glargine 100 units/1 mL 5 UNIT SUBCUT (08:38)
--- NOTE | 2025-01-09 13:43 | P.PN_ITS ---
Subjective 2 Subjective: He is overall improving. Denies any additional new issues. Rash is extensive, continue to improve in intensity. Some scaly dry skin is noted. Terbinafine ointment is being applied. Vitals/I&O/Wt Last Vital Signs Temp 98.3 F 01/09/25 11:39 Pulse 97 01/09/25 11:39 Resp 18 01/09/25 11:39 BP 115/71 01/09/25 11:39 Pulse Ox 96 01/09/25 11:39 O2 Del Method Room Air 01/09/25 04:00 01/08/25 01/09/25 01/09/25 22:59 06:59 14:59 Intake Total 1120 / 4210 2250 / 6460 1200 / 1200 Output Total 1950 / 3050 1400 / 4450 1000 / 1000 Balance -830 / 1160 850 / 2010 200 / 200 Weight last 48 hrs Weight 151.557 kg Weight 154.76 kg Weight 149.685 kg Physical Exam 2 Const: COMMON NORMALS: patient oriented x3 and alert GENERAL APPEARANCE: c ooperative and disheveled NUTRITIONAL APPEARANCE: obese O RIENTATION/CONSCIOUSNESS: Yes awake HENMT: COMMON NORMALS: oropharynx normal Neck/C-Spine: COMMON NORMALS: no JVD Resp: COMMON NORMALS: normal respiratory effort and clear to auscultation bilaterally AUSCULTATION: clear to auscultation bilaterally Cardio: COMMON NORMALS: no JVD, regular rhythm, S1 normal heart sound present, S2 normal heart sound present and No murmurs present (Cardio) RATE: t achycardic RHYTHM: regular rhythm HEART SOUNDS: S1 normal heart sound present and S2 normal heart sound present GI: COMMON NORMALS: Normal to inspection, nondistended, normoactive bowel sounds present, Soft to palpation and non-tender PALPATION: Yes Soft to palpation Extremity: COMMON NORMALS: no joint enlargement and no pedal edema Neuro: COMMON NORMALS: patient oriented x3 and moves all extremities S ENSORIUM/ORIENTATION: Yes alert Skin: GENERAL SKIN EXAM: no mottling LESIONS: lesion noted RASHES: r ashes noted OTHER: Extensive sacral pressure ulcer Improving severe candidal intertrigo of perineum and bilateral inguinal folds with loss of intensity of erythema; surrounding cellulitis. Urinary Catheter Management: Nino: Cath Placed During This Visit: yes Reason for Continuing Indwelling Catheter: Acute Urinary Retention or Obstruction Urinary Catheter Date of Insertion: 01/06/25 Urinary Catheter Time of Insertion: 22:00 Data 01/09/25 04:55 01/09/25 04:55 Micro: Microbiology 01/06/25 10:50 Urine Culture - Final Urine,Clean Catch Antoineobacter mikeeri 01/06/25 14:45 Gram Stain - Final Groin Wound Culture - Preliminary Strep agalactiae - (group b) A&P Assessment and plan 1. Complicated UTI (urinary tract infection): Reviewed urine culture, noted Citrobacter growing with resistance to a number of antibiotics. Continue Zosyn while inpatient. Continue Diflucan. - Hold chronic cefadroxil while on broader therapy Discussed with nursing, case briefer. 2. Cellulitis: Continue Diflucan and topical antifungal. Reviewed wound culture. Improving cellulitis, intertrigo, tinea cruris. Continue Santyl for sacral pressure ulcer with superficial necrosis. Continue frequent repositioning. Improve nutrition. Follow-up with wound care clinic. 3. Septic shock: Septic shock resolved. Leukocytosis normalized on review of WBC. Urine culture noted with gram-negative jaime, follow-up final cultures. Wound culture noted with GBS. Will stop vancomycin. Reviewed chemistry. Reviewed blood cultures. If continue to maintain blood pressure can transfer out of ICU to medical surgical floor. Will transfer to [facility]. Discussed case briefer and nursing. 4. Unstageable decubitus ulcer: Cussed with surgery, will sign off. Continue Santyl. Reposition frequently as per condition. Added nutrition with Glucerna shakes with consistent carb diet. Follow-up with wound care clinic Once shock improving mobilize with therapy. SNF rehabilitation being arranged with case management. 5. Kathia infection of genital region: Candidal intertrigo with severe/extensive tinea cruris. - Diflucan and will apply topical terbinafine - Control blood glucose. Keep dry. 6. DERIK (acute kidney injury): Resolved. Continue to hold antihypertensive/diuretic. likely multifactorial from sepsis, dehydration, nephrotoxic meds. Stopped IV hydration with LR at this time as he is still appearing dehydrated. Monitor for risk of fluid overload. - Trend creatinine and electrolytes daily - Hold lisinopril, hydrochlorothiazide, metformin, and metoprolol until renal function and blood pressure improve - Received challenge with fluid resuscitation to assist renal clearance 7. Rhabdomyolysis: Mild rhabdomyolysis : CK noted improving 8. Hyponatremia: Reviewed sodium, noted improving up to 132 Continue liberalized sodium in diet. Reassess chemistry. Plan: Type 2 diabetes mellitus : Resolved mild DKA. Reviewed anion gap, bicarb, back to normal. Stopped IV hydration with LR. Continue insulin Lantus 5 units and sliding scale. Consistent carb diet. Reassess chemistry. Reviewed bicarb, anion gap, potassium, magnesium. - Continue sliding-scale insulin while inpatient. Lantus 5 units daily. - Resume outpatient agents once hemodynamically stable and renal function allows Generalized weakness, functional decline, loss of independence: Still with weakness generalized in the lower extremities. History of severe spinal stenosis, surgery. Will assess CT lumbar spine. Previously living independently at home, prior to that is a long-term resident at [facility]. Over the last several days has become generally weak unable to get up from the chair. Currently treated for sepsis, septic shock as above, extensive cellulitis, UTI, DERIK, rhabdomyolysis, hyponatremia. Assessed by PT once shock is improving. With significant deconditioning likely will require alf reach potation after discharge. Discussed with case briefer. Consultation placed. Additionally also would benefit from formalization of DPOA paperwork for the 2 individuals she names as next of kin as above in the HPI. Hypertension : Chronic hypertension; currently hypotensive secondary to sepsis. - Hold antihypertensive medications (lisinopril, metoprolol, hydrochlorothiazide) until blood pressure stabilizes PDMP PDMP Reviewed: Not Reviewed Attestations 2 Medical Necessity Statement*: Continue admission for treatment of complicated UTI, assessment of generalized/lower extremity weakness with history of severe spinal stenosis, arrangements for SNF rehabilitation. and High MDM includes amount and/or complexity of data reviewed/ordered [ resulted lab(s)/test(s) and other healthcare professional discussion] as documented Diagnoses Complicated UTI (urinary tract infection) N39.0 Cellulitis L03.90 Septic shock A41.9; R65.21 Unstageable decubitus ulcer L89.95 Kathia infection of genital region B37.49 DERIK (acute kidney injury) N17.9 Rhabdomyolysis M62.82 Hyponatremia E87.1
--- NOTE | 2025-01-09 13:47 | CTR_ITS ---
PROCEDURE INFORMATION: Exam: CT Lumbar Spine Without Contrast Exam date and time: 01/09/2025 2:46 PM Age: 54 years old Clinical indication: Weakness; Prior surgery; Surgery date: 6+ months; Surgery type: Lumbar; Additional info: Le weakness, past surgery TECHNIQUE: Imaging protocol: Computed tomography of the lumbar spine without contrast. Radiation optimization: All CT scans at this facility use at least one of these dose optimization techniques: automated exposure control; mA and/or kV adjustment per patient size (includes targeted exams where dose is matched to clinical indication); or iterative reconstruction. COMPARISON: MR lumbar spine wo con* [id number] 12/27/2021 12:19 PM RADIATION DOSE METRICS: Total DLP (mGy-cm): 1889.64 FINDINGS: Bones/joints: Incompletely visualized posterior fusion instrumentation ending at L1 apparently for treatment and stabilization of a collapse at T9-10 with bony retropulsion into the canal. Visualized hardware is intact without screw loosening or migration. Dorsal decompression visualized at T10. No acute fractures. Normal alignment and curvature. L1-L2: No significant disc bulge or herniation. No severe spinal canal stenosis. No significant neural foraminal narrowing. L2-L3: No significant disc bulge or herniation. No severe spinal canal stenosis. No significant neural foraminal narrowing. L3-L4: Normal disc height. 2-3 mm disc bulge. Adequately patent central canal. Mild foraminal narrowing bilaterally. L4-L5: Normal disc height. 2 mm noncompressive disc bulge. Mild ligamentum flavum hypertrophy. Mild central spinal stenosis. Moderate bilateral foramina stenosis. L5-S1: Severe chronic disc space narrowing with degenerative endplate changes. Moderate bilateral facet arthrosis. Broad posterior 3 mm disc osteophyte complex. Adequately patent central canal. [id number] bilateral foraminal stenosis due to degenerative changes and disc bulge. Soft tissues: Unremarkable. CT/CT lumbar spine wo con* [id number] IMPRESSION: 1. No acute findings. 2. Multilevel lower lumbar spondylosis.
[2025-01-09] MEDS: fluconazole premix 200 MG/100 ML PREMIX 100 MG IV (17:49)
[2025-01-10] VITALS: BP 152/60; PULSE 96; RESP 17; TEMP 36.9; O2SAT 97
[2025-01-10] MEDS: piperacillin-tazobactam 3.375 GM in sodium chloride 0.9% (plus) 50 ML IV ×2 (00:06→08:15)
[2025-01-10 04:00] VITALS: BP 112/72; PULSE 91; RESP 16; TEMP 36.7; O2SAT 98
[2025-01-10 05:17] LABS: Alanine Aminotransferase 32 U/L (0-41); Albumin Level 2.2 g/dL (3.5-5.2); Alkaline Phosphatase 82 U/L (40-130); Aspartate Amino Transferase 27 U/L (0-40); Blood Urea Nitrogen 8 mg/dL (6-20); Calcium 7.6 mg/dL (8.5-10.5); Carbon Dioxide 22 mmol/L (22-29); Chloride 98 mmol/L (98-107); Creatinine Clr Calc Pharmacy 259.5872; Globulin 2.8 g/dL (1.3-4.6); Glucose 179 mg/dL (65-115); Osmolality Calculated 277 mOsm/kg (285-295); Sodium 132 mmol/L (136-145); Total Protein 5.0 g/dL (6.6-8.7)
[2025-01-10 05:18] LABS: Anion Gap 15.8 (5-19); Potassium 3.8 mmol/L (3.5-5.1)
[2025-01-10 05:52] VITALS: PULSE 106
[2025-01-10 08:10] VITALS: BP 115/68; PULSE 102; RESP 17; TEMP 36.7; O2SAT 95
[2025-01-10] MEDS: insulin glargine 100 units/1 mL 5 UNIT SUBCUT (08:16)
--- NOTE | 2025-01-10 11:08 | PM.PN ---
Subjective Subjective: He is improving. Denies any complaints apart from receiving treatment and phone calls. Vitals/I&O/Wt Last Vital Signs Temp 98.0 F 01/10/25 08:10 Pulse 102 H 01/10/25 08:10 Resp 17 01/10/25 08:10 BP 115/68 01/10/25 08:10 Pulse Ox 95 01/10/25 08:10 O2 Del Method Room Air 01/10/25 08:10 01/09/25 01/10/25 01/10/25 22:59 06:59 14:59 Intake Total 1390 / 2640 770 / 3410 200 / 200 Output Total 2000 / 3000 800 / 3800 1000 / 1000 Balance -610 / -360 -30 / -390 -800 / -800 Weight last 48 hrs Weight 150.621 kg Weight 151.557 kg Physical Exam Const: COMMON NORMALS: patient oriented x3 and alert GENERAL APPEARANCE: cooperative and disheveled NUTRITIONAL APPEARANCE: obese ORIENTATION/CONSCIOUSNESS: Yes awake HENMT: COMMON NORMALS: oropharynx normal Neck/C-Spine: COMMON NORMALS: no JVD Resp: COMMON NORMALS: normal respiratory effort and clear to auscultation bilaterally AUSCULTATION: clear to auscultation bilaterally Cardio: COMMON NORMALS: no JVD, regular rhythm, S1 normal heart sound present, S2 normal heart sound present and No murmurs present (Cardio) RATE: tachycardic RHYTHM: regular rhythm HEART SOUNDS: S1 normal heart sound present and S2 normal heart sound present GI: COMMON NORMALS: Normal to inspection, nondistended, normoactive bowel sounds present, Soft to palpation and non-tender PALPATION: Yes Soft to palpation Extremity: COMMON NORMALS: no joint enlargement and no pedal edema Neuro: COMMON NORMALS: patient oriented x3 and moves all extremities SENSORIUM/ORIENTATION: Yes alert OTHER: Unable to stand or transfer independently. Skin: GENERAL SKIN EXAM: no mottling LESIONS: lesion noted RASHES: rashes noted OTHER: Sacral pressure ulcer without any further necrotic tissue. Shallow ulceration, appears to be stage II, with healthy granulation tissue Improving severe candidal intertrigo with still extensive area but significantly diminished erythema of perineum and bilateral inguinal folds with loss of intensity of erythema. Interspersed flakes of dry skin. Urinary Catheter Management: Nino: Cath Placed During This Visit: yes Reason for Continuing Indwelling Catheter: Acute Urinary Retention or Obstruction Urinary Catheter Date of Insertion: 01/06/25 Urinary Catheter Time of Insertion: 22:00 Data 01/09/25 04:55 01/10/25 04:37 Micro: Microbiology 01/06/25 10:50 Urine Culture - Final Urine,Clean Catch Citrobacter farmeri A&P Assessment and plan 1. Complicated UTI (urinary tract infection): Reviewed urine culture, noted Citrobacter growing with resistance to a number of antibiotics. Continue Zosyn while inpatient. Discussed with him. - Hold chronic cefadroxil while on broader therapy Discussed with nursing, case consultant. Pending placement to SNF. 2. Cellulitis: Continue Diflucan and topical antifungal. Reviewed wound culture. Improving cellulitis, intertrigo, tinea cruris. Has been continuing on Santyl for sacral pressure ulcer with superficial necrosis which is significantly improved without further necrosis noted. Continue frequent repositioning. Discontinue Santyl. Supplement nutrition. Follow-up with wound care clinic. 3. Unstageable decubitus ulcer: Cussed with surgery, will sign off. Continue Santyl. Reposition frequently as per condition. Added nutrition with Glucerna shakes with consistent carb diet. Follow-up with wound care clinic Once shock improving mobilize with therapy. SNF rehabilitation being arranged with case management. 4. Kathia infection of genital region: Candidal intertrigo with severe/extensive tinea cruris. - Diflucan and will apply topical terbinafine - Control blood glucose. Keep dry. 5. Septic shock: Septic shock resolved. Leukocytosis normalized on review of WBC. Urine culture noted with gram-negative jaime, follow-up final cultures. Wound culture noted with GBS. Will stop vancomycin. Reviewed chemistry. Reviewed blood cultures. If continue to maintain blood pressure can transfer out of ICU to medical surgical floor. Will transfer to [facility]. Discussed case consultant and nursing. 6. DERIK (acute kidney injury): Resolved. Continue to hold antihypertensive/diuretic. likely multifactorial from sepsis, dehydration, nephrotoxic meds. Stopped IV hydration with LR at this time as he is still appearing dehydrated. Monitor for risk of fluid overload. - Hold lisinopril, hydrochlorothiazide, metformin, and metoprolol until renal function and blood pressure improve 7. Rhabdomyolysis: Resolved 8. Hyponatremia: Reviewed sodium, noted improving up to 132 Continue liberalized sodium in diet. Reassess chemistry. Plan: Type 2 diabetes mellitus : Resolved mild DKA. Reviewed anion gap, bicarb, back to normal. Stopped IV hydration with LR. Continue insulin Lantus, increase to 7 units and sliding scale. Consistent carb diet. Reassess chemistry. Reviewed bicarb, anion gap, potassium, magnesium. - Resume outpatient agents once hemodynamically stable and renal function allows Generalized weakness, functional decline, loss of independence: Pending placement to SNF. Discussed with case consultant. Still with weakness generalized in the lower extremities. History of severe spinal stenosis, surgery. Reviewed CT lumbar spine and discussed with him, noted multilevel lumbar spondylosis without acute findings. Previously living independently at home, prior to that is a long-term resident at [facility]. Over the last several days has become generally weak unable to get up from the chair. Currently treated for sepsis, septic shock as above, extensive cellulitis, UTI, DERIK, rhabdomyolysis, hyponatremia. Assessed by PT once shock is improving. With significant deconditioning likely will require skilled nursing reach potation after discharge. Discussed with case consultant. Consultation placed. Additionally also would benefit from formalization of DPOA paperwork for the 2 individuals she names as next of kin as above in the HPI. Hypertension : Chronic hypertension; currently soft BP, initially hypotensive secondary to sepsis. - Hold antihypertensive medications (lisinopril, metoprolol, hydrochlorothiazide), may not need to resume all of them PDMP PDMP Reviewed: Not Reviewed Attestations Medical Necessity Statement*: Continue hospitalization for assessment and management after complicated GI, extensive cellulitis, candidal intertrigo and tinea cruris, new unstageable decubitus ulcer, generalized weakness with degenerative spine disease as well as deconditioning, pending SNF rehabilitation. and High MDM includes amount and/or complexity of data reviewed/ordered [ resulted lab(s)/test(s), ordered lab(s)/test(s) and other healthcare professional discussion] as documented Diagnoses Complicated UTI (urinary tract infection) N39.0 Cellulitis L03.90 Unstageable decubitus ulcer L89.95 Kathia infection of genital region B37.49 Septic shock A41.9; R65.21 DERIK (acute kidney injury) N17.9 Rhabdomyolysis M62.82 Hyponatremia E87.1
[2025-01-10 12:00] VITALS: BP 118/70; PULSE 86; RESP 16; TEMP 36.8; O2SAT 95
--- NOTE | 2025-01-10 12:33 | PM.DCS ---
Discharge Providers Date of Admission: 01/06/25 11:39 Date of Discharge: January 10, 2025 Attending Provider at Admission: Darwin Vicente Attending Provider at Discharge: Darwin Vicente Diagnoses at Discharge Discharge Diagnosis 1. Complicated UTI (urinary tract infection): 2. Cellulitis: 3. Unstageable decubitus ulcer: 4. Kathia infection of genital region: 5. Septic shock: 6. DERIK (acute kidney injury): 7. Rhabdomyolysis: 8. Hyponatremia: Reason for Visit Reason for Visit: uti Brief History: Joey Booth is a 54 year old gentleman with a history of urinary meatal stenosis, prior epidural abscess with spinal cord compression (status post evacuation and intravenous antibiotics in 2019), type 2 diabetes mellitus, hypertension, prior Clostridioides difficile infection, and bilateral lower-extremity paralysis who presents after one week of worsening weakness culminating in inability to rise from a chair or transfer to his wheelchair. Home health aides (present five days weekly) noted marked functional decline over the weekend; the patient ultimately called emergency medical services (EMS) himself. He reports urinary incontinence thought to be related to immobility and observes pus in the urine. He denies back pain, chest pain, shortness of breath, or gastrointestinal bleeding. Low-grade fever was suspected at home but not documented. He describes new foul odor and dark discoloration of skin at the sacrum. Redness and maceration of groin, and perineum, genitals over the past week. No prior similar skin problems. He has been ambulating with assistance before this episode. No known episodes of diabetic ketoacidosis (DKA). No allergies reported. [id number] discussion held; he would accept full medical therapy but does not want cardiopulmonary resuscitation (DNR) and identified friend Jeanie Melgar as potential surrogate decision-maker [phone]. And Kirsten Vogt as an alternative [phone]. Hospital Course Hospital Course He received fluid resuscitation, pressor support for shock, combination of septic, hypovolemic, was treated empirically with Diflucan and topical terbinafine with extensive candidal intertrigo as well as severe tinea cruris with UTI and superimposed secondary cellulitis Zosyn, vancomycin. Urine culture eventually growing Citrobacter farmeri, skin culture eventually growing GBS. With noted unstageable sacral ulcer, was assessed by surgery, not found to require sharp debridement at current time, treated with Santyl with good improvement, with continued RADHA care, repositioning, and addition of protein shakes. DERIK, hyponatremia improved and mild rhabdomyolysis resolved with rehydration. Sepsis and septic shock resolved. Extensive cellulitis significantly improving still extensive area but significantly better/diminished intensity. Shallow sacral ulcer with exposed dermis, healthy appearing granulation tissue. With lower extremity, generalized weakness, deconditioning, but also with history of chronic spine problems with some incontinence noted, assessed by CT spine with finding of multilevel lower lumbar spondylosis without acute findings. With shock on presentation antihypertensives are discontinued as blood pressure still within target, 118/70. He will complete antibiotic course with Bactrim and resume cefadroxil. Resume diabetic medications, continue to optimize control. He is going on for further rehabilitation at [facility] and follow-up as requested with wound care clinic. Please follow-up active conditions, assist him with weight loss and continue to optimize chronic problems. Physical Exam Const: COMMON NORMALS: patient oriented x3 and alert GENERAL APPEARANCE: cooperative and disheveled NUTRITIONAL APPEARANCE: obese ORIENTATION/CONSCIOUSNESS: Yes awake HENMT: COMMON NORMALS: oropharynx normal Neck/C-Spine: COMMON NORMALS: no JVD Resp: COMMON NORMALS: normal respiratory effort and clear to auscultation bilaterally AUSCULTATION: clear to auscultation bilaterally Cardio: COMMON NORMALS: no JVD, regular rhythm, S1 normal heart sound present, S2 normal heart sound present and No murmurs present (Cardio) RATE: tachycardic RHYTHM: regular rhythm HEART SOUNDS: S1 normal heart sound present and S2 normal heart sound present GI: COMMON NORMALS: Normal to inspection, nondistended, normoactive bowel sounds present, Soft to palpation and non-tender PALPATION: Yes Soft to palpation Extremity: COMMON NORMALS: no joint enlargement and no pedal edema Neuro: COMMON NORMALS: patient oriented x3 and moves all extremities SENSORIUM/ORIENTATION: Yes alert OTHER: Unable to stand or transfer independently. Skin: GENERAL SKIN EXAM: no mottling LESIONS: lesion noted RASHES: rashes noted OTHER: Sacral pressure ulcer without any further necrotic tissue. Shallow ulceration, appears to be stage II, with healthy granulation tissue Improving severe candidal intertrigo with still extensive area but significantly diminished erythema of perineum and bilateral inguinal folds with loss of intensity of erythema. Interspersed flakes of dry skin. Urinary Catheter Management: Nino: Cath Placed During This Visit: yes Reason for Continuing Indwelling Catheter: Acute Urinary Retention or Obstruction Urinary Catheter Date of Insertion: 01/06/25 Urinary Catheter Time of Insertion: 22:00 Discharge Data Studies Completed and Pending Completed Studies During Hospitalization Category Date Time Status CT abdomen pelvis w con* [id number] Stat Cat Scan 01/06/25 09:[address] lumbar spine wo con* [id number] Routine Cat Scan 01/09/25 13:47 Completed XR chest 1V portable [id number] Urgent Exams 01/06/25 09:11 Completed Pending at discharge Category Date Time Status Basic Metabolic Panel AM LABS Lab 01/11/25 04:00 Ordered Blood Culture Stat Lab 01/06/25 10:01 Results CBC Auto Diff [Complete Blood Count w/Auto] AM LABS Lab 01/11/25 04:00 Ordered Fungal Culture Hair/Skin/Nail Routine Lab 01/06/25 14:45 Received Wound Culture and Gram Stain Routine Lab 01/06/25 14:45 Results Radiology Impressions Abdomen/Pelvis CT 01/06/25 09:11 IMPRESSION: 1. Diffuse bladder wall thickening compatible with cystitis. 2. Cellulitis in the visualized pannus. 3. Enlarged LEFT greater than RIGHT inguinal lymph nodes likely reactive. 4. Fatty liver with hepatomegaly. 5. Small esophageal hiatal hernia. Chest X-Ray 01/06/25 09:11 IMPRESSION: 1. Minimal linear opacities in the lung bases could represent atelectasis versus parenchymal scarring. 2. Mild uncoiling of the thoracic aorta Lumbar Spine CT 01/09/25 13:47 IMPRESSION: 1. No acute findings. 2. Multilevel lower lumbar spondylosis. Laboratory Results WBC 11.04 10^3/uL (3.29-11.43) 01/09/25 04:55 RBC 4.07 10^6/uL (3.85-5.65) 01/09/25 04:55 Hgb 9.90 g/dL (11.27-16.99) L 01/09/25 04:55 Hct 30.8 % (37-53) L 01/09/25 04:55 MCV 75.7 fl (82-101) L 01/09/25 04:55 MCH 24.3 pg (27-33) L 01/09/25 04:55 MCHC 32.1 g/dL (30-55) 01/09/25 04:55 RDW 16.7 % (12.1-15.1) H 01/09/25 04:55 Plt Count 531 10^3/cmm (157-399) H D 01/09/25 04:55 MPV 8.8 fL (7.4-10.4) 01/09/25 04:55 Neut % (Auto) 76.3 % 01/08/25 04:57 Lymph % (Auto) Not Reportable 01/09/25 04:55 Stevens % (Auto) Not Reportable 01/09/25 04:55 Eos % (Auto) 5.6 % 01/08/25 04:57 Baso % (Auto) 0.4 % 01/08/25 04:57 Neut # (Auto) 7.25 10^3/uL (1.8-7.7) 01/08/25 04:57 Lymph # (Auto) Not Reportable 01/09/25 04:55 Stevens # (Auto) Not Reportable 01/09/25 04:55 Eos # (Auto) 0.5 10^3/uL (0.0-0.8) 01/08/25 04:57 Baso # (Auto) 0.0 10^3/uL (0.0-0.1) 01/08/25 04:57 Nucleated RBC % (auto) 0 % 01/08/25 04:57 Total Counted 100 (0-100) 01/09/25 04:55 Atypical Lymphs % Not Reportable 01/09/25 04:55 Segmented Neutrophils 67 % 01/09/25 04:55 Band Neutrophils Not Reportable 01/09/25 04:55 Absolute Lymphocytes 1.8 10^3/cmm (1.2-3.4) 01/09/25 04:55 Lymphocytes (Manual) 14 % 01/09/25 04:55 Monocytes (Manual) 3.0 % 01/09/25 04:55 Absolute Monocytes 0.3 10^3/cmm (0.1-0.6) 01/09/25 04:55 Eosinophils (Manual) 10 % 01/09/25 04:55 Absolute Eosinophils 1.1 10^3/cmm (0.0-0.7) H 01/09/25 04:55 Basophils (Manual) 0.0 % 01/09/25 04:55 Absolute Basophils 0.0 10^3/cmm (0.0-0.2) 01/09/25 04:55 Metamyelocytes 2.0 % 01/09/25 04:55 Myelocytes 4.0 % 01/09/25 04:55 Nucleated RBCs # 0.0 /100WBC 01/08/25 04:57 Platelet Estimate Increased (Normal) 01/09/25 04:55 Specimen Type Venous 01/06/25 15:15 Sample Site Not specified 01/06/25 15:15 Ge Test N/a 01/06/25 15:15 VBG pH 7.26 (7.32-7.42) L 01/06/25 15:15 VBG pCO2 30.1 mmHg (41-51) L 01/06/25 15:15 VBG pO2 120.0 mmHg (25-40) H 01/06/25 15:15 VBG HCO3 13.4 mmol/L (24-28) L 01/06/25 15:15 VBG Base Excess -12.5 mmol/L (-3.0-3.0) L 01/06/25 15:15 VBG Hematocrit 32.5 % (42-52) L 01/06/25 15:15 O2 Delivery Device None 01/06/25 15:15 FiO2 21.0 % 01/06/25 15:15 Transformer Stock Clerk ID Gd 01/06/25 15:15 Sodium 132 mmol/L (136-145) L 01/10/25 04:37 Potassium 3.8 mmol/L (3.5-5.1) 01/10/25 04:37 Chloride 98 mmol/L (98-107) 01/10/25 04:37 Carbon Dioxide 22 mmol/L (22-29) 01/10/25 04:37 Anion Gap 15.8 (5-19) 01/10/25 04:37 BUN 8 mg/dL (6-20) 01/10/25 04:37 Creatinine 0.5 mg/dL (0.7-1.2) L 01/10/25 04:37 GFR Calculation 172.6 mL/min (90-130) H 01/10/25 04:37 Glucose 179 mg/dL (65-115) H 01/10/25 04:37 POC Glucose 221 mg/dL (70-110) H 01/10/25 11:06 Estimat Average Glucose 160 01/06/25 09:43 Hemoglobin A1c 7.2 % (4.0-6.0) H 01/06/25 09:43 Calculated Osmolality 277 mOsm/kg (285-295) L 01/10/25 04:37 Lactic Acid 2.6 mmol/L (0.5-2.2) H 01/06/25 09:43 Lactic Acid (Sepsis) 1.9 mmol/L (0.5-2.2) 01/06/25 13:09 Calcium 7.6 mg/dL (8.5-10.5) L 01/10/25 04:37 Magnesium 2.2 mg/dL (1.7-2.3) 01/06/25 15:15 Total Bilirubin 0.3 mg/dL (0.15-1.2) 01/10/25 04:37 AST 27 U/L (0-40) 01/10/25 04:37 ALT 32 U/L (0-41) 01/10/25 04:37 Alkaline Phosphatase 82 U/L (40-130) 01/10/25 04:37 Creatine Kinase 770 U/L (39-308) H* 01/07/25 02:14 C-Reactive Protein 262.3 mg/L (0.0-4.9) H 01/06/25 09:43 NT-Pro-B Natriuret Pep 103 pg/mL (0-125) 01/06/25 09:43 Total Protein 5.0 g/dL (6.6-8.7) L 01/10/25 04:37 Albumin 2.2 g/dL (3.5-5.2) L 01/10/25 04:37 Globulin 2.8 g/dL (1.3-4.6) 01/10/25 04:37 Procalcitonin 2.10 ng/mL (0-0.5) H 01/06/25 09:43 Urine Color Bennett (Yellow) A 01/06/25 10:50 Urine Appearance Cloudy (CLEAR) A 01/06/25 10:50 Urine pH 5.0 (5-7) 01/06/25 10:50 Ur Specific [place] 1.022 (1.005-1.030) 01/06/25 10:50 Urine Protein 2+ (Negative) A 01/06/25 10:50 Urine Glucose (UA) 2+ (Normal) H 01/06/25 10:50 Urine Ketones 1+ (Negative) H 01/06/25 10:50 Urine Blood Non-haemolysed trace (Negative) 01/06/25 10:50 Urine Nitrate Positive (Negative) A 01/06/25 10:50 Urine Bilirubin 2+ (Negative) H 01/06/25 10:50 Urine Urobilinogen 1.0 mg/dL (Negative) 01/06/25 10:50 Ur Leukocyte Esterase 3+ (Negative) A 01/06/25 10:50 Urine RBC 6-10 /hpf (0-2) 01/06/25 10:50 Urine WBC >100 /hpf (0-5) H 01/06/25 10:50 Ur Squamous Epith Cells 0-5 /hpf (0-5) 01/06/25 10:50 Amorphous Sediment Not Reportable 01/06/25 10:50 Urine Bacteria 4+ /hpf (NONE) H 01/06/25 10:50 Hyaline Casts 1.65 /lpf 01/06/25 10:50 Urine Yeast 1+ /hpf H 01/06/25 10:50 Ur Random Sodium 55 mmol/L 01/06/25 10:50 Ur Random Urea Nitrogn 138 mg/dL 01/06/25 10:50 Urine Creatinine 192 mg/dL (39-259) 01/06/25 10:50 Vancomycin Trough 21.5 ug/mL (10-15) H 01/08/25 14:49 Serum Ketones Positive (Negative) H 01/06/25 09:43 Vitals Last Vital Signs Temp 98.3 F 01/10/25 12:00 Pulse 86 01/10/25 12:00 Resp 16 01/10/25 12:00 BP 118/70 01/10/25 12:00 Pulse Ox 95 01/10/25 12:00 O2 Del Method Room Air 01/10/25 12:00 Discharge Plan Discharge Patient Disposition: Xfer SNF Condition: Stable Prescriptions: New terbinafine HCl 1 % Cream 1 applic topical BID@0500,1700 10 Days Qty: 30 0RF fluconazole 200 mg tablet 200 mg PO DAILY Qty: 10 0RF sulfamethoxazole-trimethoprim 800-160 mg tablet 1 tab PO BID 3 Days Qty: 6 0RF Continued metformin 1,000 mg tablet 1,000 mg PO BID acetaminophen 325 mg capsule 650 mg PO Q4H PRN (Reason: Pain) cefadroxil 500 mg capsule 500 mg PO BID 180 Days Qty: 360 3RF Jardiance 25 mg tablet 25 mg PO DAILY Trulicity 1.5 mg/0.5 mL pen injector 1.5 mg SUBCUT Q7D Discontinued Triple Antibiotic 3.5mg-400 unit- 5,000 unit/gram ointment 1 applic topical DAILY Qty: 30 0RF metoprolol tartrate 50 mg tablet 50 mg PO BID lisinopril-hydrochlorothiazide 10-12.5 mg tablet 1 tab PO DAILY Discharge Order = DC NOW: Discharge Order (Routine); Ordered 01/10/25 Ordered By: Darwin Vicente Referrals: Rakel Kendall MD [Staff Physician, Family Practice] - 4-7 days Abraham Marie MD [Physician, Wound Care] - 1 week Referral Note: extensive intertrigo, new sacral decub Discharge Diet: Diabetic Discharge Activity: As per PT/OT instructions Patient Instructions: Opioid Safety, Patient Portal & Irvin Instructions Activity Restrictions/Additional Instructions: Completing to better course for urinary tract infection, resume cefadroxil. Complete Diflucan and terbinafine course for extensive candidal intertrigo, severe tinea cruris. Continue RADHA care, frequent repositioning, keep dry for sacral ulcer. Mobilize with PT. Follow-up with wound care clinic. Follow-up with primary provider for reassessment of deconditioning as well as chronic degenerative spine disease. Follow-up for assessment after complicated UTI. Incidentally noted left greater than right inguinal lymph nodes likely reactive. Fatty liver with hepatomegaly. Avoid sodium restriction, reassess sodium after improved hyponatremia. Continue to optimize diabetes control, A1c noted 7.2. Antihypertensives were discontinued for now due to soft blood pressures and no requirement for it hypertensive, initial DERIK on presentation. Discharge Attestations Time Spent in Discharge Care*: greater than 30 min Status at Discharge: Cognitive status at discharge: cognitively intact, Behavioral status at discharge: cooperative, Quality Metrics Clinical Quality Measures [ No reported AMI, CVA or VTE this stay] Coding Level of Care Code 02618 Total time (in minutes) for Discharge: 50 Diagnoses Complicated UTI (urinary tract infection) N39.0 Cellulitis L03.90 Unstageable decubitus ulcer L89.95 Kathia infection of genital region B37.49 Septic shock A41.9; R65.21 DERIK (acute kidney injury) N17.9 Rhabdomyolysis M62.82 Hyponatremia E87.1
--- NOTE | 2025-01-10 13:45 | PC.NURSE ---
Report called to Catalina Villafuerte in [place]
--- NOTE | 2025-01-10 14:38 | PC.NURSE ---
Jordon oconnell arrived to transport [facility]
[2025-01-10 14:39] VITALS: BP 118/70; PULSE 98; O2SAT 98
== END 2025-01-10 14:40 | disposition skilled nursing facility (03) | DRG 871 ==
LOC: ER 11:28 → ICU 11:39 → MEDSURG 01-07 20:10
PROVIDERS: Admitting Provider Internal Medicine; Emergency Provider Physician Assistant; Visit Provider Internal Medicine
DX: A41.9 Sepsis, unspecified organism (principal); R65.21 Severe sepsis with septic shock; L03.319 Cellulitis of trunk, unspecified; N17.9 Acute kidney failure, unspecified; M62.82 Rhabdomyolysis; E87.1 Hypo-osmolality and hyponatremia; G82.20 Paraplegia, unspecified; E87.20 Acidosis, unspecified; Z68.41 Body mass index [BMI] 40.0-44.9, adult; N30.90 Cystitis, unspecified without hematuria; L89.152 Pressure ulcer of sacral region, stage 2; B37.2 Candidiasis of skin and nail; L30.4 Erythema intertrigo; B95.1 Streptococcus, group B, as the cause of diseases classified elsewhere; I10 Essential (primary) hypertension; E86.1 Hypovolemia; B35.6 Tinea cruris; E11.65 Type 2 diabetes mellitus with hyperglycemia; Z66 Do not resuscitate; N35.911 Unspecified urethral stricture, male, meatal; E66.9 Obesity, unspecified; M47.816 Spondylosis without myelopathy or radiculopathy, lumbar region; Z98.1 Arthrodesis status; Z79.85 Long-term (current) use of injectable non-insulin antidiabetic drugs; Z79.84 Long term (current) use of oral hypoglycemic drugs
CPT/HCPCS: 36415; 36416; 51702; 71045; 72131; 74177; 80048; 80053; 80202; 81001; 82009; 82550; 82570; 82803; 82962; 83036; 83605; 83735; 83880; 84145; 84295; 84300; 84540; 85007; 85025; 86140; 87040; 87070; 87075; 87077; 87086; 87186; 87205; 96365; 96367; 96372; 97162; 97530; 99285; J1450; J1650; J1815; J2543; J3373; J7030; J7040; J7120; J9999